=== PATIENT | male | born 1965 | race African-American/Black ===

== ENCOUNTER 2016-08-30 02:44 | Inpatient (IN) | payer MEDICAID ==
[~2016-08-30] VITALS: Ht 188 cm; Wt 104.1 kg
[~2016-08-30 02:44] MED LIST: ASPI81CH43 PO; ENA2.5T PO; FUR40T PO; FURO40TA PO; METO25TA3 PO; POTA8TAB2 PO
[2016-08-30 04:11] LABS: Basophils # (auto) 0 uL; Basophils % (auto) 0.6 % (0.0-2.0); DEFINITIVE VIEW TRANSMISSION; Eosinophils # (auto) 0.1 uL; Eosinophils % (auto) 2.1 % (0.0-7.0); Hematocrit 43.3 % (41.0-53.0); Hemoglobin 13.6 g/dL (13.5-17.5); Lymphocytes # (auto) 1.7 uL; Lymphocytes % (auto) 25.5 % (10.0-50.0); Mean Corpuscular Hemoglobin 26.6 pg (28.0-32.0); Mean Corpuscular Hgb Conc. 31.5 g/dL (32.0-36.0); Mean Corpuscular Volume 84.6 fL (80.0-100.0); Mean Platelet Volume 9.2 fL (7.4-10.4); Monocytes # (auto) 0.6 uL; Monocytes % (auto) 8.9 % (0.0-12.0); Neutrophils # (auto) 4.1 uL; Neutrophils % (auto) 62.9 % (37.0-80.0); Platelet Count (auto) 295 10^3/uL (140-450); Red Cell Distribution Width 18.6 % (11.6-16.0); White Blood Cell 6.6 10^3/uL (4.4-10.8)
[2016-08-30 04:24] LABS: Albumin 2.9 g/dL (3.4-5.0); BUN/Creatinine Ratio 8.7; Calcium 8.2 mg/dL (8.5-10.1); Potassium 3.6 mmol/L (3.5-5.1)
[2016-08-30 04:29] LABS: Bilirubin, Total 0.5 mg/dL (0.2-1.0); Total Protein 7.3 g/dL (6.4-8.2)
[2016-08-30 05:08] LABS: B-Type Natriuretic Peptide 724.99 pg/mL (0-100)
[2016-08-30] MEDS ORDERED: SODIUM CHLORIDE 0.9% 1,000 ML IV ONE (08:39)
[2016-08-30] MEDS ORDERED: FUROSEMIDE 40 MG/4 ML VIAL IV ONE (08:45)
[2016-08-30] MEDS ORDERED: METOCLOPRAMIDE HCL 5MG/ml INJ 2ml VIAL IV ONE (08:45)
[2016-08-30] MEDS ORDERED: KETOROLAC TROMETH 30 MG/ML 1ML VIAL IV ONE (08:45)
[2016-08-30] MEDS ORDERED: cefTRIAXone 1GM/50ML D5W 50 ML IV ONE (08:45)
[2016-08-30] MEDS ORDERED: LACTULOSE 20Gm/30ML SOLN PO PRN (10:30)
[2016-08-30] MEDS ORDERED: LORazepam 0.5 MG TAB PO PRN (10:30)
[2016-08-30] MEDS ORDERED: ALBUTEROL SULF 2.5 MG/0.5ML(0.5%) NEB SOLN NEB PRN (10:30)
[2016-08-30] MEDS ORDERED: ACETAMINOPHEN 500 MG TAB PO PRN (10:30)
[2016-08-30] MEDS ORDERED: MORPHINE SULF INJ 2 MG/ML SYRINGE 1ML IV PRN ×2 (10:30)
[2016-08-30] MEDS ORDERED: TEMAZEPAM 15 MG CAP PO PRN (10:30)
[2016-08-30] MEDS ORDERED: NITROGLYCERIN 0.4 MG SL TAB SL PRN (10:30)
[2016-08-30] MEDS: ENOXAPARIN SOD 40 MG/0.4 ML SYRINGE SC SCH (10:45)
[2016-08-30 10:59] VITALS: BP 169/119
[2016-08-30] MEDS: ASPirin 81 mg TAB PO SCH (11:25)
[2016-08-30] MEDS: POTASSIUM CHL 20 Meq TABLET PO SCH (11:25)
[2016-08-30] MEDS: NITROGLYCERIN 0.2MG/HR TOPICAL PATCH TD SCH (11:25)
[2016-08-30] MEDS: PANTOPRAZOLE 40 MG TAB PO SCH (11:25)
[2016-08-30] MEDS: METOPROLOL SUCCINATE XL 50 MG TAB PO SCH (11:26)
[2016-08-30] MEDS: ENALAPRIL MALEATE 2.5 MG TAB PO SCH (11:26)
[2016-08-30] MEDS: LEVOFLOXACIN 500MG 100 ML IV SCH (11:27)
[2016-08-30] MEDS: ALBUTEROL SULF 2.5 MG/0.5ML(0.5%) NEB SOLN NEB SCH ×2 (12:00→18:14)
[2016-08-30 12:49] VITALS: BP 131/101
[2016-08-30 15:06] VITALS: BP 131/101
[2016-08-30 15:50] VITALS: BP 121/88
[2016-08-30] MEDS: HYDROcodone-ACET 5/325MG TAB PO PRN ×2 (16:49→22:23)
[2016-08-30] MEDS: FUROSEMIDE 40 MG/4 ML VIAL IV SCH (17:45)
[2016-08-30 21:48] VITALS: BP 139/92
[2016-08-31] MEDS: ALBUTEROL SULF 2.5 MG/0.5ML(0.5%) NEB SOLN NEB SCH ×3 (00:19→19:20)
[2016-08-31] MEDS: PROMETHAZINE HCL 25 MG/ML 1ML IV PRN (00:24)
[2016-08-31 04:30] VITALS: BP 121/91
[2016-08-31] MEDS: FUROSEMIDE 40 MG/4 ML VIAL IV SCH (05:49)
[2016-08-31] MEDS: HYDROcodone-ACET 5/325MG TAB PO PRN ×3 (05:55→21:53)
[2016-08-31 06:42] LABS: Albumin 2.9 g/dL (3.4-5.0); BUN/Creatinine Ratio 14.7; Bilirubin, Total 0.7 mg/dL (0.2-1.0); Calcium 8.4 mg/dL (8.5-10.1); Potassium 3.9 mmol/L (3.5-5.1); Total Protein 6.7 g/dL (6.4-8.2)
[2016-08-31 07:01] LABS: B-Type Natriuretic Peptide 1313.94 pg/mL (0-100); Temperature: 21.6 C (20.0-25.0)
[2016-08-31 08:00] VITALS: BP 124/91
[2016-08-31 08:32] VITALS: BP 124/91
[2016-08-31] MEDS: LEVOFLOXACIN 500MG 100 ML IV SCH (09:54)
[2016-08-31] MEDS: POTASSIUM CHL 20 Meq TABLET PO SCH (09:55)
[2016-08-31] MEDS: ASPirin 81 mg TAB PO SCH (09:55)
[2016-08-31] MEDS: ENALAPRIL MALEATE 2.5 MG TAB PO SCH (09:55)
[2016-08-31] MEDS: PANTOPRAZOLE 40 MG TAB PO SCH (09:55)
[2016-08-31] MEDS: ENOXAPARIN SOD 40 MG/0.4 ML SYRINGE SC SCH (09:55)
[2016-08-31] MEDS: NITROGLYCERIN 0.2MG/HR TOPICAL PATCH TD SCH (09:56)
[2016-08-31] MEDS: METOPROLOL SUCCINATE XL 50 MG TAB PO SCH (09:57)
[2016-08-31] MEDS ORDERED: ENOXAPARIN SOD 40 MG/0.4 ML SYRINGE SC SCH (10:00)
[2016-08-31 12:21] VITALS: BP 129/105
[2016-08-31] MEDS: HEPARIN SODIUM (PORCINE) 5000 UNITS/ML 1ML VIAL SC SCH ×2 (13:36→22:00)
[2016-08-31 16:29] VITALS: BP 131/99
[2016-08-31 22:00] VITALS: BP 134/102
[2016-09-01] MEDS: ALBUTEROL SULF 2.5 MG/0.5ML(0.5%) NEB SOLN NEB SCH ×4 (00:45→11:48)
[2016-09-01] MEDS: HEPARIN SODIUM (PORCINE) 5000 UNITS/ML 1ML VIAL SC SCH ×3 (06:00→22:29)
[2016-09-01 06:30] LABS: INR 1.43 (0.9-1.15); Prothrombin Time 14.7 sec (9.37-12.3)
[2016-09-01 06:41] LABS: BUN/Creatinine Ratio 17.6; Calcium 8.4 mg/dL (8.5-10.1)
[2016-09-01] MEDS ORDERED: LIDOCAINE 2%HCL (LOCAL ANESTH.) INJ 20ML MDV ONE (07:27)
[2016-09-01] MEDS ORDERED: IOHEXOL 350 MG/ML 100ML IJ ONE (07:27)
[2016-09-01] MEDS ORDERED: MIDAZOLAM HCL 1MG/1ML-2 ML VIAL ONE (08:01)
[2016-09-01] MEDS ORDERED: fentaNYL CITRATE 100 MCG/2 ML VL ONE (08:01)
[2016-09-01] MEDS ORDERED: EPTIFIBATIDE INJ (2MG/ML) 10ML VIAL IV ONE (08:02)
[2016-09-01] MEDS ORDERED: SODIUM CHL 0.9% 0 ML ONE (08:02)
[2016-09-01] MEDS ORDERED: ANGIOMAX 250 MG VIAL IV ONE (08:02)
[2016-09-01] MEDS: ASPirin 81 mg TAB PO SCH (09:46)
[2016-09-01] MEDS: FUROSEMIDE 20 MG TAB PO SCH (09:47)
[2016-09-01] MEDS: METOPROLOL SUCCINATE XL 50 MG TAB PO SCH ×2 (09:48→22:27)
[2016-09-01] MEDS: ENALAPRIL MALEATE 2.5 MG TAB PO SCH ×2 (09:48→22:26)
[2016-09-01] MEDS ORDERED: SODIUM CHLORIDE 0.9% 1,000 ML IV SCH (09:51)
[2016-09-01] MEDS ORDERED: ACETAMINOPHEN 500 MG TAB PO PRN (10:00)
[2016-09-01] MEDS ORDERED: ONDANSETRON HCL 4 MG/2 ML VIAL IV PRN (10:00)
[2016-09-01] MEDS: SPIRONOLACTONE 25 MG TAB PO SCH (10:00)
[2016-09-01] MEDS: LEVOFLOXACIN 500MG 100 ML IV SCH (12:44)
[2016-09-01] MEDS: PANTOPRAZOLE 40 MG TAB PO SCH (12:44)
[2016-09-01] MEDS: POTASSIUM CHL 20 Meq TABLET PO SCH (12:44)
[2016-09-01 13:01] VITALS: BP 150/109
[2016-09-01 17:00] VITALS: BP 139/106
[2016-09-01 20:00] VITALS: BP 117/87
[2016-09-01 22:15] VITALS: BP 117/87
[2016-09-01] MEDS: HYDROcodone-ACET 5/325MG TAB PO PRN (23:09)
[2016-09-01] MEDS: ZOLPIDEM TARTRATE 5 MG TAB PO PRN (23:10)
[2016-09-02 05:07] VITALS: BP 123/86
[2016-09-02] MEDS: ALBUTEROL SULF 2.5 MG/0.5ML(0.5%) NEB SOLN NEB SCH ×4 (06:00→19:03)
[2016-09-02 06:19] LABS: Basophils # (auto) 0 uL; Basophils % (auto) 0.4 % (0.0-2.0); DEFINITIVE VIEW TRANSMISSION; Eosinophils # (auto) 0.1 uL; Eosinophils % (auto) 0.7 % (0.0-7.0); Hematocrit 43.6 % (41.0-53.0); Lymphocytes # (auto) 2.1 uL; Lymphocytes % (auto) 30.8 % (10.0-50.0); Mean Corpuscular Hemoglobin 26.7 pg (28.0-32.0); Mean Corpuscular Hgb Conc. 32.2 g/dL (32.0-36.0); Mean Platelet Volume 9.2 fL (7.4-10.4); Monocytes # (auto) 0.9 uL; Monocytes % (auto) 13.6 % (0.0-12.0); Neutrophils # (auto) 3.7 uL; Neutrophils % (auto) 54.5 % (37.0-80.0); Platelet Count (auto) 324 10^3/uL (140-450); Red Cell Distribution Width 18.2 % (11.6-16.0); White Blood Cell 6.7 10^3/uL (4.4-10.8)
[2016-09-02 07:07] LABS: BUN/Creatinine Ratio 16.9; Calcium 8.4 mg/dL (8.5-10.1); Magnesium 2.2 mg/dL (1.6-2.6); Phosphorus 2.7 mg/dL (2.5-4.90); Potassium 4.2 mmol/L (3.5-5.1)
[2016-09-02] MEDS: HEPARIN SODIUM (PORCINE) 5000 UNITS/ML 1ML VIAL SC SCH ×3 (07:28→21:55)
[2016-09-02 09:00] VITALS: BP 132/96
[2016-09-02] MEDS: METOPROLOL SUCCINATE XL 50 MG TAB PO SCH ×2 (10:04→22:02)
[2016-09-02] MEDS: ENALAPRIL MALEATE 2.5 MG TAB PO SCH ×2 (10:05→22:03)
[2016-09-02] MEDS: FUROSEMIDE 20 MG TAB PO SCH (10:05)
[2016-09-02] MEDS: LEVOFLOXACIN 500MG 100 ML IV SCH (10:08)
[2016-09-02] MEDS: SPIRONOLACTONE 25 MG TAB PO SCH (11:07)
[2016-09-02] MEDS: ASPirin 81 mg TAB PO SCH (11:07)
[2016-09-02] MEDS: POTASSIUM CHL 20 Meq TABLET PO SCH (11:07)
[2016-09-02] MEDS: PANTOPRAZOLE 40 MG TAB PO SCH (11:08)
[2016-09-02] MEDS: HYDROcodone-ACET 5/325MG TAB PO PRN (11:08)
[2016-09-02 13:00] VITALS: BP 131/97
[2016-09-02 14:13] VITALS: BP 132/96
[2016-09-02 16:32] VITALS: BP 125/96
[2016-09-02 21:50] VITALS: BP 136/99
[2016-09-02] MEDS: ZOLPIDEM TARTRATE 5 MG TAB PO PRN (22:07)
[2016-09-03] MEDS: ALBUTEROL SULF 2.5 MG/0.5ML(0.5%) NEB SOLN NEB SCH ×4 (00:58→18:00)
[2016-09-03 04:35] VITALS: BP 142/100
[2016-09-03] MEDS: HEPARIN SODIUM (PORCINE) 5000 UNITS/ML 1ML VIAL SC SCH ×3 (05:27→21:07)
[2016-09-03 08:09] VITALS: BP_SYST 142; BP_SYST 146; BP_DIAS 112; BP_DIAS 115
[2016-09-03] MEDS: LEVOFLOXACIN 500MG 100 ML IV SCH (08:45)
[2016-09-03] MEDS: POTASSIUM CHL 20 Meq TABLET PO SCH (08:46)
[2016-09-03] MEDS: ENALAPRIL MALEATE 2.5 MG TAB PO SCH ×2 (08:46→21:04)
[2016-09-03] MEDS: FUROSEMIDE 20 MG TAB PO SCH (08:47)
[2016-09-03] MEDS: SPIRONOLACTONE 25 MG TAB PO SCH (08:47)
[2016-09-03] MEDS: METOPROLOL SUCCINATE XL 50 MG TAB PO SCH ×2 (08:47→21:03)
[2016-09-03] MEDS: ASPirin 81 mg TAB PO SCH (08:48)
[2016-09-03] MEDS: PANTOPRAZOLE 40 MG TAB PO SCH (08:48)
[2016-09-03 11:06] VITALS: BP 124/95
[2016-09-03] MEDS ORDERED: IOHEXOL 350 MG/ML 100ML IJ ONE (12:14)
[2016-09-03] MEDS ORDERED: LIDOCAINE 2%HCL (LOCAL ANESTH.) INJ 20ML MDV ONE ×2 (12:14→13:53)
[2016-09-03] MEDS ORDERED: VANCOMYCIN HCL 1000 MG VL ONE (12:51)
[2016-09-03] MEDS ORDERED: VANCOMYCIN 1GM/250ML D5W 250 ML IV ONE (12:52)
[2016-09-03] MEDS ORDERED: ceFAZolin 1GM/50ML D5W 50 ML IV ONE ×2 (12:52→13:00)
[2016-09-03] MEDS ORDERED: fentaNYL CITRATE 100 MCG/2 ML VL ONE (13:10)
[2016-09-03] MEDS ORDERED: MIDAZOLAM HCL 1MG/1ML-2 ML VIAL ONE (13:10)
[2016-09-03] MEDS ORDERED: HYDROmorphone HCL 2 MG/ML VL ONE (13:53)
[2016-09-03] MEDS ORDERED: FUROSEMIDE 20 MG/2 ML VIAL ONE ×2 (14:03→14:59)
[2016-09-03] MEDS ORDERED: ENALAPRIL MALEATE 2.5 MG TAB PO ONE (14:15)
[2016-09-03] MEDS ORDERED: amLODIPine BESYLATE 5 MG TAB PO ONE (14:15)
[2016-09-03] MEDS ORDERED: ONDANSETRON HCL 4 MG/2 ML VIAL ONE (15:11)
[2016-09-03] MEDS ORDERED: SODIUM CHLORIDE 0.9% 1,000 ML IV SCH (15:32)
[2016-09-03 18:03] VITALS: BP 123/86
[2016-09-03] MEDS: PROMETHAZINE HCL 25 MG/ML 1ML IV PRN (19:03)
[2016-09-03] MEDS: HYDROcodone-ACET 5/325MG TAB PO PRN (19:04)
[2016-09-03] MEDS ORDERED: HEPARIN SODIUM (PORCINE) 5000 UNITS/ML 1ML VIAL ONE (20:22)
[2016-09-03] MEDS: VANCOMYCIN 1GM/250ML D5W 250 ML IV SCH (21:03)
[2016-09-03 22:00] VITALS: BP 149/114
[2016-09-03 22:30] VITALS: BP 121/83
[2016-09-04] MEDS: MORPHINE SULF INJ 2 MG/ML SYRINGE 1ML IV PRN ×2 (04:59→12:47)
[2016-09-04 05:00] VITALS: BP 114/53
[2016-09-04] MEDS: HEPARIN SODIUM (PORCINE) 5000 UNITS/ML 1ML VIAL SC SCH ×2 (05:10→15:35)
[2016-09-04] MEDS: ALBUTEROL SULF 2.5 MG/0.5ML(0.5%) NEB SOLN NEB SCH ×3 (06:00→12:00)
[2016-09-04 09:00] VITALS: BP 121/85
[2016-09-04] MEDS: VANCOMYCIN 1GM/250ML D5W 250 ML IV SCH (09:44)
[2016-09-04] MEDS: ASPirin 81 mg TAB PO SCH (09:44)
[2016-09-04] MEDS: SPIRONOLACTONE 25 MG TAB PO SCH (09:45)
[2016-09-04] MEDS: FUROSEMIDE 20 MG TAB PO SCH (09:45)
[2016-09-04] MEDS: POTASSIUM CHL 20 Meq TABLET PO SCH (09:45)
[2016-09-04] MEDS: METOPROLOL SUCCINATE XL 50 MG TAB PO SCH (09:46)
[2016-09-04] MEDS: PANTOPRAZOLE 40 MG TAB PO SCH (09:46)
[2016-09-04] MEDS: ENALAPRIL MALEATE 2.5 MG TAB PO SCH (09:46)
[2016-09-04] MEDS ORDERED: amLODIPine BESYLATE 5 MG TAB PO SCH (10:00)
[2016-09-04 11:32] VITALS: BP 145/112
[2016-09-04] MEDS: LEVOFLOXACIN 500MG 100 ML IV SCH (12:47)
[2016-09-04 16:35] VITALS: BP 124/83
== END 2016-09-04 19:08 | disposition home or self-care (01) | DRG 161 ==
LOC: EDBD 02:44 → ER 02:44 → TELE-WESTW 02:45
PROVIDERS: ADMIT Internal Medicine; ATTEND Internal Medicine
PROC: B2111ZZ Fluoroscopy of Multiple Coronary Arteries using Low Osmolar Contrast (ICD-10-PCS; 2016-09-01)
PROC: B2151ZZ Fluoroscopy of Left Heart using Low Osmolar Contrast (ICD-10-PCS; 2016-09-01)
PROC: 4A023N7 Measurement of Cardiac Sampling and Pressure, Left Heart, Percutaneous Approach (ICD-10-PCS; 2016-09-01)
PROC: B41F1ZZ Fluoroscopy of Right Lower Extremity Arteries using Low Osmolar Contrast (ICD-10-PCS; 2016-09-01)
PROC: 02HK3KZ Insertion of Defibrillator Lead into Right Ventricle, Percutaneous Approach (ICD-10-PCS; principal; 2016-09-04)
PROC: 0JH609Z Insertion of Cardiac Resynchronization Defibrillator Pulse Generator into Chest Subcutaneous Tissue and Fascia, Open Approach (ICD-10-PCS; 2016-09-04)
PROC: 02H63KZ Insertion of Defibrillator Lead into Right Atrium, Percutaneous Approach (ICD-10-PCS; 2016-09-04)
PROC: 02HL3KZ Insertion of Defibrillator Lead into Left Ventricle, Percutaneous Approach (ICD-10-PCS; 2016-09-04)
DX: I13.0 Hypertensive heart and chronic kidney disease with heart failure and stage 1 through stage 4 chronic kidney disease, or unspecified chronic kidney disease (principal); J15.6 Pneumonia due to other Gram-negative bacteria; N17.9 Acute kidney failure, unspecified; E44.0 Moderate protein-calorie malnutrition; I42.0 Dilated cardiomyopathy; N18.3 Chronic kidney disease, stage 3 (moderate); J15.9 Unspecified bacterial pneumonia; I50.23 Acute on chronic systolic (congestive) heart failure; K42.9 Umbilical hernia without obstruction or gangrene; E78.5 Hyperlipidemia, unspecified; F12.90 Cannabis use, unspecified, uncomplicated; I25.10 Atherosclerotic heart disease of native coronary artery without angina pectoris; Z81.8 Family history of other mental and behavioral disorders; Z82.49 Family history of ischemic heart disease and other diseases of the circulatory system; Z83.3 Family history of diabetes mellitus; Z87.891 Personal history of nicotine dependence; Z95.810 Presence of automatic (implantable) cardiac defibrillator; Z82.61 Family history of arthritis; Z81.1 Family history of alcohol abuse and dependence
CPT/HCPCS: 33249; 93458; 96365; 96366; 96375; 99285; G0278; 33225; 36415; 71010; 71020; 80048; 80053; 80061; 82550; 83735; 83880; 84100; 84443; 84484; 85025; 85610; 85652; 86141; 87040; 87070; 87205; 87400; 93005; 94640; 94761; 99152; C1769; G0434; J0690; J0696; J1885; J1956; J2250; J2405

== ENCOUNTER 2017-01-07 10:13 | Emergency (ER) | payer MEDICAID ==
[~2017-01-07] VITALS: Ht 185.4 cm; Wt 117.9 kg
[~2017-01-07 10:13] MED LIST changes: -FUR40T PO
[2017-01-07 10:25] VITALS: BP 154/109
== END 2017-01-07 10:36 | disposition left against medical advice (07) ==
LOC: ER 10:13 → EDBD 10:13 → EDUNIT# 10:13 → ER 10:36
DX: R06.02 Shortness of breath (principal); Z53.21 Procedure and treatment not carried out due to patient leaving prior to being seen by health care provider

== ENCOUNTER 2017-03-08 01:05 | Inpatient (IN) | payer MEDICAID ==
[~2017-03-08] VITALS: Ht 185.4 cm; Wt 110.1 kg
[2017-03-08 01:46] LABS: Basophils # (auto) 0 uL; Basophils % (auto) 0.4 % (0.0-2.0); CONDITION Y; Eosinophils # (auto) 0.2 uL; Eosinophils % (auto) 2.5 % (0.0-7.0); Hematocrit 40.6 % (41.0-53.0); Hemoglobin 12.9 g/dL (13.5-17.5); Lymphocytes # (auto) 1.4 uL; Lymphocytes % (auto) 20.5 % (10.0-50.0); Mean Corpuscular Hgb Conc. 31.9 g/dL (32.0-36.0); Mean Corpuscular Volume 84.7 fL (80.0-100.0); Mean Platelet Volume 8.9 fL (7.4-10.4); Monocytes # (auto) 0.8 uL; Monocytes % (auto) 11.8 % (0.0-12.0); Neutrophils # (auto) 4.3 uL; Neutrophils % (auto) 64.8 % (37.0-80.0); Platelet Count (auto) 258 10^3/uL (140-450); Red Cell Distribution Width 17.7 % (11.6-16.0); White Blood Cell 6.6 10^3/uL (4.4-10.8)
[2017-03-08 02:03] LABS: INR 1.11 (0.9-1.15); Partial Thromboplastin Time 26.8 sec (22.64-33.71); Prothrombin Time 12.1 sec (9.37-12.3)
[2017-03-08 02:58] LABS: Albumin 2.9 g/dL (3.4-5.0); BUN/Creatinine Ratio 9.8; Bilirubin, Total 0.8 mg/dL (0.2-1.0); Calcium 8.2 mg/dL (8.5-10.1); Magnesium 2.3 mg/dL (1.6-2.6); Potassium 3.6 mmol/L (3.5-5.1); Total Protein 7.2 g/dL (6.4-8.2)
[2017-03-08 03:14] LABS: Temperature: 22.3 C (20.0-25.0)
[2017-03-08] MEDS ORDERED: IPRATROPIUM BROM 0.5 MG/2.5ML INH SOL NEB ONE (03:30)
[2017-03-08] MEDS ORDERED: ALBUTEROL SULF 2.5 MG/0.5ML(0.5%) NEB SOLN NEB ONE (03:30)
[2017-03-08] MEDS ORDERED: methylPREDNISolone SOD SUCC 125 MG/2 ML VL IV ONE (04:00)
[2017-03-08] MEDS ORDERED: cloNIDine HCL 0.1 MG TAB PO ONE (04:00)
[2017-03-08] MEDS ORDERED: ONDANSETRON HCL 4 MG/2 ML VIAL IV ONE (04:15)
[2017-03-08] MEDS ORDERED: SODIUM CHLORIDE 0.9% 1,000 ML IV ONE (05:15)
[2017-03-08] MEDS ORDERED: FUROSEMIDE 20 MG/2 ML VIAL IV ONE ×2 (05:15→23:45)
[2017-03-08] MEDS ORDERED: FAMOTIDINE (10MG/ML) 2ML VL IV ONE (05:15)
[2017-03-08] MEDS ORDERED: IOHEXOL 350 MG/ML 100ML IJ ONE (06:35)
[2017-03-08 06:38] LABS: Urine Bilirubin Negative (Negative); Urine Blood TRACE /uL (Negative); Urine Color Yellow (Yellow); Urine Glucose Normal (Normal); Urine Hyaline Cast FEW /lpf (0 - 2); Urine Ketone Negative (Negative); Urine Mucus FEW (None Seen); Urine Nitrite Negative (Negative); Urine RBC 2 /hpf (0 - 3); Urine Squamous Epithelial Cell FEW /hpf (<5)
[2017-03-08] MEDS ORDERED: NITROGLYCERIN 0.4 MG SL TAB SL PRN (07:00)
[2017-03-08] MEDS ORDERED: ENOXAPARIN SOD 100 MG/1 ML SYRINGE SC ONE (07:00)
[2017-03-08] MEDS ORDERED: ALBUTEROL SULF 2.5 MG/0.5ML(0.5%) NEB SOLN NEB PRN (07:00)
[2017-03-08] MEDS ORDERED: HYDROcodone-ACET 5/325MG TAB PO PRN (07:00)
[2017-03-08] MEDS ORDERED: TEMAZEPAM 15 MG CAP PO PRN (07:00)
[2017-03-08] MEDS ORDERED: MORPHINE SULF INJ 2 MG/ML SYRINGE 1ML IV PRN ×2 (07:00)
[2017-03-08] MEDS ORDERED: ENOXAPARIN SOD 120 MG/0.8 ML SYRINGE SC ONE (07:15)
[2017-03-08 10:32] VITALS: BP 153/118
[2017-03-08] MEDS: ENOXAPARIN SOD 40 MG/0.4 ML SYRINGE SC SCH (10:52)
[2017-03-08] MEDS: METOPROLOL TARTRATE 25 MG TAB PO SCH ×2 (10:53→21:43)
[2017-03-08] MEDS: FAMOTIDINE 20 MG TAB PO SCH ×2 (10:53→21:43)
[2017-03-08] MEDS: ENALAPRIL MALEATE 2.5 MG TAB PO SCH (10:54)
[2017-03-08] MEDS: ASPirin 81 mg TAB PO SCH (10:54)
[2017-03-08 11:02] VITALS: BP 153/18
[2017-03-08] MEDS: ONDANSETRON HCL 4 MG/2 ML VIAL IV PRN (13:13)
[2017-03-08 16:05] VITALS: BP 149/109
[2017-03-08] MEDS: FUROSEMIDE 40 MG TAB PO SCH (17:33)
[2017-03-08 18:17] VITALS: BP 136/105
[2017-03-08 22:00] VITALS: BP 138/93
[2017-03-09 05:00] VITALS: BP 144/101
[2017-03-09] MEDS: FUROSEMIDE 40 MG TAB PO SCH ×2 (05:51→10:19)
[2017-03-09 06:26] LABS: Basophils # (auto) 0 uL; Basophils % (auto) 0.3 % (0.0-2.0); Eosinophils # (auto) 0 uL; Hematocrit 47.6 % (41.0-53.0); Hemoglobin 14.8 g/dL (13.5-17.5); Lymphocytes # (auto) 1.2 uL; Lymphocytes % (auto) 11.7 % (10.0-50.0); Mean Corpuscular Hemoglobin 26.9 pg (28.0-32.0); Mean Corpuscular Volume 86.8 fL (80.0-100.0); Mean Platelet Volume 9.1 fL (7.4-10.4); Monocytes # (auto) 1.1 uL; Monocytes % (auto) 11.2 % (0.0-12.0); Neutrophils # (auto) 7.6 uL; Neutrophils % (auto) 76.8 % (37.0-80.0); Nucleated Red Blood Cells % 0.1 %; Platelet Count (auto) 257 10^3/uL (140-450); Red Cell Distribution Width 17.5 % (11.6-16.0); White Blood Cell 9.9 10^3/uL (4.4-10.8)
[2017-03-09 06:39] LABS: Albumin 3.3 g/dL (3.4-5.0); BUN/Creatinine Ratio 14.5; Bilirubin, Total 3.2 mg/dL (0.2-1.0); Calcium 9.7 mg/dL (8.5-10.1); Magnesium 2.6 mg/dL (1.6-2.6)
[2017-03-09 08:40] VITALS: BP 146/100
[2017-03-09] MEDS: ASPirin 81 mg TAB PO SCH (10:16)
[2017-03-09] MEDS: METOPROLOL TARTRATE 25 MG TAB PO SCH ×2 (10:17→21:28)
[2017-03-09] MEDS: ENALAPRIL MALEATE 2.5 MG TAB PO SCH (10:18)
[2017-03-09] MEDS: FAMOTIDINE 20 MG TAB PO SCH ×2 (10:18→21:28)
[2017-03-09] MEDS: ENOXAPARIN SOD 40 MG/0.4 ML SYRINGE SC SCH (10:18)
[2017-03-09] MEDS: ACETAMINOPHEN 325 MG TAB PO PRN ×2 (12:35→21:37)
[2017-03-09] MEDS: ONDANSETRON HCL 4 MG/2 ML VIAL IV PRN (12:35)
[2017-03-09 12:41] VITALS: BP 136/107
[2017-03-09 16:43] VITALS: BP 129/101
[2017-03-09 21:30] VITALS: BP 136/99
[2017-03-10 05:00] VITALS: BP 121/80
[2017-03-10 07:02] LABS: Basophils # (auto) 0 uL; Basophils % (auto) 0.6 % (0.0-2.0); Eosinophils # (auto) 0 uL; Eosinophils % (auto) 0.3 % (0.0-7.0); Hematocrit 41.8 % (41.0-53.0); Hemoglobin 13.2 g/dL (13.5-17.5); Lymphocytes # (auto) 1.1 uL; Lymphocytes % (auto) 16.3 % (10.0-50.0); Mean Corpuscular Hemoglobin 26.9 pg (28.0-32.0); Mean Corpuscular Hgb Conc. 31.6 g/dL (32.0-36.0); Mean Corpuscular Volume 85.2 fL (80.0-100.0); Monocytes # (auto) 0.9 uL; Monocytes % (auto) 13.2 % (0.0-12.0); Neutrophils # (auto) 4.7 uL; Neutrophils % (auto) 69.6 % (37.0-80.0); Nucleated Red Blood Cells % 0.6 %; Platelet Count (auto) 236 10^3/uL (140-450); Red Cell Distribution Width 17.4 % (11.6-16.0); White Blood Cell 6.7 10^3/uL (4.4-10.8)
[2017-03-10 07:06] LABS: Potassium 4.5 mmol/L (3.5-5.1)
[2017-03-10 07:11] LABS: Calcium 9.1 mg/dL (8.5-10.1); Magnesium 2.6 mg/dL (1.6-2.6)
[2017-03-10 10:28] VITALS: BP 109/75
[2017-03-10] MEDS: ASPirin 81 mg TAB PO SCH (10:53)
[2017-03-10] MEDS: FAMOTIDINE 20 MG TAB PO SCH ×2 (10:54→21:40)
[2017-03-10] MEDS: FUROSEMIDE 40 MG TAB PO SCH (10:54)
[2017-03-10] MEDS: METOPROLOL TARTRATE 25 MG TAB PO SCH ×2 (10:54→21:40)
[2017-03-10] MEDS: ENOXAPARIN SOD 40 MG/0.4 ML SYRINGE SC SCH (10:54)
[2017-03-10 13:31] VITALS: BP 120/85
[2017-03-10] MEDS: ALPRAZolam 0.5 MG TAB PO PRN (16:00)
[2017-03-10 17:05] VITALS: BP 130/97
[2017-03-10 22:00] VITALS: BP 125/94
[2017-03-11] VITALS (7 sets, daily range): BP systolic 114–132; BP diastolic 89–99
[2017-03-11 06:20] LABS: Basophils # (auto) 0 uL; Basophils % (auto) 0.6 % (0.0-2.0); CONDITION Y; Eosinophils # (auto) 0 uL; Eosinophils % (auto) 0.5 % (0.0-7.0); Hematocrit 43.8 % (41.0-53.0); Hemoglobin 14.4 g/dL (13.5-17.5); Lymphocytes # (auto) 1.7 uL; Lymphocytes % (auto) 20.8 % (10.0-50.0); Mean Corpuscular Hemoglobin 27.4 pg (28.0-32.0); Mean Corpuscular Hgb Conc. 32.9 g/dL (32.0-36.0); Mean Corpuscular Volume 83.4 fL (80.0-100.0); Monocytes # (auto) 1.3 uL; Monocytes % (auto) 15.7 % (0.0-12.0); Neutrophils # (auto) 5.1 uL; Neutrophils % (auto) 62.4 % (37.0-80.0); Platelet Count (auto) 250 10^3/uL (140-450); Red Cell Distribution Width 16.8 % (11.6-16.0); SUSPECT SEE PRINTOUT; White Blood Cell 8.2 10^3/uL (4.4-10.8)
[2017-03-11 06:40] LABS: BUN/Creatinine Ratio 19.2; Calcium 8.7 mg/dL (8.5-10.1); Magnesium 2.5 mg/dL (1.6-2.6); Phosphorus 2.8 mg/dL (2.5-4.90); Potassium 4.3 mmol/L (3.5-5.1)
[2017-03-11] MEDS: ONDANSETRON HCL 4 MG/2 ML VIAL IV PRN (08:40)
[2017-03-11] MEDS: ASPirin 81 mg TAB PO SCH (09:46)
[2017-03-11] MEDS: ENOXAPARIN SOD 40 MG/0.4 ML SYRINGE SC SCH (09:46)
[2017-03-11] MEDS: FAMOTIDINE 20 MG TAB PO SCH ×2 (09:46→22:01)
[2017-03-11] MEDS: FUROSEMIDE 40 MG TAB PO SCH (09:47)
[2017-03-11] MEDS: METOPROLOL TARTRATE 25 MG TAB PO SCH ×2 (09:47→22:01)
[2017-03-11] MEDS: ACETAMINOPHEN 325 MG TAB PO PRN (22:04)
[2017-03-12 05:25] VITALS: BP 134/108
[2017-03-12 06:37] LABS: BUN/Creatinine Ratio 19.5; Calcium 8.7 mg/dL (8.5-10.1); Magnesium 2.7 mg/dL (1.6-2.6); Phosphorus 3.1 mg/dL (2.5-4.90)
[2017-03-12] MEDS: ALPRAZolam 0.5 MG TAB PO PRN (06:58)
[2017-03-12 09:28] VITALS: BP 148/116
[2017-03-12] MEDS: ASPirin 81 mg TAB PO SCH (10:55)
[2017-03-12] MEDS: FUROSEMIDE 40 MG TAB PO SCH (10:56)
[2017-03-12] MEDS: ENOXAPARIN SOD 40 MG/0.4 ML SYRINGE SC SCH (10:57)
[2017-03-12] MEDS: FAMOTIDINE 20 MG TAB PO SCH (10:57)
[2017-03-12] MEDS: METOPROLOL TARTRATE 25 MG TAB PO SCH (10:58)
[2017-03-12 11:58] VITALS: BP 148/116
[2017-03-12 13:00] VITALS: BP 129/69
[2017-03-12] MEDS ORDERED: MAGNESIUM SULFATE 1GM/100ML 100 ML IV ONE (15:16)
== END 2017-03-12 16:30 | disposition home health service (06) | DRG 194 ==
LOC: EDBD 01:05 → EDUNIT# 01:05 → ER 01:08 → TELE 01:09 → TELE-CENTR 13:20
PROVIDERS: ADMIT Nurse Practitioner; ATTEND Internal Medicine
DX: I13.0 Hypertensive heart and chronic kidney disease with heart failure and stage 1 through stage 4 chronic kidney disease, or unspecified chronic kidney disease (principal); N17.0 Acute kidney failure with tubular necrosis; I42.0 Dilated cardiomyopathy; N18.3 Chronic kidney disease, stage 3 (moderate); I08.3 Combined rheumatic disorders of mitral, aortic and tricuspid valves; I50.23 Acute on chronic systolic (congestive) heart failure; E66.9 Obesity, unspecified; F12.90 Cannabis use, unspecified, uncomplicated; F15.90 Other stimulant use, unspecified, uncomplicated; F41.9 Anxiety disorder, unspecified; I25.10 Atherosclerotic heart disease of native coronary artery without angina pectoris; I87.2 Venous insufficiency (chronic) (peripheral); J44.9 Chronic obstructive pulmonary disease, unspecified; N14.1 Nephropathy induced by other drugs, medicaments and biological substances; T50.8X5A Adverse effect of diagnostic agents, initial encounter; Y92.89 Other specified places as the place of occurrence of the external cause; Z81.8 Family history of other mental and behavioral disorders; Z82.49 Family history of ischemic heart disease and other diseases of the circulatory system; Z95.810 Presence of automatic (implantable) cardiac defibrillator; Z83.3 Family history of diabetes mellitus; Z71.51 Drug abuse counseling and surveillance of drug abuser; I25.2 Old myocardial infarction; Z82.61 Family history of arthritis; Z79.82 Long term (current) use of aspirin; Z87.891 Personal history of nicotine dependence
CPT/HCPCS: 36415; 71010; 71020; 71275; 80048; 80053; 80307; 81001; 83735; 83880; 84100; 84484; 85025; 85379; 85610; 85730; 93005; 94640; 96374; 96375; J2405; J3490

== ENCOUNTER 2017-07-20 15:31 | Inpatient (IN) | payer MEDICAID ==
[~2017-07-20] VITALS: Ht 188 cm; Wt 100.2 kg
[~2017-07-20 15:31] MED LIST changes: +AMOX600S PO; +FAM20T PO; -FURO40TA PO; +FURO40TA4 PO; +POTA10TA51 PO; -POTA8TAB2 PO; +SPIR25TA89 PO
[2017-07-20] MEDS ORDERED: methylPREDNISolone SOD SUCC 125 MG/2 ML VL IV ONE (16:00)
[2017-07-20] MEDS ORDERED: IPRATROPIUM BROM 0.5 MG/2.5ML INH SOL NEB ONE (16:00)
[2017-07-20] MEDS ORDERED: ALBUTEROL SULF 2.5 MG/0.5ML(0.5%) NEB SOLN NEB ONE (16:00)
[2017-07-20] MEDS ORDERED: PROMETHAZINE W/CODEINE 5 ML ORAL SYRUP PO ONE (16:00)
[2017-07-20 17:13] LABS: Basophils # (auto) 0 uL; Basophils % (auto) 0.8 % (0.0-2.0); Eosinophils # (auto) 0.1 uL; Eosinophils % (auto) 2.8 % (0.0-7.0); INR 1.16 (0.9-1.15); Lymphocytes # (auto) 1.1 uL; Monocytes # (auto) 0.7 uL; Monocytes % (auto) 15.9 % (0.0-12.0); Partial Thromboplastin Time 27.1 sec (22.64-33.71); Prothrombin Time 12.7 sec (9.37-12.3)
[2017-07-20 17:15] LABS: Hematocrit 40.8 % (41.0-53.0); Hemoglobin 13.4 g/dL (13.5-17.5); Lymphocytes % (auto) 25.1 % (10.0-50.0); Mean Corpuscular Hemoglobin 27.5 pg (28.0-32.0); Mean Corpuscular Hgb Conc. 32.7 g/dL (32.0-36.0); Neutrophils # (auto) 2.4 uL; Neutrophils % (auto) 55.4 % (37.0-80.0); Nucleated Red Blood Cells % 0.1 %; Platelet Count (auto) 228 10^3/uL (140-450); Red Blood Cells 4.86 10^6/uL (4.5-5.90); White Blood Cell 4.4 10^3/uL (4.4-10.8)
[2017-07-20] MEDS ORDERED: TEMAZEPAM 15 MG CAP PO PRN (17:15)
[2017-07-20] MEDS ORDERED: HYDROcodone-ACET 5/325MG TAB PO PRN (17:15)
[2017-07-20] MEDS ORDERED: cefTRIAXone 1GM/10ml IVPUSH 10 ML IV ONE (17:15)
[2017-07-20] MEDS ORDERED: MORPHINE SULFATE 10 MG/ML INJ 1ML SDV IV PRN ×2 (17:15)
[2017-07-20] MEDS ORDERED: ONDANSETRON HCL 4 MG/2 ML VIAL IV PRN (17:15)
[2017-07-20] MEDS ORDERED: ACETAMINOPHEN 325 MG TAB PO PRN (17:15)
[2017-07-20] MEDS ORDERED: NITROGLYCERIN 0.4 MG SL TAB SL PRN (17:15)
[2017-07-20 17:20] LABS: Alanine Aminotransferase 41 U/L (16-61); Albumin 3.3 g/dL (3.4-5.0); Alkaline Phosphatase 275 U/L (45-117); Anion Gap 7 (5-15); Aspartate Aminotransferase 56 U/L (15-37); BUN/Creatinine Ratio 11.1; Blood Urea Nitrogen 14 mg/dL (7-18); Calcium 8.4 mg/dL (8.5-10.1); Carbon Dioxide 26 mmol/L (21-32); Chloride 106 mmol/L (98-107); GFR African American 77 mL/min; GFR Non-African American 64 mL/min; Potassium 3.7 mmol/L (3.5-5.1); Sodium 139 mmol/L (136-145); Total Protein 8.7 g/dL (6.4-8.2)
[2017-07-20] MEDS ORDERED: cloNIDine HCL 0.1 MG TAB PO PRN (17:30)
[2017-07-20] MEDS ORDERED: FUROSEMIDE 40 MG/4 ML VIAL IV ONE (17:30)
[2017-07-20 17:33] LABS: Glucose 45 mg/dL (74-106)
[2017-07-20 17:39] LABS: Red Cell Distribution Width 21.7 % (11.8-14.3)
[2017-07-20 17:39] LABS: Urine Bacteria NONE SEEN /hpf (None Seen); Urine Blood TRACE /uL (Negative); Urine Specific Gravity 1.009 (1.001-1.035); Urine WBC <1 /hpf (0 - 3)
[2017-07-20] MEDS ORDERED: DEXTROSE (50%) 50ML SYRG IV PRN (17:45)
[2017-07-20] MEDS: ALBUTEROL SULF 2.5 MG/0.5ML(0.5%) NEB SOLN NEB SCH (18:00)
[2017-07-20] MEDS ORDERED: METOPROLOL SUCCINATE XL 50 MG TAB PO ONE (18:00)
[2017-07-20] MEDS ORDERED: AZITHROMYCIN 500MG/ 250ML 250 ML IV ONE (18:00)
[2017-07-20] MEDS ORDERED: ENALAPRIL MALEATE 2.5 MG TAB PO ONE (18:00)
[2017-07-20] MEDS ORDERED: ASPirin-EC 81 mg tab PO ONE (18:00)
[2017-07-20] MEDS: IPRATROPIUM BROM 0.5 MG/2.5ML INH SOL NEB SCH (18:00)
[2017-07-20] MEDS ORDERED: POTASSIUM CHL 10 Meq TABLET PO ONE (18:00)
[2017-07-20] MEDS: ACCU-CHEK COMFORT CURVE STRIP VI SCH ×8 (18:45→23:45)
[2017-07-20] MEDS: SODIUM CHLORIDE 0.9% 1,000 ML IV SCH (19:20)
[2017-07-20] MEDS: SPIRONOLACTONE 25 MG TAB PO SCH (19:56)
[2017-07-20] MEDS: BOOST PLUS 8 ounce PO SCH (19:57)
[2017-07-20 20:37] VITALS: BP 135/76
[2017-07-20 21:33] VITALS: BP 160/115
[2017-07-20] MEDS: FAMOTIDINE 20 MG TAB PO SCH (22:01)
[2017-07-20] MEDS: ATORVASTATIN 20 MG TAB PO SCH (22:01)
[2017-07-21] MEDS: SODIUM CHLORIDE 0.9% 1,000 ML IV SCH (01:16)
[2017-07-21 04:35] VITALS: BP 135/87
[2017-07-21] MEDS: SPIRONOLACTONE 25 MG TAB PO SCH ×2 (05:56→17:23)
[2017-07-21] MEDS ORDERED: ACCU-CHEK COMFORT CURVE STRIP VI SCH (06:00)
[2017-07-21] MEDS: ALBUTEROL SULF 2.5 MG/0.5ML(0.5%) NEB SOLN NEB SCH ×4 (06:00→18:42)
[2017-07-21] MEDS: IPRATROPIUM BROM 0.5 MG/2.5ML INH SOL NEB SCH ×4 (06:00→18:42)
[2017-07-21 06:27] LABS: Basophils # (auto) 0 uL; Basophils % (auto) 0.1 % (0.0-2.0); Eosinophils # (auto) 0 uL; Hematocrit 40.9 % (41.0-53.0); Hemoglobin 13.2 g/dL (13.5-17.5); Lymphocytes # (auto) 0.3 uL; Lymphocytes % (auto) 12.9 % (10.0-50.0); Mean Corpuscular Hemoglobin 27.1 pg (28.0-32.0); Mean Corpuscular Hgb Conc. 32.3 g/dL (32.0-36.0); Mean Corpuscular Volume 83.9 fL (80.0-100.0); Monocytes # (auto) 0.1 uL; Neutrophils # (auto) 2.3 uL; Nucleated Red Blood Cells % 0.2 %; Platelet Count (auto) 225 10^3/uL (140-450); Red Blood Cells 4.87 10^6/uL (4.5-5.90); White Blood Cell 2.7 10^3/uL (4.4-10.8)
[2017-07-21 06:30] LABS: Red Cell Distribution Width 21.8 % (11.8-14.3)
[2017-07-21 06:50] LABS: Alanine Aminotransferase 43 U/L (16-61); Anion Gap 11 (5-15); Aspartate Aminotransferase 48 U/L (15-37); BUN/Creatinine Ratio 12.2; Blood Urea Nitrogen 14 mg/dL (7-18); Calcium 8.9 mg/dL (8.5-10.1); Carbon Dioxide 23 mmol/L (21-32); Chloride 103 mmol/L (98-107); GFR African American 86 mL/min; GFR Non-African American 71 mL/min; Glucose 164 mg/dL (74-106); Potassium 4.2 mmol/L (3.5-5.1); Sodium 137 mmol/L (136-145)
[2017-07-21 06:57] LABS: Alkaline Phosphatase 252 U/L (45-117); Bilirubin, Total 2.3 mg/dL (0.2-1.0); Total Protein 8.1 g/dL (6.4-8.2)
[2017-07-21] MEDS: BOOST PLUS 8 ounce PO SCH ×3 (08:00→18:03)
[2017-07-21 08:30] VITALS: BP 145/99
[2017-07-21 09:00] VITALS: BP 145/99
[2017-07-21] MEDS ORDERED: cefTRIAXone 1GM/10ml IVPUSH 10 ML IV SCH (09:00)
[2017-07-21] MEDS: MULTIPLE VITAMIN TAB PO SCH (09:46)
[2017-07-21] MEDS: METOPROLOL SUCCINATE XL 50 MG TAB PO SCH (09:46)
[2017-07-21] MEDS: ASPirin-EC 81 mg tab PO SCH (09:46)
[2017-07-21] MEDS: FAMOTIDINE 20 MG TAB PO SCH ×2 (09:47→22:00)
[2017-07-21] MEDS ORDERED: AZITHROMYCIN 500MG/ 250ML 250 ML IV SCH (10:00)
[2017-07-21] MEDS ORDERED: POTASSIUM CHL 10 Meq TABLET PO SCH (10:00)
[2017-07-21] MEDS ORDERED: ENALAPRIL MALEATE 2.5 MG TAB PO SCH (10:00)
[2017-07-21] MEDS ORDERED: FUROSEMIDE 40 MG TAB PO SCH (10:00)
[2017-07-21] MEDS ORDERED: FUROSEMIDE 40 MG/4 ML VIAL IV ONE (11:00)
[2017-07-21] MEDS: ENOXAPARIN SOD 40 MG/0.4 ML SYRINGE SC SCH (11:14)
[2017-07-21 13:00] VITALS: BP 146/101
[2017-07-21 17:00] VITALS: BP 137/94
[2017-07-21] MEDS: FUROSEMIDE 20 MG/2 ML VIAL IV SCH (17:22)
[2017-07-21 22:00] VITALS: BP 132/89
[2017-07-21] MEDS: ENALAPRIL MALEATE 2.5 MG TAB PO SCH (22:00)
[2017-07-21] MEDS: ATORVASTATIN 20 MG TAB PO SCH (22:00)
[2017-07-21] MEDS: POTASSIUM CHL 10 Meq TABLET PO SCH (22:00)
[2017-07-22 05:52] VITALS: BP 130/96
[2017-07-22] MEDS: FUROSEMIDE 20 MG/2 ML VIAL IV SCH ×2 (06:14→17:42)
[2017-07-22] MEDS: SPIRONOLACTONE 25 MG TAB PO SCH ×2 (06:14→17:42)
[2017-07-22] MEDS: IPRATROPIUM BROM 0.5 MG/2.5ML INH SOL NEB SCH ×4 (07:10→18:00)
[2017-07-22] MEDS: ALBUTEROL SULF 2.5 MG/0.5ML(0.5%) NEB SOLN NEB SCH ×4 (07:10→18:00)
[2017-07-22 08:00] VITALS: BP_SYST 142
[2017-07-22 08:37] VITALS: BP 142/103
[2017-07-22 08:44] LABS: BUN/Creatinine Ratio 17.3; Calcium 8.8 mg/dL (8.5-10.1); Potassium 3.5 mmol/L (3.5-5.1)
[2017-07-22] MEDS: POTASSIUM CHL 10 Meq TABLET PO SCH ×2 (09:32→22:01)
[2017-07-22] MEDS: ASPirin-EC 81 mg tab PO SCH (09:33)
[2017-07-22] MEDS: MULTIPLE VITAMIN TAB PO SCH (09:34)
[2017-07-22] MEDS: FAMOTIDINE 20 MG TAB PO SCH ×2 (09:34→22:02)
[2017-07-22] MEDS: ENOXAPARIN SOD 40 MG/0.4 ML SYRINGE SC SCH (09:35)
[2017-07-22] MEDS: ENALAPRIL MALEATE 2.5 MG TAB PO SCH ×2 (09:35→22:00)
[2017-07-22] MEDS: BOOST PLUS 8 ounce PO SCH ×3 (09:36→17:43)
[2017-07-22] MEDS: METOPROLOL SUCCINATE XL 50 MG TAB PO SCH (09:36)
[2017-07-22] MEDS ORDERED: FUROSEMIDE 20 MG/2 ML VIAL IV ONE (10:30)
[2017-07-22] MEDS ORDERED: ENALAPRIL MALEATE 2.5 MG TAB PO ONE (10:30)
[2017-07-22 12:58] VITALS: BP 131/87
[2017-07-22 17:23] VITALS: BP 135/100
[2017-07-22 22:00] VITALS: BP 96/78
[2017-07-22] MEDS: ATORVASTATIN 20 MG TAB PO SCH (22:02)
[2017-07-23] MEDS: IPRATROPIUM BROM 0.5 MG/2.5ML INH SOL NEB SCH
[2017-07-23] MEDS: ALBUTEROL SULF 2.5 MG/0.5ML(0.5%) NEB SOLN NEB SCH
[2017-07-23 05:28] VITALS: BP 131/92
[2017-07-23] MEDS: SPIRONOLACTONE 25 MG TAB PO SCH (06:25)
[2017-07-23] MEDS: FUROSEMIDE 20 MG/2 ML VIAL IV SCH (06:25)
[2017-07-23 07:00] LABS: Hematocrit 43.3 % (41.0-53.0); Hemoglobin 14.2 g/dL (13.5-17.5); Mean Corpuscular Hemoglobin 27.2 pg (28.0-32.0); Mean Corpuscular Hgb Conc. 32.8 g/dL (32.0-36.0); Mean Corpuscular Volume 82.8 fL (80.0-100.0); Platelet Count (auto) 228 10^3/uL (140-450); Red Blood Cells 5.23 10^6/uL (4.5-5.90); White Blood Cell 5.1 10^3/uL (4.4-10.8)
[2017-07-23 07:04] LABS: Red Cell Distribution Width 21.7 % (11.8-14.3)
[2017-07-23 07:05] LABS: Band Neutrophils % (manual) 0; Basophils % (manual) 0 (0.0-2.0)
[2017-07-23 07:06] LABS: Blast Cells 0; Metamyelocytes % 0; Myelocytes % 0; Promyelocytes % 0; Reactive Lymphocytes 0
[2017-07-23 07:22] LABS: BUN/Creatinine Ratio 24.2; Calcium 8.4 mg/dL (8.5-10.1); Potassium 3.5 mmol/L (3.5-5.1)
[2017-07-23 07:54] LABS: Eosinophils % (manual) 2 (0-7); Lymphocytes % (manual) 23 (10.0-50.0); Monocytes % (manual) 7 (0-12)
[2017-07-23] MEDS: BOOST PLUS 8 ounce PO SCH ×2 (08:00→12:00)
[2017-07-23 09:00] VITALS: BP 135/90
[2017-07-23] MEDS ORDERED: METOPROLOL SUCCINATE XL 50 MG TAB PO SCH (10:00)
[2017-07-23] MEDS ORDERED: FUROSEMIDE 20 MG/2 ML VIAL IV SCH (10:00)
[2017-07-23] MEDS ORDERED: POTASSIUM CHL 10 Meq TABLET PO SCH (10:00)
[2017-07-23] MEDS ORDERED: ENA2.5T PO (10:22)
[2017-07-23] MEDS ORDERED: METO50TA7 PO (10:22)
[2017-07-23] MEDS ORDERED: ATOR20TA50 PO (10:23)
[2017-07-23] MEDS: ENALAPRIL MALEATE 2.5 MG TAB PO SCH (10:59)
[2017-07-23] MEDS: MULTIPLE VITAMIN TAB PO SCH (11:04)
[2017-07-23] MEDS: ASPirin-EC 81 mg tab PO SCH (11:05)
[2017-07-23] MEDS: FAMOTIDINE 20 MG TAB PO SCH (11:06)
[2017-07-23] MEDS: ENOXAPARIN SOD 40 MG/0.4 ML SYRINGE SC SCH (11:07)
[2017-07-23 13:00] VITALS: BP 119/77
[2017-07-23 13:45] VITALS: BP 135/90
== END 2017-07-23 16:26 | disposition left against medical advice (07) | DRG 194 ==
LOC: ER 15:31 → EDBD 15:31 → TELE 15:32 → TELE-EAST 21:30
PROVIDERS: ADMIT Internal Medicine; ATTEND Internal Medicine
DX: I11.0 Hypertensive heart disease with heart failure (principal); J44.0 Chronic obstructive pulmonary disease with (acute) lower respiratory infection; E86.0 Dehydration; J45.901 Unspecified asthma with (acute) exacerbation; J44.1 Chronic obstructive pulmonary disease with (acute) exacerbation; E44.1 Mild protein-calorie malnutrition; J20.9 Acute bronchitis, unspecified; I50.43 Acute on chronic combined systolic (congestive) and diastolic (congestive) heart failure; E11.9 Type 2 diabetes mellitus without complications; I25.10 Atherosclerotic heart disease of native coronary artery without angina pectoris; I25.5 Ischemic cardiomyopathy; Z82.49 Family history of ischemic heart disease and other diseases of the circulatory system; Z83.3 Family history of diabetes mellitus; Z95.810 Presence of automatic (implantable) cardiac defibrillator; Z79.82 Long term (current) use of aspirin; Z79.899 Other long term (current) drug therapy; Z68.28 Body mass index [BMI] 28.0-28.9, adult
CPT/HCPCS: 36415; 71045; 80048; 80053; 81001; 82962; 83735; 83880; 84484; 85007; 85025; 85027; 85610; 85730; 87040; 87045; 87070; 87081; 87205; 87400; 87493; 87899; 94640; 96365; 96375; J2405

== ENCOUNTER 2020-01-05 10:06 | Inpatient (IN) | payer MEDICAID ==
[~2020-01-05] VITALS: Ht 185.4 cm; Wt 104.3 kg
[~2020-01-05 10:06] MED LIST changes: -AMOX600S PO; +APIX5TAB PO; +ATOR20TA50 PO; +CAR125T PO; +DIGO0.1238 PO; -ENA2.5T PO; -FAM20T PO; +FAMO20TA10 PO; -METO25TA3 PO; +SACU1TAB PO; +SPIR25TA88 PO; -SPIR25TA89 PO
[2020-01-05] MEDS ORDERED: cloNIDine HCL 0.1 MG TAB ONE (10:18)
[2020-01-05] MEDS ORDERED: FUROSEMIDE 40 MG/4 ML VIAL IV ONE (10:30)
[2020-01-05] MEDS ORDERED: cloNIDine HCL 0.1 MG TAB PO ONE (10:30)
[2020-01-05 10:49] LABS: Basophils # (auto) 0.1 10 ^3/uL (0-0.2); Basophils % (auto) 1.1 % (0.0-2.0); Eosinophils # (auto) 0.1 10 ^3/uL (0-0.8); Eosinophils % (auto) 1.8 % (0.0-7.0); Hematocrit 46.2 % (41.0-53.0); Hemoglobin 14.8 g/dL (13.5-17.5); Lymphocytes # (auto) 1.2 10 ^3/uL (0.4-5.4); Lymphocytes % (auto) 23.9 % (10.0-50.0); Mean Corpuscular Hemoglobin 29.1 pg (28.0-32.0); Mean Corpuscular Volume 90.9 fL (80.0-100.0); Monocytes # (auto) 0.6 10 ^3/uL (0-1.3); Monocytes % (auto) 11.9 % (0.0-12.0); Neutrophils % (auto) 61.3 % (37.0-80.0); Nucleated Red Blood Cells % 0.1 %; Platelet Count (auto) 224 10^3/uL (140-450); Red Blood Cells 5.08 10^6/uL (4.5-5.90); Red Cell Distribution Width 14.7 % (11.8-14.3); White Blood Cell 4.8 10^3/uL (4.4-10.8)
[2020-01-05 11:14] LABS: Albumin 3.4 g/dL (3.4-5.0); Calcium 9.8 mg/dL (8.5-10.1); Magnesium 2.3 mg/dL (1.6-2.6); Potassium 3.6 mmol/L (3.5-5.1)
[2020-01-05 11:21] LABS: BUN/Creatinine Ratio 13.2; Bilirubin, Total 0.7 mg/dL (0.2-1.0); Total Protein 7.3 g/dL (6.4-8.2)
[2020-01-05] MEDS ORDERED: LACTULOSE 20Gm/30ML SOLN PO PRN (12:15)
[2020-01-05] MEDS ORDERED: ALBUTEROL SULF 2.5 MG/0.5ML(0.5%) NEB SOLN NEB PRN (12:15)
[2020-01-05] MEDS: DOXYCYCLINE 100MG/250ML 250 ML IV SCH (12:15)
[2020-01-05] MEDS ORDERED: ACETAMINOPHEN 500 MG TAB PO PRN (12:15)
[2020-01-05] MEDS ORDERED: NITROGLYCERIN 0.4MG/HR TOPICAL PATCH TD ONE (12:15)
[2020-01-05] MEDS ORDERED: PROMETHAZINE HCL 25 MG/ML 1ML IV PRN (12:15)
[2020-01-05] MEDS ORDERED: MORPHINE SULF INJ 2 MG/ML SYRINGE 1ML IV PRN (12:15)
[2020-01-05] MEDS ORDERED: TEMAZEPAM 15 MG CAP PO PRN (12:15)
[2020-01-05] MEDS ORDERED: NITROGLYCERIN 0.4 MG SL TAB SL PRN (12:15)
[2020-01-05] MEDS ORDERED: ALBUTEROL SULF HFA 90MCG INH 200DOSE IN SCH (14:00)
[2020-01-05] MEDS ORDERED: DIGOXIN 0.125 MG TAB PO ONE (14:15)
[2020-01-05] MEDS ORDERED: SACUBITRIL-VALSARTAN 24mg/26mg TAB PO ONE (14:15)
[2020-01-05] MEDS ORDERED: SPIRONOLACTONE 25 MG TAB PO ONE (14:15)
[2020-01-05] MEDS ORDERED: CARVEDILOL 12.5 MG TAB PO ONE (14:15)
[2020-01-05] MEDS ORDERED: CARVEDILOL 3.125 MG TAB ONE (14:16)
[2020-01-05] MEDS: traMADol HCL 50 MG TAB PO PRN ×2 (14:33→22:46)
[2020-01-05 14:45] VITALS: BP 171/121
[2020-01-05 16:03] LABS: Urine Bacteria NONE SEEN /hpf (None Seen); Urine Blood Negative /uL (Negative); Urine Specific Gravity 1.004 (1.001-1.035); Urine WBC <1 /hpf (0 - 3)
[2020-01-05 16:16] LABS: Alcohol, Urine < 3.0 mg/dL (0-10); Amphetamine Screen, Urine NEGATIVE (NEGATIVE); Barbiturate Scree,Urine NEGATIVE (NEGATIVE); Benzodiazephine Screen, Urine NEGATIVE (NEGATIVE); Cannabinoid Screen, Urine POSITIVE (NEGATIVE); Cocaine Screen, Urine NEGATIVE (NEGATIVE); Opiate Scree,Urine NEGATIVE (NEGATIVE); Phencyclidine Screen, Urine NEGATIVE (NEGATIVE)
[2020-01-05] MEDS ORDERED: LABETALOL HCL 5 MG/ML 4ML SYRINGE IV ONE (16:30)
[2020-01-05] MEDS ORDERED: LABETALOL HCL 5 MG/ML ML 20ML VIAL IV ONE (16:31)
[2020-01-05 17:42] VITALS: BP 135/107
[2020-01-05 18:00] VITALS: BP 162/112
[2020-01-05] MEDS: FUROSEMIDE 40 MG/4 ML VIAL IV SCH (18:33)
[2020-01-05 22:00] VITALS: BP 120/67
[2020-01-05] MEDS ORDERED: DOXYCYCLINE 100 MG TAB/CAP PO SCH (22:00)
[2020-01-05] MEDS ORDERED: ATORVASTATIN 20 MG TAB PO SCH (22:00)
[2020-01-05] MEDS: APIXABAN 5 MG TAB PO SCH (22:41)
[2020-01-05] MEDS: SACUBITRIL-VALSARTAN 24mg/26mg TAB PO SCH (22:42)
[2020-01-05] MEDS: CARVEDILOL 12.5 MG TAB PO SCH (22:43)
[2020-01-06] MEDS: DOXYCYCLINE 100MG/250ML 250 ML IV SCH ×2 (00:33→12:06)
[2020-01-06 05:00] VITALS: BP 119/73
[2020-01-06] MEDS: FUROSEMIDE 40 MG/4 ML VIAL IV SCH ×2 (05:35→18:00)
[2020-01-06 05:48] LABS: Potassium 3.1 mmol/L (3.5-5.1)
[2020-01-06 06:02] LABS: BUN/Creatinine Ratio 13.4; Bilirubin, Total 1.4 mg/dL (0.2-1.0); Calcium 8.6 mg/dL (8.5-10.1); Total Protein 6.5 g/dL (6.4-8.2)
[2020-01-06] MEDS: CARVEDILOL 12.5 MG TAB PO SCH ×2 (08:21→18:00)
[2020-01-06] MEDS: traMADol HCL 50 MG TAB PO PRN (08:33)
[2020-01-06 09:00] VITALS: BP 132/98
[2020-01-06] MEDS ORDERED: NITROGLYCERIN 0.4MG/HR TOPICAL PATCH TD SCH (10:00)
[2020-01-06] MEDS ORDERED: POTASSIUM CHL 20 Meq TABLET PO SCH ×2 (10:00→22:00)
[2020-01-06] MEDS ORDERED: CHOLECALCIFEROL (VITD3) 1,000IU=25mCg TAB PO SCH (10:00)
[2020-01-06] MEDS ORDERED: ZINC SULFATE 220mg CAP or TAB PO SCH (10:00)
[2020-01-06] MEDS ORDERED: ASPirin 81 mg TAB PO SCH ×2 (10:00)
[2020-01-06] MEDS ORDERED: SPIRONOLACTONE 25 MG TAB PO SCH (10:00)
[2020-01-06] MEDS ORDERED: FAMOTIDINE 20 MG TAB PO SCH (10:00)
[2020-01-06] MEDS ORDERED: ASCORBIC ACID 1,000 MG TAB PO SCH (10:00)
[2020-01-06] MEDS ORDERED: DIGOXIN 0.125 MG TAB PO SCH (10:00)
[2020-01-06] MEDS: SACUBITRIL-VALSARTAN 24mg/26mg TAB PO SCH (10:06)
[2020-01-06] MEDS: APIXABAN 5 MG TAB PO SCH (10:07)
[2020-01-06 13:00] VITALS: BP 121/82
[2020-01-06] MEDS ORDERED: POTASSIUM CHL 20 Meq TABLET PO ONE (13:45)
[2020-01-06] MEDS ORDERED: FURO40TA4 PO (13:51)
[2020-01-06] MEDS ORDERED: ASPI81CH43 PO (13:51)
[2020-01-06] MEDS ORDERED: SACU1TAB PO (13:51)
[2020-01-06] MEDS ORDERED: POTA10TA51 PO (13:51)
[2020-01-06] MEDS ORDERED: APIX5TAB PO (13:51)
[2020-01-06] MEDS ORDERED: ATOR20TA50 PO (13:51)
[2020-01-06] MEDS ORDERED: FAMO20TA10 PO (13:51)
[2020-01-06] MEDS ORDERED: DIGO0.1238 PO (13:51)
[2020-01-06] MEDS ORDERED: SPIR25TA88 PO (13:51)
[2020-01-06] MEDS ORDERED: DOX100T PO (13:51)
[2020-01-06] MEDS ORDERED: CAR125T PO (13:51)
[2020-01-06] MEDS ORDERED: IOHEXOL 350 MG/ML 100ML IJ ONE (15:34)
[2020-01-06 17:00] VITALS: BP 126/98
== END 2020-01-06 18:39 | disposition home or self-care (01) | DRG 194 ==
LOC: ER 10:06 → TELE 10:07 → TELE-CENTR 17:56
PROVIDERS: ADMIT Internal Medicine; ATTEND Internal Medicine
DX: I11.0 Hypertensive heart disease with heart failure (principal); J44.9 Chronic obstructive pulmonary disease, unspecified; E66.9 Obesity, unspecified; I25.10 Atherosclerotic heart disease of native coronary artery without angina pectoris; Z95.0 Presence of cardiac pacemaker; F17.210 Nicotine dependence, cigarettes, uncomplicated; Z83.3 Family history of diabetes mellitus; Z82.61 Family history of arthritis; Z82.49 Family history of ischemic heart disease and other diseases of the circulatory system; Z79.82 Long term (current) use of aspirin; Z91.19 Patient's noncompliance with other medical treatment and regimen; Z20.828 Contact with and (suspected) exposure to other viral communicable diseases; J96.01 Acute respiratory failure with hypoxia; Z68.30 Body mass index [BMI] 30.0-30.9, adult; E87.6 Hypokalemia; I42.9 Cardiomyopathy, unspecified; I50.23 Acute on chronic systolic (congestive) heart failure; J81.1 Chronic pulmonary edema
CPT/HCPCS: 36415; 71046; 71275; 80053; 80061; 80307; 81001; 82550; 83735; 83880; 84484; 85025; 85379; 85652; 86141; 87040; 87070; 87804; 87880; 93005; 93970; G0378; J3490

== ENCOUNTER 2021-07-04 18:34 | Inpatient (IN) | payer MEDICAID ==
[~2021-07-04] VITALS: Ht 185.4 cm; Wt 99.7 kg
[~2021-07-04 18:34] MED LIST changes: -DIGO0.1238 PO; +DIGO1TAB48 PO; +SPIR25TA PO; -SPIR25TA88 PO
[2021-07-04] MEDS ORDERED: FUROSEMIDE 100 MG/10ML VIAL IV ONE (18:45)
[2021-07-04] MEDS ORDERED: methylPREDNISolone SOD SUCC 125 MG/2 ML VL IV ONE (18:45)
[2021-07-04 20:38] LABS: Basophils # (auto) 0 10 ^3/uL (0-0.2); Basophils % (auto) 0.6 % (0.0-2.0); Eosinophils # (auto) 0 10 ^3/uL (0-0.8); Eosinophils % (auto) 0.1 % (0.0-7.0); Hematocrit 47.4 % (41.0-53.0); Hemoglobin 15.7 g/dL (13.5-17.5); Lymphocytes # (auto) 0.3 10 ^3/uL (0.4-5.4); Lymphocytes % (auto) 5.1 % (10.0-50.0); Mean Corpuscular Hemoglobin 29.7 pg (28.0-32.0); Mean Corpuscular Hgb Conc. 33.2 g/dL (32.0-36.0); Mean Corpuscular Volume 89.4 fL (80.0-100.0); Monocytes # (auto) 0.3 10 ^3/uL (0-1.3); Neutrophils # (auto) 4.6 10 ^3/uL (1.6-8.6); Neutrophils % (auto) 88.2 % (37.0-80.0); Nucleated Red Blood Cells % 0.3 %; Red Cell Distribution Width 15.5 % (11.8-14.3); White Blood Cell 5.2 10^3/uL (4.4-10.8)
[2021-07-04 20:40] LABS: Urine Bacteria NONE SEEN /hpf (None Seen); Urine Blood TRACE /uL (Negative); Urine Specific Gravity 1.006 (1.001-1.035); Urine WBC <1 /hpf (0 - 3)
[2021-07-04 20:53] LABS: Albumin 3.6 g/dL (3.4-5.0); Calcium 8.7 mg/dL (8.5-10.1)
[2021-07-04 20:58] LABS: BUN/Creatinine Ratio 11.8; Total Protein 8.7 g/dL (6.4-8.2)
[2021-07-04 21:14] LABS: Potassium 5.7 mmol/L (3.5-5.1)
[2021-07-04 21:47] VITALS: BP 172/113
[2021-07-05 01:52] LABS: Albumin 3.6 g/dL (3.4-5.0); BUN/Creatinine Ratio 9.9; Potassium 3.9 mmol/L (3.5-5.1)
[2021-07-05 01:55] LABS: Bilirubin, Total 0.9 mg/dL (0.2-1.0); Total Protein 7.9 g/dL (6.4-8.2)
[2021-07-05] MEDS ORDERED: NITROGLYCERIN 0.4 MG SL TAB SL PRN (04:30)
[2021-07-05] MEDS ORDERED: ONDANSETRON HCL 4 MG/2 ML VIAL IV PRN (04:30)
[2021-07-05] MEDS: FUROSEMIDE 40 MG/4 ML VIAL IV SCH (06:20)
[2021-07-05] MEDS: ASPirin-EC 81 mg tab PO SCH (09:39)
[2021-07-05] MEDS: CARVEDILOL 12.5 MG TAB PO SCH ×2 (09:39→21:30)
[2021-07-05] MEDS: FAMOTIDINE 20 MG TAB PO SCH (09:40)
[2021-07-05] MEDS: DIGOXIN 0.125 MG TAB PO SCH (09:40)
[2021-07-05] MEDS: APIXABAN 5 MG TAB PO SCH ×2 (09:40→21:23)
[2021-07-05] MEDS ORDERED: guaiFENesin-DM 100/10mg/5ml SYR PO PRN (16:45)
[2021-07-05] MEDS: ALBUTEROL SULF 2.5 MG/0.5ML(0.5%) NEB SOLN NEB SCH ×2 (16:45→18:00)
[2021-07-05 17:30] VITALS: BP 142/69
[2021-07-05] MEDS: ATORVASTATIN 20 MG TAB PO SCH (21:21)
[2021-07-05 22:00] VITALS: BP 143/112
[2021-07-06] VITALS (8 sets, daily range): BP systolic 122–151; BP diastolic 75–91
[2021-07-06 05:33] LABS: Basophils # (auto) 0 10 ^3/uL (0-0.2); Basophils % (auto) 0.9 % (0.0-2.0); Eosinophils # (auto) 0.1 10 ^3/uL (0-0.8); Eosinophils % (auto) 1.3 % (0.0-7.0); Hematocrit 46.4 % (41.0-53.0); Hemoglobin 15.3 g/dL (13.5-17.5); Lymphocytes % (auto) 20.4 % (10.0-50.0); Mean Corpuscular Hemoglobin 29.5 pg (28.0-32.0); Mean Corpuscular Hgb Conc. 32.9 g/dL (32.0-36.0); Mean Corpuscular Volume 89.5 fL (80.0-100.0); Monocytes # (auto) 0.8 10 ^3/uL (0-1.3); Monocytes % (auto) 17.4 % (0.0-12.0); Neutrophils # (auto) 2.9 10 ^3/uL (1.6-8.6); Nucleated Red Blood Cells % 0.2 %; Red Blood Cells 5.18 10^6/uL (4.5-5.90); Red Cell Distribution Width 14.9 % (11.8-14.3); White Blood Cell 4.8 10^3/uL (4.4-10.8)
[2021-07-06 05:38] LABS: BUN/Creatinine Ratio 23.8; Potassium 4.3 mmol/L (3.5-5.1)
[2021-07-06] MEDS: FUROSEMIDE 40 MG/4 ML VIAL IV SCH ×2 (06:00→06:57)
[2021-07-06] MEDS: ALBUTEROL SULF 2.5 MG/0.5ML(0.5%) NEB SOLN NEB SCH ×3 (06:27→19:31)
[2021-07-06] MEDS: APIXABAN 5 MG TAB PO SCH ×2 (09:38→22:47)
[2021-07-06] MEDS: CARVEDILOL 12.5 MG TAB PO SCH ×2 (09:38→22:46)
[2021-07-06] MEDS: ASPirin-EC 81 mg tab PO SCH (09:38)
[2021-07-06] MEDS: DIGOXIN 0.125 MG TAB PO SCH (09:38)
[2021-07-06] MEDS: FAMOTIDINE 20 MG TAB PO SCH (09:39)
[2021-07-06] MEDS: LISINOPRIL 5 MG TAB PO SCH (09:39)
[2021-07-06] MEDS ORDERED: FURO40TA4 PO ×2 (12:33→18:09)
[2021-07-06] MEDS ORDERED: DEXT1SYP9 PO (12:33)
[2021-07-06] MEDS ORDERED: ALBUAER3 IN (12:33)
[2021-07-06] MEDS: ATORVASTATIN 20 MG TAB PO SCH (22:47)
[2021-07-07] VITALS (7 sets, daily range): BP systolic 111–149; BP diastolic 68–97
[2021-07-07] MEDS: ALBUTEROL SULF 2.5 MG/0.5ML(0.5%) NEB SOLN NEB SCH ×2 (06:13→12:57)
[2021-07-07] MEDS: CARVEDILOL 12.5 MG TAB PO SCH (09:34)
[2021-07-07] MEDS: FAMOTIDINE 20 MG TAB PO SCH (09:34)
[2021-07-07] MEDS: APIXABAN 5 MG TAB PO SCH (09:34)
[2021-07-07] MEDS: ASPirin-EC 81 mg tab PO SCH (09:34)
[2021-07-07] MEDS: DIGOXIN 0.125 MG TAB PO SCH (09:34)
[2021-07-07] MEDS: LISINOPRIL 5 MG TAB PO SCH (09:35)
[2021-07-07] MEDS ORDERED: FUROSEMIDE 40 MG/4 ML VIAL IV SCH (10:00)
[2021-07-07] MEDS ORDERED: ACETAMINOPHEN 325 MG TAB PO PRN (10:45)
[2021-07-07] MEDS ORDERED: ATOR20TA50 PO (16:03)
[2021-07-07] MEDS ORDERED: DIGO1TAB48 PO (16:03)
[2021-07-07] MEDS ORDERED: SPIR25TA PO (16:03)
[2021-07-07] MEDS ORDERED: APIX5TAB PO (16:03)
[2021-07-07] MEDS ORDERED: CAR125T PO (16:03)
[2021-07-07] MEDS ORDERED: SACU1TAB PO (16:03)
== END 2021-07-07 17:15 | disposition home health service (06) | DRG 194 ==
LOC: ER 18:34 → EDBD 18:34 → TELE 07-05 04:21 → TELE-CENTR 07-05 17:40
PROVIDERS: ADMIT Hospitalist; ATTEND Hospitalist
PROC: 5A09357 Assistance with Respiratory Ventilation, Less than 24 Consecutive Hours, Continuous Positive Airway Pressure (ICD-10-PCS; 2021-07-04)
PROC: 4B02XTZ Measurement of Cardiac Defibrillator, External Approach (ICD-10-PCS; principal; 2021-07-07)
DX: I13.0 Hypertensive heart and chronic kidney disease with heart failure and stage 1 through stage 4 chronic kidney disease, or unspecified chronic kidney disease (principal); J96.01 Acute respiratory failure with hypoxia; I42.9 Cardiomyopathy, unspecified; I50.23 Acute on chronic systolic (congestive) heart failure; E78.5 Hyperlipidemia, unspecified; F17.210 Nicotine dependence, cigarettes, uncomplicated; I25.10 Atherosclerotic heart disease of native coronary artery without angina pectoris; I48.0 Paroxysmal atrial fibrillation; R09.02 Hypoxemia; J44.9 Chronic obstructive pulmonary disease, unspecified; Z20.822 Contact with and (suspected) exposure to COVID-19; K21.9 Gastro-esophageal reflux disease without esophagitis; R00.1 Bradycardia, unspecified; N18.9 Chronic kidney disease, unspecified; Z81.8 Family history of other mental and behavioral disorders; Z82.49 Family history of ischemic heart disease and other diseases of the circulatory system; Z83.3 Family history of diabetes mellitus; Z91.14 Patient's other noncompliance with medication regimen; Z95.810 Presence of automatic (implantable) cardiac defibrillator; Z88.5 Allergy status to narcotic agent
CPT/HCPCS: 36415; 36600; 71045; 80048; 80053; 81001; 82805; 83880; 84484; 85025; 87426; 93005; 94640; 96374; 96375; G0378

== ENCOUNTER 2022-04-16 17:58 | Inpatient (IN) | payer MEDICAID ==
[~2022-04-16] VITALS: Ht 185.4 cm; Wt 102.0 kg
[~2022-04-16 17:58] MED LIST changes: +ALBU108A5 INH; +ALBUAER3 IN; +CARV12.544 PO; +DEXT1SYP9 PO; +DOX100T PO; +HYDR-4902 PO; -POTA10TA51 PO; +SPIR25TA8 PO
[2022-04-16 19:03] LABS: Basophils # (auto) 0 10 ^3/uL (0-0.2); Basophils % (auto) 0.5 % (0.0-2.0); Eosinophils # (auto) 0.1 10 ^3/uL (0-0.8); Eosinophils % (auto) 0.9 % (0.0-7.0); Hematocrit 48.8 % (41.0-53.0); Hemoglobin 15.8 g/dL (13.5-17.5); Lymphocytes % (auto) 18.4 % (10.0-50.0); Mean Corpuscular Hemoglobin 29.3 pg (28.0-32.0); Mean Corpuscular Hgb Conc. 32.4 g/dL (32.0-36.0); Mean Corpuscular Volume 90.3 fL (80.0-100.0); Monocytes # (auto) 0.6 10 ^3/uL (0-1.3); Monocytes % (auto) 10.8 % (0.0-12.0); Neutrophils # (auto) 3.8 10 ^3/uL (1.6-8.6); Neutrophils % (auto) 69.4 % (37.0-80.0); Red Blood Cells 5.41 10^6/uL (4.5-5.90); Red Cell Distribution Width 14.2 % (11.8-14.3); White Blood Cell 5.4 10^3/uL (4.4-10.8)
[2022-04-16 19:23] LABS: Albumin 3.6 g/dL (3.4-5.0); BUN/Creatinine Ratio 12.2; Calcium 8.4 mg/dL (8.5-10.1); Magnesium 1.9 mg/dL (1.6-2.6); Potassium 3.5 mmol/L (3.5-5.1)
[2022-04-16 19:26] LABS: Bilirubin, Total 0.8 mg/dL (0.2-1.0); Total Protein 7.1 g/dL (6.4-8.2)
[2022-04-16 20:00] VITALS: BP 157/120
[2022-04-16] MEDS ORDERED: dilTIAZem 25 MG/5 ML VIAL IV ONE (20:00)
[2022-04-16] MEDS ORDERED: ASPirin 325 MG TAB PO ONE (20:15)
[2022-04-16] MEDS ORDERED: dilTIAZem HCL 60 MG TAB GT ONE (20:30)
[2022-04-16] MEDS ORDERED: ONDANSETRON HCL 4 MG/2 ML VIAL IV PRN (21:15)
[2022-04-16] MEDS ORDERED: ALBUTEROL SULF 2.5 MG/0.5ML(0.5%) NEB SOLN NEB PRN (21:15)
[2022-04-16] MEDS ORDERED: NITROGLYCERIN 0.4 MG SL TAB SL PRN (21:15)
[2022-04-16] MEDS ORDERED: MORPHINE SULFATE INJ 2 MG/ml SYRG IV PRN (21:15)
[2022-04-16] MEDS ORDERED: ACETAMINOPHEN 325 MG TAB PO PRN (21:15)
[2022-04-16 21:41] LABS: Urine Bacteria NONE SEEN /hpf (None Seen); Urine Blood Negative /uL (Negative); Urine Hyaline Cast FEW /lpf (0 - 2); Urine Specific Gravity 1.021 (1.001-1.035); Urine WBC 1 /hpf (0 - 3)
[2022-04-16 21:52] LABS: Alcohol, Urine < 3.0 mg/dL (0-10); Amphetamine Screen, Urine POSITIVE (NEGATIVE); Barbiturate Scree,Urine NEGATIVE (NEGATIVE); Benzodiazephine Screen, Urine NEGATIVE (NEGATIVE); Cannabinoid Screen, Urine POSITIVE (NEGATIVE); Cocaine Screen, Urine NEGATIVE (NEGATIVE); Opiate Scree,Urine NEGATIVE (NEGATIVE)
[2022-04-16 21:59] LABS: Phencyclidine Screen, Urine NEGATIVE (NEGATIVE)
[2022-04-16] MEDS: APIXABAN 5 MG TAB PO SCH (22:00)
[2022-04-16] MEDS: SACUBITRIL-VALSARTAN 24mg/26mg TAB PO SCH (22:51)
[2022-04-16] MEDS: ATORVASTATIN 20 MG TAB PO SCH (22:51)
[2022-04-16] MEDS: CARVEDILOL 12.5 MG TAB PO SCH (22:52)
[2022-04-17 05:56] LABS: Albumin 3.1 g/dL (3.4-5.0); Calcium 8.5 mg/dL (8.5-10.1)
[2022-04-17 06:00] LABS: Basophils # (auto) 0 10 ^3/uL (0-0.2); Basophils % (auto) 0.7 % (0.0-2.0); Eosinophils # (auto) 0.1 10 ^3/uL (0-0.8); Eosinophils % (auto) 1.7 % (0.0-7.0); Hematocrit 46.1 % (41.0-53.0); Hemoglobin 15.1 g/dL (13.5-17.5); Lymphocytes # (auto) 1.6 10 ^3/uL (0.4-5.4); Mean Corpuscular Hemoglobin 29.7 pg (28.0-32.0); Mean Corpuscular Hgb Conc. 32.7 g/dL (32.0-36.0); Mean Corpuscular Volume 91.1 fL (80.0-100.0); Monocytes # (auto) 0.7 10 ^3/uL (0-1.3); Monocytes % (auto) 14.2 % (0.0-12.0); Neutrophils # (auto) 2.4 10 ^3/uL (1.6-8.6); Neutrophils % (auto) 49.4 % (37.0-80.0); Nucleated Red Blood Cells % 0.2 %; Red Blood Cells 5.06 10^6/uL (4.5-5.90); White Blood Cell 4.8 10^3/uL (4.4-10.8)
[2022-04-17 06:12] LABS: BUN/Creatinine Ratio 14.4; Bilirubin, Total 1.1 mg/dL (0.2-1.0); Total Protein 6.2 g/dL (6.4-8.2)
[2022-04-17] MEDS ORDERED: DIGOXIN 0.125 MG TAB PO SCH (10:00)
[2022-04-17] MEDS ORDERED: ASPirin 81 mg TAB PO SCH (10:00)
[2022-04-17] MEDS ORDERED: FUROSEMIDE 40 MG TAB PO SCH (10:00)
[2022-04-17] MEDS: SPIRONOLACTONE 25 MG TAB PO SCH (11:23)
[2022-04-17] MEDS: PANTOPRAZOLE 40 MG TAB PO SCH (11:24)
[2022-04-17] MEDS: APIXABAN 5 MG TAB PO SCH ×2 (11:24→22:09)
[2022-04-17] MEDS: SACUBITRIL-VALSARTAN 24mg/26mg TAB PO SCH ×2 (11:24→22:09)
[2022-04-17] MEDS: CARVEDILOL 12.5 MG TAB PO SCH ×2 (11:24→22:09)
[2022-04-17] MEDS: FUROSEMIDE 20 MG/2 ML VIAL IV SCH (18:28)
[2022-04-17 22:00] VITALS: BP 132/97
[2022-04-17] MEDS: ATORVASTATIN 20 MG TAB PO SCH (22:09)
[2022-04-18 05:00] VITALS: BP 133/81
[2022-04-18] MEDS: FUROSEMIDE 20 MG/2 ML VIAL IV SCH ×2 (05:57→18:00)
[2022-04-18 06:17] LABS: BUN/Creatinine Ratio 21.9; Calcium 8.6 mg/dL (8.5-10.1)
[2022-04-18 08:00] VITALS: BP 142/91
[2022-04-18 08:47] VITALS: BP 122/91
[2022-04-18] MEDS ORDERED: CARVEDILOL 12.5 MG TAB PO SCH (10:00)
[2022-04-18] MEDS ORDERED: SACUBITRIL-VALSARTAN 24mg/26mg TAB PO SCH (10:00)
[2022-04-18] MEDS ORDERED: APIXABAN 5 MG TAB PO SCH ×2 (10:00)
[2022-04-18] MEDS: SPIRONOLACTONE 25 MG TAB PO SCH (10:12)
[2022-04-18] MEDS: PANTOPRAZOLE 40 MG TAB PO SCH (10:12)
[2022-04-18 13:00] VITALS: BP 142/98
[2022-04-18] MEDS ORDERED: FURO40TA4 PO (15:42)
[2022-04-18] MEDS ORDERED: CAR125T PO (15:42)
[2022-04-18] MEDS ORDERED: SPIR25TA8 PO (15:42)
[2022-04-18] MEDS ORDERED: SACU1TAB PO (15:42)
[2022-04-18] MEDS ORDERED: APIX5TAB PO (15:42)
[2022-04-18 16:24] VITALS: BP 122/91
[2022-04-18 16:46] VITALS: BP 121/67
== END 2022-04-18 19:30 | disposition home or self-care (01) | DRG 201 ==
LOC: ER 17:58 → EDBD 17:58 → TELE 21:19 → TELE-WESTW 04-17 21:23
PROVIDERS: ADMIT Nurse Practitioner; ATTEND Hospitalist
PROC: 4B02XTZ Measurement of Cardiac Defibrillator, External Approach (ICD-10-PCS; principal; 2022-04-18)
DX: I48.91 Unspecified atrial fibrillation (principal); I49.01 Ventricular fibrillation; I42.9 Cardiomyopathy, unspecified; I50.22 Chronic systolic (congestive) heart failure; I11.0 Hypertensive heart disease with heart failure; Z95.810 Presence of automatic (implantable) cardiac defibrillator; I25.10 Atherosclerotic heart disease of native coronary artery without angina pectoris; F15.90 Other stimulant use, unspecified, uncomplicated; F12.90 Cannabis use, unspecified, uncomplicated; E78.5 Hyperlipidemia, unspecified; F17.210 Nicotine dependence, cigarettes, uncomplicated; J44.9 Chronic obstructive pulmonary disease, unspecified; Y83.8 Other surgical procedures as the cause of abnormal reaction of the patient, or of later complication, without mention of misadventure at the time of the procedure; I48.92 Unspecified atrial flutter; F19.10 Other psychoactive substance abuse, uncomplicated; Z20.822 Contact with and (suspected) exposure to COVID-19; Z79.01 Long term (current) use of anticoagulants; Z88.5 Allergy status to narcotic agent; Z83.3 Family history of diabetes mellitus; Z79.82 Long term (current) use of aspirin; Z79.899 Other long term (current) drug therapy; Z81.8 Family history of other mental and behavioral disorders; Z82.49 Family history of ischemic heart disease and other diseases of the circulatory system; Z91.199 Patient's noncompliance with other medical treatment and regimen due to unspecified reason; Z91.14 Patient's other noncompliance with medication regimen; Y92.89 Other specified places as the place of occurrence of the external cause
CPT/HCPCS: 36415; 71045; 80048; 80053; 80162; 80307; 81001; 83735; 83880; 84484; 85025; 87426; 93005; 96374; 99291; G0378

== ENCOUNTER 2022-08-22 20:28 | Inpatient (IN) | payer MEDICAID ==
[~2022-08-22] VITALS: Ht 172.7 cm; Wt 119.8 kg
[~2022-08-22 20:28] MED LIST changes: -ALBUAER3 IN; -DOX100T PO; -SPIR25TA PO
[2022-08-22] MEDS ORDERED: LORazepam 2MG/ML-1ML VIAL ONE (20:32)
[2022-08-22] MEDS ORDERED: HYDROmorphone HCL 2 MG/ML VL/or syr ONE (20:35)
[2022-08-22] MEDS ORDERED: ADENOSINE 6 MG/2 ML INJ IV ONE ×3 (20:38→23:15)
[2022-08-22] MEDS ORDERED: LORazepam 2MG/ML-1ML VIAL IM ONE (20:45)
[2022-08-22] MEDS ORDERED: HYDROmorphone HCL 2 MG/ML VL/or syr IV ONE ×2 (20:45)
[2022-08-22] MEDS ORDERED: AMIODARONE HCL (50 MG/ ML) 3 ML VIAL IV ONE ×2 (20:48→21:10)
[2022-08-22] MEDS ORDERED: AMIODARONE 450mg/250ml AE 250 ML IV SCH (21:00)
[2022-08-22 21:20] LABS: Basophils # (auto) 0 10 ^3/uL (0-0.2); Basophils % (auto) 0.4 % (0.0-2.0); Eosinophils # (auto) 0.1 10 ^3/uL (0-0.8); Eosinophils % (auto) 1.3 % (0.0-7.0); Hematocrit 52.4 % (41.0-53.0); Hemoglobin 16.8 g/dL (13.5-17.5); Lymphocytes # (auto) 2.3 10 ^3/uL (0.4-5.4); Lymphocytes % (auto) 38.8 % (10.0-50.0); Mean Corpuscular Hemoglobin 30.3 pg (28.0-32.0); Mean Corpuscular Hgb Conc. 32.1 g/dL (32.0-36.0); Mean Corpuscular Volume 94.3 fL (80.0-100.0); Monocytes # (auto) 0.7 10 ^3/uL (0-1.3); Monocytes % (auto) 12.4 % (0.0-12.0); Neutrophils # (auto) 2.8 10 ^3/uL (1.6-8.6); Neutrophils % (auto) 47.1 % (37.0-80.0); Nucleated Red Blood Cells % 0.1 %; Red Blood Cells 5.55 10^6/uL (4.5-5.90); Red Cell Distribution Width 15.5 % (11.8-14.3)
[2022-08-22 21:34] LABS: Albumin 3.6 g/dL (3.4-5.0); Calcium 8.5 mg/dL (8.5-10.1); Magnesium 2.2 mg/dL (1.6-2.6); Potassium 3.3 mmol/L (3.5-5.1)
[2022-08-22 21:38] LABS: BUN/Creatinine Ratio 10.6; Bilirubin, Total 0.3 mg/dL (0.2-1.0); Total Protein 7.3 g/dL (6.4-8.2)
[2022-08-22] MEDS ORDERED: DOCUSATE SOD 100 MG CAP PO PRN (23:00)
[2022-08-22] MEDS ORDERED: ACETAMINOPHEN 325 MG TAB PO PRN (23:00)
[2022-08-22] MEDS ORDERED: ONDANSETRON HCL 4 MG/2 ML VIAL IV PRN (23:00)
[2022-08-22] MEDS ORDERED: LORazepam 2MG/ML-1ML VIAL IV PRN (23:00)
[2022-08-22] MEDS ORDERED: AMIODARONE HCL IV ONE (23:30)
[2022-08-22] MEDS ORDERED: D5W 5% IV ONE (23:30)
[2022-08-23 00:13] LABS: Urine Bacteria NONE SEEN /hpf (None Seen); Urine Blood 1+ /uL (Negative); Urine Hyaline Cast FEW /lpf (0 - 2); Urine Mucus FEW (None Seen); Urine Sperm PRESENT /hpf (None Seen); Urine WBC 3 /hpf (0 - 3)
[2022-08-23] MEDS ORDERED: NITROGLYCERIN 0.4 MG SL TAB SL PRN (01:00)
[2022-08-23] MEDS ORDERED: MORPHINE SULFATE INJ 2 MG/ml SYRG IV PRN (01:00)
[2022-08-23 06:12] LABS: Basophils # (auto) 0 10 ^3/uL (0-0.2); Basophils % (auto) 0.5 % (0.0-2.0); Eosinophils # (auto) 0 10 ^3/uL (0-0.8); Eosinophils % (auto) 0.7 % (0.0-7.0); Hematocrit 49.2 % (41.0-53.0); Hemoglobin 16.4 g/dL (13.5-17.5); Lymphocytes # (auto) 1.2 10 ^3/uL (0.4-5.4); Lymphocytes % (auto) 21.8 % (10.0-50.0); Mean Corpuscular Hemoglobin 30.7 pg (28.0-32.0); Mean Corpuscular Hgb Conc. 33.4 g/dL (32.0-36.0); Mean Corpuscular Volume 91.8 fL (80.0-100.0); Monocytes # (auto) 0.8 10 ^3/uL (0-1.3); Monocytes % (auto) 13.9 % (0.0-12.0); Neutrophils # (auto) 3.5 10 ^3/uL (1.6-8.6); Neutrophils % (auto) 63.1 % (37.0-80.0); Nucleated Red Blood Cells % 0.2 %; Red Blood Cells 5.35 10^6/uL (4.5-5.90); Red Cell Distribution Width 14.9 % (11.8-14.3); White Blood Cell 5.6 10^3/uL (4.4-10.8)
[2022-08-23] MEDS: SODIUM CHLOR 0.9% PF (SALINE LOCK) 10ML VIAL/SYR IV SCH ×3 (06:16→22:13)
[2022-08-23 06:41] LABS: Albumin 3.5 g/dL (3.4-5.0); Calcium 8.4 mg/dL (8.5-10.1)
[2022-08-23 06:45] LABS: BUN/Creatinine Ratio 14.2; Bilirubin, Total 0.4 mg/dL (0.2-1.0); Total Protein 7.2 g/dL (6.4-8.2)
[2022-08-23] MEDS: IPRATROPIUM BROM 0.5 MG/2.5ML INH SOL NEB SCH ×4 (06:58→18:21)
[2022-08-23] MEDS: LEVALBUTEROL HCL 1.25 MG/3 ML NEB NEB SCH ×4 (06:59→18:21)
[2022-08-23] MEDS: ASPirin 81 mg TAB PO SCH (11:30)
[2022-08-23] MEDS: AMIODARONE HCL 200 MG TAB PO SCH ×2 (11:30→22:22)
[2022-08-23] MEDS: FUROSEMIDE 40 MG/4 ML VIAL IV SCH (11:30)
[2022-08-23] MEDS: APIXABAN 5 MG TAB PO SCH ×2 (11:31→22:22)
[2022-08-23] MEDS: CARVEDILOL 12.5 MG TAB PO SCH ×2 (11:31→22:33)
[2022-08-23] MEDS: HYDROcodone-ACET 5/325MG TAB PO PRN ×2 (11:32→20:37)
[2022-08-23 20:08] LABS: Amphetamine Screen, Urine POSITIVE (NEGATIVE); Barbiturate Scree,Urine NEGATIVE (NEGATIVE); Benzodiazephine Screen, Urine NEGATIVE (NEGATIVE); Cannabinoid Screen, Urine POSITIVE (NEGATIVE); Cocaine Screen, Urine NEGATIVE (NEGATIVE); Opiate Scree,Urine NEGATIVE (NEGATIVE); Phencyclidine Screen, Urine NEGATIVE (NEGATIVE)
[2022-08-23] MEDS: ATORVASTATIN 20 MG TAB PO SCH (22:22)
[2022-08-24] MEDS: HYDROcodone-ACET 5/325MG TAB PO PRN ×2 (05:00→19:08)
[2022-08-24] MEDS: SODIUM CHLOR 0.9% PF (SALINE LOCK) 10ML VIAL/SYR IV SCH ×2 (05:20→14:46)
[2022-08-24] MEDS: IPRATROPIUM BROM 0.5 MG/2.5ML INH SOL NEB SCH ×5 (05:40→18:10)
[2022-08-24] MEDS: LEVALBUTEROL HCL 1.25 MG/3 ML NEB NEB SCH ×5 (05:40→18:10)
[2022-08-24 08:54] LABS: Albumin 3.3 g/dL (3.4-5.0); BUN/Creatinine Ratio 19.6; Calcium 8.6 mg/dL (8.5-10.1); Magnesium 2.2 mg/dL (1.6-2.6); Potassium 3.9 mmol/L (3.5-5.1)
[2022-08-24 08:57] LABS: Bilirubin, Total 0.6 mg/dL (0.2-1.0); Total Protein 6.6 g/dL (6.4-8.2)
[2022-08-24 09:26] LABS: Basophils # (auto) 0 10 ^3/uL (0-0.2); Basophils % (auto) 0.8 % (0.0-2.0); Eosinophils # (auto) 0.1 10 ^3/uL (0-0.8); Eosinophils % (auto) 2.4 % (0.0-7.0); Hemoglobin 16.1 g/dL (13.5-17.5); Lymphocytes # (auto) 1.3 10 ^3/uL (0.4-5.4); Lymphocytes % (auto) 24.9 % (10.0-50.0); Mean Corpuscular Hemoglobin 30.9 pg (28.0-32.0); Mean Corpuscular Hgb Conc. 33.6 g/dL (32.0-36.0); Mean Corpuscular Volume 92.1 fL (80.0-100.0); Monocytes # (auto) 0.6 10 ^3/uL (0-1.3); Monocytes % (auto) 12.2 % (0.0-12.0); Neutrophils # (auto) 3.1 10 ^3/uL (1.6-8.6); Neutrophils % (auto) 59.7 % (37.0-80.0); Nucleated Red Blood Cells % 0.1 %; Red Blood Cells 5.21 10^6/uL (4.5-5.90); Red Cell Distribution Width 14.7 % (11.8-14.3); White Blood Cell 5.2 10^3/uL (4.4-10.8)
[2022-08-24] MEDS: FUROSEMIDE 40 MG/4 ML VIAL IV SCH ×2 (10:00→11:34)
[2022-08-24] MEDS: CARVEDILOL 12.5 MG TAB PO SCH ×2 (11:34→21:22)
[2022-08-24] MEDS: ASPirin 81 mg TAB PO SCH (11:34)
[2022-08-24] MEDS: APIXABAN 5 MG TAB PO SCH ×2 (11:35→21:23)
[2022-08-24] MEDS: AMIODARONE HCL 200 MG TAB PO SCH ×2 (11:35→21:22)
[2022-08-24 12:30] VITALS: BP 139/95
[2022-08-24] MEDS ORDERED: ATOR20TA50 PO (13:49)
[2022-08-24 16:00] VITALS: BP 137/90
[2022-08-24 20:00] VITALS: BP 133/91
[2022-08-24] MEDS: ATORVASTATIN 20 MG TAB PO SCH (21:22)
[2022-08-24 22:00] VITALS: BP 133/91
[2022-08-25] MEDS: LEVALBUTEROL HCL 1.25 MG/3 ML NEB NEB SCH
[2022-08-25] MEDS: IPRATROPIUM BROM 0.5 MG/2.5ML INH SOL NEB SCH
[2022-08-25] MEDS: SODIUM CHLOR 0.9% PF (SALINE LOCK) 10ML VIAL/SYR IV SCH ×3 (01:59→14:00)
[2022-08-25 05:00] VITALS: BP 131/95
[2022-08-25 06:22] LABS: Basophils # (auto) 0 10 ^3/uL (0-0.2); Basophils % (auto) 0.6 % (0.0-2.0); Eosinophils # (auto) 0.1 10 ^3/uL (0-0.8); Eosinophils % (auto) 2.2 % (0.0-7.0); Hematocrit 46.5 % (41.0-53.0); Hemoglobin 15.4 g/dL (13.5-17.5); Lymphocytes # (auto) 1.6 10 ^3/uL (0.4-5.4); Lymphocytes % (auto) 28.6 % (10.0-50.0); Mean Corpuscular Hgb Conc. 33.2 g/dL (32.0-36.0); Mean Corpuscular Volume 93.2 fL (80.0-100.0); Monocytes # (auto) 0.8 10 ^3/uL (0-1.3); Monocytes % (auto) 14.2 % (0.0-12.0); Neutrophils # (auto) 3.1 10 ^3/uL (1.6-8.6); Neutrophils % (auto) 54.4 % (37.0-80.0); Nucleated Red Blood Cells % 0.1 %; Red Blood Cells 4.98 10^6/uL (4.5-5.90); Red Cell Distribution Width 14.6 % (11.8-14.3); White Blood Cell 5.6 10^3/uL (4.4-10.8)
[2022-08-25 06:41] LABS: Potassium 4.4 mmol/L (3.5-5.1)
[2022-08-25 06:57] LABS: Albumin 3.1 g/dL (3.4-5.0); BUN/Creatinine Ratio 18.3; Bilirubin, Total 0.4 mg/dL (0.2-1.0); Calcium 8.3 mg/dL (8.5-10.1)
[2022-08-25] MEDS: AMIODARONE HCL 200 MG TAB PO SCH (08:10)
[2022-08-25] MEDS: APIXABAN 5 MG TAB PO SCH (08:11)
[2022-08-25] MEDS: CARVEDILOL 12.5 MG TAB PO SCH (08:11)
[2022-08-25] MEDS: ASPirin 81 mg TAB PO SCH (08:11)
[2022-08-25] MEDS: FUROSEMIDE 40 MG/4 ML VIAL IV SCH (08:12)
[2022-08-25 09:06] VITALS: BP 116/56
[2022-08-25] MEDS ORDERED: AMIO200T33 PO (11:01)
[2022-08-25] MEDS ORDERED: CAR125T PO (11:01)
[2022-08-25 11:50] VITALS: BP 116/56
[2022-08-25 13:00] VITALS: BP 132/90
== END 2022-08-25 16:16 | disposition home or self-care (01) | DRG 201 ==
LOC: ER 20:28 → TELE 08-23 01:02 → TELE-CENTR 08-24 13:04
PROVIDERS: ADMIT Nurse Practitioner Family; ATTEND Internal Medicine
PROC: 4B02XTZ Measurement of Cardiac Defibrillator, External Approach (ICD-10-PCS; principal; 2022-08-25)
DX: I47.1 Supraventricular tachycardia (principal); J96.01 Acute respiratory failure with hypoxia; I21.A1 Myocardial infarction type 2; I50.23 Acute on chronic systolic (congestive) heart failure; N17.9 Acute kidney failure, unspecified; I42.0 Dilated cardiomyopathy; D68.69 Other thrombophilia; I11.0 Hypertensive heart disease with heart failure; I48.0 Paroxysmal atrial fibrillation; R73.09 Other abnormal glucose; E87.6 Hypokalemia; Z20.822 Contact with and (suspected) exposure to COVID-19; I25.10 Atherosclerotic heart disease of native coronary artery without angina pectoris; J44.9 Chronic obstructive pulmonary disease, unspecified; E78.5 Hyperlipidemia, unspecified; K42.9 Umbilical hernia without obstruction or gangrene; F15.10 Other stimulant abuse, uncomplicated; E66.01 Morbid (severe) obesity due to excess calories; Z95.810 Presence of automatic (implantable) cardiac defibrillator; Z91.199 Patient's noncompliance with other medical treatment and regimen due to unspecified reason
CPT/HCPCS: 36415; 71045; 80053; 80307; 81001; 83036; 83735; 83880; 84484; 85025; 87426; 93005; 93306; 94640; 96365; 96366; 96372; 96375; G0378; J0153; J7060

== ENCOUNTER 2023-02-20 23:11 | Inpatient (IN) | payer MEDICAID ==
[~2023-02-20] VITALS: Ht 185.4 cm; Wt 110.3 kg
[~2023-02-20 23:11] MED LIST changes: +AMIO200T33 PO; -DEXT1SYP9 PO; -DIGO1TAB48 PO; -FAMO20TA10 PO
[2023-02-21] VITALS (7 sets, daily range): BP systolic 145; BP diastolic 88; PULSE 74–90; RESP 13–22; TEMP 98; O2SAT 93–96
[2023-02-21 00:15] LABS: Basophils # (auto) 0 10 ^3/uL (0-0.2); Basophils % (auto) 0.6 % (0.0-2.0); Eosinophils # (auto) 0.1 10 ^3/uL (0-0.8); Eosinophils % (auto) 2.6 % (0.0-7.0); Hematocrit 51.2 % (41.0-53.0); Hemoglobin 16.8 g/dL (13.5-17.5); Lymphocytes # (auto) 0.7 10 ^3/uL (0.4-5.4); Lymphocytes % (auto) 14.9 % (10.0-50.0); Mean Corpuscular Hemoglobin 29.7 pg (28.0-32.0); Mean Corpuscular Hgb Conc. 32.8 g/dL (32.0-36.0); Mean Corpuscular Volume 90.6 fL (80.0-100.0); Monocytes # (auto) 0.8 10 ^3/uL (0-1.3); Monocytes % (auto) 16.6 % (0.0-12.0); Neutrophils # (auto) 3.2 10 ^3/uL (1.6-8.6); Neutrophils % (auto) 65.3 % (37.0-80.0); Nucleated Red Blood Cells % 0.2 %; Red Blood Cells 5.65 10^6/uL (4.5-5.90); Red Cell Distribution Width 13.9 % (11.8-14.3); White Blood Cell 4.9 10^3/uL (4.4-10.8)
[2023-02-21] MEDS ORDERED: NITROGLYCERIN 0.4 MG SL TAB SL ONE (00:15)
[2023-02-21] MEDS ORDERED: FUROSEMIDE 20 MG/2 ML VIAL IV ONE (00:15)
[2023-02-21 00:27] LABS: Alkaline Phosphatase 76 U/L (46-116); Anion Gap 9.4 (5-15); BUN/Creatinine Ratio 6.8 (10.0-20.0); Blood Urea Nitrogen 8 mg/dL (9-23); Calcium 9.3 mg/dL (8.5-10.1); Carbon Dioxide 24.6 mmol/L (20-30); Chloride 102 mmol/L (98-107); Glucose 87 mg/dL (74-106); Magnesium 1.9 mg/dL (1.6-2.6); Potassium 3.4 mmol/L (3.5-5.1); Sodium 136 mmol/L (136-145)
[2023-02-21 00:28] LABS: Albumin 4.9 g/dL (3.2-4.8); Aspartate Aminotransferase 12 U/L (13-40); Bilirubin, Total 0.4 mg/dL (0.2-1.0); Total Protein 8.4 g/dL (5.7-8.2)
[2023-02-21 00:30] LABS: INR 1.07 (0.9-1.15); Partial Thromboplastin Time 33.4 SEC (24.5-34.5); Prothrombin Time 11.2 sec (9.3-11.8)
[2023-02-21 00:33] LABS: Alanine Aminotransferase < 9 U/L (7-40)
[2023-02-21 01:03] LABS: COVID19 ANTIGEN SOFIA FIA NEGATIVE (NEGATIVE)
[2023-02-21 01:05] LABS: Rapid Influenza A Negative (Negative); Rapid Influenza B Negative (Negative)
[2023-02-21 01:20] LABS: Urine Bacteria NONE SEEN /hpf (None Seen); Urine Blood Negative /uL (Negative); Urine Clarity Clear (Clear); Urine Protein, UAD Negative (Negative); Urine Specific Gravity 1.002 (1.001-1.035); Urine Sperm PRESENT /hpf (None Seen); Urine Urobilinogen Normal (Negative); Urine WBC <1 /hpf (0 - 3); Urine pH 5.5 (5.0-8.0)
[2023-02-21 01:21] LABS: Urine Color Straw (Yellow)
[2023-02-21] MEDS ORDERED: ACETAMINOPHEN 325 MG TAB PO ONE (02:30)
[2023-02-21] MEDS ORDERED: NITROGLYCERIN 0.4 MG SL TAB SL PRN (08:45)
[2023-02-21] MEDS ORDERED: MORPHINE SULFATE INJ 2 MG/ml SYRG IV PRN (08:45)
[2023-02-21] MEDS ORDERED: HYDROcodone-ACET 5/325MG TAB PO PRN (08:45)
[2023-02-21] MEDS ORDERED: IPRATROPIUM BROM 0.5 MG/2.5ML INH SOL NEB PRN (08:45)
[2023-02-21] MEDS ORDERED: ALBUTEROL SULF 2.5 MG/0.5ML(0.5%) NEB SOLN NEB PRN (08:45)
[2023-02-21] MEDS ORDERED: ONDANSETRON HCL 4 MG/2 ML VIAL IV PRN (08:45)
[2023-02-21] MEDS ORDERED: DOCUSATE SOD 100 MG CAP PO PRN (08:45)
[2023-02-21 09:44] LABS: Hematocrit 47.6 % (41.0-53.0); Hemoglobin 15.8 g/dL (13.5-17.5); Mean Corpuscular Hemoglobin 29.6 pg (28.0-32.0); Mean Corpuscular Hgb Conc. 33.3 g/dL (32.0-36.0); Mean Corpuscular Volume 89.1 fL (80.0-100.0); Red Blood Cells 5.34 10^6/uL (4.5-5.90); Red Cell Distribution Width 13.4 % (11.8-14.3); White Blood Cell 3.6 10^3/uL (4.4-10.8)
[2023-02-21 10:09] LABS: Basophils % (manual) 0 (0.0-2.0); Blast Cells 0; Metamyelocytes % 0; Myelocytes % 0; Promyelocytes % 0; Reactive Lymphocytes 0
[2023-02-21 10:28] LABS: Albumin 4.4 g/dL (3.2-4.8); Alkaline Phosphatase 64 U/L (46-116); Anion Gap 7.4 (5-15); Aspartate Aminotransferase 10 U/L (13-40); BUN/Creatinine Ratio 9.2 (10.0-20.0); Bilirubin, Total 0.6 mg/dL (0.2-1.0); Blood Urea Nitrogen 9 mg/dL (9-23); Calcium 8.9 mg/dL (8.5-10.1); Carbon Dioxide 27.6 mmol/L (20-30); Chloride 103 mmol/L (98-107); Glucose 96 mg/dL (74-106); Potassium 3.6 mmol/L (3.5-5.1); Sodium 138 mmol/L (136-145); Total Protein 7.4 g/dL (5.7-8.2)
[2023-02-21] MEDS: ASPirin 81 mg TAB PO SCH (10:32)
[2023-02-21] MEDS: DexAMETHasone SOD PHOS 10MG/1ML VIAL INJ IV SCH (10:32)
[2023-02-21] MEDS: FAMOTIDINE (10MG/ML) 2ML VL IV SCH ×2 (10:32→21:58)
[2023-02-21] MEDS: CARVEDILOL 12.5 MG TAB PO SCH ×2 (10:33→22:03)
[2023-02-21] MEDS: FUROSEMIDE 20 MG/2 ML VIAL IV SCH (10:33)
[2023-02-21 10:59] LABS: Alanine Aminotransferase < 9 U/L (7-40)
[2023-02-21 11:51] LABS: Band Neutrophils % (manual) 4; Eosinophils % (manual) 1 (0-7); Lymphocytes % (manual) 29 (10.0-50.0); Monocytes % (manual) 18 (0-12)
[2023-02-21 11:52] LABS: Platelet Estimate Adequate
[2023-02-21] MEDS: SODIUM CHLOR 0.9% PF (SALINE LOCK) 10ML VIAL/SYR IV SCH ×2 (14:24→21:58)
[2023-02-21] MEDS: ATORVASTATIN 20 MG TAB PO SCH (21:58)
[2023-02-21] MEDS ORDERED: AMIO200T33 PO (22:13)
[2023-02-22] VITALS (11 sets, daily range): BP systolic 122–158; BP diastolic 87–101; PULSE 64–90; RESP 15–22; TEMP 36.4; O2SAT 95–100
[2023-02-22] MEDS: ACETAMINOPHEN 325 MG TAB PO PRN ×3 (00:14→21:54)
[2023-02-22] MEDS: SODIUM CHLOR 0.9% PF (SALINE LOCK) 10ML VIAL/SYR IV SCH ×3 (06:18→21:45)
[2023-02-22 06:45] LABS: Hematocrit 47.4 % (41.0-53.0); Hemoglobin 15.7 g/dL (13.5-17.5); Mean Corpuscular Hemoglobin 29.6 pg (28.0-32.0); Mean Corpuscular Hgb Conc. 33.1 g/dL (32.0-36.0); Mean Corpuscular Volume 89.5 fL (80.0-100.0); Red Cell Distribution Width 13.3 % (11.8-14.3); White Blood Cell 4.6 10^3/uL (4.4-10.8)
[2023-02-22 06:55] LABS: Basophils % (manual) 0 (0.0-2.0); Blast Cells 0; Eosinophils % (manual) 0 (0-7); Metamyelocytes % 0; Myelocytes % 0; Promyelocytes % 0; Reactive Lymphocytes 0
[2023-02-22 07:02] LABS: Alanine Aminotransferase < 9 U/L (7-40); Albumin 4.4 g/dL (3.2-4.8); Alkaline Phosphatase 62 U/L (46-116); Anion Gap 5.6 (5-15); Aspartate Aminotransferase < 8 U/L (13-40); BUN/Creatinine Ratio 15.6 (10.0-20.0); Bilirubin, Total 0.3 mg/dL (0.2-1.0); Blood Urea Nitrogen 15 mg/dL (9-23); Calcium 9.3 mg/dL (8.7-10.4); Carbon Dioxide 28.4 mmol/L (20-30); Chloride 102 mmol/L (98-107); Glucose 114 mg/dL (74-106); Potassium 3.9 mmol/L (3.5-5.1); Sodium 136 mmol/L (136-145); Total Protein 7.3 g/dL (5.7-8.2)
[2023-02-22] MEDS: CARVEDILOL 12.5 MG TAB PO SCH ×2 (09:06→21:45)
[2023-02-22] MEDS: FUROSEMIDE 20 MG/2 ML VIAL IV SCH (09:06)
[2023-02-22] MEDS: ASPirin 81 mg TAB PO SCH (09:06)
[2023-02-22] MEDS: DexAMETHasone SOD PHOS 10MG/1ML VIAL INJ IV SCH (09:07)
[2023-02-22] MEDS: FAMOTIDINE (10MG/ML) 2ML VL IV SCH ×2 (09:07→21:44)
[2023-02-22 09:11] LABS: Band Neutrophils % (manual) 4; Lymphocytes % (manual) 20 (10.0-50.0); Monocytes % (manual) 10 (0-12)
[2023-02-22 09:12] LABS: Platelet Estimate Adequate
[2023-02-22] MEDS ORDERED: metOLazone 5 MG TAB PO ONE (13:45)
[2023-02-22] MEDS ORDERED: FUROSEMIDE 20 MG/2 ML VIAL IV SCH (13:45)
[2023-02-22] MEDS: ATORVASTATIN 20 MG TAB PO SCH (21:44)
[2023-02-22] MEDS: guaiFENesin-DM 100/10mg/5ml SYR PO PRN (23:20)
[2023-02-23] VITALS (10 sets, daily range): BP systolic 132–179; BP diastolic 71–97; PULSE 52–87; RESP 16–20; TEMP 97.8–98.3; O2SAT 93–97
[2023-02-23] MEDS: SODIUM CHLOR 0.9% PF (SALINE LOCK) 10ML VIAL/SYR IV SCH ×3 (06:56→22:22)
[2023-02-23] MEDS: cefTRIAXone 1GM/50ML D5W 50 ML IV SCH (09:12)
[2023-02-23] MEDS: FAMOTIDINE (10MG/ML) 2ML VL IV SCH (09:13)
[2023-02-23] MEDS: DexAMETHasone SOD PHOS 10MG/1ML VIAL INJ IV SCH (09:14)
[2023-02-23] MEDS: ASPirin 81 mg TAB PO SCH (09:14)
[2023-02-23] MEDS: CARVEDILOL 12.5 MG TAB PO SCH ×2 (09:14→22:21)
[2023-02-23] MEDS ORDERED: AZITHROMYCIN 500MG/ 250ML 250 ML IV SCH ×2 (10:00)
[2023-02-23 11:05] LABS: Hepatitis B Surface Antigen Negative (Negative)
[2023-02-23 11:26] LABS: Hepatitis C Antibody Negative (Negative)
[2023-02-23] MEDS ORDERED: AMIODARONE HCL 200 MG TAB PO ONE (17:00)
[2023-02-23] MEDS ORDERED: ASPirin 81 mg TAB PO ONE (17:00)
[2023-02-23] MEDS ORDERED: SPIRONOLACTONE 25 MG TAB PO ONE (17:00)
[2023-02-23 19:11] LABS: Basophils # (auto) 0 10 ^3/uL (0-0.2); Basophils % (auto) 0.1 % (0.0-2.0); Eosinophils # (auto) 0 10 ^3/uL (0-0.8); Hematocrit 48.5 % (41.0-53.0); Lymphocytes # (auto) 1.1 10 ^3/uL (0.4-5.4); Lymphocytes % (auto) 16.4 % (10.0-50.0); Mean Corpuscular Hemoglobin 29.7 pg (28.0-32.0); Mean Corpuscular Hgb Conc. 33.1 g/dL (32.0-36.0); Monocytes # (auto) 0.3 10 ^3/uL (0-1.3); Monocytes % (auto) 3.8 % (0.0-12.0); Neutrophils # (auto) 5.4 10 ^3/uL (1.6-8.6); Neutrophils % (auto) 79.7 % (37.0-80.0); Red Cell Distribution Width 13.6 % (11.8-14.3); White Blood Cell 6.8 10^3/uL (4.4-10.8)
[2023-02-23] MEDS ORDERED: ATORVASTATIN 20 MG TAB PO SCH (22:00)
[2023-02-23] MEDS: methylPREDNISolone SOD SUCC 40 MG/ML VL IV SCH (22:20)
[2023-02-23] MEDS: SACUBITRIL-VALSARTAN 24mg/26mg TAB PO SCH (22:20)
[2023-02-23] MEDS: guaiFENesin-DM 100/10mg/5ml SYR PO PRN (22:21)
[2023-02-23] MEDS: APIXABAN 5 MG TAB PO SCH (22:21)
[2023-02-23 23:27] LABS: Free T3 2.75 pg/mL (2.3-4.2); Free T4 (Free Thyroxine) 1.5 ng/dL (0.89-1.76)
[2023-02-24] VITALS (9 sets, daily range): BP systolic 116–156; BP diastolic 77–103; PULSE 65–79; RESP 19–20; TEMP 97.5–98.2; O2SAT 93–97
[2023-02-24] MEDS: SODIUM CHLOR 0.9% PF (SALINE LOCK) 10ML VIAL/SYR IV SCH ×2 (05:34→14:10)
[2023-02-24 06:03] LABS: Basophils # (auto) 0 10 ^3/uL (0-0.2); Basophils % (auto) 0.3 % (0.0-2.0); Eosinophils # (auto) 0 10 ^3/uL (0-0.8); Hematocrit 48.5 % (41.0-53.0); Hemoglobin 15.7 g/dL (13.5-17.5); Lymphocytes # (auto) 1.2 10 ^3/uL (0.4-5.4); Lymphocytes % (auto) 14.2 % (10.0-50.0); Mean Corpuscular Hgb Conc. 32.4 g/dL (32.0-36.0); Mean Corpuscular Volume 89.6 fL (80.0-100.0); Monocytes # (auto) 0.6 10 ^3/uL (0-1.3); Monocytes % (auto) 7.3 % (0.0-12.0); Neutrophils # (auto) 6.6 10 ^3/uL (1.6-8.6); Neutrophils % (auto) 78.2 % (37.0-80.0); Red Blood Cells 5.41 10^6/uL (4.5-5.90); Red Cell Distribution Width 13.1 % (11.8-14.3); White Blood Cell 8.5 10^3/uL (4.4-10.8)
[2023-02-24 06:13] LABS: Chloride 102 mmol/L (98-107); Potassium 4.2 mmol/L (3.5-5.1); Sodium 138 mmol/L (136-145)
[2023-02-24 06:15] LABS: Calcium 9.4 mg/dL (8.5-10.1)
[2023-02-24 06:19] LABS: Glucose 121 mg/dL (74-106)
[2023-02-24 06:20] LABS: BUN/Creatinine Ratio 24.2 (10.0-20.0); Blood Urea Nitrogen 23 mg/dL (9-23); LDL Cholesterol 72 mg/dL (< 100); Triglycerides 54 mg/dL (< 150)
[2023-02-24 06:22] LABS: Cholesterol 140 mg/dL (< 200); HDL Cholesterol 50 mg/dL (40-59)
[2023-02-24] MEDS: cefTRIAXone 1GM/50ML D5W 50 ML IV SCH (08:18)
[2023-02-24] MEDS ORDERED: AMIODARONE HCL 200 MG TAB PO SCH (10:00)
[2023-02-24] MEDS ORDERED: azaTHIOprine 50 MG TAB PO SCH (10:00)
[2023-02-24] MEDS ORDERED: FUROSEMIDE 40 MG TAB PO SCH (10:00)
[2023-02-24] MEDS ORDERED: ASPirin 81 mg TAB PO SCH (10:00)
[2023-02-24] MEDS ORDERED: SPIRONOLACTONE 25 MG TAB PO SCH (10:00)
[2023-02-24] MEDS ORDERED: PANTOPRAZOLE 40 MG TAB PO SCH (10:00)
[2023-02-24] MEDS: SACUBITRIL-VALSARTAN 24mg/26mg TAB PO SCH (10:24)
[2023-02-24] MEDS: APIXABAN 5 MG TAB PO SCH (10:25)
[2023-02-24] MEDS: methylPREDNISolone SOD SUCC 40 MG/ML VL IV SCH (10:26)
[2023-02-24] MEDS: CARVEDILOL 12.5 MG TAB PO SCH (10:26)
[2023-02-24] MEDS ORDERED: AMIO200T33 PO (12:15)
[2023-02-24] MEDS ORDERED: DOXY1CAP57 PO (12:15)
[2023-02-24] MEDS ORDERED: FURO1TAB31 PO (12:15)
[2023-02-24] MEDS ORDERED: CAR125T OR (12:15)
[2023-02-24] MEDS ORDERED: APIX5TAB PO (12:15)
[2023-02-24] MEDS ORDERED: SACU1TAB PO (12:15)
[2023-02-24] MEDS ORDERED: ATO40T PO (12:15)
== END 2023-02-24 15:30 | disposition home or self-care (01) | DRG 198 ==
LOC: ER 23:11 → TELE 02-21 08:45 → TELE-WESTW 02-21 21:29
PROVIDERS: ADMIT Internal Medicine Geriatric Medicine; ATTEND Student in an Organized Health Care Education/Training Program
DX: I25.10 Atherosclerotic heart disease of native coronary artery without angina pectoris (principal); J18.9 Pneumonia, unspecified organism; I11.0 Hypertensive heart disease with heart failure; I50.22 Chronic systolic (congestive) heart failure; I48.91 Unspecified atrial fibrillation; J44.1 Chronic obstructive pulmonary disease with (acute) exacerbation; J44.0 Chronic obstructive pulmonary disease with (acute) lower respiratory infection; F12.90 Cannabis use, unspecified, uncomplicated; R09.89 Other specified symptoms and signs involving the circulatory and respiratory systems; J98.11 Atelectasis; F17.210 Nicotine dependence, cigarettes, uncomplicated; Z20.822 Contact with and (suspected) exposure to COVID-19; E05.90 Thyrotoxicosis, unspecified without thyrotoxic crisis or storm; E66.9 Obesity, unspecified; Z79.82 Long term (current) use of aspirin; Z79.899 Other long term (current) drug therapy; Z80.1 Family history of malignant neoplasm of trachea, bronchus and lung; Z82.49 Family history of ischemic heart disease and other diseases of the circulatory system; Z83.3 Family history of diabetes mellitus; Z68.32 Body mass index [BMI] 32.0-32.9, adult; Z95.0 Presence of cardiac pacemaker
CPT/HCPCS: 36415; 71045; 80048; 80053; 80061; 81001; 83036; 83735; 83880; 84439; 84443; 84481; 84484; 85007; 85025; 85027; 85610; 85730; 86803; 87070; 87205; 87340; 87426; 87804; 93005; 93306; 94640; 96372; G0378; J0696; J1100; J3490

== ENCOUNTER 2024-04-28 08:17 | Inpatient (IN) | payer MEDICAID ==
[~2024-04-28] VITALS: Ht 185.4 cm; Wt 106.1 kg
[~2024-04-28 08:17] MED LIST changes: +ATOR-507 PO; -CAR125T PO; +CARV-216 OR; +CARV-216 PO; +DOXY1CAP57 PO; +FURO1TAB31 PO
[2024-04-28 08:35] VITALS: PULSE 94; RESP 20; O2SAT 95
[2024-04-28 08:51] LABS: Basophils # (auto) 0 10 ^3/uL (0-0.2); Basophils % (auto) 0.5 % (0.0-2.0); Eosinophils # (auto) 0.1 10 ^3/uL (0-0.8); Eosinophils % (auto) 1.5 % (0.0-7.0); Hematocrit 52.6 % (41.0-53.0); Lymphocytes # (auto) 1.8 10 ^3/uL (0.4-5.4); Lymphocytes % (auto) 33.1 % (10.0-50.0); Mean Corpuscular Hemoglobin 30.2 pg (28.0-32.0); Mean Corpuscular Hgb Conc. 32.4 g/dL (32.0-36.0); Mean Corpuscular Volume 93.3 fL (80.0-100.0); Monocytes # (auto) 0.6 10 ^3/uL (0-1.3); Monocytes % (auto) 11.4 % (0.0-12.0); Neutrophils # (auto) 2.8 10 ^3/uL (1.6-8.6); Neutrophils % (auto) 53.5 % (37.0-80.0); Nucleated Red Blood Cells % 0.1 %; Platelet Count (auto) 240 10^3/uL (140-450); Red Blood Cells 5.64 10^6/uL (4.5-5.90); Red Cell Distribution Width 13.9 % (11.8-14.3); White Blood Cell 5.3 10^3/uL (4.4-10.8)
[2024-04-28 08:56] LABS: Chloride 103 mmol/L (98-107); Potassium 3.4 mmol/L (3.5-5.1); Sodium 141 mmol/L (136-145)
[2024-04-28 08:57] LABS: Anion Gap 9 (5-15); Calcium 9.3 mg/dL (8.7-10.4); Carbon Dioxide 29 mmol/L (20-31)
[2024-04-28 09:02] LABS: BUN/Creatinine Ratio 8.7 (10.0-20.0); Blood Urea Nitrogen 9 mg/dL (9-23); Glucose 111 mg/dL (74-106)
--- NOTE | 2024-04-28 09:20 | ED.PDOC ---
SOB-HPI HPI Comments 59y M who presents to the ED via EMS for chief complaint of shortness of breath. Pt states he has was at home and states his defibrillator shocked him 2x and states afterwards, he started to feel short of breath and called EMS to the scene. Pt states now in the ED, he is having associated intermittent chest pain with associated bilateral leg swelling for the past 1 week. Pt states he has history of HTN and CHF and states he is complaint with his medications. Pt in the ED, otherwise diaphoresis, palpitation, fever, cough, chills, dysuria, hematuria or hematemesis. Pt has 02 sat of 95% on room air and is not in any noted respiratory distress in the ED. Pt otherwise denies any other symptoms at this time. Chief Complaint: Shortness of Breath Time Seen by MD: 09:18 Primary Care Provider: UNKNOWN Reviewed notes: Medications, Allergies Information Source: Patient Mode of Arrival: Ambulatory Brought in by: self Past Medical History PAST MEDICAL HISTORY: CAD, CHF, COPD, HTN Surgical History: Pacemaker Family History Family History: Reviewed,noncontributory to illness, Family hx of DM, Family hx of HTN Social History Smoker: Cigarettes, Greater Than 1 Pack/Day Alcohol: Occasionally Drugs: Marijuana, Methamphetamine Lives In: Home Constitutional: denies: chills, diaphoresis, fatigue, fever, malaise, sweats, weakness, others EENTM: denies: blurred vision, double vision, ear bleeding, ear discharge, ear drainage, ear pain, ear ringing, eye pain, eye redness, hearing loss, mouth pain, mouth swelling, nasal discharge, nose bleeding, nose congestion, nose pain, photophobia, tearing, throat pain, throat swelling, voice changes, others Respiratory: reports: shortness of breath; denies: cough, hemoptysis, orthopnea, SOB at rest, SOB with excertion, stridor, wheezing, others Cardiovascular: reports: chest pain; denies: dizzy spells, diaphoresis, Dyspnea on exertion, edema, irregular heart beat, left arm pain, lightheadedness, palpitations, PND, syncope, others Gastrointestinal: denies: abdomen distended, abdominal pain, blood streaked bowels, constipated, diarrhea, dysphagia, difficulty swallowing, hematemesis, melena, nausea, poor appetite, poor fluid intake, rectal bleeding, rectal pain, vomiting, others Genitourinary: denies: burning, dysuria, flank pain, frequency, hematuria, incontinence, penile discharge, penile sore, pain, testicle pain, testicle swelling, urgency, others Neurological: denies: dizziness, fainting, headache, left sided numbness, left sided weakness, numbness, paresthesia, pre-existing deficit, right sided numbness, right sided weakness, seizure, speech problems, tingling, tremors, weakness, others Musculoskeletal: denies: back pain, gout, joint pain, joint swelling, muscle pain, muscle stiffness, neck pain, others Integumetry: denies: bruises, change in color, change in hair/nails, dryness, laceration, lesions, lumps, rash, wounds, others Allergic/Immunocompromised: denies: Difficulty Healing, Frequent Infections, Hives, Itching, others Hematologic/Lymphatic: denies: anemia, blood clots, easy bleeding, easy bruising, swollen glands, others Endocrine: denies: excessive hunger, excessive sweating, excessive thirst, excessive urination, flushing, intolerance to cold, intolerance to heat, unexplained weight gain, unexplained weight loss, others Psychiatric: denies: anxiety, bipolar disorder, depression, hopeless, panic disorder, schizophrenia, sleepless, suicidal, others All Other Systems: Reviewed and Negative Physical Exam General Appearance: Moderate Distress HEENT: Normal ENT Inspection, Pharynx Normal, TMs Normal Neck: Full Range of Motion, Non-Tender, Normal, Normal Inspection Respiratory: Chest Non-Tender, Lungs Clear, No Accessory Muscle Use, No Respiratory Distress, Normal Breath Sounds Cardiovascular: No Edema, No JVD, No Murmur, No Gallop, Normal Peripheral Pulses, Regular Rate/Rhythm Breast Exam: Deferred Gastrointestinal: No Organomegaly, Non Tender, No Pulsatile Mass, Normal Bowel Sounds, Soft Genitalia: Deferred Pelvic: Deferred Rectal: Deferred Extremities: No calf tenderness, Normal capillary refill, Normal inspection, No rmal range of motion, Non-tender, Pedal edema Musculoskeletal : Apperance: Normal Neurologic: Alert, news camera operator II-XII nml as Tested, No Motor Deficits, Normal Affect, Normal Mood, No Sensory Deficits Cerebellar Function: NOT DONE Reflexes: NOT DONE Skin: Dry, Normal Color, Warm Peripheral Pulses: 3+ Radial (R), 3+ Radial (L) Lymphatic: No Adenopathy Was a procedure done? Was a procedure done?: No Differential Dx Differential Diagnosis: Anxiety, Asthma, Bronchitis, CHF, COPD, Hypertension, Pneumonia, Pulmonary Embolism, Respiratory Distress, URI Comments acute coronary syndrome, angina X-Ray, Labs, Meds, VS Vital Signs Date Time Temp Pulse Resp B/P (MAP) Pulse Ox O2 Delivery O2 Flow Rate FiO2 04/28/24 11:17 148/114 04/28/24 10:42 95 20 130/103 (112) 95 04/28/24 08:35 94 20 95 Nasal Cannula* 2 28 04/28/24 08:32 98.1 101 20 152/110 (124) 94 98.1 04/28/24 08:20 103 04/28/24 08:20 98.4 60 18 180/116 (137) 95 Lab Test 04/28/24 08:30 04/28/24 08:26 Range/Units Urine Color Light-yellow Yellow Urine Clarity Clear Clear Urine pH 6.0 5.0-9.0 Urine Specific [place] 1.007 1.001-1.035 Urine Protein 1+ H Negative Urine Ketones Negative Negative Urine Blood Negative Negative /uL Urine Nitrite Negative Negative Urine Bilirubin Negative Negative Urine Urobilinogen Normal Negative mg/dL Urine Leukocyte Esterase Negative Negative /uL Urine RBC <1 0 - 3 /hpf Urine WBC <1 0 - 3 /hpf Urine Squamous Epithelial Cells None seen <5 /hpf Urine Bacteria None seen None Seen /hpf Urine Glucose Normal Normal mg/dL White Blood Count 5.3 4.4-10.8 10^3/uL Red Blood Count 5.64 4.5-5.90 10^6/uL Hemoglobin 17.0 13.5-17.5 g/dL Hematocrit 52.6 41.0-53.0 % Mean Corpuscular Volume 93.3 80.0-100.0 fL Mean Corpuscular Hemoglobin 30.2 28.0-32.0 pg Mean Corpuscular Hemoglobin Concent 32.4 32.0-36.0 g/dL Red Cell Distribution Width 13.9 11.8-14.3 % Platelet Count 240 140-450 10^3/uL Mean Platelet Volume 8.4 6.9-10.8 fL Neutrophils (%) (Auto) 53.5 37.0-80.0 % Lymphocytes (%) (Auto) 33.1 10.0-50.0 % Monocytes (%) (Auto) 11.4 0.0-12.0 % Eosinophils (%) (Auto) 1.5 0.0-7.0 % Basophils (%) (Auto) 0.5 0.0-2.0 % Neutrophils # (Auto) 2.8 1.6-8.6 10 ^3/uL Lymphocytes # (Auto) 1.8 0.4-5.4 10 ^3/uL Monocytes # (Auto) 0.6 0-1.3 10 ^3/uL Eosinophils # (Auto) 0.1 0-0.8 10 ^3/uL Basophils # (Auto) 0 0-0.2 10 ^3/uL Nucleated Red Blood Cells 0.1 % Sodium Level 141 136-145 mmol/L Potassium Level 3.4 L 3.5-5.1 mmol/L Chloride Level 103 98-107 mmol/L Carbon Dioxide Level 29 20-31 mmol/L Anion Gap 9 5-15 Blood Urea Nitrogen 9 9-23 mg/dL Creatinine 1.04 0.700-1.30 mg/dL Glomerular Filtration Rate Calc 83 >90 mL/min BUN/Creatinine Ratio 8.7 L 10.0-20.0 Serum Glucose 111 H 74-106 mg/dL Calcium Level 9.3 8.7-10.4 mg/dL Troponin I High Sensitivity 32 </=54 ng/L B-Type Natriuretic Peptide 485.65 0-100 pg/mL Current Medications Medications (Trade) Dose Ordered Sig/Jorge Route Start Time Stop Time Status Last Admin Furosemide (Lasix Injection) 40 mg BID IV 04/28/24 11:00 04/28/24 11:17 CHEST RADIOGRAPH IMPRESSION: Patchy bilateral airspace disease may represent pulmonary vascular congestion or multifocal infection. Clinical correlation advised. Patient alert. Defibrillator. Vitals stable. Answering all questions. Bilateral lower extremity swelling. History of CHF. BNP elevated. Was given Lasix pain Chest x-ray reviewed does show congestion. Possible pneumonia. Establish intravenous access. Was given Rocephin. Was given azithromycin. Reviewed his history. Explained to the patient. Time of 1ST Reevaluation: 09:50 Reevaluation 1ST: Unchanged Patient Education/Counseling: Diagnosis, Treatment Family Education/Counseling: No Family Present Departure 1 Departure Time of Disposition: 11:26 Impression: Primary Impression: Systolic and diastolic CHF, acute on chronic Additional Impressions: Bilateral pneumonia Qualified Codes: J18.9 - Pneumonia, unspecified organism Hypertension Qualified Codes: I10 - Essential (primary) hypertension Disposition: ADMITTED INPATIENT Admit to: Med Surg Condition: Guarded Critical Care Note Critical Care Time?: Yes (45 min-critical care time only) Stability Stability form required: No Heart Score Heart Score: Heart Score Response (Comments) Value History Moderate Suspicious 1 EKG Normal 0 Age 45-64 1 Risk Factors >3 or Hx ASHD 2 Troponin Normal limit 0 Total 4 I personally scribed for NELDA JOLLEY MD ([email or web address]) on 04/28/24 at 09:20. Electronically submitted by Nati Rojas ([employer]). I personally scribed for NELDA JOLLEY MD ([email or web address]) on 04/28/24 at 10:50. Electronically submitted by Nati Rojas ([employer]). NELDA JOLLEY MD Apr 28, 2024 09:20
[2024-04-28 10:16] LABS: Urine Bacteria None Seen /hpf (None Seen)
--- NOTE | 2024-04-28 10:42 | DVH ---
CHEST RADIOGRAPH Indication:sob Technique: Single frontal view of the chest was obtained COMPARISON: XY CHEST PORTABLE on DOS: 02/23/23, XY CHEST PORTABLE on DOS: 02/21/23, XY CHEST PORTABLE o n DOS: 08/22/22 FINDINGS: Lines and Tubes: Left chest wall AICD. Lungs: Patchy bilateral airspace disease. Pleura: No effusion. No pneumothorax. Cardiomediastinal contours: Cardiomegaly. Bones: Unremarkable IMPRESSION: Patchy bilateral airspace disease may represent pulmonary vascular congestion or multifocal infection . Clinical correlation advised.
[2024-04-28 10:51] LABS: Urine Blood Negative /uL (Negative); Urine Clarity Clear (Clear); Urine Color Light-Yellow (Yellow); Urine Protein, UAD 1+ (Negative); Urine Specific Gravity 1.007 (1.001-1.035); Urine Urobilinogen Normal (Negative); Urine WBC <1 /hpf (0 - 3)
--- NOTE | 2024-04-28 10:57 | DVHHP2 ---
Admitting Diagnosis: Shortness of breaths History of Present Illness 59y M who presents to the ED via EMS for chief complaint of shortness of breath. Pt states he has was at home and states his defibrillator shocked him 2x and states afterwards, he started to feel short of breath and called EMS to the scene. Pt states now in the ED, he is having associated intermittent chest pain with associated bilateral leg swelling for the past 1 week. Pt states he has history of HTN and CHF and states he is complaint with his medications. Pt in the ED, otherwise diaphoresis, palpitation, fever, cough, chills, dysuria, hematuria or hematemesis. Pt has 02 sat of 95% on room air and is not in any noted respiratory distress in the ED. Pt otherwise denies any other symptoms at this time. PAST MEDICAL HISTORY: CAD, CHF, COPD, HTN, AFib, AICD Surgical History: Pacemaker Family History Family History: Reviewed,noncontributory to illness, Family hx of DM, Family hx of HTN Social History Smoker: Cigarettes, Greater Than 1 Pack/Day Alcohol: Occasionally Drugs: Marijuana, Methamphetamine Lives In: Home Patient Family History: FH: lung cancer UNCLE Family history: Diabetes mellitus G8 FATHER Family history: Hypertension G8 MOTHER G8 FATHER, Onset:60 years & older Allergies: Coded Allergies: NO KNOWN ALLERGIES (Unverified , 04/18/22) Home Meds Active Scripts Atorvastatin Calcium (Lipitor) 40 Mg Tab, 1 TAB PO DAILY, #30 TAB 5 Refills Prov:SUSHMA LEWIS MD 02/24/23 Amiodarone Hcl (Amiodarone Hcl) 200 Mg Tab, 200 MG PO DAILY for 30 Days, #30 TAB Prov:SUSHMA LEWIS MD 02/24/23 Carvedilol (COREG) 12.5 Mg Tab, 12.5 MG OR BID for 30 Days, #60 TAB Prov:SUSHMA LEWIS MD 02/24/23 Furosemide (Lasix) 40 Mg Tab, 40 MG PO DAILY for 30 Days, #30 TAB Prov:SUSHMA LEWIS MD 02/24/23 Sacubitril-Valsartan (Entresto 24-26 mg) 1 Tab Tab, 1 TAB PO BID for 30 Days, #60 TAB Prov:SUSHMA LEWIS MD 02/24/23 Apixaban Base (ELIQUIS) 5 Mg Tab, 5 MG PO BID for 30 Days, #60 TAB Prov:SUSHMA LEWIS MD 02/24/23 Doxycycline Monohydrate (Doxycycline Monohydrate) 100 Mg Cap, 1 CAP PO BID, #20 CAP Prov:SUSHMA LEWIS MD 02/24/23 Carvedilol (COREG) 12.5 Mg Tab, 25 MG PO BID for 30 Days, #120 TAB 2 Refills Prov:FRANK SCHOFIELD MD 08/25/22 Sacubitril-Valsartan (Entresto 24-26 mg) 1 Tab Tab, 1 TAB PO BID, #60 TAB PT MUST BRING MED PER PHARMACY Prov:SILVERIO SOTO MD 04/18/22 Spironolactone (Spironolactone) 25 Mg Tab, 1 TAB PO DAILY, #60 TAB Prov:SILVERIO SOTO MD 04/18/22 Furosemide (Furosemide) 40 Mg Tab, 40 MG PO DAILY, #30 TAB Prov:SILVEROI SOTO MD 04/18/22 Hydrocodone-Acetaminophen (Hydrocodone Bitartrate/AC 5-325 mg) 1 Tab Tab, 1 TAB PO Q8HPRN PRN, #14 TAB Prov:FREDO FRIAS MD 09/25/21 Albuterol Sulfate (Albuterol Sulfate Hfa) 108 Mcg/Act Aer, 2 PUFF INH Q6HPRN, #1 AER 1 Refill Prov:FREDO FRIAS MD 09/24/21 Apixaban Base (ELIQUIS) 5 Mg Tab, 1 TAB PO BID, #60 TAB Prov:FREDO FRIAS MD 09/24/21 Carvedilol (Carvedilol) 12.5 Mg Tab, 1 TAB PO BID, #60 TAB Prov:FREDO FRIAS MD 09/24/21 Aspirin (Asa) 81 Mg Ch, 81 MG PO DAILY, #30 TAB.CHEW Prov:SILVERIO SOTO MD 04/16/20 Reported Medications Amiodarone Hcl (Amiodarone Hcl) 200 Mg Tab, 200 MG PO DAILY for 30 Days 02/21/23 Atorvastatin Calcium (ATORVASTATIN CALCIUM) 20 Mg Tab, 1 TAB PO DAILY, #30 TAB 5 Refills 2/26/23 Current Medications Current Medications Medications (Trade) Dose Ordered Sig/Jorge Route PRN Reason Start Time Stop Time Status Last Admin Furosemide (Lasix Injection) 40 mg BID IV 04/28/24 11:00 UNV Sodium Chloride (Saline Lock Ns) 10 ml Q8HR IV 04/28/24 14:00 UNV Docusate Sodium (Colace Capsule) 100 mg BIDPRN PRN PO FOR CONSTIPATION 04/28/24 11:00 UNV Acetaminophen (Tylenol Tablet) 650 mg Q6HP PRN PO PAIN SCALE 1-3 OR TEMP>100.4 04/28/24 11:00 UNV Acetaminophen/ Hydrocodone Bitart (Kendrick 5/325MG Tab) 1 tab Q4HP PRN PO MODERATE PAIN (4-6 PAIN SCALE) 04/28/24 11:00 UNV Hydromorphone HCl (Dilaudid Injection) 0.5 mg Q4HP PRN IV SEVERE PAIN (7-10 PAIN SCALE) 04/28/24 11:00 UNV Ondansetron HCl (Zofran) 4 mg Q4HP PRN IV NAUSEA / VOMITING 04/28/24 11:00 UNV Enoxaparin Sodium (Lovenox) 40 mg DAILY SC 04/29/24 10:00 UNV Amiodarone HCl (Cordarone Tablet) 200 mg DAILY PO 04/29/24 10:00 UNV Apixaban (Eliquis) 5 mg BID PO 04/28/24 22:00 UNV Aspirin 81 mg DAILY PO 04/29/24 10:00 UNV Atorvastatin Calcium (Lipitor) 20 mg DAILY PO 04/29/24 10:00 UNV Carvedilol (Coreg Tablet) 12.5 mg BID PO 04/28/24 22:00 UNV Sacubitril/ Valsartan (Entresto 24-26 Mg tab) 1 tab BID PO 04/28/24 22:00 UNV Spironolactone (Aldactone) 25 mg DAILY PO 04/29/24 10:00 UNV Vital Signs Vital Signs Date Time Temp Pulse Resp B/P (MAP) Pulse Ox O2 Delivery O2 Flow Rate FiO2 04/28/24 10:42 95 20 130/103 (112) 95 04/28/24 08:35 Nasal Cannula* 2 28 04/28/24 08:32 98.1 98.1 Physical Exam 69 years old male, overweight, lying in bed. No apparent distress HEENT-atraumatic normocephalic Heart-sinus rhythm Lungs-decreased breath sounds in lower lung Abdomen soft nontender nondistended Musculoskeletal-positive edema, no cyanosis, chronic venous stasis Neuro-AO x3, no focal deficit Results Labs Test 04/28/24 08:30 04/28/24 08:26 Range/Units Urine Color Light-yellow Yellow Urine Clarity Clear Clear Urine pH 6.0 5.0-9.0 Urine Specific [place] 1.007 1.001-1.035 Urine Protein 1+ H Negative Urine Ketones Negative Negative Urine Blood Negative Negative /uL Urine Nitrite Negative Negative Urine Bilirubin Negative Negative Urine Urobilinogen Normal Negative mg/dL Urine Leukocyte Esterase Negative Negative /uL Urine RBC <1 0 - 3 /hpf Urine WBC <1 0 - 3 /hpf Urine Squamous Epithelial Cells None seen <5 /hpf Urine Bacteria None seen None Seen /hpf Urine Glucose Normal Normal mg/dL White Blood Count 5.3 4.4-10.8 10^3/uL Red Blood Count 5.64 4.5-5.90 10^6/uL Hemoglobin 17.0 13.5-17.5 g/dL Hematocrit 52.6 41.0-53.0 % Mean Corpuscular Volume 93.3 80.0-100.0 fL Mean Corpuscular Hemoglobin 30.2 28.0-32.0 pg Mean Corpuscular Hemoglobin Concent 32.4 32.0-36.0 g/dL Red Cell Distribution Width 13.9 11.8-14.3 % Platelet Count 240 140-450 10^3/uL Mean Platelet Volume 8.4 6.9-10.8 fL Neutrophils (%) (Auto) 53.5 37.0-80.0 % Lymphocytes (%) (Auto) 33.1 10.0-50.0 % Monocytes (%) (Auto) 11.4 0.0-12.0 % Eosinophils (%) (Auto) 1.5 0.0-7.0 % Basophils (%) (Auto) 0.5 0.0-2.0 % Neutrophils # (Auto) 2.8 1.6-8.6 10 ^3/uL Lymphocytes # (Auto) 1.8 0.4-5.4 10 ^3/uL Monocytes # (Auto) 0.6 0-1.3 10 ^3/uL Eosinophils # (Auto) 0.1 0-0.8 10 ^3/uL Basophils # (Auto) 0 0-0.2 10 ^3/uL Nucleated Red Blood Cells 0.1 % Sodium Level 141 136-145 mmol/L Potassium Level 3.4 L 3.5-5.1 mmol/L Chloride Level 103 98-107 mmol/L Carbon Dioxide Level 29 20-31 mmol/L Anion Gap 9 5-15 Blood Urea Nitrogen 9 9-23 mg/dL Creatinine 1.04 0.700-1.30 mg/dL Glomerular Filtration Rate Calc 83 >90 mL/min BUN/Creatinine Ratio 8.7 L 10.0-20.0 Serum Glucose 111 H 74-106 mg/dL Calcium Level 9.3 8.7-10.4 mg/dL Troponin I High Sensitivity 32 </=54 ng/L B-Type Natriuretic Peptide 485.65 0-100 pg/mL Primary Diagnosis Acute on chronic systolic heart failure AICD AFib Plan Chest x-ray shows bilateral pulmonary vascular congestion Elevated BNP Start IV Lasix 40 mg b.i.d. Daily weights Fluid restriction Strict in and out Optimize potassium greater than four, magnesium greater than two Check echo of the heart Cardiology consult resume home meds Cardiac diet Full code Lovenox for DVT prophylaxis PPI for GI prophylaxis Plan discussed with: Patient Date of Service: Apr 28, 2024 Billing Provider: LYNN PRICE MD Common Visit Codes: 65599-[id number] INP/OBS CARE (HIGH) LYNN PRICE MD Apr 28, 2024 10:57
[2024-04-28] MEDS ORDERED: ACETAMINOPHEN 325 MG TAB PO PRN (11:00)
[2024-04-28] MEDS ORDERED: DOCUSATE SOD 100 MG CAP PO PRN (11:00)
[2024-04-28] MEDS ORDERED: ONDANSETRON HCL 4 MG/2 ML VIAL IV PRN (11:00)
[2024-04-28] MEDS: FUROSEMIDE 40 MG/4 ML VIAL IV SCH (11:17)
[2024-04-28] MEDS: SODIUM CHLOR 0.9% PF (SALINE LOCK) 10ML VIAL/SYR IV SCH (14:03)
--- NOTE | 2024-04-28 17:43 | DVHINCON2 ---
Date of service: Apr 28, 2024 History of Present Illness HPI Patient is a 59-year-old gentleman who presented to the hospital after he felt that the ICD has fired twice in the a.m.. Cardiology is involved for cardiac aspects of care. He is known to our practice from outside and before. Last visit to the office was more than 1 year ago. He mentions that he had moved to [place] and did not follow with any pharmacy general manager. He has ran out of his medications months ago. He has been complaining of worsening shortness of breath and leg edema. Denies chest discomfort prior to the ICD firing. He does use meth and marijuana. He smokes cigarettes. He does drink alcohol. He looks unkempt. Home Meds Active Scripts Atorvastatin Calcium (Lipitor) 40 Mg Tab, 1 TAB PO DAILY, #30 TAB 5 Refills Prov:SUSHMA LEWIS MD 02/24/23 Amiodarone Hcl (Amiodarone Hcl) 200 Mg Tab, 200 MG PO DAILY for 30 Days, #30 TAB Prov:SUSHMA LEWIS MD 02/24/23 Carvedilol (COREG) 12.5 Mg Tab, 12.5 MG OR BID for 30 Days, #60 TAB Prov:SUSHMA LEWIS MD 02/24/23 Furosemide (Lasix) 40 Mg Tab, 40 MG PO DAILY for 30 Days, #30 TAB Prov:SUSHMA LEWIS MD 02/24/23 Sacubitril-Valsartan (Entresto 24-26 mg) 1 Tab Tab, 1 TAB PO BID for 30 Days, #60 TAB Prov:SUSHMA LEWIS MD 02/24/23 Apixaban Base (ELIQUIS) 5 Mg Tab, 5 MG PO BID for 30 Days, #60 TAB Prov:SUSHMA LEWIS MD 02/24/23 Doxycycline Monohydrate (Doxycycline Monohydrate) 100 Mg Cap, 1 CAP PO BID, #20 CAP Prov:SSUHMA LEWIS MD 02/24/23 Carvedilol (COREG) 12.5 Mg Tab, 25 MG PO BID for 30 Days, #120 TAB 2 Refills Prov:FRANK SCHOFIELD MD 08/25/22 Sacubitril-Valsartan (Entresto 24-26 mg) 1 Tab Tab, 1 TAB PO BID, #60 TAB PT MUST BRING MED PER PHARMACY Prov:SILVERIO SOTO MD 04/18/22 Spironolactone (Spironolactone) 25 Mg Tab, 1 TAB PO DAILY, #60 TAB Prov:SILVERIO SOTO MD 04/18/22 Furosemide (Furosemide) 40 Mg Tab, 40 MG PO DAILY, #30 TAB Prov:SILVERIO SOTO MD 04/18/22 Hydrocodone-Acetaminophen (Hydrocodone Bitartrate/AC 5-325 mg) 1 Tab Tab, 1 TAB PO Q8HPRN PRN, #14 TAB Prov:FREDO FRIAS MD 09/25/21 Albuterol Sulfate (Albuterol Sulfate Hfa) 108 Mcg/Act Aer, 2 PUFF INH Q6HPRN, #1 AER 1 Refill Prov:FREDO FRIAS MD 09/24/21 Apixaban Base (ELIQUIS) 5 Mg Tab, 1 TAB PO BID, #60 TAB Prov:FREDO FRIAS MD 09/24/21 Carvedilol (Carvedilol) 12.5 Mg Tab, 1 TAB PO BID, #60 TAB Prov:FREDO FRIAS MD 09/24/21 Aspirin (Asa) 81 Mg Ch, 81 MG PO DAILY, #30 TAB.CHEW Prov:SILVERIO SOTO MD 04/16/20 Reported Medications Amiodarone Hcl (Amiodarone Hcl) 200 Mg Tab, 200 MG PO DAILY for 30 Days 02/21/23 Atorvastatin Calcium (ATORVASTATIN CALCIUM) 20 Mg Tab, 1 TAB PO DAILY, #30 TAB 5 Refills 08/24/22 Past Medical History Others Past medical history includes hypertension, hyperlipidemia, systolic heart failure, dilated cardiomyopathy, COPD, paroxysmal AFib, type 2 pulmonary hypertension, umbilical hernia history of NSVT and status post BiV-ICD (Biotronik) implantation. Has history of noncompliance to medication and followups. He smokes cigarettes. He uses marijuana. Mentioned that he stopped methamphetamine few months ago. Patient Family History: FH: lung cancer UNCLE Family history: Diabetes mellitus G8 FATHER Family history: Hypertension G8 MOTHER G8 FATHER, Onset:60 years & older Smoker: Positive Alocohol: Occassional Drugs: Marijuana, Amphetimines Review of Systems Constitutional: Weakness Ears, Nose, & Throat: No symptom reported Eyes: No symptom reported Pulmonary/Respiratory: Dyspnea Cardiovascular: Orthopnea, Edema All Other Systems 14 point review of system was performed. Relevant findings as per above and as per HPI. Otherwise negative. H&P Exam Vital Signs Vital Signs Date Time Temp Pulse Resp B/P (MAP) Pulse Ox O2 Delivery O2 Flow Rate FiO2 04/28/24 14:56 90 18 118/88 (98) 97 04/28/24 08:35 Nasal Cannula* 2 28 04/28/24 08:32 98.1 98.1 General Appeara: Well developed, Obese Eye Exam: bilateral eye PERRL Pulmonary/Respiratory: Rales, Rhonci Cardiovascular/Chest: Edema, Regular rate, Systolic murmur Peripheral Pulses: 2+ carotid (R), 2+ carotid (L), 2+ femoral (R), 2+ femoral (L), 2+ dorsalis pedis (R), 2+ dorsalis pedis (L), 2+ Radial (R), 2+ Radial (L) Abdominal Exam: Normal bowel sounds, Soft, Other (Distended) Neuro/Mental St: Alert, Oriented Appearance: Appropriate appearance Eye contact/ Speech: Cooperative Labs/Xrays Labs Test 04/28/24 08:30 04/28/24 08:26 Range/Units Urine Color Light-yellow Yellow Urine Clarity Clear Clear Urine pH 6.0 5.0-9.0 Urine Specific [place] 1.007 1.001-1.035 Urine Protein 1+ H Negative Urine Ketones Negative Negative Urine Blood Negative Negative /uL Urine Nitrite Negative Negative Urine Bilirubin Negative Negative Urine Urobilinogen Normal Negative mg/dL Urine Leukocyte Esterase Negative Negative /uL Urine RBC <1 0 - 3 /hpf Urine WBC <1 0 - 3 /hpf Urine Squamous Epithelial Cells None seen <5 /hpf Urine Bacteria None seen None Seen /hpf Urine Glucose Normal Normal mg/dL White Blood Count 5.3 4.4-10.8 10^3/uL Red Blood Count 5.64 4.5-5.90 10^6/uL Hemoglobin 17.0 13.5-17.5 g/dL Hematocrit 52.6 41.0-53.0 % Mean Corpuscular Volume 93.3 80.0-100.0 fL Mean Corpuscular Hemoglobin 30.2 28.0-32.0 pg Mean Corpuscular Hemoglobin Concent 32.4 32.0-36.0 g/dL Red Cell Distribution Width 13.9 11.8-14.3 % Platelet Count 240 140-450 10^3/uL Mean Platelet Volume 8.4 6.9-10.8 fL Neutrophils (%) (Auto) 53.5 37.0-80.0 % Lymphocytes (%) (Auto) 33.1 10.0-50.0 % Monocytes (%) (Auto) 11.4 0.0-12.0 % Eosinophils (%) (Auto) 1.5 0.0-7.0 % Basophils (%) (Auto) 0.5 0.0-2.0 % Neutrophils # (Auto) 2.8 1.6-8.6 10 ^3/uL Lymphocytes # (Auto) 1.8 0.4-5.4 10 ^3/uL Monocytes # (Auto) 0.6 0-1.3 10 ^3/uL Eosinophils # (Auto) 0.1 0-0.8 10 ^3/uL Basophils # (Auto) 0 0-0.2 10 ^3/uL Nucleated Red Blood Cells 0.1 % Sodium Level 141 136-145 mmol/L Potassium Level 3.4 L 3.5-5.1 mmol/L Chloride Level 103 98-107 mmol/L Carbon Dioxide Level 29 20-31 mmol/L Anion Gap 9 5-15 Blood Urea Nitrogen 9 9-23 mg/dL Creatinine 1.04 0.700-1.30 mg/dL Glomerular Filtration Rate Calc 83 >90 mL/min BUN/Creatinine Ratio 8.7 L 10.0-20.0 Serum Glucose 111 H 74-106 mg/dL Calcium Level 9.3 8.7-10.4 mg/dL Troponin I High Sensitivity 32 </=54 ng/L B-Type Natriuretic Peptide 485.65 0-100 pg/mL Assessment/Plan Plan Patient is a 59-year-old gentleman who presented to the hospital after he felt that the ICD has fired twice in the a.m.. Cardiology is involved for cardiac aspects of care. He is known to our practice from outside and before. Last visit to the office was more than 1 year ago. He mentions that he had moved to [place] and did not follow with any pharmacy general manager. He has ran out of his medications months ago. He has been complaining of worsening shortness of breath and leg edema. Denies chest discomfort prior to the ICD firing. He does use meth and marijuana. He smokes cigarettes. He does drink alcohol. He looks unkempt. gentleman. Not in acute distress. Sitting in bed. No JVD. Mucosa is pink and wet. No goiter. Lungs: Crackles in the lower lungs is heard. Cardiac: Regular, no thrill. Systolic murmur 3/6 in the apex is heard. Abdomen is distended. Bowel sound is positive. Questionable hepatomegaly. Extremities reveal 2+ edema bilaterally Past medical history includes hypertension, hyperlipidemia, systolic heart failure, dilated cardiomyopathy, COPD, paroxysmal AFib, type 2 pulmonary hypertension, umbilical hernia history of NSVT and status post BiV-ICD (Biotronik) implantation. Has history of noncompliance to medication and followups. He smokes cigarettes. He uses marijuana. Mentioned that he stopped methamphetamine few months ago. Echocardiogram of January 2023 revealed ejection fraction of 25-30%, mild concentric left ventricular hypertrophy, mild biatrial enlargement, pacing wire in the right-sided chambers, mild MR, [id number] TR and right ventricular systolic pressure of 52 mm Hg Cardiac catheterization of March 2020 had revealed mild coronary artery disease, nonischemic cardiomyopathy and dilated vessels WBC: 5.3 Hemoglobin: 17.0 Creatinine: 1.04 Troponin (high sensitive): 32 BNP: 485.65 Chest x-ray revealed: IMPRESSION: Patchy bilateral airspace disease may represent pulmonary vascular congestion or multifocal infection. Clinical correlation advised. EKG revealed a sense, V paced rhythm Tele reveals a sensed V paced rhythm Patient is a 59-year-old gentleman who presented after feeling that the ICD has shocked him. Does have history of systolic heart failure and ICD implantation (Biotronik) has not been compliant with medication and followups. Has ran out of medications months ago. Had been short of breath with leg swellings in favor of acute on chronic systolic heart failure. Troponin has been negative. Acute coronary syndrome is not considered at this point. ICD shock/firing, possible Acute on chronic systolic heart failure Dilated cardiomyopathy , history of Noncompliance with medication and followups Paroxysmal AFib History of non sustained V-tach Status post BiV-ICD implantation (Biotronik) Polysubstance abuse Alcohol abuse Cardiac suggestion for management: Manage on telemetry IV diuresis Follow-up electrolytes and kidney function tests and correct abnormalities. Keep potassium above 4 and magnesium above 2 Request for D-dimer Continue anticoagulation (Eliquis) Continue guideline directed medical therapy (Entresto/carvedilol/... ) Request for echocardiogram Request for ICD interrogation ([employer]) Request for urine toxicology Lifestyle and risk factor modifications. Patient was counseled to avoid alcohol/meth/marijuana Patient was counseled to be compliant with medication and followups Further evaluation and management depends on the above and clinical course Thank you for consultation Plan discussed with: Patient, Other (nurse) JUNIOR MCMAHAN MD Apr 28, 2024 17:43
[2024-04-28 19:29] VITALS: PULSE 93; RESP 20; O2SAT 94
[2024-04-28] MEDS: CARVEDILOL 12.5 MG TAB PO SCH (21:36)
[2024-04-28] MEDS: SACUBITRIL-VALSARTAN 24mg/26mg TAB PO SCH (21:36)
[2024-04-28 23:16] LABS: Amphetamine Screen, Urine Neg (NEGATIVE); Barbiturate Scree,Urine Neg (NEGATIVE); Benzodiazephine Screen, Urine Neg (NEGATIVE); Cocaine Screen, Urine Neg (NEGATIVE); Opiate Scree,Urine Neg (NEGATIVE); Phencyclidine Screen, Urine Neg (NEGATIVE)
[2024-04-28 23:17] LABS: Cannabinoid Screen, Urine Pos (NEGATIVE)
[2024-04-29] VITALS (10 sets, daily range): BP systolic 101–128; BP diastolic 67–94; PULSE 72–82; RESP 16–20; TEMP 97.6–98.8; O2SAT 94–100
--- NOTE | 2024-04-29 06:36 | DVHPN2 ---
Progress Note - Dictate Date Seen: Apr 29, 2024 Medical Necessity Reason Pt with a Central, PICC or Fol: No vital signs Vital Sign Date Time Temp Pulse Resp B/P (MAP) Pulse Ox O2 Delivery O2 Flow Rate FiO2 04/29/24 05:00 98.8 72 16 101/67 (78) 96 98.8 04/29/24 02:10 Nasal Cannula* 2 28 Total Intake and Output 04/28/24 04/28/24 04/29/24 15:00 23:00 07:00 Intake Total 240 ml Output Total 0 ml Balance 240 ml medications Current Medications Medications Dose Ordered Sig/Jorge Route Start Time Stop Time Status Last Admin Dose Admin Furosemide 40 mg BID IV 04/28/24 11:00 04/28/24 21:35 40 MG Sodium Chloride 10 ml Q8HR IV 04/28/24 14:00 04/28/24 21:36 10 ML Docusate Sodium 100 mg BIDPRN PRN PO 04/28/24 11:00 Acetaminophen 650 mg Q6HP PRN PO 04/28/24 11:00 Acetaminophen/ Hydrocodone Bitart 1 tab Q4HP PRN PO 04/28/24 11:00 Hydromorphone HCl 0.5 mg Q4HP PRN IV 04/28/24 11:00 Ondansetron HCl 4 mg Q4HP PRN IV 04/28/24 11:00 Enoxaparin Sodium 40 mg DAILY SC 04/29/24 10:00 Future Hold Amiodarone HCl 200 mg DAILY PO 04/29/24 10:00 Apixaban 5 mg BID PO 04/28/24 22:00 Hold Aspirin 81 mg DAILY PO 04/29/24 10:00 Atorvastatin Calcium 20 mg DAILY PO 04/29/24 10:00 Carvedilol 12.5 mg BID PO 04/28/24 22:00 04/28/24 21:36 12.5 MG Sacubitril/ Valsartan 1 tab BID PO 04/28/24 22:00 04/28/24 21:36 1 TAB Spironolactone 25 mg DAILY PO 04/29/24 10:00 laboratory and microbiology Laboratory Tests 04/28/24 08:26 Test 04/28/24 08:26 Range/Units Serum Glucose 111 H 74-106 mg/dL Assessment/Plan Patient is a 59-year-old gentleman who presented to the hospital after he felt that the ICD has fired twice in the a.m.. Cardiology is involved for cardiac aspects of care. He is known to our practice from outside and before. Last visit to the office was more than 1 year ago. He mentions that he had moved to [place] and did not follow with any metal sander and finisher. He has ran out of his medications months ago. He has been complaining of worsening shortness of breath and leg edema. Denies chest discomfort prior to the ICD firing. He does use meth and marijuana. He smokes cigarettes. He does drink alcohol. He looks unkempt. gentleman. Not in acute distress. Sitting in bed. No JVD. Mucosa is pink and wet. No goiter. Lungs: Crackles in the lower lungs is heard. Cardiac: Regular, no thrill. Systolic murmur 3/6 in the apex is heard. Abdomen is distended. Bowel sound is positive. Questionable hepatomegaly. Extremities reveal 2+ edema bilaterally Past medical history includes hypertension, hyperlipidemia, systolic heart failure, dilated cardiomyopathy, COPD, paroxysmal AFib, type 2 pulmonary hypertension, umbilical hernia history of NSVT and status post BiV-ICD (Biotronik) implantation. Has history of noncompliance to medication and followups. He smokes cigarettes. He uses marijuana. Mentioned that he stopped methamphetamine few months ago. Echocardiogram of January 2023 revealed ejection fraction of 25-30%, mild concentric left ventricular hypertrophy, mild biatrial enlargement, pacing wire in the right-sided chambers, mild MR, [id number] TR and right ventricular systolic pressure of 52 mm Hg Cardiac catheterization of March 2020 had revealed mild coronary artery disease, nonischemic cardiomyopathy and dilated vessels WBC: 5.3 Hemoglobin: 17.0 Creatinine: 1.04 Potassium: 3.4 Troponin (high sensitive): 32 BNP: 485.65 D-Dimer: 0.58 Chest x-ray revealed: IMPRESSION: Patchy bilateral airspace disease may represent pulmonary vascular congestion or multifocal infection. Clinical correlation advised. EKG revealed a sense, V paced rhythm Tele reveals a sensed V paced rhythm Patient is a 59-year-old gentleman who presented after feeling that the ICD has shocked him. Does have history of systolic heart failure and ICD implantation (Biotronik) has not been compliant with medication and followups. Has ran out of medications months ago. Had been short of breath with leg swellings in favor of acute on chronic systolic heart failure. Troponin has been negative. Acute coronary syndrome is not considered at this point. ICD shock/firing, possible Acute on chronic systolic heart failure Dilated cardiomyopathy , history of Noncompliance with medication and followups Paroxysmal AFib History of non sustained V-tach Status post BiV-ICD implantation (Biotronik) Polysubstance abuse Alcohol abuse Cardiac suggestion for management: Manage on telemetry IV diuresis Follow-up electrolytes and kidney function tests and correct abnormalities. Keep potassium above 4 and magnesium above 2 Full anticoagulation is advised (history of PAF) Continue guideline directed medical therapy (Entresto/carvedilol/... ) Request for Echocardiogram Request for ICD interrogation ([employer]) Request for urine toxicology Lifestyle and risk factor modifications. Patient was counseled to avoid alcohol/meth/marijuana Patient was counseled to be compliant with medication and followups Further evaluation and management depends on the above and clinical course A total of 55 minutes was spent reviewing the patient record, examining the patient, making a diagnostic and therapeutic plan, discussing this plan with medical personnel, following up on diagnostic studies and following the patient for clinical stability excluding any and all procedures. At least 50% of this time was spent in direct, [id number] contact. Thank you for allowing me to participate in this patient's care. Further recommendations will depend on patient's clinical course. Please do not hesitate to contact me if you have any questions or concerns. This medical document was created using electronic medical record system with [employer] computerized dictation system. Although this document has been carefully reviewed, there may still be some phonetic and typographical errors. These areas are purely typographical due to the imperfection of the software programs, and do not reflect any compromise in the patient's medical care. Plan discussed with: Patient, Other (nurse) JUNIOR MCMAHAN MD Apr 29, 2024 06:36
[2024-04-29] MEDS: ASPirin 81 mg TAB PO SCH (09:18)
[2024-04-29] MEDS: AMIODARONE HCL 200 MG TAB PO SCH (09:19)
[2024-04-29] MEDS: SPIRONOLACTONE 25 MG TAB PO SCH (09:20)
[2024-04-29] MEDS: ATORVASTATIN 20 MG TAB PO SCH (09:20)
[2024-04-29] MEDS ORDERED: ENOXAPARIN SOD 40 MG/0.4 ML SYRINGE SC SCH (10:00)
[2024-04-29] MEDS: POTASSIUM EFFERVESENT TAB 25 MEQ PO ONE ×2 (10:00→14:15)
[2024-04-29 11:10] LABS: Basophils # (auto) 0 10 ^3/uL (0-0.2); Basophils % (auto) 0.8 % (0.0-2.0); Eosinophils # (auto) 0.1 10 ^3/uL (0-0.8); Eosinophils % (auto) 1.3 % (0.0-7.0); Hematocrit 48.8 % (41.0-53.0); Hemoglobin 16.1 g/dL (13.5-17.5); Lymphocytes # (auto) 1.7 10 ^3/uL (0.4-5.4); Lymphocytes % (auto) 29.8 % (10.0-50.0); Mean Corpuscular Hemoglobin 30.7 pg (28.0-32.0); Mean Corpuscular Volume 93.2 fL (80.0-100.0); Monocytes # (auto) 0.9 10 ^3/uL (0-1.3); Monocytes % (auto) 16.2 % (0.0-12.0); Neutrophils % (auto) 51.9 % (37.0-80.0); Nucleated Red Blood Cells % 0.2 %; Platelet Count (auto) 230 10^3/uL (140-450); Red Blood Cells 5.24 10^6/uL (4.5-5.90); Red Cell Distribution Width 13.8 % (11.8-14.3); White Blood Cell 5.8 10^3/uL (4.4-10.8)
--- NOTE | 2024-04-29 11:19 | DVHPNRES ---
Progress Note Date Seen: Apr 29, 2024 Resident Creating Document: NAJUM ACOSTA RESIDENT Medical Necessity Reason Pt with a Central, PICC or Fol: No Subjective Review of Systems Patient is a 59-year-old male with past medical history of heart failure with reduced ejection fraction, paroxysmal atrial fibrillation,? COPD, dyslipidemia, hypertension who came in after his ICD went off. According to the patient, on 04/28/[address]24 [address] when he felt that his ICD went off, he pulled over and sat there for a while when he noticed his ICD fired once again for the 2nd time. Shortly after, patient called the ambulance and came to the hospital. He also notes shortness of breaths that has been ongoing for the last couple of weeks and bloating. Troponin was 32, BNP 485.65, chest x-ray showed patchy bilateral airspace disease, may represent pulmonary vascular congestion or multifocal infection. Past surgical history: Left wrist surgery, left hip reconstruction Home medications: Albuterol, amiodarone, apixaban, aspirin, statin, carvedilol, doxycycline, furosemide, Entresto, spironolactone Past Hospitalization:In January 2023 for COPD exacerbation? Social & Personal history: Patient lives in a [facility] with other tenants. Smokes 3 cigarettes per day for the past 40 years. Drinks alcohol daily, 1-2 drinks per day Allergies: Denies Patient seen and examined at bedside. Patient is alert and oriented to time, place person and responding to all questions. General: Reports fatigue Eyes: No Pain, No Vision change, No Conjunctivae inflammation, No Eyelid inflammation, No Other, No Redness ENT: No Ear pain, No Ear discharge, No Nose pain, No Nose discharge, No Nose congestion, No Mouth pain, No Mouth swelling, No Throat pain, No Throat swellin g, No Other Cardiovascular: No Chest Pain, Palpitations, No Orthopnea, Dyspnea, No Edema, No Lt Headedness, No Other Respiratory: No Cough, No Dry, Shortness of breath, SOB with exertion, Wheezing , No Hemoptysis, No Pleuritic Pain, No Sputum, No Other Gastrointestinal: No Nausea, No Vomiting, No Abdominal Pain, No Diarrhea, No Constipation, No Melena, No Hematochezia, No Other Genitourinary: No Dysuria, No Frequency, No Incontinence, No Hematuria, No Retention, No Other Musculoskeletal: No other, No neck pain, No shoulder pain, No arm pain, No back pain, No hand pain, No leg pain, No foot pain Skin: No Rash, No Lesions, No Jaundice, No Bruising, No Other Objective vital signs Vital Sign Date Time Temp Pulse Resp B/P (MAP) Pulse Ox O2 Delivery O2 Flow Rate FiO2 04/29/24 09:20 128/95 04/29/24 09:19 82 04/29/24 08:25 97.7 18 95 97.7 04/29/24 02:10 Nasal Cannula* 2 28 Total Intake and Output 04/28/24 04/28/24 04/29/24 15:00 23:00 07:00 Intake Total 240 ml Output Total 0 ml Balance 240 ml medications Current Medications Medications Dose Ordered Sig/Jorge Route Start Time Stop Time Status Last Admin Dose Admin Furosemide 40 mg BID IV 04/28/24 11:00 04/29/24 09:20 40 MG Sodium Chloride 10 ml Q8HR IV 04/28/24 14:00 04/29/24 06:34 10 ML Docusate Sodium 100 mg BIDPRN PRN PO 04/28/24 11:00 Acetaminophen 650 mg Q6HP PRN PO 04/28/24 11:00 Acetaminophen/ Hydrocodone Bitart 1 tab Q4HP PRN PO 04/28/24 11:00 Hydromorphone HCl 0.5 mg Q4HP PRN IV 04/28/24 11:00 Ondansetron HCl 4 mg Q4HP PRN IV 04/28/24 11:00 Amiodarone HCl 200 mg DAILY PO 04/29/24 10:00 04/29/24 09:19 200 MG Apixaban 5 mg BID PO 04/28/24 22:00 Hold Aspirin 81 mg DAILY PO 04/29/24 10:00 04/29/24 09:18 81 MG Atorvastatin Calcium 20 mg DAILY PO 04/29/24 10:00 04/29/24 09:20 20 MG Carvedilol 12.5 mg BID PO 04/28/24 22:00 04/29/24 09:19 12.5 MG Sacubitril/ Valsartan 1 tab BID PO 04/28/24 22:00 04/29/24 09:19 1 TAB Spironolactone 25 mg DAILY PO 04/29/24 10:00 04/29/24 09:20 25 MG Examination General Appearance: Cooperative. Well developed. Well nourished. NAD Head Exam: Normal inspection Neck Exam: Normal inspection. Non-tender. Normal alignment Pulmonary/Respiratory: Chest non-tender. Decreased bilateral breath sounds, crackles, wheezing. Cardiovascular/Chest: Regular rate and rhythm. No murmurs. No JVD. Peripheral Pulses: 2+ Radial (R). 2+ Radial (L). 2+ Pedal (R). 2+ Pedal (L) Abdominal Exam: Normal bowel sounds. Soft. normal abdomen, no visible veins, Nontender. No hepatospenomegaly. No masses Ankle Exam: Negative ankle edema Lower extremities: Negative lower extremity edema Neuro/Mental Status: A&O x4. Coherent. Thoughts/Psych: Normal thought pattern. Appropriate mood and affect. Good judgement and insight Skin Exam: Normal inspection. Normal color. Warm. Dry laboratory and microbiology Test 04/29/24 10:35 Range/Units Serum Glucose Pending Problem List/Assessment/Plan Problem List/Assessment/Plan Acute on chronic systolic heart failure with reduced ejection fraction Dilated cardiomyopathy Paroxysmal atrial fibrillation S/p ICD placement (Biotronik) - CXR: Patchy bilateral airspace disease may represent pulmonary vascular congestion or multifocal infection. - ECHO: Dilated 4 chambers observed. Mild concentric left ventricular hypertrophy, left ventricular dilated. Ejection fraction 20%. Diffuse hypokinesis of left ventricle go. Right ventricle was dilated with reduced systolic function. Both atria were moderately dilated. Pacing wire was seen in the right-sided chambers. RVSP 55 mmHg. - amiodarone 200 mg p.o. daily, apixaban 5 mg p.o. b.i.d. - aspirin 81 mg, atorvastatin 20 mg - carvedilol 12.5 mg, IV furosemide 40 mg b.i.d., Entresto b.i.d., spironolactone 25 mg daily - awaiting ICD interrogation ?COPD exacerbation - levalbuterol and ipratropium med [facility] Medical noncompliance - counseled patient extensively about the importance of adhering to GDMT to prevent further worsening of his heart failure History of hyperthyroidism - serum TSH 0.29 - ordered free T4, free T3 next - we will continue to monitor Hypokalemia - replaced with p.o. potassium DVT prophylaxis: Already on Eliquis 5 mg b.i.d. Goals of care: Full code, discussed for >16 minutes on 04/29/24 Plan discussed with patient Plan discussed with Dr. Antonio Plan discussed with: Patient, Other (RN) Date of Service: Apr 29, 2024 Billing Provider: RAZIA ANTONIO MD Common Visit Codes: [id number] INP/OBS CARE(HIGH) ANJUM ACOSTA RESIDENT Apr 29, 2024 11:19 RAZIA ANTONIO MD Apr 30, 2024 12:39
[2024-04-29 11:25] LABS: Alanine Aminotransferase 16 U/L (7-40); Albumin 3.6 g/dL (3.2-4.8); Alkaline Phosphatase 67 U/L (46-116); Anion Gap 6 (5-15); Aspartate Aminotransferase 15 U/L (13-40); BUN/Creatinine Ratio 10.2 (10.0-20.0); Bilirubin, Total 0.9 mg/dL (0.2-1.0); Blood Urea Nitrogen 11 mg/dL (9-23); Calcium 9.3 mg/dL (8.7-10.4); Carbon Dioxide 31 mmol/L (20-31); Chloride 105 mmol/L (98-107); Glucose 77 mg/dL (74-106); Magnesium 1.9 mg/dL (1.6-2.6); Potassium 3.2 mmol/L (3.5-5.1); Sodium 142 mmol/L (136-145); Total Protein 6.4 g/dL (5.7-8.2)
--- NOTE | 2024-04-29 14:42 | DVHSR ---
APPROVED REPORT EXAM: Two-dimensional and M-mode echocardiogram with Doppler and color Doppler. Blood Pressure: 101/67 mmHg INDICATION Acute on chronic systolic heart failure Surgery/Intervention Pacemaker: RISK [employer]ORS Height: 6' 1", Weight: 250 DIMENSIONS LVDd6.1 (3.8-5.7cm)LA (2D)5.0 (1.9-4.0cm)Aortic Root3.8 (2.0-3.7cm) LVDs5.7 (2.5-4.0cm)LA (MM) (1.9-4.0cm)Aortic Cusp Exc2.1 (1.5-2.0cm) EF (%) 15.0 (55-70%)Rt. Atrium4.7 (1.9-4.0cm)Asc. Aorta cm IVSd1.3 (0.7-1.1cm)RV (D) (1.8-2.4cm) PWd1.5 (0.7-1.1cm) Mitral Valve MitralMitral Stenosis E wave1.00m/sMV Mean GR.mmHg A wave1.10m/sMV Peak GR.mmHg E/A ratio0.92D MVAcm2 Aortic Valve Aortic ValveAortic Stenosis V10.80m/Kelvin Mean GR.5mmHg V21.50m/Kelvin Peak GR.9mmHg LVOT Diameter2.6 (1.8-2.4cm)Doppler AVA2.83cm2 Pulmonic Valve V20.50m/s Tricuspid Valve TR Velocity3.30m/s [id number] Conclusion Dilated 4 chambers was observed. Left ventricle: Mild concentric left ventricular hypertrophy was seen. Left ventricle was dilated. LVEF was around 20%. Diffuse hypokinesis of left ventricle was seen. Right ventricle: Right ventricle was dilated with reduced systolic function. Both atria were modera tely dilated. Pacing wire was seen in right-sided chambers. Aortic valve was not well visualized. There was no aortic stenosis. There was trivial aortic valve insufficiency. There was mild mitral regurgitation. There was moderate tricuspid regurgitation. Pu lmonary valve was not well visualized. Right ventricular systolic pressure was assessed around 55 mm Hg. There was no pericardial effusion. Aortic root was 3.8 cm.
--- NOTE | 2024-04-29 15:13 | ECG ---
[facility] Test Date: 2024-04-28 Test Time: 08:18:39 Pat Name: LEX VU Department: ED Room: [address] [place] [address] 3 Gender: M Hospital Personnel Director: PATRICIA : 1965 Requested By: NELDA JOLLEY Order Number: [id number] Reading MD: Aba Aguayo Measurements Intervals [place] Rate: 103 P: 102 OR: 197 QRS: -43 QRSD: 118 T: 127 QT: 380 QTc: 498 Interpretive Statements Atrial-sensed ventricular-paced complexes No further analysis attempted due to paced rhythm Electronically Signed On 05-05-2024 10:03:45 PST by Aba Aguayo Please click the below link to view image of tracing.
[2024-04-29 19:12] LABS: Chloride 103 mmol/L (98-107); Potassium 3.6 mmol/L (3.5-5.1); Sodium 139 mmol/L (136-145)
[2024-04-29 19:13] LABS: Anion Gap 3 (5-15); Calcium 9.3 mg/dL (8.7-10.4); Carbon Dioxide 33 mmol/L (20-31)
[2024-04-29 19:18] LABS: BUN/Creatinine Ratio 8.4 (10.0-20.0); Blood Urea Nitrogen 10 mg/dL (9-23); Glucose 140 mg/dL (74-106)
[2024-04-29 19:24] LABS: Free T3 2.98 pg/mL (2.3-4.2); Free T4 (Free Thyroxine) 1.27 ng/dL (0.89-1.76)
[2024-04-29] MEDS: LEVALBUTEROL HCL 1.25 MG/3 ML NEB NEB SCH (19:31)
[2024-04-29] MEDS: IPRATROPIUM BROM 0.5 MG/2.5ML INH SOL NEB PRN (19:32)
[2024-04-29] MEDS: APIXABAN 5 MG TAB PO SCH (20:26)
[2024-04-30] VITALS (12 sets, daily range): BP systolic 104–130; BP diastolic 72–85; PULSE 66–79; RESP 17–20; TEMP 97.7–98.4; O2SAT 93–98
--- NOTE | 2024-04-30 06:05 | DVHPN2 ---
Progress Note - Dictate Date Seen: Apr 30, 2024 Medical Necessity Reason Pt with a Central, PICC or Fol: No Subjective Patient seen and examined at the bedside within telemetry. Chart reviewed. vital signs Vital Sign Date Time Temp Pulse Resp B/P (MAP) Pulse Ox O2 Delivery O2 Flow Rate FiO2 04/30/24 05:00 97.7 79 19 111/76 (88) 93 97.7 04/30/24 00:26 Nasal Cannula 1.0 04/30/24 00:26 24 Total Intake and Output 04/29/24 04/29/24 04/30/24 15:00 23:00 07:00 Intake Total 1330 ml 1036 ml Output Total 2100 ml 1900 ml Balance -770 ml -864 ml medications Current Medications Medications Dose Ordered Sig/Jorge Route Start Time Stop Time Status Last Admin Dose Admin Furosemide 40 mg BID IV 04/28/24 11:00 04/30/24 00:14 40 MG Sodium Chloride 10 ml Q8HR IV 04/28/24 14:00 04/29/24 22:55 10 ML Docusate Sodium 100 mg BIDPRN PRN PO 04/28/24 11:00 Acetaminophen 650 mg Q6HP PRN PO 04/28/24 11:00 Acetaminophen/ Hydrocodone Bitart 1 tab Q4HP PRN PO 04/28/24 11:00 Hydromorphone HCl 0.5 mg Q4HP PRN IV 04/28/24 11:00 Ondansetron HCl 4 mg Q4HP PRN IV 04/28/24 11:00 Amiodarone HCl 200 mg DAILY PO 04/29/24 10:00 04/29/24 09:19 200 MG Apixaban 5 mg BID PO 04/28/24 22:00 04/29/24 20:26 5 MG Aspirin 81 mg DAILY PO 04/29/24 10:00 04/29/24 09:18 81 MG Atorvastatin Calcium 20 mg DAILY PO 04/29/24 10:00 04/29/24 09:20 20 MG Carvedilol 12.5 mg BID PO 04/28/24 22:00 04/29/24 20:26 12.5 MG Sacubitril/ Valsartan 1 tab BID PO 04/28/24 22:00 04/29/24 22:54 1 TAB Spironolactone 25 mg DAILY PO 04/29/24 10:00 04/29/24 09:20 25 MG Ipratropium [place] 0.5 mg Q4HPRN PRN NEB 04/29/24 18:45 04/29/24 19:32 0.5 MG Levalbuterol HCl 0.625 mg Q6HR NEB 04/29/24 18:45 04/29/24 19:31 0.625 MG laboratory and microbiology Laboratory Tests 04/29/24 13:50 04/29/24 10:35 Test 04/29/24 13:50 Range/Units Serum Glucose 140 H 74-106 mg/dL Assessment/Plan Assessment/Plan Patient is a 59-year-old gentleman who presented to the hospital after he felt that the ICD has fired twice in the a.m.. Cardiology is involved for cardiac aspects of care. He is known to our practice from outside and before. Last visit to the office was more than 1 year ago. 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 He has ran out of his medications months ago. He has been complaining of worsening shortness of breath and leg edema. Denies chest discomfort prior to the ICD firing. He does use meth and marijuana. He smokes cigarettes. He does drink alcohol. He looks unkempt. gentleman. Not in acute distress. Sitting in bed. No JVD. Mucosa is pink and wet. No goiter. Lungs: Crackles in the lower lungs is heard. Cardiac: Regular, no thrill. Systolic murmur 3/6 in the apex is heard. Abdomen is distended. Bowel sound is positive. Questionable hepatomegaly. Extremities reveal 2+ edema bilaterally Past medical history includes hypertension, hyperlipidemia, systolic heart failure, dilated cardiomyopathy, COPD, paroxysmal AFib, type 2 pulmonary hypertension, umbilical hernia history of NSVT and status post BiV-ICD (Biotronik) implantation. Has history of noncompliance to medication and followups. He smokes cigarettes. He uses marijuana. Mentioned that he stopped methamphetamine few months ago. Echocardiogram of January 2023 revealed ejection fraction of 25-30%, mild concentric left ventricular hypertrophy, mild biatrial enlargement, pacing wire in the right-sided chambers, mild MR, [id number] TR and right ventricular systolic pressure of 52 mm Hg Cardiac catheterization of March 2020 had revealed mild coronary artery disease, nonischemic cardiomyopathy and dilated vessels WBC: 5.3 Hemoglobin: 17.0 Creatinine: 1.04 Potassium: 3.4 Troponin (high sensitive): 32 BNP: 485.65 D-Dimer: 0.58 Urine toxicology: positive for cannabinoids Chest x-ray revealed: IMPRESSION: Patchy bilateral airspace disease may represent pulmonary vascular congestion or multifocal infection. Clinical correlation advised. Device Interrogation revealed: VDDR 50/130, 8.1% atrial burden, underlying sinus rhythm, 88% BIV pacing, Atrial sensin.6 mV, Atrial threshold: no capture at max output, Atrial impedance: 560, RV sensin.2 mV, RV threshold: 1.2v at 0.40, RV impedance: 579, LV sensin.7mV, LV threshold: 3.8v @ 1.25, LV impedance: 890, Battery voltage: 2:57V, Battery remaining <5 ESTEFANY, Shocks delivered in recent weeks due to SVT rhythm but therapy delivered due to malfunctioning right atrial lead (undersensing atrial fibrillation) EKG revealed a sense, V paced rhythm Tele reveals a sensed V paced rhythm Echocardiogram revealed: (04/29/2024) Dilated 4 chambers was observed. Left ventricle: Mild concentric left ventricular hypertrophy was seen. Left ventricle was dilated. LVEF was around 20%. Diffuse hypokinesis of left ventricle was seen. Right ventricle: Right ventricle was dilated with reduced systolic function. Both atria were moderately dilated. Pacing wire was seen in right-sided chambers. Aortic valve was not well visualized. There was no aortic stenosis. There was trivial aortic valve insufficiency. There was mild mitral regurgitation. There was moderate tricuspid regurgitation. Pulmonary valve was not well visualized. Right ventricular systolic pressure was assessed around 55 mm Hg. There was no pericardial effusion. Aortic root was 3.8 cm. Patient is a 59-year-old gentleman who presented after feeling that the ICD has shocked him. Does have history of systolic heart failure and ICD implantation (Biotronik) has not been compliant with medication and followups. Has ran out of medications months ago. Had been short of breath with leg swellings in favor of acute on chronic systolic heart failure. Troponin has been negative. Acute coronary syndrome is not considered at this point. ICD shock/firing, secondary to malfunctioning RA lead (undersensing atrial fibrillation) Acute on chronic systolic heart failure Dilated cardiomyopathy , history of Noncompliance with medication and followups Paroxysmal AFib History of non sustained V-tach Status post BiV-ICD implantation (Biotronik), now ESTEFANY Polysubstance abuse Alcohol abuse Pulmonary hypertension Cardiac suggestion for management: Manage on telemetry IV diuresis Follow-up electrolytes and kidney function tests and correct abnormalities. Keep potassium above 4 and magnesium above 2 Full anticoagulation is advised (history of PAF) Continue guideline directed medical therapy (Entresto/carvedilol/... ) Plan for BIV AICD generator change with revision of RA lead tentatively this upcoming Thursday (05/04/2024) with Dr. Urena Benefits, risks, and alternatives were discussed at length with the patient which he remains agreeable to the plan of care Patient to be consented and NPO status at midnight (05/04/2024) Hold current Asprin 81mg daily (last dose 04/29/2024) Hold current Eliquis 5mg bid (last dose 04/29/2024) Lifestyle and risk factor modifications. Patient was counseled to avoid alcohol/meth/marijuana Patient was counseled to be compliant with medication and followups Further evaluation and management depends on the above and clinical course A total of 55 minutes was spent reviewing the patient record, examining the patient, making a diagnostic and therapeutic plan, discussing this plan with medical personnel, following up on diagnostic studies and following the patient for clinical stability excluding any and all procedures. At least 50% of this time was spent in direct, [id number] contact. Thank you for allowing me to participate in this patient's care. Further recommendations will depend on patient's clinical course. Please do not hesitate to contact me if you have any questions or concerns. This medical document was created using electronic medical record system with [employer] computerized dictation system. Although this document has been carefully reviewed, there may still be some phonetic and typographical errors. These areas are purely typographical due to the imperfection of the software programs, and do not reflect any compromise in the patient's medical care. Plan discussed with: Patient, Other (nurse) Plan discussed with: Patient (Patient and Primary RN ) PHILIPPE SILVERIO Apr 30, 2024 06:05
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
[2024-05-01] VITALS (12 sets, daily range): BP systolic 100–116; BP diastolic 65–87; PULSE 66–87; RESP 16–22; TEMP 97.7–98.2; O2SAT 92–100
--- NOTE | 2024-05-01 05:09 | DVHPN2 ---
Progress Note - Dictate Date Seen: May 01, 2024 Medical Necessity Reason Pt with a Central, PICC or Fol: No Subjective Patient seen and examined at the bedside within telemetry. Chart reviewed. vital signs Vital Sign Date Time Temp Pulse Resp B/P (MAP) Pulse Ox O2 Delivery O2 Flow Rate FiO2 05/01/24 01:00 97.9 87 20 116/87 (97) 96 97.9 04/30/24 20:00 Room Air* 0 21 Total Intake and Output 04/30/24 04/30/24 05/01/24 15:00 23:00 07:00 Intake Total 980 ml Output Total 1600 ml Balance -620 ml medications Current Medications Medications Dose Ordered Sig/Jorge Route Start Time Stop Time Status Last Admin Dose Admin Furosemide 40 mg BID IV 04/28/24 11:00 04/30/24 22:00 40 MG Sodium Chloride 10 ml Q8HR IV 04/28/24 14:00 04/30/24 22:00 10 ML Docusate Sodium 100 mg BIDPRN PRN PO 04/28/24 11:00 Acetaminophen 650 mg Q6HP PRN PO 04/28/24 11:00 Acetaminophen/ Hydrocodone Bitart 1 tab Q4HP PRN PO 04/28/24 11:00 Hydromorphone HCl 0.5 mg Q4HP PRN IV 04/28/24 11:00 Ondansetron HCl 4 mg Q4HP PRN IV 04/28/24 11:00 Amiodarone HCl 200 mg DAILY PO 04/29/24 10:00 04/30/24 10:16 200 MG Atorvastatin Calcium 20 mg DAILY PO 04/29/24 10:00 04/30/24 10:16 20 MG Carvedilol 12.5 mg BID PO 04/28/24 22:00 04/30/24 10:15 12.5 MG Sacubitril/ Valsartan 1 tab BID PO 04/28/24 22:00 04/30/24 21:59 1 TAB Spironolactone 25 mg DAILY PO 04/29/24 10:00 04/30/24 10:16 25 MG Ipratropium [place] 0.5 mg Q4HPRN PRN NEB 04/29/24 18:45 04/29/24 19:32 0.5 MG Levalbuterol HCl 0.625 mg Q6HR NEB 04/29/24 18:45 04/29/24 19:31 0.625 MG laboratory and microbiology Laboratory Tests 04/29/24 13:50 04/29/24 10:35 Test 04/29/24 13:50 Range/Units Serum Glucose 140 H 74-106 mg/dL Assessment/Plan Assessment/Plan Patient is a 59-year-old gentleman who presented to the hospital after he felt that the ICD has fired twice in the a.m.. Cardiology is involved for cardiac aspects of care. He is known to our practice from outside and before. Last visit to the office was more than 1 year ago. He mentions that he had moved to [place] and did not follow with any damage cutter. He has ran out of his medications months ago. He has been complaining of worsening shortness of breath and leg edema. Denies chest discomfort prior to the ICD firing. He does use meth and marijuana. He smokes cigarettes. He does drink alcohol. He looks unkempt. gentleman. Not in acute distress. Sitting in bed. No JVD. Mucosa is pink and wet. No goiter. Lungs: Crackles in the lower lungs is heard. Cardiac: Regular, no thrill. Systolic murmur 3/6 in the apex is heard. Abdomen is distended. Bowel sound is positive. Questionable hepatomegaly. Extremities reveal 2+ edema bilaterally Past medical history includes hypertension, hyperlipidemia, systolic heart failure, dilated cardiomyopathy, COPD, paroxysmal AFib, type 2 pulmonary hypertension, umbilical hernia history of NSVT and status post BiV-ICD (Biotronik) implantation. Has history of noncompliance to medication and followups. He smokes cigarettes. He uses marijuana. Mentioned that he stopped methamphetamine few months ago. Echocardiogram of January 2023 revealed ejection fraction of 25-30%, mild concentric left ventricular hypertrophy, mild biatrial enlargement, pacing wire in the right-sided chambers, mild MR, [id number] TR and right ventricular systolic pressure of 52 mm Hg Cardiac catheterization of March 2020 had revealed mild coronary artery disease, nonischemic cardiomyopathy and dilated vessels WBC: 5.3 Hemoglobin: 17.0 Creatinine: 1.04 Potassium: 3.4 Troponin (high sensitive): 32 BNP: 485.65 D-Dimer: 0.58 Urine toxicology: positive for cannabinoids Chest x-ray revealed: IMPRESSION: Patchy bilateral airspace disease may represent pulmonary vascular congestion or multifocal infection. Clinical correlation advised. Device Interrogation revealed: VDDR 50/130, 8.1% atrial burden, underlying sinus rhythm, 88% BIV pacing, Atrial sensin.6 mV, Atrial threshold: no capture at max output, Atrial impedance: 560, RV sensin.2 mV, RV threshold: 1.2v at 0.40, RV impedance: 579, LV sensin.7mV, LV threshold: 3.8v @ 1.25, LV impedance: 890, Battery voltage: 2:57V, Battery remaining <5 ESTEFANY, Shocks delivered in recent weeks due to SVT rhythm but therapy delivered due to malfunctioning right atrial lead (undersensing atrial fibrillation) EKG revealed a sense, V paced rhythm Tele reveals a sensed V paced rhythm Echocardiogram revealed: (04/29/2024) Dilated 4 chambers was observed. Left ventricle: Mild concentric left ventricular hypertrophy was seen. Left ventricle was dilated. LVEF was around 20%. Diffuse hypokinesis of left ventricle was seen. Right ventricle: Right ventricle was dilated with reduced systolic function. Both atria were moderately dilated. Pacing wire was seen in right-sided chambers. Aortic valve was not well visualized. There was no aortic stenosis. There was trivial aortic valve insufficiency. There was mild mitral regurgitation. There was moderate tricuspid regurgitation. Pulmonary valve was not well visualized. Right ventricular systolic pressure was assessed around 55 mm Hg. There was no pericardial effusion. Aortic root was 3.8 cm. Patient is a 59-year-old gentleman who presented after feeling that the ICD has shocked him. Does have history of systolic heart failure and ICD implantation (Biotronik) has not been compliant with medication and followups. Has ran out of medications months ago. Had been short of breath with leg swellings in favor of acute on chronic systolic heart failure. Troponin has been negative. Acute coronary syndrome is not considered at this point. ICD shock/firing, secondary to malfunctioning RA lead (undersensing atrial fibrillation) Acute on chronic systolic heart failure Dilated cardiomyopathy , history of Noncompliance with medication and followups Paroxysmal AFib History of non sustained V-tach Status post BiV-ICD implantation (Biotronik), now ESTEFANY Polysubstance abuse Alcohol abuse Pulmonary hypertension Cardiac suggestion for management: Manage on telemetry IV diuresis Follow-up electrolytes and kidney function tests and correct abnormalities. Keep potassium above 4 and magnesium above 2 Full anticoagulation is advised (history of PAF) Continue guideline directed medical therapy (Entresto/carvedilol/... ) Plan for BIV AICD generator change with revision of RA lead tentatively this upcoming Thursday (05/04/2024) with Dr. Urena Benefits, risks, and alternatives were discussed at length with the patient which he remains agreeable to the plan of care Patient to be consented and NPO status at midnight (05/04/2024) Hold current Asprin 81mg daily (last dose 04/29/2024) Hold current Eliquis 5mg bid (last dose 04/29/2024) Lifestyle and risk factor modifications. Patient was counseled to avoid alcohol/meth/marijuana Patient was counseled to be compliant with medication and followups Further evaluation and management depends on the above and clinical course A total of 55 minutes was spent reviewing the patient record, examining the patient, making a diagnostic and therapeutic plan, discussing this plan with medical personnel, following up on diagnostic studies and following the patient for clinical stability excluding any and all procedures. At least 50% of this time was spent in direct, [id number] contact. Thank you for allowing me to participate in this patient's care. Further recommendations will depend on patient's clinical course. Please do not hesitate to contact me if you have any questions or concerns. This medical document was created using electronic medical record system with ethology computerized dictation system. Although this document has been carefully reviewed, there may still be some phonetic and typographical errors. These areas are purely typographical due to the imperfection of the software programs, and do not reflect any compromise in the patient's medical care. Plan discussed with: Patient, Other (nurse) Plan discussed with: Patient (Patient and Primary RN), Other (Patient and Primary RN) PHILIPPE SILVERIO May 01, 2024 05:09
--- NOTE | 2024-05-01 14:50 | DVHPNRES ---
Progress Note Date Seen: May 01, 2024 Resident Creating Document: ANJUM ACOSTA RESIDENT Medical Necessity Reason Pt with a Central, PICC or Fol: No Subjective Review of Systems Patient is a 59-year-old male with past medical history of heart failure with reduced ejection fraction, paroxysmal atrial fibrillation,? COPD, dyslipidemia, hypertension who came in after his ICD went off. According to the patient, on 04/28/[address]24 [address] was [address] when he felt that his ICD went off, he pulled over and sat there for a while when he noticed his ICD fired once again for the 2nd time. Shortly after, patient called the ambulance and came to the hospital. He also notes shortness of breaths that has been ongoing for the last couple of weeks and bloating. Troponin was 32, BNP 485.65, chest x-ray showed patchy bilateral airspace disease, may represent pulmonary vascular congestion or multifocal infection. Past surgical history: Left wrist surgery, left hip reconstruction Home medications: Albuterol, amiodarone, apixaban, aspirin, statin, carvedilol, doxycycline, furosemide, Entresto, spironolactone Past Hospitalization:In January 2023 for COPD exacerbation? Social & Personal history: Patient lives in a [facility] with other tenants. Smokes 3 cigarettes per day for the past 40 years. Drinks alcohol daily, 1-2 drinks per day Allergies: Denies Patient seen and examined at bedside. Patient is alert and oriented to time, place person and responding to all questions. Reports improved breathing, denies any active ongoing pain or discomfort. Objective vital signs Vital Sign Date Time Temp Pulse Resp B/P (MAP) Pulse Ox O2 Delivery O2 Flow Rate FiO2 05/01/24 13:52 96 Room Air 0.0 05/01/24 13:52 21 05/01/24 10:23 78 103/81 05/01/24 09:11 98.0 16 98.0 Total Intake and Output 04/30/24 04/30/24 05/01/24 15:00 23:00 07:00 Intake Total 980 ml 240 ml Output Total 1600 ml 500 ml Balance -620 ml -260 ml medications Current Medications Medications Dose Ordered Sig/Jorge Route Start Time Stop Time Status Last Admin Dose Admin Furosemide 40 mg BID IV 04/28/24 11:00 05/01/24 09:24 40 MG Sodium Chloride 10 ml Q8HR IV 04/28/24 14:00 05/01/24 14:17 10 ML Docusate Sodium 100 mg BIDPRN PRN PO 04/28/24 11:00 Acetaminophen 650 mg Q6HP PRN PO 04/28/24 11:00 Acetaminophen/ Hydrocodone Bitart 1 tab Q4HP PRN PO 04/28/24 11:00 Hydromorphone HCl 0.5 mg Q4HP PRN IV 04/28/24 11:00 Ondansetron HCl 4 mg Q4HP PRN IV 04/28/24 11:00 Amiodarone HCl 200 mg DAILY PO 04/29/24 10:00 05/01/24 09:23 200 MG Atorvastatin Calcium 20 mg DAILY PO 04/29/24 10:00 05/01/24 09:22 20 MG Carvedilol 12.5 mg BID PO 04/28/24 22:00 05/01/24 09:23 12.5 MG Sacubitril/ Valsartan 1 tab BID PO 04/28/24 22:00 05/01/24 09:22 1 TAB Spironolactone 25 mg DAILY PO 04/29/24 10:00 05/01/24 09:22 25 MG Ipratropium [place] 0.5 mg Q4HPRN PRN NEB 04/29/24 18:45 04/29/24 19:32 0.5 MG Levalbuterol HCl 0.625 mg Q6HR NEB 04/29/24 18:45 04/29/24 19:31 0.625 MG Examination General Appearance: Cooperative. Well developed. Well nourished. NAD Head Exam: Normal inspection Neck Exam: Normal inspection. Non-tender. Normal alignment Pulmonary/Respiratory: Chest non-tender. Decreased bilateral breath sounds, crackles, wheezing, improving Cardiovascular/Chest: Regular rate and rhythm. No murmurs. No JVD. Peripheral Pulses: 2+ Radial (R). 2+ Radial (L). 2+ Pedal (R). 2+ Pedal (L) Abdominal Exam: Normal bowel sounds. Soft. normal abdomen, no visible veins, Nontender. No hepatospenomegaly. No masses Ankle Exam: Negative ankle edema Lower extremities: Negative lower extremity edema Neuro/Mental Status: A&O x4. Coherent. Thoughts/Psych: Normal thought pattern. Appropriate mood and affect. Good judgement and insight Skin Exam: Normal inspection. Normal color. Warm. Dry laboratory and microbiology Laboratory Tests 04/29/24 13:50 04/29/24 10:35 Test 04/29/24 13:50 Range/Units Serum Glucose 140 H 74-106 mg/dL Problem List/Assessment/Plan Problem List/Assessment/Plan Acute on chronic systolic heart failure with reduced ejection fraction Dilated cardiomyopathy Paroxysmal atrial fibrillation S/p ICD placement (Biotronik) - CXR: Patchy bilateral airspace disease may represent pulmonary vascular congestion or multifocal infection. - ECHO: Dilated 4 chambers observed. Mild concentric left ventricular hypertrophy, left ventricular dilated. Ejection fraction 20%. Diffuse hypokinesis of left ventricle go. Right ventricle was dilated with reduced systolic function. Both atria were moderately dilated. Pacing wire was seen in the right-sided chambers. RVSP 55 mmHg. - amiodarone 200 mg p.o. daily, apixaban 5 mg p.o. b.i.d. - aspirin 81 mg, atorvastatin 20 mg - carvedilol 12.5 mg, IV furosemide 40 mg b.i.d., Entresto b.i.d., spironolactone 25 mg daily - awaiting ICD interrogation; plan for BIV AICD generator change with revision of RA lead tentatively this upcoming Thursday05/04/[address] Urena ?COPD exacerbation - levalbuterol and ipratropium med nebs - refusing scheduled breathing treatments Medical noncompliance - counseled patient extensively about the importance of adhering to GDMT to prevent further worsening of his heart failure History of hyperthyroidism - serum TSH 0.29 - ordered free T4, free T3 next - we will continue to monitor Hypokalemia - replaced with p.o. potassium Umbilical hernia - Non consulted uncomplicated needs outpatient follow up with surgery DVT prophylaxis: Already on Eliquis 5 mg b.i.d. Goals of care: Full code, discussed for >16 minutes on 04/29/24 Plan discussed with patient Plan discussed with Dr. eH Plan discussed with: Patient, Other (RN) My Orders My Orders Orders - ANJUM ACOSTA Procedure Category Date Status Time Pt Request For Service PT 05/01/24 Logged 14:05 Date of Service: May 01, 2024 Billing Provider: LAYLA HE MD Common Visit Codes: [id number] INP/OBS CARE(HIGH) ANJUM ACOSTA RESIDENT May 01, 2024 14:50 LAYLA HE MD May 02, 2024 21:37
[2024-05-02] VITALS (9 sets, daily range): BP systolic 105–122; BP diastolic 72–91; PULSE 68–82; RESP 16–19; TEMP 97.5–98.7; O2SAT 95–98
[2024-05-02] MEDS ORDERED: IPRATROPIUM BROM 0.5 MG/2.5ML INH SOL NEB PRN (06:00)
[2024-05-02 06:48] LABS: Basophils # (auto) 0 10 ^3/uL (0-0.2); Basophils % (auto) 0.6 % (0.0-2.0); Eosinophils # (auto) 0.1 10 ^3/uL (0-0.8); Eosinophils % (auto) 1.6 % (0.0-7.0); Hematocrit 50.3 % (41.0-53.0); Hemoglobin 16.7 g/dL (13.5-17.5); Lymphocytes # (auto) 1.6 10 ^3/uL (0.4-5.4); Lymphocytes % (auto) 29.9 % (10.0-50.0); Mean Corpuscular Hemoglobin 30.8 pg (28.0-32.0); Mean Corpuscular Hgb Conc. 33.1 g/dL (32.0-36.0); Mean Corpuscular Volume 93.1 fL (80.0-100.0); Monocytes # (auto) 0.9 10 ^3/uL (0-1.3); Monocytes % (auto) 15.9 % (0.0-12.0); Neutrophils # (auto) 2.8 10 ^3/uL (1.6-8.6); Nucleated Red Blood Cells % 0.2 %; Platelet Count (auto) 213 10^3/uL (140-450); Red Cell Distribution Width 13.6 % (11.8-14.3); White Blood Cell 5.4 10^3/uL (4.4-10.8)
[2024-05-02 06:49] LABS: Anion Gap 5 (5-15); Carbon Dioxide 29 mmol/L (20-31); Chloride 105 mmol/L (98-107); Potassium 3.6 mmol/L (3.5-5.1); Sodium 139 mmol/L (136-145)
[2024-05-02 06:50] LABS: Calcium 9.2 mg/dL (8.7-10.4)
[2024-05-02 06:54] LABS: Glucose 89 mg/dL (74-106)
[2024-05-02 06:55] LABS: BUN/Creatinine Ratio 14.5 (10.0-20.0); Blood Urea Nitrogen 18 mg/dL (9-23)
--- NOTE | 2024-05-02 07:47 | DVHPN2 ---
Progress Note - Dictate Date Seen: May 02, 2024 Medical Necessity Reason Pt with a Central, PICC or Fol: No vital signs Vital Sign Date Time Temp Pulse Resp B/P (MAP) Pulse Ox O2 Delivery O2 Flow Rate FiO2 05/02/24 05:00 98.0 68 18 113/91 (98) 97 98.0 05/01/24 20:00 Room Air* 0 21 Total Intake and Output 05/01/24 05/01/24 05/02/24 15:00 23:00 07:00 Intake Total 550 ml 350 ml Output Total 1500 ml 800 ml Balance -950 ml -450 ml medications Current Medications Medications Dose Ordered Sig/Jorge Route Start Time Stop Time Status Last Admin Dose Admin Furosemide 40 mg BID IV 04/28/24 11:00 05/01/24 09:24 40 MG Sodium Chloride 10 ml Q8HR IV 04/28/24 14:00 05/02/24 05:04 10 ML Docusate Sodium 100 mg BIDPRN PRN PO 04/28/24 11:00 Acetaminophen 650 mg Q6HP PRN PO 04/28/24 11:00 Acetaminophen/ Hydrocodone Bitart 1 tab Q4HP PRN PO 04/28/24 11:00 Hydromorphone HCl 0.5 mg Q4HP PRN IV 04/28/24 11:00 Ondansetron HCl 4 mg Q4HP PRN IV 04/28/24 11:00 Amiodarone HCl 200 mg DAILY PO 04/29/24 10:00 05/01/24 09:23 200 MG Atorvastatin Calcium 20 mg DAILY PO 04/29/24 10:00 05/01/24 09:22 20 MG Carvedilol 12.5 mg BID PO 04/28/24 22:00 05/01/24 09:23 12.5 MG Sacubitril/ Valsartan 1 tab BID PO 04/28/24 22:00 05/01/24 21:44 1 TAB Spironolactone 25 mg DAILY PO 04/29/24 10:00 05/01/24 09:22 25 MG Ipratropium [place] 0.5 mg Q6HPRN PRN NEB 05/02/24 06:00 Cancel laboratory and microbiology Laboratory Tests 05/02/24 06:10 Test 05/02/24 06:10 Range/Units Serum Glucose 89 74-106 mg/dL Assessment/Plan Patient is a 59-year-old gentleman who presented to the hospital after he felt that the ICD has fired twice in the a.m. Cardiology is involved for cardiac aspects of care. He is known to our practice from outside and before. Last visit to the office was more than 1 year ago. 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 He has ran out of his medications months ago. He has been complaining of worsening shortness of breath and leg edema. Denies chest discomfort prior to the ICD firing. He does use meth and marijuana. He smokes cigarettes. He does drink alcohol. He looks unkempt. gentleman. Not in acute distress. Sitting in bed. No JVD. Mucosa is pink and wet. No goiter. Lungs: Crackles in the lower lungs is heard. Cardiac: Regular, no thrill. Systolic murmur 3/6 in the apex is heard. Abdomen is distended. Bowel sound is positive. Questionable hepatomegaly. Extremities reveal 2+ edema bilaterally Past medical history includes hypertension, hyperlipidemia, systolic heart failure, dilated cardiomyopathy, COPD, paroxysmal AFib, type 2 pulmonary hypertension, umbilical hernia history of NSVT and status post BiV-ICD (Biotronik) implantation. Has history of noncompliance to medication and followups. He smokes cigarettes. He uses marijuana. Mentioned that he stopped methamphetamine few months ago. Echocardiogram of January 2023 revealed ejection fraction of 25-30%, mild concentric left ventricular hypertrophy, mild biatrial enlargement, pacing wire in the right-sided chambers, mild MR, [id number] TR and right ventricular systolic pressure of 52 mm Hg Cardiac catheterization of March 2020 had revealed mild coronary artery disease, nonischemic cardiomyopathy and dilated vessels WBC: 5.3 - 5.8 - 5.4 Hemoglobin: 17.0 - 16.1 - 16.7 Creatinine: 1.04 - 1.08 - 1.19 - 1.24 Potassium: 3.4 - 3.2 - 3.6 - 3.6 Troponin (high sensitive): 32 BNP: 485.65 D-Dimer: 0.58 TSH: 0.29 Free T4: 1.27 (wnl) Free T3: 2.98 (wnl) Urine toxicology: positive for cannabinoids Chest x-ray revealed: IMPRESSION: Patchy bilateral airspace disease may represent pulmonary vascular congestion or multifocal infection. Clinical correlation advised. Device Interrogation revealed: VDDR 50/130, 8.1% atrial burden, underlying sinus rhythm, 88% BIV pacing, Atrial sensin.6 mV, Atrial threshold: no capture at max output, Atrial impedance: 560, RV sensin.2 mV, RV threshold: 1.2v at 0.40, RV impedance: 579, LV sensin.7mV, LV threshold: 3.8v @ 1.25, LV impedance: 890, Battery voltage: 2:57V, Battery remaining <5 ESTEFANY, Shocks delivered in recent weeks due to SVT rhythm but therapy delivered due to malfunctioning right atrial lead (undersensing atrial fibrillation) EKG revealed a sense, V paced rhythm Tele reveals a sensed V paced rhythm Echocardiogram revealed: (04/29/2024) Dilated 4 chambers was observed. Left ventricle: Mild concentric left ventricular hypertrophy was seen. Left ventricle was dilated. LVEF was around 20%. Diffuse hypokinesis of left ventricle was seen. Right ventricle: Right ventricle was dilated with reduced systolic function. Both atria were moderately dilated. Pacing wire was seen in right-sided chambers. Aortic valve was not well visualized. There was no aortic stenosis. There was trivial aortic valve insufficiency. There was mild mitral regurgitation. There was moderate tricuspid regurgitation. Pulmonary valve was not well visualized. Right ventricular systolic pressure was assessed around 55 mm Hg. There was no pericardial effusion. Aortic root was 3.8 cm. Patient is a 59-year-old gentleman who presented after feeling that the ICD has shocked him. Does have history of systolic heart failure and ICD implantation (Biotronik) has not been compliant with medication and followups. Has ran out of medications months ago. Had been short of breath with leg swellings in favor of acute on chronic systolic heart failure. Troponin has been negative. Acute coronary syndrome is not considered at this point. ICD shock/firing, secondary to malfunctioning RA lead (undersensing atrial fibrillation) Acute on chronic systolic heart failure Dilated cardiomyopathy , history of Noncompliance with medication and followups Paroxysmal AFib History of non sustained V-tach Status post BiV-ICD implantation (Biotronik), now ESTEFANY Polysubstance abuse Alcohol abuse Pulmonary hypertension Cardiac suggestion for management: Manage on telemetry IV diuresis Follow-up electrolytes and kidney function tests and correct abnormalities. Keep potassium above 4 and magnesium above 2 Full anticoagulation is advised (history of PAF) Continue guideline directed medical therapy (Entresto/carvedilol/... ) Plan for BIV AICD generator change with revision of RA lead tentatively this upcoming Thursday (05/04/2024) with Dr. Urena Benefits, risks, and alternatives were discussed at length with the patient which he remains agreeable to the plan of care Patient to be consented and NPO status at midnight (05/04/2024) Hold current Asprin 81mg daily (last dose 04/29/2024) Hold current Eliquis 5mg bid (last dose 04/29/2024) Lifestyle and risk factor modifications. Patient was counseled to avoid alcohol/meth/marijuana Patient was counseled to be compliant with medication and followups Further evaluation and management depends on the above and clinical course A total of 55 minutes was spent reviewing the patient record, examining the patient, making a diagnostic and therapeutic plan, discussing this plan with medical personnel, following up on diagnostic studies and following the patient for clinical stability excluding any and all procedures. At least 50% of this time was spent in direct, [id number] contact. Thank you for allowing me to participate in this patient's care. Further recommendations will depend on patient's clinical course. Please do not hesitate to contact me if you have any questions or concerns. This medical document was created using electronic medical record system with [employer] computerized dictation system. Although this document has been carefully reviewed, there may still be some phonetic and typographical errors. These areas are purely typographical due to the imperfection of the software programs, and do not reflect any compromise in the patient's medical care. Plan discussed with: Patient, Other (nurse) JUNIOR MCMAHAN MD May 02, 2024 07:47
--- NOTE | 2024-05-02 13:31 | DVHPNRES ---
Progress Note Date Seen: May 02, 2024 Resident Creating Document: ANJUM ACOSTA RESIDENT Medical Necessity Reason Pt with a Central, PICC or Fol: No Subjective Review of Systems Patient is a 59-year-old male with past medical history of heart failure with reduced ejection fraction, paroxysmal atrial fibrillation,? COPD, dyslipidemia, hypertension who came in after his ICD went off. According to the patient, on 04/28/2024 [address] was [address] when he felt that his ICD went off, he pulled over and sat there for a while when he noticed his ICD fired once again for the 2nd time. Shortly after, patient called the ambulance and came to the hospital. He also notes shortness of breaths that has been ongoing for the last couple of weeks and bloating. Troponin was 32, BNP 485.65, chest x-ray showed patchy bilateral airspace disease, may represent pulmonary vascular congestion or multifocal infection. Past surgical history: Left wrist surgery, left hip reconstruction Home medications: Albuterol, amiodarone, apixaban, aspirin, statin, carvedilol, doxycycline, furosemide, Entresto, spironolactone Past Hospitalization:In January 2023 for COPD exacerbation? Social & Personal history: Patient lives in a [facility] with other tenants. Smokes 3 cigarettes per day for the past 40 years. Drinks alcohol daily, 1-2 drinks per day Allergies: Denies Patient seen and examined at bedside. Patient is alert and oriented to time, place person and responding to all questions. Reports improved breathing, denies any active ongoing pain or discomfort. Objective vital signs Vital Sign Date Time Temp Pulse Resp B/P (MAP) Pulse Ox O2 Delivery O2 Flow Rate FiO2 05/02/24 10:00 97 Room Air 0.0 05/02/24 10:00 21 05/02/24 09:57 97.9 79 16 114/90 (98) 97.9 Total Intake and Output 05/01/24 05/01/24 05/02/24 15:00 23:00 07:00 Intake Total 550 ml 350 ml Output Total 1500 ml 800 ml Balance -950 ml -450 ml medications Current Medications Medications Dose Ordered Sig/Jorge Route Start Time Stop Time Status Last Admin Dose Admin Furosemide 40 mg BID IV 04/28/24 11:00 05/02/24 09:41 40 MG Sodium Chloride 10 ml Q8HR IV 04/28/24 14:00 05/02/24 05:04 10 ML Docusate Sodium 100 mg BIDPRN PRN PO 04/28/24 11:00 Acetaminophen 650 mg Q6HP PRN PO 04/28/24 11:00 Acetaminophen/ Hydrocodone Bitart 1 tab Q4HP PRN PO 04/28/24 11:00 Hydromorphone HCl 0.5 mg Q4HP PRN IV 04/28/24 11:00 Ondansetron HCl 4 mg Q4HP PRN IV 04/28/24 11:00 Amiodarone HCl 200 mg DAILY PO 04/29/24 10:00 05/02/24 09:43 200 MG Atorvastatin Calcium 20 mg DAILY PO 04/29/24 10:00 05/02/24 09:42 20 MG Carvedilol 12.5 mg BID PO 04/28/24 22:00 05/02/24 09:42 12.5 MG Sacubitril/ Valsartan 1 tab BID PO 04/28/24 22:00 05/01/24 21:44 1 TAB Spironolactone 25 mg DAILY PO 04/29/24 10:00 05/02/24 09:42 25 MG Ipratropium Lyn[place] 0.5 mg Q6HPRN PRN NEB 05/02/24 06:00 Cancel Examination General Appearance: Cooperative. Well developed. Well nourished. NAD Head Exam: Normal inspection Neck Exam: Normal inspection. Non-tender. Normal alignment Pulmonary/Respiratory: Chest non-tender. Decreased bilateral breath sounds, crackles, wheezing, improving Cardiovascular/Chest: Regular rate and rhythm. No murmurs. No JVD. Peripheral Pulses: 2+ Radial (R). 2+ Radial (L). 2+ Pedal (R). 2+ Pedal (L) Abdominal Exam: Normal bowel sounds. Soft. normal abdomen, no visible veins, Nontender. No hepatospenomegaly. No masses Ankle Exam: Negative ankle edema Lower extremities: Negative lower extremity edema Neuro/Mental Status: A&O x4. Coherent. Thoughts/Psych: Normal thought pattern. Appropriate mood and affect. Good judgement and insight Skin Exam: Normal inspection. Normal color. Warm. Dry laboratory and microbiology Laboratory Tests 05/02/24 06:10 Test 05/02/24 06:10 Range/Units Serum Glucose 89 74-106 mg/dL Problem List/Assessment/Plan Problem List/Assessment/Plan Acute on chronic systolic heart failure with reduced ejection fraction Dilated cardiomyopathy Paroxysmal atrial fibrillation S/p ICD placement (Biotronik) - CXR: Patchy bilateral airspace disease may represent pulmonary vascular congestion or multifocal infection. - ECHO: Dilated 4 chambers observed. Mild concentric left ventricular hypertrophy, left ventricular dilated. Ejection fraction 20%. Diffuse hypokinesis of left ventricle go. Right ventricle was dilated with reduced systolic function. Both atria were moderately dilated. Pacing wire was seen in the right-sided chambers. RVSP 55 mmHg. - amiodarone 200 mg p.o. daily, apixaban 5 mg p.o. b.i.d. - aspirin 81 mg, atorvastatin 20 mg - carvedilol 12.5 mg, IV furosemide 40 mg b.i.d., Entresto b.i.d., spironolactone 25 mg daily - awaiting ICD interrogation; plan for BIV AICD generator change with revision of RA lead tentatively this upcoming Thursday05/04/[address] Urena ?COPD exacerbation - levalbuterol and ipratropium med nebs - refusing scheduled breathing treatments Medical noncompliance - counseled patient extensively about the importance of adhering to GDMT to prevent further worsening of his heart failure History of hyperthyroidism - serum TSH 0.29 - ordered free T4, free T3 next - we will continue to monitor Hypokalemia - replaced with p.o. potassium Umbilical hernia - Non consulted uncomplicated needs outpatient follow up with surgery DVT prophylaxis: Already on Eliquis 5 mg b.i.d. Goals of care: Full code, discussed for >16 minutes on 04/29/24 Plan discussed with patient Plan discussed with Dr. Alvarez Plan discussed with: Patient, Other (RN) My Orders My Orders Orders - ANJUM ACOSTA Procedure Category Date Status Time Pt Request For Service PT 05/01/24 Logged 14:05 ANJUM ACOSTA RESIDENT May 02, 2024 13:31
[2024-05-03] VITALS (9 sets, daily range): BP systolic 98–146; BP diastolic 70–90; PULSE 59–96; RESP 18–19; TEMP 97.6–98.3; O2SAT 94–100
--- NOTE | 2024-05-03 06:14 | DVHPN2 ---
Progress Note - Dictate Date Seen: May 03, 2024 Medical Necessity Reason Pt with a Central, PICC or Fol: No vital signs Vital Sign Date Time Temp Pulse Resp B/P (MAP) Pulse Ox O2 Delivery O2 Flow Rate FiO2 05/03/24 05:00 97.7 83 18 140/70 (93) 97 97.7 05/02/24 20:00 Room Air* 0 21 Total Intake and Output 05/02/24 05/02/24 05/03/24 15:00 23:00 07:00 Intake Total 500 ml 250 ml Output Total 900 ml 850 ml Balance -400 ml -600 ml medications Current Medications Medications Dose Ordered Sig/Jorge Route Start Time Stop Time Status Last Admin Dose Admin Furosemide 40 mg BID IV 04/28/24 11:00 05/02/24 21:24 40 MG Sodium Chloride 10 ml Q8HR IV 04/28/24 14:00 05/02/24 21:24 10 ML Docusate Sodium 100 mg BIDPRN PRN PO 04/28/24 11:00 Acetaminophen 650 mg Q6HP PRN PO 04/28/24 11:00 Acetaminophen/ Hydrocodone Bitart 1 tab Q4HP PRN PO 04/28/24 11:00 Hydromorphone HCl 0.5 mg Q4HP PRN IV 04/28/24 11:00 Ondansetron HCl 4 mg Q4HP PRN IV 04/28/24 11:00 Amiodarone HCl 200 mg DAILY PO 04/29/24 10:00 05/02/24 09:43 200 MG Atorvastatin Calcium 20 mg DAILY PO 04/29/24 10:00 05/02/24 09:42 20 MG Carvedilol 12.5 mg BID PO 04/28/24 22:00 05/02/24 21:24 12.5 MG Sacubitril/ Valsartan 1 tab BID PO 04/28/24 22:00 05/01/24 21:44 1 TAB Spironolactone 25 mg DAILY PO 04/29/24 10:00 05/02/24 09:42 25 MG Ipratropium [place] 0.5 mg Q6HPRN PRN NEB 05/02/24 06:00 Cancel laboratory and microbiology Laboratory Tests 05/02/24 06:10 Test 05/02/24 06:10 Range/Units Serum Glucose 89 74-106 mg/dL Assessment/Plan Patient is a 59-year-old gentleman who presented to the hospital after he felt that the ICD has fired twice in the a.m. Cardiology is involved for cardiac aspects of care. He is known to our practice from outside and before. Last visit to the office was more than 1 year ago. 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 He has ran out of his medications months ago. He has been complaining of worsening shortness of breath and leg edema. Denies chest discomfort prior to the ICD firing. He does use meth and marijuana. He smokes cigarettes. He does drink alcohol. He looks unkempt. gentleman. Not in acute distress. Sitting in bed. No JVD. Mucosa is pink and wet. No goiter. Lungs: Crackles in the lower lungs is heard. Cardiac: Regular, no thrill. Systolic murmur 3/6 in the apex is heard. Abdomen is distended. Bowel sound is positive. Questionable hepatomegaly. Extremities reveal 2+ edema bilaterally Past medical history includes hypertension, hyperlipidemia, systolic heart failure, dilated cardiomyopathy, COPD, paroxysmal AFib, type 2 pulmonary hypertension, umbilical hernia history of NSVT and status post BiV-ICD (Biotronik) implantation. Has history of noncompliance to medication and followups. He smokes cigarettes. He uses marijuana. Mentioned that he stopped methamphetamine few months ago. Echocardiogram of January 2023 revealed ejection fraction of 25-30%, mild concentric left ventricular hypertrophy, mild biatrial enlargement, pacing wire in the right-sided chambers, mild MR, [id number] TR and right ventricular systolic pressure of 52 mm Hg Cardiac catheterization of March 2020 had revealed mild coronary artery disease, nonischemic cardiomyopathy and dilated vessels WBC: 5.3 - 5.8 - 5.4 Hemoglobin: 17.0 - 16.1 - 16.7 Creatinine: 1.04 - 1.08 - 1.19 - 1.24 Potassium: 3.4 - 3.2 - 3.6 - 3.6 Troponin (high sensitive): 32 BNP: 485.65 D-Dimer: 0.58 TSH: 0.29 Free T4: 1.27 (wnl) Free T3: 2.98 (wnl) Urine toxicology: positive for cannabinoids Chest x-ray revealed: IMPRESSION: Patchy bilateral airspace disease may represent pulmonary vascular congestion or multifocal infection. Clinical correlation advised. Device Interrogation revealed: VDDR 50/130, 8.1% atrial burden, underlying sinus rhythm, 88% BIV pacing, Atrial sensin.6 mV, Atrial threshold: no capture at max output, Atrial impedance: 560, RV sensin.2 mV, RV threshold: 1.2v at 0.40, RV impedance: 579, LV sensin.7mV, LV threshold: 3.8v @ 1.25, LV impedance: 890, Battery voltage: 2:57V, Battery remaining <5 ESTEFANY, Shocks delivered in recent weeks due to SVT rhythm but therapy delivered due to malfunctioning right atrial lead (undersensing atrial fibrillation) EKG revealed a sense, V paced rhythm Tele reveals a sensed V paced rhythm Echocardiogram revealed: (04/29/2024) Dilated 4 chambers was observed. Left ventricle: Mild concentric left ventricular hypertrophy was seen. Left ventricle was dilated. LVEF was around 20%. Diffuse hypokinesis of left ventricle was seen. Right ventricle: Right ventricle was dilated with reduced systolic function. Both atria were moderately dilated. Pacing wire was seen in right-sided chambers. Aortic valve was not well visualized. There was no aortic stenosis. There was trivial aortic valve insufficiency. There was mild mitral regurgitation. There was moderate tricuspid regurgitation. Pulmonary valve was not well visualized. Right ventricular systolic pressure was assessed around 55 mm Hg. There was no pericardial effusion. Aortic root was 3.8 cm. Patient is a 59-year-old gentleman who presented after feeling that the ICD has shocked him. Does have history of systolic heart failure and ICD implantation (Biotronik) has not been compliant with medication and followups. Has ran out of medications months ago. Had been short of breath with leg swellings in favor of acute on chronic systolic heart failure. Troponin has been negative. Acute coronary syndrome is not considered at this point. ICD shock/firing, secondary to malfunctioning RA lead (undersensing atrial fibrillation) Acute on chronic systolic heart failure Dilated cardiomyopathy , history of Noncompliance with medication and followups Paroxysmal AFib History of non sustained V-tach Status post BiV-ICD implantation (Biotronik), now ESTEFANY Polysubstance abuse Alcohol abuse Pulmonary hypertension Cardiac suggestion for management: Manage on telemetry IV diuresis Follow-up electrolytes and kidney function tests and correct abnormalities. Keep potassium above 4 and magnesium above 2 Full anticoagulation is advised (history of PAF) Continue guideline directed medical therapy (Entresto/carvedilol/... ) Plan for BIV AICD generator change with revision of RA lead tentatively tomorrow (05/04/2024) with Dr. Urena Benefits, risks, and alternatives were discussed at length with the patient which he remains agreeable to the plan of care Patient to be consented and NPO status at midnight (05/04/2024) Hold current Asprin 81mg daily (last dose 04/29/2024) Hold current Eliquis 5mg bid (last dose 04/29/2024) Lifestyle and risk factor modifications. Patient was counseled to avoid alcohol/meth/marijuana Patient was counseled to be compliant with medication and followups Further evaluation and management depends on the above and clinical course A total of 55 minutes was spent reviewing the patient record, examining the patient, making a diagnostic and therapeutic plan, discussing this plan with medical personnel, following up on diagnostic studies and following the patient for clinical stability excluding any and all procedures. At least 50% of this time was spent in direct, [id number] contact. Thank you for allowing me to participate in this patient's care. Further recommendations will depend on patient's clinical course. Please do not hesitate to contact me if you have any questions or concerns. This medical document was created using electronic medical record system with 2threads computerized dictation system. Although this document has been carefully reviewed, there may still be some phonetic and typographical errors. These areas are purely typographical due to the imperfection of the software programs, and do not reflect any compromise in the patient's medical care. Dietary Evaluation Review Comments: follow his current diet regimen, monitor PO intake to meet 75% of his needs Expected Outcomes/Goals: slowly weight loss. Plan discussed with: Patient, Other (nurse) JUNIOR MCMAHAN MD May 03, 2024 06:14
--- NOTE | 2024-05-03 15:37 | DVHPNRES ---
Progress Note Date Seen: May 03, 2024 Resident Creating Document: ANJUM ACOSTA RESIDENT Medical Necessity Reason Pt with a Central, PICC or Fol: No Subjective Review of Systems Patient is a 59-year-old male with past medical history of heart failure with reduced ejection fraction, paroxysmal atrial fibrillation,? COPD, dyslipidemia, hypertension who came in after his ICD went off. According to the patient, on 04/28/[address]24 [address] was [address] when he felt that his ICD went off, he pulled over and sat there for a while when he noticed his ICD fired once again for the 2nd time. Shortly after, patient called the ambulance and came to the hospital. He also notes shortness of breaths that has been ongoing for the last couple of weeks and bloating. Troponin was 32, BNP 485.65, chest x-ray showed patchy bilateral airspace disease, may represent pulmonary vascular congestion or multifocal infection. Past surgical history: Left wrist surgery, left hip reconstruction Home medications: Albuterol, amiodarone, apixaban, aspirin, statin, carvedilol, doxycycline, furosemide, Entresto, spironolactone Past Hospitalization:In January 2023 for COPD exacerbation? Social & Personal history: Patient lives in a [facility] with other tenants. Smokes 3 cigarettes per day for the past 40 years. Drinks alcohol daily, 1-2 drinks per day Allergies: Denies Patient seen and examined at bedside. Patient is alert and oriented to time, place person and responding to all questions. Reports improved breathing, denies any active ongoing pain or discomfort. Patient will remain NPO starting midnight. Objective vital signs Vital Sign Date Time Temp Pulse Resp B/P (MAP) Pulse Ox O2 Delivery O2 Flow Rate FiO2 05/03/24 13:00 97.9 87 19 146/83 (104) 98 97.9 05/03/24 10:00 Room Air 0.0 05/03/24 10:00 21 Total Intake and Output 05/02/24 05/02/24 05/03/24 15:00 23:00 07:00 Intake Total 500 ml 250 ml Output Total 900 ml 850 ml Balance -400 ml -600 ml medications Current Medications Medications Dose Ordered Sig/Jorge Route Start Time Stop Time Status Last Admin Dose Admin Furosemide 40 mg BID IV 04/28/24 11:00 05/03/24 09:39 40 MG Sodium Chloride 10 ml Q8HR IV 04/28/24 14:00 05/03/24 11:59 10 ML Docusate Sodium 100 mg BIDPRN PRN PO 04/28/24 11:00 Acetaminophen 650 mg Q6HP PRN PO 04/28/24 11:00 Acetaminophen/ Hydrocodone Bitart 1 tab Q4HP PRN PO 04/28/24 11:00 Hydromorphone HCl 0.5 mg Q4HP PRN IV 04/28/24 11:00 Ondansetron HCl 4 mg Q4HP PRN IV 04/28/24 11:00 Amiodarone HCl 200 mg DAILY PO 04/29/24 10:00 05/03/24 09:38 200 MG Atorvastatin Calcium 20 mg DAILY PO 04/29/24 10:00 05/03/24 09:38 20 MG Carvedilol 12.5 mg BID PO 04/28/24 22:00 05/03/24 09:39 12.5 MG Sacubitril/ Valsartan 1 tab BID PO 04/28/24 22:00 05/01/24 21:44 1 TAB Spironolactone 25 mg DAILY PO 04/29/24 10:00 05/03/24 09:38 25 MG Ipratropium Palmer 0.5 mg Q6HPRN PRN NEB 05/02/24 06:00 Cancel Examination General Appearance: Cooperative. Well developed. Well nourished. NAD Head Exam: Normal inspection Neck Exam: Normal inspection. Non-tender. Normal alignment Pulmonary/Respiratory: Chest non-tender. Decreased bilateral breath sounds, crackles, wheezing, improving Cardiovascular/Chest: Regular rate and rhythm. No murmurs. No JVD. Peripheral Pulses: 2+ Radial (R). 2+ Radial (L). 2+ Pedal (R). 2+ Pedal (L) Abdominal Exam: Normal bowel sounds. Soft. normal abdomen, no visible veins, Nontender. No hepatospenomegaly. No masses Ankle Exam: Negative ankle edema Lower extremities: Negative lower extremity edema Neuro/Mental Status: A&O x4. Coherent. Thoughts/Psych: Normal thought pattern. Appropriate mood and affect. Good judgement and insight Skin Exam: Normal inspection. Normal color. Warm. Dry laboratory and microbiology Laboratory Tests 05/02/24 06:10 Test 05/02/24 06:10 Range/Units Serum Glucose 89 74-106 mg/dL Problem List/Assessment/Plan Problem List/Assessment/Plan Acute on chronic systolic heart failure with reduced ejection fraction Dilated cardiomyopathy Paroxysmal atrial fibrillation S/p ICD placement (Biotronik) - CXR: Patchy bilateral airspace disease may represent pulmonary vascular congestion or multifocal infection. - ECHO: Dilated 4 chambers observed. Mild concentric left ventricular hypertrophy, left ventricular dilated. Ejection fraction 20%. Diffuse hypokinesis of left ventricle go. Right ventricle was dilated with reduced systolic function. Both atria were moderately dilated. Pacing wire was seen in the right-sided chambers. RVSP 55 mmHg. - amiodarone 200 mg p.o. daily, apixaban 5 mg p.o. b.i.d. - aspirin 81 mg, atorvastatin 20 mg - carvedilol 12.5 mg, IV furosemide 40 mg b.i.d., Entresto b.i.d., spironolactone 25 mg daily - awaiting ICD interrogation; plan for BIV AICD generator change with revision of RA lead tentatively this upcoming Thursday05/04/[address] Urena ?COPD exacerbation - levalbuterol and ipratropium med nebs - refusing scheduled breathing treatments Medical noncompliance - counseled patient extensively about the importance of adhering to GDMT to prevent further worsening of his heart failure History of hyperthyroidism - serum TSH 0.29 - ordered free T4, free T3 next - we will continue to monitor Hypokalemia - replaced with p.o. potassium Umbilical hernia - Non consulted uncomplicated needs outpatient follow up with surgery DVT prophylaxis: Already on Eliquis 5 mg b.i.d. Goals of care: Full code, discussed for >16 minutes on 04/29/24 Plan discussed with patient Plan discussed with Dr. Ruvalcaba Plan discussed with: Patient, Other Dietary Evaluation Review Comments: follow his current diet regimen, monitor PO intake to meet 75% of his needs Expected Outcomes/Goals: slowly weight loss. Date of Service: May 03, 2024 Billing Provider: BETH RUVALCABA MD Common Visit Codes: [id number] INP/OBS CARE(HIGH) Coding Comment Comment I saw and evaluated the patient. I reviewed the residents note and agree with findings and plan as documented in the residents note. Patient pending ICD repair ANJUM ACOSTA RESIDENT May 03, 2024 15:37 BETH RUVALCABA MD May 03, 2024 20:36
[2024-05-04] VITALS (9 sets, daily range): BP systolic 109–134; BP diastolic 79–95; PULSE 64–83; RESP 18–20; TEMP 97.6–98.3; O2SAT 91–97
[2024-05-04 06:16] LABS: Basophils # (auto) 0 10 ^3/uL (0-0.2); Basophils % (auto) 0.6 % (0.0-2.0); Eosinophils # (auto) 0.1 10 ^3/uL (0-0.8); Eosinophils % (auto) 1.9 % (0.0-7.0); Hematocrit 51.2 % (41.0-53.0); Lymphocytes # (auto) 1.8 10 ^3/uL (0.4-5.4); Lymphocytes % (auto) 33.7 % (10.0-50.0); Mean Corpuscular Hemoglobin 30.8 pg (28.0-32.0); Mean Corpuscular Hgb Conc. 33.1 g/dL (32.0-36.0); Monocytes # (auto) 0.9 10 ^3/uL (0-1.3); Monocytes % (auto) 17.2 % (0.0-12.0); Neutrophils # (auto) 2.5 10 ^3/uL (1.6-8.6); Neutrophils % (auto) 46.6 % (37.0-80.0); Nucleated Red Blood Cells % 0.2 %; Platelet Count (auto) 210 10^3/uL (140-450); Red Blood Cells 5.51 10^6/uL (4.5-5.90); Red Cell Distribution Width 13.7 % (11.8-14.3); White Blood Cell 5.4 10^3/uL (4.4-10.8)
--- NOTE | 2024-05-04 06:20 | DVHPN2 ---
Progress Note - Dictate Date Seen: May 04, 2024 Medical Necessity Reason Pt with a Central, PICC or Fol: No vital signs Vital Sign Date Time Temp Pulse Resp B/P (MAP) Pulse Ox O2 Delivery O2 Flow Rate FiO2 05/04/24 01:00 98.0 75 20 134/92 (106) 96 98.0 05/03/24 20:00 Room Air* 0 21 Total Intake and Output 05/03/24 05/03/24 05/04/24 15:00 23:00 07:00 Intake Total 860 ml Output Total 960 ml Balance -100 ml medications Current Medications Medications Dose Ordered Sig/Jorge Route Start Time Stop Time Status Last Admin Dose Admin Furosemide 40 mg BID IV 04/28/24 11:00 05/03/24 21:23 40 MG Sodium Chloride 10 ml Q8HR IV 04/28/24 14:00 05/04/24 05:42 10 ML Docusate Sodium 100 mg BIDPRN PRN PO 04/28/24 11:00 Acetaminophen 650 mg Q6HP PRN PO 04/28/24 11:00 Acetaminophen/ Hydrocodone Bitart 1 tab Q4HP PRN PO 04/28/24 11:00 Hydromorphone HCl 0.5 mg Q4HP PRN IV 04/28/24 11:00 Ondansetron HCl 4 mg Q4HP PRN IV 04/28/24 11:00 Amiodarone HCl 200 mg DAILY PO 04/29/24 10:00 05/03/24 09:38 200 MG Atorvastatin Calcium 20 mg DAILY PO 04/29/24 10:00 05/03/24 09:38 20 MG Carvedilol 12.5 mg BID PO 04/28/24 22:00 05/03/24 09:39 12.5 MG Sacubitril/ Valsartan 1 tab BID PO 04/28/24 22:00 05/01/24 21:44 1 TAB Spironolactone 25 mg DAILY PO 04/29/24 10:00 05/03/24 09:38 25 MG Ipratropium [place] 0.5 mg Q6HPRN PRN NEB 05/02/24 06:00 Cancel laboratory and microbiology Laboratory Tests 05/04/24 05:44 05/02/24 06:10 Test 05/02/24 06:10 Range/Units Serum Glucose 89 74-106 mg/dL Assessment/Plan Patient is a 59-year-old gentleman who presented to the hospital after he felt that the ICD has fired twice in the a.m. Cardiology is involved for cardiac aspects of care. He is known to our practice from outside and before. Last visit to the office was more than 1 year ago. He mentions that he had moved to [place] and did not follow with any start up specialist. He has ran out of his medications months ago. He has been complaining of worsening shortness of breath and leg edema. Denies chest discomfort prior to the ICD firing. He does use meth and marijuana. He smokes cigarettes. He does drink alcohol. He looks unkempt. gentleman. Not in acute distress. Sitting in bed. No JVD. Mucosa is pink and wet. No goiter. Lungs: Crackles in the lower lungs is heard. Cardiac: Regular, no thrill. Systolic murmur 3/6 in the apex is heard. Abdomen is distended. Bowel sound is positive. Questionable hepatomegaly. Extremities reveal 2+ edema bilaterally Past medical history includes hypertension, hyperlipidemia, systolic heart failure, dilated cardiomyopathy, COPD, paroxysmal AFib, type 2 pulmonary hypertension, umbilical hernia history of NSVT and status post BiV-ICD (Biotronik) implantation. Has history of noncompliance to medication and followups. He smokes cigarettes. He uses marijuana. Mentioned that he stopped methamphetamine few months ago. Echocardiogram of January 2023 revealed ejection fraction of 25-30%, mild concentric left ventricular hypertrophy, mild biatrial enlargement, pacing wire in the right-sided chambers, mild MR, [id number] TR and right ventricular systolic pressure of 52 mm Hg Cardiac catheterization of March 2020 had revealed mild coronary artery disease, nonischemic cardiomyopathy and dilated vessels Troponin (high sensitive): 32 BNP: 485.65 D-Dimer: 0.58 TSH: 0.29 Free T4: 1.27 (wnl) Free T3: 2.98 (wnl) Urine toxicology: positive for cannabinoids Chest x-ray revealed: IMPRESSION: Patchy bilateral airspace disease may represent pulmonary vascular congestion or multifocal infection. Clinical correlation advised. Device Interrogation revealed: VDDR 50/130, 8.1% atrial burden, underlying sinus rhythm, 88% BIV pacing, Atrial sensin.6 mV, Atrial threshold: no capture at max output, Atrial impedance: 560, RV sensin.2 mV, RV threshold: 1.2v at 0.40, RV impedance: 579, LV sensin.7mV, LV threshold: 3.8v @ 1.25, LV impedance: 890, Battery voltage: 2:57V, Battery remaining <5 ESTEFANY, Shocks delivered in recent weeks due to SVT rhythm but therapy delivered due to malfunctioning right atrial lead (undersensing atrial fibrillation) EKG revealed a sense, V paced rhythm Tele reveals a sensed V paced rhythm Echocardiogram revealed: (04/29/2024) Dilated 4 chambers was observed. Left ventricle: Mild concentric left ventricular hypertrophy was seen. Left ventricle was dilated. LVEF was around 20%. Diffuse hypokinesis of left ventricle was seen. Right ventricle: Right ventricle was dilated with reduced systolic function. Both atria were moderately dilated. Pacing wire was seen in right-sided chambers. Aortic valve was not well visualized. There was no aortic stenosis. There was trivial aortic valve insufficiency. There was mild mitral regurgitation. There was moderate tricuspid regurgitation. Pulmonary valve was not well visualized. Right ventricular systolic pressure was assessed around 55 mm Hg. There was no pericardial effusion. Aortic root was 3.8 cm. Patient is a 59-year-old gentleman who presented after feeling that the ICD has shocked him. Does have history of systolic heart failure and ICD implantation (Biotronik) has not been compliant with medication and followups. Has ran out of medications months ago. Had been short of breath with leg swellings in favor of acute on chronic systolic heart failure. Troponin has been negative. Acute coronary syndrome is not considered at this point. ICD shock/firing, secondary to malfunctioning RA lead (undersensing atrial fibrillation) Acute on chronic systolic heart failure Dilated cardiomyopathy , history of Noncompliance with medication and followups Paroxysmal AFib History of non sustained V-tach Status post BiV-ICD implantation (Biotronik), now ESTEFANY Polysubstance abuse Alcohol abuse Pulmonary hypertension Cardiac suggestion for management: Manage on telemetry IV diuresis Follow-up electrolytes and kidney function tests and correct abnormalities. Keep potassium above 4 and magnesium above 2 Full anticoagulation is advised (history of PAF) Continue guideline directed medical therapy (Entresto/carvedilol/... ) Plan for BIV AICD generator change with revision of RA lead tentatively today (05/04/2024) with Dr. Ashtiani Benefits, risks, and alternatives were discussed at length with the patient which he remains agreeable to the plan of care Patient to be consented and NPO status at midnight (05/04/2024) Hold current Asprin 81mg daily (last dose 04/29/2024) Hold current Eliquis 5mg bid (last dose 04/29/2024) Lifestyle and risk factor modifications. Patient was counseled to avoid alcohol/meth/marijuana Patient was counseled to be compliant with medication and followups Further evaluation and management depends on the above and clinical course A total of 55 minutes was spent reviewing the patient record, examining the patient, making a diagnostic and therapeutic plan, discussing this plan with medical personnel, following up on diagnostic studies and following the patient for clinical stability excluding any and all procedures. At least 50% of this time was spent in direct, [id number] contact. Thank you for allowing me to participate in this patient's care. Further recommendations will depend on patient's clinical course. Please do not hesitate to contact me if you have any questions or concerns. This medical document was created using electronic medical record system with [employer] computerized dictation system. Although this document has been carefully reviewed, there may still be some phonetic and typographical errors. These areas are purely typographical due to the imperfection of the software programs, and do not reflect any compromise in the patient's medical care. Dietary Evaluation Review Comments: follow his current diet regimen, monitor PO intake to meet 75% of his needs Expected Outcomes/Goals: slowly weight loss. Plan discussed with: Patient, Other (nurse) JUNIOR MCMAHAN MD May 04, 2024 06:20
[2024-05-04 06:47] LABS: INR 1.12 (0.9-1.15); Partial Thromboplastin Time 27.9 SEC (24.5-34.5); Prothrombin Time 11.8 sec (9.3-11.8)
--- NOTE | 2024-05-04 16:44 | DVHPNRES ---
Progress Note Date Seen: May 04, 2024 Resident Creating Document: ANJUM ACOSTA RESIDENT Medical Necessity Reason Pt with a Central, PICC or Fol: No Subjective Review of Systems Patient is a 59-year-old male with past medical history of heart failure with reduced ejection fraction, paroxysmal atrial fibrillation,? COPD, dyslipidemia, hypertension who came in after his ICD went off. According to the patient, on 04/28/[address]24 [address] was [address] when he felt that his ICD went off, he pulled over and sat there for a while when he noticed his ICD fired once again for the 2nd time. Shortly after, patient called the ambulance and came to the hospital. He also notes shortness of breaths that has been ongoing for the last couple of weeks and bloating. Troponin was 32, BNP 485.65, chest x-ray showed patchy bilateral airspace disease, may represent pulmonary vascular congestion or multifocal infection. Past surgical history: Left wrist surgery, left hip reconstruction Home medications: Albuterol, amiodarone, apixaban, aspirin, statin, carvedilol, doxycycline, furosemide, Entresto, spironolactone Past Hospitalization:In January 2023 for COPD exacerbation? Social & Personal history: Patient lives in a [facility] with other tenants. Smokes 3 cigarettes per day for the past 40 years. Drinks alcohol daily, 1-2 drinks per day Allergies: Denies Patient seen and examined at bedside. Patient is alert and oriented to time, place person and responding to all questions. Reports improved breathing, denies any active ongoing pain or discomfort. Patient will remain NPO starting midnight. Objective vital signs Vital Sign Date Time Temp Pulse Resp B/P (MAP) Pulse Ox O2 Delivery O2 Flow Rate FiO2 05/04/24 12:18 98.3 69 18 109/79 (89) 96 98.3 05/04/24 10:00 Room Air* 0 21 Total Intake and Output 05/03/24 05/03/24 05/04/24 15:00 23:00 07:00 Intake Total 860 ml 895 ml Output Total 960 ml 1100 ml Balance -100 ml -205 ml medications Current Medications Medications Dose Ordered Sig/Jorge Route Start Time Stop Time Status Last Admin Dose Admin Furosemide 40 mg BID IV 04/28/24 11:00 05/04/24 09:43 40 MG Sodium Chloride 10 ml Q8HR IV 04/28/24 14:00 05/04/24 09:46 10 ML Docusate Sodium 100 mg BIDPRN PRN PO 04/28/24 11:00 Acetaminophen 650 mg Q6HP PRN PO 04/28/24 11:00 Acetaminophen/ Hydrocodone Bitart 1 tab Q4HP PRN PO 04/28/24 11:00 Hydromorphone HCl 0.5 mg Q4HP PRN IV 04/28/24 11:00 Ondansetron HCl 4 mg Q4HP PRN IV 04/28/24 11:00 Amiodarone HCl 200 mg DAILY PO 04/29/24 10:00 05/04/24 09:46 200 MG Atorvastatin Calcium 20 mg DAILY PO 04/29/24 10:00 05/04/24 09:45 20 MG Carvedilol 12.5 mg BID PO 04/28/24 22:00 05/04/24 09:44 12.5 MG Sacubitril/ Valsartan 1 tab BID PO 04/28/24 22:00 05/01/24 21:44 1 TAB Spironolactone 25 mg DAILY PO 04/29/24 10:00 05/04/24 09:46 25 MG Ipratropium [place] 0.5 mg Q6HPRN PRN NEB 05/02/24 06:00 Cancel Examination General Appearance: Cooperative. Well developed. Well nourished. NAD Head Exam: Normal inspection Neck Exam: Normal inspection. Non-tender. Normal alignment Pulmonary/Respiratory: Chest non-tender. Improved bilateral breath sounds, no crackles no wheezing. Cardiovascular/Chest: Regular rate and rhythm. No murmurs. No JVD. Peripheral Pulses: 2+ Radial (R). 2+ Radial (L). 2+ Pedal (R). 2+ Pedal (L) Abdominal Exam: Normal bowel sounds. Soft. normal abdomen, no visible veins, Nontender. No hepatospenomegaly. No masses Ankle Exam: Negative ankle edema Lower extremities: Negative lower extremity edema Neuro/Mental Status: A&O x4. Coherent. Thoughts/Psych: Normal thought pattern. Appropriate mood and affect. Good judgement and insight Skin Exam: Normal inspection. Normal color. Warm. Dry laboratory and microbiology Laboratory Tests 05/04/24 05:44 05/02/24 06:10 Test 05/02/24 06:10 Range/Units Serum Glucose 89 74-106 mg/dL Labs and/or images reviewed: Labs reviewed by me, Image(s) reviewed by me Problem List/Assessment/Plan Problem List/Assessment/Plan Acute on chronic systolic heart failure with reduced ejection fraction Dilated cardiomyopathy Paroxysmal atrial fibrillation S/p ICD placement (Biotronik) - CXR: Patchy bilateral airspace disease may represent pulmonary vascular congestion or multifocal infection. - ECHO: Dilated 4 chambers observed. Mild concentric left ventricular hypertrophy, left ventricular dilated. Ejection fraction 20%. Diffuse hypokinesis of left ventricle go. Right ventricle was dilated with reduced systolic function. Both atria were moderately dilated. Pacing wire was seen in the right-sided chambers. RVSP 55 mmHg. - amiodarone 200 mg p.o. daily, apixaban 5 mg p.o. b.i.d. - aspirin 81 mg, atorvastatin 20 mg - carvedilol 12.5 mg, IV furosemide 40 mg b.i.d., Entresto b.i.d., spironolactone 25 mg daily - awaiting ICD interrogation; plan for BIV AICD generator change with revision of RA lead tentatively this upcoming Thursday05/04/[address] Urena, however now rescheduled for 05/05/2024. ?COPD exacerbation - levalbuterol and ipratropium med nebs - refusing scheduled breathing treatments Medical noncompliance - counseled patient extensively about the importance of adhering to GDMT to prevent further worsening of his heart failure History of hyperthyroidism - serum TSH 0.29 - ordered free T4, free T3 next - we will continue to monitor Hypokalemia - replaced with p.o. potassium Umbilical hernia - Non consulted uncomplicated needs outpatient follow up with surgery DVT prophylaxis: Already on Eliquis 5 mg b.i.d. Goals of care: Full code, discussed for >16 minutes on 04/29/24 Plan discussed with patient Plan discussed with Dr. Ruvalcaba Plan discussed with: Patient, Other (RN) Dietary Evaluation Review Comments: follow his current diet regimen, monitor PO intake to meet 75% of his needs Expected Outcomes/Goals: slowly weight loss. Date of Service: May 04, 2024 Billing Provider: BETH RUVALCABA MD Common Visit Codes: [id number] INP/OBS CARE(HIGH) Coding Comment Comment I saw and evaluated the patient. I reviewed the residents note and agree with findings and plan as documented in the residents note. Telemetry reviewed, patient is status quo, pending ICD repair ANJUM ACOSTA May 04, 2024 16:44 BETH RUVALCABA MD May 04, 2024 21:17
--- NOTE | 2024-05-04 20:55 | DVHOP2 ---
Operative Report t 05/04/24 Dictated By: Andrea Urena MD INDICATIONS: 1. Sustained Ventricular tachycardia, frequent syncope and pre Syncope due to VT 2. Non-Ischemic cardiomyopathy with an ejection fraction of 55%. 3. CHF I, Prior PVC/VT ablation in the past, sinus bradycardia PLAN: Proceed with implantation of dual AICD for secondary prevention of sudden cardiac PROCEDURES: 1. Right ventricular AICD lead placement MDT MRI conditional, active fixation, 2. Implantation of right atrial lead, active fixation 3. Implantation of the dual AICD generator from MDT, MRI. 4. Fluoroscopy images and interpretation. 5. Interrogation and programming of the device. 6. Conscious sedation with fentanyl and Versed for one hour 7. Left subclavian venogram, two axillary accesses obtained PROCEDURE IN DETAILS: 1. After obtaining informed consent with explanation of risks, benefits and alternatives, the patient agreed upon the planned procedure, implantation of dual AICD for secondary prevention of SCD due to non-ischemic cardiomyopathy and symptomatic VT. Patient understood and agreed to have MDT device. Under a standard fashion, local and systemic anesthetic, conscious sedation with fentanyl and Versed, supervised by myself, Lt deltopectoral area was prepped and draped. Lt deltopectoral pocket was made, two axillary accesses were obtained 2 Through the first access, RV AICD lead was advanced into the right interventricular septum. Sensing was 5 mv with pacing threshold 0.5 v at 0.5 ms. Impedance of 599 ohms. 3. Through the 2nd access the atrial lead was advanced into right atrium and attached in the RA actively, sensing A is 1.8 mv, pacing threshold 0.9 v at 0.4 ms, impedance 526 ohms. 4. New dual AICD lead from Biotronik was connected to the leads. . The pocket was irrigated with antibiotic solution. Antibiotic powder was poured into the pocket. The skin was closed in 2 layers and at the end was stapled. CONCLUSION: 1. Status post successful implantation of dual AICD, Device was programmed into DDDR lower rate of 60 bpm 2. There was no immediate complication. ANDREA URENA RAMIN B MD May 04, 2024 20:55
[2024-05-05] VITALS (13 sets, daily range): BP systolic 112–168; BP diastolic 78–115; PULSE 49–98; RESP 15–20; TEMP 97.9–98.2; O2SAT 91–96
[2024-05-05] MEDS ORDERED: VANCOMYCIN 1GM/200ML PREMIX 200 ML IV ONE (05:00)
--- NOTE | 2024-05-05 08:03 | DVHPN2 ---
Progress Note - Dictate Date Seen: May 05, 2024 Medical Necessity Reason Pt with a Central, PICC or Fol: No vital signs Vital Sign Date Time Temp Pulse Resp B/P (MAP) Pulse Ox O2 Delivery O2 Flow Rate FiO2 05/05/24 05:00 98.0 65 18 125/89 (101) 92 98.0 05/04/24 20:00 Room Air* 0 21 Total Intake and Output 05/04/24 05/04/24 05/05/24 15:00 23:00 07:00 Intake Total 240 ml 720 ml 500 ml Output Total 1500 ml 1250 ml Balance 240 ml -780 ml -750 ml medications Current Medications Medications Dose Ordered Sig/Jorge Route Start Time Stop Time Status Last Admin Dose Admin Furosemide 40 mg BID IV 04/28/24 11:00 05/04/24 21:32 40 MG Sodium Chloride 10 ml Q8HR IV 04/28/24 14:00 05/05/24 06:06 10 ML Docusate Sodium 100 mg BIDPRN PRN PO 04/28/24 11:00 Acetaminophen 650 mg Q6HP PRN PO 04/28/24 11:00 Acetaminophen/ Hydrocodone Bitart 1 tab Q4HP PRN PO 04/28/24 11:00 Hydromorphone HCl 0.5 mg Q4HP PRN IV 04/28/24 11:00 Ondansetron HCl 4 mg Q4HP PRN IV 04/28/24 11:00 Amiodarone HCl 200 mg DAILY PO 04/29/24 10:00 05/04/24 09:46 200 MG Atorvastatin Calcium 20 mg DAILY PO 04/29/24 10:00 05/04/24 09:45 20 MG Carvedilol 12.5 mg BID PO 04/28/24 22:00 05/04/24 21:32 12.5 MG Sacubitril/ Valsartan 1 tab BID PO 04/28/24 22:00 05/01/24 21:44 1 TAB Spironolactone 25 mg DAILY PO 04/29/24 10:00 05/04/24 09:46 25 MG Ipratropium [place] 0.5 mg Q6HPRN PRN NEB 05/02/24 06:00 Cancel laboratory and microbiology Laboratory Tests 05/04/24 05:44 05/02/24 06:10 Test 05/02/24 06:10 Range/Units Serum Glucose 89 74-106 mg/dL Assessment/Plan Patient is a 59-year-old gentleman who presented to the hospital after he felt that the ICD has fired twice in the a.m. Cardiology is involved for cardiac aspects of care. He is known to our practice from outside and before. Last visit to the office was more than 1 year ago. He mentions that he had moved to [place] and did not follow with any actuarial technician. He has ran out of his medications months ago. He has been complaining of worsening shortness of breath and leg edema. Denies chest discomfort prior to the ICD firing. He does use meth and marijuana. He smokes cigarettes. He does drink alcohol. He looks unkempt. gentleman. Not in acute distress. Sitting in bed. No JVD. Mucosa is pink and wet. No goiter. Lungs: Crackles in the lower lungs is heard. Cardiac: Regular, no thrill. Systolic murmur 3/6 in the apex is heard. Abdomen is distended. Bowel sound is positive. Questionable hepatomegaly. Extremities reveal 2+ edema bilaterally Past medical history includes hypertension, hyperlipidemia, systolic heart failure, dilated cardiomyopathy, COPD, paroxysmal AFib, type 2 pulmonary hypertension, umbilical hernia history of NSVT and status post BiV-ICD (Biotronik) implantation. Has history of noncompliance to medication and followups. He smokes cigarettes. He uses marijuana. Mentioned that he stopped methamphetamine few months ago. Echocardiogram of January 2023 revealed ejection fraction of 25-30%, mild concentric left ventricular hypertrophy, mild biatrial enlargement, pacing wire in the right-sided chambers, mild MR, [id number] TR and right ventricular systolic pressure of 52 mm Hg Cardiac catheterization of March 2020 had revealed mild coronary artery disease, nonischemic cardiomyopathy and dilated vessels Troponin (high sensitive): 32 BNP: 485.65 D-Dimer: 0.58 TSH: 0.29 Free T4: 1.27 (wnl) Free T3: 2.98 (wnl) Urine toxicology: positive for cannabinoids Chest x-ray revealed: IMPRESSION: Patchy bilateral airspace disease may represent pulmonary vascular congestion or multifocal infection. Clinical correlation advised. Device Interrogation revealed: VDDR 50/130, 8.1% atrial burden, underlying sinus rhythm, 88% BIV pacing, Atrial sensin.6 mV, Atrial threshold: no capture at max output, Atrial impedance: 560, RV sensin.2 mV, RV threshold: 1.2v at 0.40, RV impedance: 579, LV sensin.7mV, LV threshold: 3.8v @ 1.25, LV impedance: 890, Battery voltage: 2:57V, Battery remaining <5 ESTEFANY, Shocks delivered in recent weeks due to SVT rhythm but therapy delivered due to malfunctioning right atrial lead (undersensing atrial fibrillation) EKG revealed a sense, V paced rhythm Tele reveals a sensed V paced rhythm Echocardiogram revealed: (04/29/2024) Dilated 4 chambers was observed. Left ventricle: Mild concentric left ventricular hypertrophy was seen. Left ventricle was dilated. LVEF was around 20%. Diffuse hypokinesis of left ventricle was seen. Right ventricle: Right ventricle was dilated with reduced systolic function. Both atria were moderately dilated. Pacing wire was seen in right-sided chambers. Aortic valve was not well visualized. There was no aortic stenosis. There was trivial aortic valve insufficiency. There was mild mitral regurgitation. There was moderate tricuspid regurgitation. Pulmonary valve was not well visualized. Right ventricular systolic pressure was assessed around 55 mm Hg. There was no pericardial effusion. Aortic root was 3.8 cm. Patient is a 59-year-old gentleman who presented after feeling that the ICD has shocked him. Does have history of systolic heart failure and ICD implantation (Biotronik) has not been compliant with medication and followups. Has ran out of medications months ago. Had been short of breath with leg swellings in favor of acute on chronic systolic heart failure. Troponin has been negative. Acute coronary syndrome is not considered at this point. ICD shock/firing, secondary to malfunctioning RA lead (undersensing atrial fibrillation) Acute on chronic systolic heart failure Dilated cardiomyopathy , history of Noncompliance with medication and followups Paroxysmal AFib History of non sustained V-tach Status post BiV-ICD implantation (Biotronik), now ESTEFANY Polysubstance abuse Alcohol abuse Pulmonary hypertension Cardiac suggestion for management: Manage on telemetry IV diuresis Follow-up electrolytes and kidney function tests and correct abnormalities. Keep potassium above 4 and magnesium above 2 Full anticoagulation is advised (history of PAF) (for now on hold on preparation for EP procedure: BiV-ICD generator exchange) Continue guideline directed medical therapy (Entresto/carvedilol/... ) Plan for BIV AICD generator change with revision of RA lead tentatively today (05/05/2024) with Dr. Urena Benefits, risks, and alternatives were discussed at length with the patient which he remains agreeable to the plan of care Hold current Asprin 81mg daily (last dose 04/29/2024) Hold current Eliquis 5mg bid (last dose 04/29/2024) Lifestyle and risk factor modifications. Patient was counseled to avoid alcohol/meth/marijuana Patient was counseled to be compliant with medication and followups Further evaluation and management depends on the above and clinical course A total of 55 minutes was spent reviewing the patient record, examining the patient, making a diagnostic and therapeutic plan, discussing this plan with medical personnel, following up on diagnostic studies and following the patient for clinical stability excluding any and all procedures. At least 50% of this time was spent in direct, [id number] contact. Thank you for allowing me to participate in this patient's care. Further recommendations will depend on patient's clinical course. Please do not hesitate to contact me if you have any questions or concerns. This medical document was created using electronic medical record system with [employer] computerized dictation system. Although this document has been carefully reviewed, there may still be some phonetic and typographical errors. These areas are purely typographical due to the imperfection of the software programs, and do not reflect any compromise in the patient's medical care. Dietary Evaluation Review Comments: follow his current diet regimen, monitor PO intake to meet 75% of his needs Expected Outcomes/Goals: slowly weight loss. Plan discussed with: Patient, Other (nurse) JUNIOR MCMAHAN MD May 05, 2024 08:03
--- NOTE | 2024-05-05 08:52 | DVHPNRES ---
Progress Note Date Seen: May 05, 2024 Resident Creating Document: ANJUM ACOSTA RESIDENT Medical Necessity Reason Pt with a Central, PICC or Fol: No Subjective Review of Systems Patient is a 59-year-old male with past medical history of heart failure with reduced ejection fraction, paroxysmal atrial fibrillation,? COPD, dyslipidemia, hypertension who came in after his ICD went off. According to the patient, on 04/28/[address]24 [address] when he felt that his ICD went off, he pulled over and sat there for a while when he noticed his ICD fired once again for the 2nd time. Shortly after, patient called the ambulance and came to the hospital. He also notes shortness of breaths that has been ongoing for the last couple of weeks and bloating. Troponin was 32, BNP 485.65, chest x-ray showed patchy bilateral airspace disease, may represent pulmonary vascular congestion or multifocal infection. Past surgical history: Left wrist surgery, left hip reconstruction Home medications: Albuterol, amiodarone, apixaban, aspirin, statin, carvedilol, doxycycline, furosemide, Entresto, spironolactone Past Hospitalization:In January 2023 for COPD exacerbation? Social & Personal history: Patient lives in a [facility] with other tenants. Smokes 3 cigarettes per day for the past 40 years. Drinks alcohol daily, 1-2 drinks per day Allergies: Denies Patient seen and examined at bedside. Patient is alert and oriented to time, place person and responding to all questions. Reports improved breathing, denies any active ongoing pain or discomfort. ICD battery change and RA lead revision could not be completed yesterday, patient is scheduled to undergo the procedure today on 05/05/[address] Urena Objective vital signs Vital Sign Date Time Temp Pulse Resp B/P (MAP) Pulse Ox O2 Delivery O2 Flow Rate FiO2 05/05/24 05:00 98.0 65 18 125/89 (101) 92 98.0 05/04/24 20:00 Room Air* 0 21 Total Intake and Output 05/04/24 05/04/24 05/05/24 15:00 23:00 07:00 Intake Total 240 ml 720 ml 500 ml Output Total 1500 ml 1250 ml Balance 240 ml -780 ml -750 ml medications Current Medications Medications Dose Ordered Sig/Jorge Route Start Time Stop Time Status Last Admin Dose Admin Furosemide 40 mg BID IV 04/28/24 11:00 05/04/24 21:32 40 MG Sodium Chloride 10 ml Q8HR IV 04/28/24 14:00 05/05/24 06:06 10 ML Docusate Sodium 100 mg BIDPRN PRN PO 04/28/24 11:00 Acetaminophen 650 mg Q6HP PRN PO 04/28/24 11:00 Acetaminophen/ Hydrocodone Bitart 1 tab Q4HP PRN PO 04/28/24 11:00 Hydromorphone HCl 0.5 mg Q4HP PRN IV 04/28/24 11:00 Ondansetron HCl 4 mg Q4HP PRN IV 04/28/24 11:00 Amiodarone HCl 200 mg DAILY PO 04/29/24 10:00 05/04/24 09:46 200 MG Atorvastatin Calcium 20 mg DAILY PO 04/29/24 10:00 05/04/24 09:45 20 MG Carvedilol 12.5 mg BID PO 04/28/24 22:00 05/04/24 21:32 12.5 MG Sacubitril/ Valsartan 1 tab BID PO 04/28/24 22:00 05/01/24 21:44 1 TAB Spironolactone 25 mg DAILY PO 04/29/24 10:00 05/04/24 09:46 25 MG Ipratropium [place] 0.5 mg Q6HPRN PRN NEB 05/02/24 06:00 Cancel Examination General Appearance: Cooperative. Well developed. Well nourished. NAD Head Exam: Normal inspection Neck Exam: Normal inspection. Non-tender. Normal alignment Pulmonary/Respiratory: Chest non-tender. Improved bilateral breath sounds, no crackles no wheezing. Cardiovascular/Chest: Regular rate and rhythm. No murmurs. No JVD. Peripheral Pulses: 2+ Radial (R). 2+ Radial (L). 2+ Pedal (R). 2+ Pedal (L) Abdominal Exam: Normal bowel sounds. Soft. normal abdomen, no visible veins, Nontender. No hepatospenomegaly. No masses Ankle Exam: Negative ankle edema Lower extremities: Negative lower extremity edema Neuro/Mental Status: A&O x4. Coherent. Thoughts/Psych: Normal thought pattern. Appropriate mood and affect. Good judgement and insight Skin Exam: Normal inspection. Normal color. Warm. Dry laboratory and microbiology Laboratory Tests 05/04/24 05:44 05/02/24 06:10 Test 05/02/24 06:10 Range/Units Serum Glucose 89 74-106 mg/dL Labs and/or images reviewed: Labs reviewed by me, Image(s) reviewed by me Problem List/Assessment/Plan Problem List/Assessment/Plan Acute on chronic systolic heart failure with reduced ejection fraction Dilated cardiomyopathy Paroxysmal atrial fibrillation S/p ICD placement (Biotronik) - CXR: Patchy bilateral airspace disease may represent pulmonary vascular congestion or multifocal infection. - ECHO: Dilated 4 chambers observed. Mild concentric left ventricular hypertrophy, left ventricular dilated. Ejection fraction 20%. Diffuse hypokinesis of left ventricle go. Right ventricle was dilated with reduced systolic function. Both atria were moderately dilated. Pacing wire was seen in the right-sided chambers. RVSP 55 mmHg. - amiodarone 200 mg p.o. daily, apixaban 5 mg p.o. b.i.d. - aspirin 81 mg, atorvastatin 20 mg - carvedilol 12.5 mg, IV furosemide 40 mg b.i.d., Entresto b.i.d., spironolactone 25 mg daily - awaiting ICD interrogation; plan for BIV AICD generator change with revision of RA lead tentatively this upcoming Thursday05/04/[address] Urena, however now rescheduled for today, 05/05/2024. ?COPD exacerbation - levalbuterol and ipratropium med nebs - refusing scheduled breathing treatments Medical noncompliance - counseled patient extensively about the importance of adhering to GDMT to prevent further worsening of his heart failure History of hyperthyroidism - serum TSH 0.29 - ordered free T4, free T3 next - we will continue to monitor Hypokalemia - replaced with p.o. potassium Umbilical hernia - Non consulted uncomplicated needs outpatient follow up with surgery DVT prophylaxis: Already on Eliquis 5 mg b.i.d. Goals of care: Full code, discussed for >16 minutes on 04/29/24 Plan discussed with patient Plan discussed with Dr. Ruvalcaba Plan discussed with: Patient, Other (RN) Dietary Evaluation Review Comments: follow his current diet regimen, monitor PO intake to meet 75% of his needs Expected Outcomes/Goals: slowly weight loss. Date of Service: May 05, 2024 Billing Provider: BETH RUVALCABA MD Common Visit Codes: [id number] INP/OBS CARE(HIGH) Coding Comment Comment I saw and evaluated the patient. I reviewed the residents note and agree with findings and plan as documented in the residents note. ANJUM ACOSTA RESIDENT May 05, 2024 08:52 BETH RUVALCABA MD May 05, 2024 20:44
[2024-05-05] MEDS: MIDAZOLAM HCL 2MG/2ML 2ml VIAL (1mg/ml) ONE (16:07)
[2024-05-05] MEDS: fentaNYL CITRATE 100 MCG/2 ML VL ONE (16:07)
[2024-05-05] MEDS: VANCOMYCIN HCL 1000 MG VL ONE (16:07)
[2024-05-05] MEDS: VANCOMYCIN 1GM/200ML PREMIX 200 ML IV ONE (16:08)
[2024-05-05] MEDS: LIDOCAINE 2%HCL (LOCAL ANESTH.) INJ 20ML MDV ONE (16:08)
--- NOTE | 2024-05-05 16:27 | DVHOP2 ---
Operative Report 05/05/2024 Procedure Note Replacement of BIVAICD generator and RA lead revision INDICATIONS: 1. ESTEFANY of the Biventricular ICD generator. 2. Non Ischemic cardiomyopathy with prior history of BIVAICD, malfunction of RA lead with dislodgment of A lead and non capture at maximum output 3. CHF II with EF 30% 4. Conscious sedation with Fentanyl and versed for one hour PROCEDURES: 1. Explantation of the old Biventricular implantable defibrillator generator Biotronik. 2. Implantation of the new Biventricular implantable generator MDT. 3. Fluoroscopy images and interpretation. 4. Interrogation and programming of the device. 5. Conscious sedation with fentanyl and versed for one hour 6. Electrophysiology study and defibrillator threshold testing 7. Attempt to add new atrial lead, which was aborted PROCEDURE IN DETAILS: After obtaining informed consent with explanation of risks, benefits, and alternatives, the patient agreed upon the planned procedure, replacement of the biventricular implantable defibrillator generator. As well as adding new atrial lead. Patient understood and agreed the new company is MDT. Under standard fashion, local and systemic anesthetic, left deltopectoral area was prepped and draped. Left deltopectoral pocket was opened and old biventricular implantable defibrillator from Biotronik was removed from the pocket. Single axillary access was obtained, due to difficulty to advance the lead, a long 7th slovak sheet was used, the new right atrial lead was advanced into right atrium. While trying to place the new lead in to right atrium, patient became very agitated, we had to put him down physically in order to be able to The continue with the procedure. Although this was not feasible to finish the RA lead placement due to his movement, I had to abort it and finalize the of new BIVAICD generator. He probably had adverse reaction to either fentanyl or versed. New biventricular implantable defibrillator from MDT was connected to the leads. The pocket was irrigated with antibiotic solution. Antibiotic powder was poured into the pocket. The skin was closed in 2 layers and at the end was stapled. Atrial lead, LV lead and RV lead connected to new BIVAICD generator. CONCLUSION: Status post successful replacement of the biventricular implantable defibrillator secondary to end of life of the biventricular implantable defibrillator. Attempt to place a new right atrial lead. RECOMMENDATIONS: Continue with antibiotic therapy, doxycycline 100 mg twice a day. CLIVE SANTOS MD May 05, 2024 16:27
[2024-05-05] MEDS: HYDROmorphone HCL 2 MG/ML VL/or syr IV PRN (18:38)
[2024-05-05] MEDS: DOXYCYCLINE 100 MG TAB/CAP PO SCH (20:46)
[2024-05-06 01:00] VITALS: BP 110/81; PULSE 53; RESP 16; TEMP 97.9; O2SAT 95
[2024-05-06 05:00] VITALS: BP 104/75; PULSE 70; RESP 17; TEMP 98.1; O2SAT 95
[2024-05-06] MEDS: VANCOMYCIN 1GM/200ML PREMIX 200 ML IV ONE (05:37)
[2024-05-06 05:44] LABS: Hematocrit 52.6 % (41.0-53.0); Hemoglobin 17.3 g/dL (13.5-17.5); Mean Corpuscular Hemoglobin 30.6 pg (28.0-32.0); Mean Corpuscular Volume 92.7 fL (80.0-100.0); Platelet Count (auto) 224 10^3/uL (140-450); Red Blood Cells 5.67 10^6/uL (4.5-5.90); Red Cell Distribution Width 13.6 % (11.8-14.3); White Blood Cell 5.1 10^3/uL (4.4-10.8)
[2024-05-06 05:58] LABS: Band Neutrophils % (manual) 0; Basophils % (manual) 0 (0.0-2.0); Blast Cells 0; Metamyelocytes % 0; Myelocytes % 0; Promyelocytes % 0; Reactive Lymphocytes 0
[2024-05-06 06:15] LABS: Anion Gap 8 (5-15); Carbon Dioxide 25 mmol/L (20-31); Chloride 104 mmol/L (98-107); Potassium 3.9 mmol/L (3.5-5.1); Sodium 137 mmol/L (136-145)
[2024-05-06 06:16] LABS: Calcium 9.2 mg/dL (8.7-10.4)
[2024-05-06 06:21] LABS: BUN/Creatinine Ratio 14.7 (10.0-20.0); Blood Urea Nitrogen 16 mg/dL (9-23); Glucose 98 mg/dL (74-106)
--- NOTE | 2024-05-06 06:31 | DVHPN2 ---
Progress Note - Dictate Date Seen: May 06, 2024 Medical Necessity Reason Pt with a Central, PICC or Fol: No vital signs Vital Sign Date Time Temp Pulse Resp B/P (MAP) Pulse Ox O2 Delivery O2 Flow Rate FiO2 05/06/24 06:02 68 20 121/89 05/06/24 05:00 98.1 95 98.1 05/05/24 20:00 Room Air* 0 21 Total Intake and Output 05/05/24 05/05/24 05/06/24 15:00 23:00 07:00 Intake Total 920 ml Output Total 1100 ml 1215 ml Balance -1100 ml -295 ml medications Current Medications Medications Dose Ordered Sig/Jorge Route Start Time Stop Time Status Last Admin Dose Admin Furosemide 40 mg BID IV 04/28/24 11:00 05/05/24 20:48 40 MG Sodium Chloride 10 ml Q8HR IV 04/28/24 14:00 05/06/24 05:38 10 ML Docusate Sodium 100 mg BIDPRN PRN PO 04/28/24 11:00 Acetaminophen 650 mg Q6HP PRN PO 04/28/24 11:00 Acetaminophen/ Hydrocodone Bitart 1 tab Q4HP PRN PO 04/28/24 11:00 Hydromorphone HCl 0.5 mg Q4HP PRN IV 04/28/24 11:00 05/06/24 06:02 0.5 MG Ondansetron HCl 4 mg Q4HP PRN IV 04/28/24 11:00 Amiodarone HCl 200 mg DAILY PO 04/29/24 10:00 05/04/24 09:46 200 MG Atorvastatin Calcium 20 mg DAILY PO 04/29/24 10:00 05/04/24 09:45 20 MG Carvedilol 12.5 mg BID PO 04/28/24 22:00 05/05/24 20:47 12.5 MG Sacubitril/ Valsartan 1 tab BID PO 04/28/24 22:00 05/05/24 20:46 1 TAB Spironolactone 25 mg DAILY PO 04/29/24 10:00 05/04/24 09:46 25 MG Ipratropium R[place] 0.5 mg Q6HPRN PRN NEB 05/02/24 06:00 Cancel Doxycycline Monohydrate 100 mg Q12HR PO 05/05/24 19:00 05/05/24 23:38 100 MG laboratory and microbiology Laboratory Tests 05/06/24 05:14 Test 05/06/24 05:14 Range/Units Serum Glucose Pending Assessment/Plan Patient is a 59-year-old gentleman who presented to the hospital after he felt that the ICD has fired twice in the a.m. Cardiology is involved for cardiac aspects of care. He is known to our practice from outside and before. Last visit to the office was more than 1 year ago. 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 He has ran out of his medications months ago. He has been complaining of worsening shortness of breath and leg edema. Denies chest discomfort prior to the ICD firing. He does use meth and marijuana. He smokes cigarettes. He does drink alcohol. He looks unkempt. gentleman. Not in acute distress. Sitting in bed. No JVD. Mucosa is pink and wet. No goiter. Lungs: Crackles in the lower lungs is heard. Cardiac: Regular, no thrill. Systolic murmur 3/6 in the apex is heard. Abdomen is distended. Bowel sound is positive. Questionable hepatomegaly. Extremities reveal 2+ edema bilaterally Past medical history includes hypertension, hyperlipidemia, systolic heart failure, dilated cardiomyopathy, COPD, paroxysmal AFib, type 2 pulmonary hypertension, umbilical hernia history of NSVT and status post BiV-ICD (Biotronik) implantation. Has history of noncompliance to medication and followups. He smokes cigarettes. He uses marijuana. Mentioned that he stopped methamphetamine few months ago. Echocardiogram of January 2023 revealed ejection fraction of 25-30%, mild concentric left ventricular hypertrophy, mild biatrial enlargement, pacing wire in the right-sided chambers, mild MR, [id number] TR and right ventricular systolic pressure of 52 mm Hg Cardiac catheterization of March 2020 had revealed mild coronary artery disease, nonischemic cardiomyopathy and dilated vessels Troponin (high sensitive): 32 BNP: 485.65 D-Dimer: 0.58 TSH: 0.29 Free T4: 1.27 (wnl) Free T3: 2.98 (wnl) Urine toxicology: positive for cannabinoids Chest x-ray revealed: IMPRESSION: Patchy bilateral airspace disease may represent pulmonary vascular congestion or multifocal infection. Clinical correlation advised. Device Interrogation revealed: VDDR 50/130, 8.1% atrial burden, underlying sinus rhythm, 88% BIV pacing, Atrial sensin.6 mV, Atrial threshold: no capture at max output, Atrial impedance: 560, RV sensin.2 mV, RV threshold: 1.2v at 0.40, RV impedance: 579, LV sensin.7mV, LV threshold: 3.8v @ 1.25, LV impedance: 890, Battery voltage: 2:57V, Battery remaining <5 ESTEFANY, Shocks delivered in recent weeks due to SVT rhythm but therapy delivered due to malfunctioning right atrial lead (undersensing atrial fibrillation) EKG revealed a sense, V paced rhythm Tele reveals a sensed V paced rhythm Echocardiogram revealed: (04/29/2024) Dilated 4 chambers was observed. Left ventricle: Mild concentric left ventricular hypertrophy was seen. Left ventricle was dilated. LVEF was around 20%. Diffuse hypokinesis of left ventricle was seen. Right ventricle: Right ventricle was dilated with reduced systolic function. Both atria were moderately dilated. Pacing wire was seen in right-sided chambers. Aortic valve was not well visualized. There was no aortic stenosis. There was trivial aortic valve insufficiency. There was mild mitral regurgitation. There was moderate tricuspid regurgitation. Pulmonary valve was not well visualized. Right ventricular systolic pressure was assessed around 55 mm Hg. There was no pericardial effusion. Aortic root was 3.8 cm. Patient is a 59-year-old gentleman who presented after feeling that the ICD has shocked him. Does have history of systolic heart failure and ICD implantation ([employer]) has not been compliant with medication and followups. Has ran out of medications months ago. Had been short of breath with leg swellings in favor of acute on chronic systolic heart failure. Troponin has been negative. Acute coronary syndrome is not considered at this point. ICD shock/firing, secondary to malfunctioning RA lead (undersensing atrial fibrillation) Acute on chronic systolic heart failure Dilated cardiomyopathy , history of Noncompliance with medication and followups Paroxysmal AFib History of non sustained V-tach Status post BiV-ICD implantation (Biotronik), now ESTEFANY Polysubstance abuse Alcohol abuse Pulmonary hypertension s/p generator exchange of BiV-ICD (Dr Urena) ([employer]) Cardiac suggestion for management: Manage on telemetry IV diuresis Follow-up electrolytes and kidney function tests and correct abnormalities. Keep potassium above 4 and magnesium above 2 Full anticoagulation is advised (history of PAF) (for now on hold on preparation for EP procedure: BiV-ICD generator exchange) Continue guideline directed medical therapy (Entresto/carvedilol/... ) s/p generator exchange of BiV-ICD (Dr Urena) Hold current Eliquis 5mg bid, to be restarted in one week Request for interrogation of BiV-ICD Lifestyle and risk factor modifications. Patient was counseled to avoid alcohol/meth/marijuana Patient was counseled to be compliant with medication and followups Further evaluation and management depends on the above and clinical course A total of 55 minutes was spent reviewing the patient record, examining the patient, making a diagnostic and therapeutic plan, discussing this plan with medical personnel, following up on diagnostic studies and following the patient for clinical stability excluding any and all procedures. At least 50% of this time was spent in direct, [id number] contact. Thank you for allowing me to participate in this patient's care. Further recommendations will depend on patient's clinical course. Please do not hesitate to contact me if you have any questions or concerns. This medical document was created using electronic medical record system with [employer] computerized dictation system. Although this document has been carefully reviewed, there may still be some phonetic and typographical errors. These areas are purely typographical due to the imperfection of the software programs, and do not reflect any compromise in the patient's medical care. Dietary Evaluation Review Comments: follow his current diet regimen, monitor PO intake to meet 75% of his needs Expected Outcomes/Goals: slowly weight loss. Plan discussed with: Patient, Other (nurse) JUNIOR MCMAHAN MD May 06, 2024 06:31
--- NOTE | 2024-05-06 06:42 | DVH ---
CHEST RADIOGRAPH Indication:rule out penumothorax or any signs of complication. Technique: Single frontal view of the chest was obtained Comparison: XY CHEST PORTABLE on DOS: 04/28/24, XY CHEST PORTABLE on DOS: 02/23/23, XY CHEST PORTABLE on DOS: 02/21/23, XY CHEST PORTABLE on DOS: 08/22/22, CHEST PORTABLE on DOS: 04/16/22, XY CHEST PORTABL E on DOS: 04/28/24 FINDINGS: Lines and Tubes: Left chest wall AICD. Lungs: Patchy bilateral airspace disease. Pleura: No effusion. No pneumothorax. Cardiomediastinal contours: Cardiomegaly. Bones: Unremarkable IMPRESSION: Patchy bilateral airspace disease may represent pulmonary vascular congestion or multifocal infection . Clinical correlation advised.
[2024-05-06] MEDS ORDERED: VANCOMYCIN 1GM/200ML PREMIX 200 ML IV ONE (07:00)
[2024-05-06 08:00] LABS: Eosinophils % (manual) 1 (0-7); Lymphocytes % (manual) 23 (10.0-50.0); Monocytes % (manual) 17 (0-12)
[2024-05-06 08:01] LABS: Platelet Estimate Adequate
[2024-05-06 09:00] VITALS: BP 108/79; PULSE 60; RESP 20; TEMP 98.1; O2SAT 98
[2024-05-06] MEDS: HYDROcodone-ACET 5/325MG TAB PO PRN (10:21)
[2024-05-06 13:00] VITALS: BP 108/66; PULSE 66; RESP 17; TEMP 98.1; O2SAT 97
[2024-05-06] MEDS ORDERED: DOXY-346 PO (14:37)
[2024-05-06 17:06] VITALS: BP_SYST 115; BP_SYST 91; BP_SYST 97; BP_DIAS 56; BP_DIAS 68; BP_DIAS 78; PULSE 66; PULSE 72; PULSE 73
--- NOTE | 2024-05-06 17:37 | DVHDSRES ---
Discharge Summary Date of Admission Resident Creating Document: ANJUM ACOSTA RESIDENT Apr 28, 2024 at 10:50 Date of Discharge: May 06, 2024 Labs/Diagnostic Data: Laboratory Results Test 05/06/24 05:14 05/04/24 05:44 05/03/24 05:39 04/29/24 13:20 White Blood Count 5.1 10^3/uL (4.4-10.8) Red Blood Count 5.67 10^6/uL (4.5-5.90) Hemoglobin 17.3 g/dL (13.5-17.5) Hematocrit 52.6 % (41.0-53.0) Mean Corpuscular Volume 92.7 fL (80.0-100.0) Mean Corpuscular Hemoglobin 30.6 pg (28.0-32.0) Mean Corpuscular Hemoglobin Concent 33.0 g/dL (32.0-36.0) Red Cell Distribution Width 13.6 % (11.8-14.3) Platelet Count 224 10^3/uL (140-450) Mean Platelet Volume 8.9 fL (6.9-10.8) Neutrophils (%) (Auto) % (37.0-80.0) Lymphocytes (%) (Auto) % (10.0-50.0) Monocytes (%) (Auto) % (0.0-12.0) Basophils (%) (Auto) % (0.0-2.0) Neutrophils # (Auto) 10 ^3/uL (1.6-8.6) Lymphocytes # (Auto) 10 ^3/uL (0.4-5.4) Monocytes # (Auto) 10 ^3/uL (0-1.3) Differential Total Cells Counted 100.0 (100) Neutrophils % (Manual) 59 (37.0-80.0) Band Neutrophils % (Manual) 0 Lymphocytes % (Manual) 23 (10.0-50.0) Monocytes % (Manual) 17 (0-12) Eosinophils % (Manual) 1 (0-7) Basophils % (Manual) 0 (0.0-2.0) Metamyelocytes % (manual) 0 Myelocytes % (Manual) 0 Promyelocytes % (Manual) 0 Blast Cells % (Manual) 0 Reactive Lymphocytes 0 Platelet Estimate Adequate Sodium Level 137 mmol/L (136-145) Potassium Level 3.9 mmol/L (3.5-5.1) Chloride Level 104 mmol/L (98-107) Carbon Dioxide Level 25 mmol/L (20-31) Anion Gap 8 (5-15) Blood Urea Nitrogen 16 mg/dL (9-23) Creatinine 1.09 mg/dL (0.700-1.30) Glomerular Filtration Rate Calc 78 mL/min (>90) BUN/Creatinine Ratio 14.7 (10.0-20.0) Serum Glucose 98 mg/dL (74-106) Calcium Level 9.2 mg/dL (8.7-10.4) Eosinophils (%) (Auto) 1.9 % (0.0-7.0) Eosinophils # (Auto) 0.1 10 ^3/uL (0-0.8) Basophils # (Auto) 0 10 ^3/uL (0-0.2) Nucleated Red Blood Cells 0.2 % Prothrombin Time 11.8 sec (9.3-11.8) Prothrombin Time INR 1.12 (0.9-1.15) Activated Partial Thromboplast Time 27.9 SEC (24.5-34.5) Magnesium Level 2.1 mg/dL (1.6-2.6) Lactic Acid Level 1.7 mmol/L (0.4-2.0) Free Thyroxine (T4) Calculated 1.27 ng/dL (0.89-1.76) Free Triiodothyronine (T3) pg/mL 2.98 pg/mL (2.3-4.2) Test 04/29/24 10:35 04/28/24 22:07 04/28/24 18:05 04/28/24 08:30 Total Bilirubin 0.9 mg/dL (0.2-1.0) Aspartate Amino Transferase (AST) 15 U/L (13-40) Alanine Aminotransferase (ALT) 16 U/L (7-40) Alkaline Phosphatase 67 U/L (46-116) Total Protein 6.4 g/dL (5.7-8.2) Albumin 3.6 g/dL (3.2-4.8) Thyroid Stimulating Hormone (TSH) 0.29 uIU/mL (0.55-4.78) Urine Opiates Screen Neg (NEGATIVE) Urine Fentanyl Screen Neg (NEGATIVE) Urine Barbiturates Screen Neg (NEGATIVE) Urine Phencyclidine Screen Neg (NEGATIVE) Urine Amphetamines Screen Neg (NEGATIVE) Urine Benzodiazepines Screen Neg (NEGATIVE) Urine Cocaine Screen Neg (NEGATIVE) Urine Cannabinoids Screen Pos (NEGATIVE) D-Dimer, Quantitative 0.58 mg/L FEU (0.0-0.49) Urine Color Light-yellow (Yellow) Urine Clarity Clear (Clear) Urine pH 6.0 (5.0-9.0) Urine Specific [place] 1.007 (1.001-1.035) Urine Protein 1+ (Negative) Urine Ketones Negative (Negative) Urine Blood Negative /uL (Negative) Urine Nitrite Negative (Negative) Urine Bilirubin Negative (Negative) Urine Urobilinogen Normal mg/dL (Negative) Urine Leukocyte Esterase Negative /uL (Negative) Urine RBC <1 /hpf (0 - 3) Urine WBC <1 /hpf (0 - 3) Urine Squamous Epithelial Cells None seen /hpf (<5) Urine Bacteria None seen /hpf (None Seen) Urine Glucose Normal mg/dL (Normal) Test 04/28/24 08:26 Troponin I High Sensitivity 32 ng/L (</=54) B-Type Natriuretic Peptide 485.65 pg/mL (0-100) Other Laboratory Tests 05/06/24 05:14 Brief Hx & Hospital Course: Patient is a 59-year-old male with past medical history of heart failure with reduced ejection fraction, paroxysmal atrial fibrillation,? COPD, dyslipidemia, hypertension who came in after his ICD went off. According to the patient, on 04/28/[address] when he felt that his ICD went off, he pulled over and sat there for a while when he noticed his ICD fired once again for the 2nd time. Shortly after, patient called the ambulance and came to the hospital. He also notes shortness of breaths that has been ongoing for the last couple of weeks and bloating. Troponin was 32, BNP 485.65, chest x-ray showed patchy bilateral airspace disease, may represent pulmonary vascular congestion or multifocal infection. Hospital course: Echo showed dilated 4 chambers, mild concentric left ventricular hypertrophy, left ventricular dilated. Ejection fraction 20%. Diffuse hypokinesis of the left ventricle. Right ventricle was dilated with reduced systolic function. Both atrium moderately dilated. Patient was continued on amiodarone, apixaban, aspirin, statin. On 05/05/2024 patient underwent right atrial lead revision for his AICD along with battery replacement. Patient has AICD leads are [employer] as previous generator was [employer], however, new generator is by [employer] while the leads remain [employer]ronik. On the day of discharge, patient appeared well and had stable vital signs. Orthostatic vital signs were also checked which were stable. Patient was scheduled for an appointment to see the investigator operator on 05/12/2024, the clinic noted that they will give the patient a call on 05/09/2024. Patient was instructed to not take Eliquis until 05/13/2024. His hospital course was uncomplicated. General Appearance: Cooperative. Well developed. Well nourished. NAD Head Exam: Normal inspection Neck Exam: Normal inspection. Non-tender. Normal alignment Pulmonary/Respiratory: Chest non-tender. Improved bilateral breath sounds, no crackles no wheezing. Cardiovascular/Chest: Regular rate and rhythm. No murmurs. No JVD. Peripheral Pulses: 2+ Radial (R). 2+ Radial (L). 2+ Pedal (R). 2+ Pedal (L) Abdominal Exam: Normal bowel sounds. Soft. normal abdomen, no visible veins, Nontender. No hepatospenomegaly. No masses Ankle Exam: Negative ankle edema Lower extremities: Negative lower extremity edema Neuro/Mental Status: A&O x4. Coherent. Thoughts/Psych: Normal thought pattern. Appropriate mood and affect. Good judgement and insight Skin Exam: Normal inspection. Normal color. Warm. Dry Condition at Discharge: Good Final Diagnosis/Problems List Acute on chronic systolic heart failure with reduced ejection fraction Dilated cardiomyopathy Paroxysmal atrial fibrillation S/p ICD placement (B[employer]ronik) ?COPD exacerbation Medical noncompliance History of hyperthyroidism Hypokalemia Umbilical hernia Discharge Disposition: Home Discharge Instruct/Medications Diet: Cardiac 2g Na,low cholest Activity: No Restrictions, As Tolerated Follow Up/Referral: Please follow up with Dr. Urena in his clinic on 05/12/2024, clinic will call you on Thursday05/09/24 Medications: Please do not take Eliquis until you see the investigator operator in his clinic or until after 05/13/2024 Continue other home medications Doxycycline 100 mg twice a day for 6 days Discharge Statement: "Patient was advised to return to the ER or call 911 if any headaches, dizziness, shortness of breath, chest pain, abdominal pain, bleeding, fevers, or worsening of medical condition. Patient was counseled about treatment plan, medications, possible side effects, patientverbalized understanding. All questions were answered to the best of my ability. This discharge took greater then 30 minutes in planning, reviewing documentation, counseling the patient, and discussing with other team members." ASSESSMENT ASSESSMENT Assessment Acute on chronic systolic heart failure with reduced ejection fraction Dilated cardiomyopathy Paroxysmal atrial fibrillation S/p ICD placement (B[employer]ronik) ?COPD exacerbation Medical noncompliance History of hyperthyroidism Hypokalemia Umbilical hernia Date of Service: May 06, 2024 Billing Provider: BETH RUVALCABA MD Common Visit Codes: [id number] DISCH DAY >30min Coding Comment Comment I saw and evaluated the patient. I reviewed the residents note and agree with findings and plan as documented in the residents note. Hold Eliquis for 1 week ANJUM ACOSTA RESIDENT May 06, 2024 17:37 BETH RUVALCABA MD May 06, 2024 20:54
--- NOTE | 2024-05-09 16:40 | CODING ---
Date of Service: May 02, 2024 Billing Provider: BETH RUVALCABA MD Common Visit Codes: [id number] INP/OBS CARE(HIGH) Coding Comment Comment I saw and evaluated the patient. I reviewed the residents note and agree with findings and plan as documented in the residents note. BETH RUVALCABA MD May 09, 2024 16:40
== END 2024-05-06 20:24 | disposition home or self-care (01) | DRG 179 ==
LOC: EDBD 08:17 → ER 08:17 → TELE 10:50 → TELE-E-ADS 04-29 02:17
PROVIDERS: ADMIT Student in an Organized Health Care Education/Training Program; ATTEND Student in an Organized Health Care Education/Training Program
PROC: 02HK3KZ Insertion of Defibrillator Lead into Right Ventricle, Percutaneous Approach (ICD-10-PCS; principal; 2024-05-05)
PROC: 0JH608Z Insertion of Defibrillator Generator into Chest Subcutaneous Tissue and Fascia, Open Approach (ICD-10-PCS; 2024-05-05)
PROC: 0JPT0PZ Removal of Cardiac Rhythm Related Device from Trunk Subcutaneous Tissue and Fascia, Open Approach (ICD-10-PCS; 2024-05-05)
PROC: 02PA3MZ Removal of Cardiac Lead from Heart, Percutaneous Approach (ICD-10-PCS; 2024-05-05)
PROC: 02HL3KZ Insertion of Defibrillator Lead into Left Ventricle, Percutaneous Approach (ICD-10-PCS; 2024-05-05)
PROC: 02H63KZ Insertion of Defibrillator Lead into Right Atrium, Percutaneous Approach (ICD-10-PCS; 2024-05-05)
DX: I48.0 Paroxysmal atrial fibrillation (principal); I50.23 Acute on chronic systolic (congestive) heart failure; I42.0 Dilated cardiomyopathy; J18.9 Pneumonia, unspecified organism; I11.0 Hypertensive heart disease with heart failure; J44.0 Chronic obstructive pulmonary disease with (acute) lower respiratory infection; I50.43 Acute on chronic combined systolic (congestive) and diastolic (congestive) heart failure; J44.1 Chronic obstructive pulmonary disease with (acute) exacerbation; E87.6 Hypokalemia; E78.5 Hyperlipidemia, unspecified; I25.10 Atherosclerotic heart disease of native coronary artery without angina pectoris; I07.1 Rheumatic tricuspid insufficiency; I25.5 Ischemic cardiomyopathy; F17.210 Nicotine dependence, cigarettes, uncomplicated; F10.10 Alcohol abuse, uncomplicated; K42.9 Umbilical hernia without obstruction or gangrene; Z79.899 Other long term (current) drug therapy; Z79.82 Long term (current) use of aspirin; Z79.01 Long term (current) use of anticoagulants; Z83.3 Family history of diabetes mellitus; Z82.49 Family history of ischemic heart disease and other diseases of the circulatory system; Z80.1 Family history of malignant neoplasm of trachea, bronchus and lung; Y90.9 Presence of alcohol in blood, level not specified
CPT/HCPCS: 33225; 33264; 36415; 71045; 80048; 80053; 80307; 81001; 83605; 83735; 83880; 84439; 84443; 84481; 84484; 85007; 85025; 85027; 85379; 85610; 85730; 86850; 86900; 86901; 93005; 93306; 94640; 96361; 96374; 97110; 97116; 97163; 97530; 99152; 99291; G0378; J2250

== ENCOUNTER 2025-03-01 19:39 | Inpatient (IN) | payer MEDICAID ==
[~2025-03-01] VITALS: Ht 182.9 cm; Wt 109.8 kg
[~2025-03-01 19:39] MED LIST changes: -ATOR-507 PO; -CARV-216 OR; -CARV-216 PO; +DOXY-346 PO; -DOXY1CAP57 PO; -FURO1TAB31 PO; -HYDR-4902 PO
--- NOTE | 2025-03-01 19:59 | ED.PDOC ---
SOB-HPI HPI Comments 59 year old male presents to the ED via EMS with a chief complaint of shortness of breath onset 2 days. Patient states he has been experiencing shortness of breath the past 2 days. He has an umbilical hernia that has grown for the past few years, believes it causes shortness of breath. PMHx CAD, CHF, COPD, HTN, is not complaint with medication. Denies dizziness, chest pain, fever, chills ,cough, cold, congestion, headache, nausea, vomiting, diarrhea. No other symptoms or modifying factors present at this time. Time Seen by MD: 19:50 Primary Care Provider: UNKNOWN Reviewed notes: Medications, Allergies Information Source: Patient, Emergency Med Personnel Severity: Moderate Timing: Days Duration: Since onset Context: At Rest PE Risk Factors: None History of: COPD, CHF Prehospital treatment: None Modifying Factors: Nothing Past Medical History PAST MEDICAL HISTORY: CAD, CHF, COPD, HTN Surgical History: Pacemaker Family History Family History: Reviewed,noncontributory to illness, Family hx of DM, Family hx of HTN Social History Smoker: Cigarettes, Greater Than 1 Pack/Day Alcohol: Occasionally Drugs: Marijuana, Methamphetamine Lives In: Home Constitutional: denies: chills, diaphoresis, fatigue, fever, malaise, sweats, weakness, others EENTM: denies: blurred vision, double vision, ear bleeding, ear discharge, ear drainage, ear pain, ear ringing, eye pain, eye redness, hearing loss, mouth pain, mouth swelling, nasal discharge, nose bleeding, nose congestion, nose pain, photophobia, tearing, throat pain, throat swelling, voice changes, others Respiratory: reports: shortness of breath; denies: cough, hemoptysis, orthopnea, SOB at rest, SOB with excertion, stridor, wheezing, others Cardiovascular: denies: chest pain, dizzy spells, diaphoresis, Dyspnea on exertion, edema, irregular heart beat, left arm pain, lightheadedness, palpitations, PND, syncope, others Gastrointestinal: denies: abdomen distended, abdominal pain, blood streaked bowels, constipated, diarrhea, dysphagia, difficulty swallowing, hematemesis, melena, nausea, poor appetite, poor fluid intake, rectal bleeding, rectal pain, vomiting, others Genitourinary: denies: burning, dysuria, flank pain, frequency, hematuria, incontinence, penile discharge, penile sore, pain, testicle pain, testicle swelling, urgency, others Neurological: denies: dizziness, fainting, headache, left sided numbness, left sided weakness, numbness, paresthesia, pre-existing deficit, right sided numbness, right sided weakness, seizure, speech problems, tingling, tremors, weakness, others Musculoskeletal: denies: back pain, gout, joint pain, joint swelling, muscle pain, muscle stiffness, neck pain, others Integumetry: denies: bruises, change in color, change in hair/nails, dryness, laceration, lesions, lumps, rash, wounds, others Allergic/Immunocompromised: denies: Difficulty Healing, Frequent Infections, Hives, Itching, others Hematologic/Lymphatic: denies: anemia, blood clots, easy bleeding, easy bruising, swollen glands, others Endocrine: denies: excessive hunger, excessive sweating, excessive thirst, excessive urination, flushing, intolerance to cold, intolerance to heat, unexplained weight gain, unexplained weight loss, others Psychiatric: denies: anxiety, bipolar disorder, depression, hopeless, panic disorder, schizophrenia, sleepless, suicidal, others All Other Systems: Reviewed and Negative Physical Exam General Appearance: Normal HEENT: Normal ENT Inspection, Pharynx Normal, TMs Normal Neck: Full Range of Motion, Non-Tender, Normal, Normal Inspection Respiratory: Chest Non-Tender, Lungs Clear, No Accessory Muscle Use, No Respiratory Distress, Normal Breath Sounds Cardiovascular: No Edema, No JVD, No Murmur, No Gallop, Normal Peripheral Pulses, Regular Rate/Rhythm Breast Exam: Deferred Gastrointestinal: No Organomegaly, Non Tender, No Pulsatile Mass, Normal Bowel Sounds, Soft Genitalia: Deferred Pelvic: Deferred Rectal: Deferred Extremities: No calf tenderness, Normal capillary refill, Normal inspection, Normal range of motion, Non-tender, No pedal edema Musculoskeletal : Apperance: Normal Neurologic: Alert, equine dentist II-XII nml as Tested, No Motor Deficits, Normal Affect, Normal Mood, No Sensory Deficits Cerebellar Function: Normal Reflexes: Normal Skin: Dry, Normal Color, Warm Lymphatic: No Adenopathy Was a procedure done? Was a procedure done?: No Differential Dx Differential Diagnosis: Bronchitis, CHF, COPD, Dysrhythmia, Pneumonia, URI, Other X-Ray, Labs, Meds, VS Vital Signs Date Time Temp Pulse Resp B/P (MAP) Pulse Ox O2 Delivery O2 Flow Rate FiO2 03/01/25 19:45 96.9 78 17 187/112 96 96.9 03/01/25 19:45 96 Room Air* 0 21 03/01/25 19:42 90 Lab Test 03/01/25 22:22 03/01/25 21:45 03/01/25 21:12 03/01/25 20:25 Range/Units Lactic Acid Level Pending White Blood Count 4.9 4.4-10.8 10^3/uL Red Blood Count 5.21 4.5-5.90 10^6/uL Hemoglobin 15.9 13.5-17.5 g/dL Hematocrit 47.9 41.0-53.0 % Mean Corpuscular Volume 92.0 80.0-100.0 fL Mean Corpuscular Hemoglobin 30.6 28.0-32.0 pg Mean Corpuscular Hemoglobin Concent 33.2 32.0-36.0 g/dL Red Cell Distribution Width 14.4 H 11.8-14.3 % Platelet Count 228 140-450 10^3/uL Mean Platelet Volume 8.5 6.9-10.8 fL Neutrophils (%) (Auto) 73.4 37.0-80.0 % Lymphocytes (%) (Auto) 12.2 10.0-50.0 % Monocytes (%) (Auto) 13.7 H 0.0-12.0 % Eosinophils (%) (Auto) 0.1 0.0-7.0 % Basophils (%) (Auto) 0.6 0.0-2.0 % Neutrophils # (Auto) 3.6 1.6-8.6 10 ^3/uL Lymphocytes # (Auto) 0.6 0.4-5.4 10 ^3/uL Monocytes # (Auto) 0.7 0-1.3 10 ^3/uL Eosinophils # (Auto) 0 0-0.8 10 ^3/uL Basophils # (Auto) 0 0-0.2 10 ^3/uL Nucleated Red Blood Cells 0.1 % Troponin I High Sensitivity 47 </=54 ng/L Blood Gas Specimen Type Venous Blood Gas Sample Site Vbg - n/a Blood Gas Patient Temperature 37.0 Arterial Blood Date Drawn [id number] Darren Test N/a Venous Blood pH 7.415 7.320-7.430 Venous Blood pCO2 at Patient Temp 44.6 38.0-54.0 mmHg Venous Blood pO2 at Patient Temp < 36.5 23.0-48.0 mmHg Venous Blood HCO3 28.0 22.0-29.0 mmol/L Venous Blood Base Excess 2.8 -2.0-3.0 mmol/L Blood Gas Modality Room air FiO2 % 21.0 Test 03/01/25 20:23 Range/Units Sodium Level 142 136-145 mmol/L Potassium Level 4.4 3.5-5.1 mmol/L Chloride Level 107 98-107 mmol/L Carbon Dioxide Level 23 20-31 mmol/L Anion Gap 12 5-15 Blood Urea Nitrogen 8 L 9-23 mg/dL Creatinine 1.09 0.700-1.30 mg/dL Glomerular Filtration Rate Calc 78 >90 mL/min BUN/Creatinine Ratio 7.3 L 10.0-20.0 Serum Glucose 125 H 74-106 mg/dL Lactic Acid Level 4.4 *H 0.4-2.0 mmol/L Calcium Level 8.9 8.7-10.4 mg/dL Magnesium Level 1.9 1.6-2.6 mg/dL Total Bilirubin 1.8 H 0.2-1.0 mg/dL Aspartate Amino Transferase (AST) 39 13-40 U/L Alanine Aminotransferase (ALT) 20 7-40 U/L Alkaline Phosphatase 79 46-116 U/L Troponin I High Sensitivity 49 </=54 ng/L B-Type Natriuretic Peptide 974.56 0-100 pg/mL Total Protein 7.3 5.7-8.2 g/dL Albumin 4.3 3.2-4.8 g/dL Lipase 26 12-53 U/L Time of 1ST Reevaluation: 20:20 Reevaluation 1ST: Unchanged Patient Education/Counseling: Diagnosis, Treatment, Prognosis Family Education/Counseling: No Family Present SEPSIS Sepsis Screen Physician Orders Electrocardigram (03/01/25 19:46) Troponin-I Hs (03/02/25 00:00) Troponin-I Hs (03/02/25 03:00) Troponin-I Hs (03/02/25 06:00) Ct Ab Pel Wo Con-No Oral Or Iv (03/01/25 19:55) Blood Culture (03/01/25 19:55) Chest Portable (03/01/25 19:55) Oxygen (03/01/25 19:55) Eddy Current Inspector (03/01/25 19:55) Pulse Oximetry (03/01/25 19:55) Venous Blood Gas (03/01/25 19:55) Zosyn Extended Infusion (03/01/25 23:00) Azithromycin 500mg/ 250ml (Zithromax 50 (03/01/25 23:00) Vital Signs Date Time Temp Pulse Resp B/P (MAP) Pulse Ox O2 Delivery O2 Flow Rate FiO2 03/01/25 19:45 96.9 78 17 187/112 96 96.9 03/01/25 19:45 96 Room Air* 0 21 03/01/25 19:42 90 Laboratory Tests Test 03/01/25 20:23 03/01/25 21:45 03/01/25 22:22 Lactic Acid Level 4.4 mmol/L (0.4-2.0) *H Pending White Blood Count 4.9 10^3/uL (4.4-10.8) Departure 1 Departure Time of Disposition: 22:59 Impression: Primary Impression: Acute exacerbation of congestive heart failure Additional Impressions: Diastolic congestive heart failure Pneumonitis Disposition: ADMITTED INPATIENT Admit to: Tele Condition: Guarded Comments 59-year-old male with a history of congestive heart failure now with some shortness of breath and tightness in his chest. Patient is a bit tachypneic. Lactic acid is elevated 4.4. Is small pleural effusion noted. I suspect diastolic congestive heart failure. I suspect pneumonitis. Patient will need to be admitted for supportive care and further workup. Patient was given Lasix and Zosyn and azithromycin. Critical Care Note Critical Care Time?: Yes (35 min-critical care time only) Critical care comment: Total critical care time: Approximately 36 minutes Due to a high probability of clinically significant, life threatening deterioration, the patient required my highest level of preparedness to intervene emergently and I personally spent this critical care time directly and personally managing the patient. This critical care time included obtaining a history; examining the patient; pulse oximetry; ordering and review of studies; arranging urgent treatment with development of a management plan; evaluation of patient's response to treatment; frequent reassessment; and, discussions with other providers. This critical care time was performed to assess and manage the high probability of imminent, life-threatening deterioration that could result in multi-organ failure. It was exclusive of separately billable procedures and treating other patients. Stability Stability form required: No Heart Score Heart Score: Heart Score Response (Comments) Value History Moderate Suspicious 1 EKG Repolarization Disturb 1 Age 45-64 1 Risk Factors >3 or Hx ASHD 2 Troponin Normal limit 0 Total 5 I personally scribed for JAME SANTILLAN MD ([email or web address]) on 03/01/25 at 19:59. Electronically submitted by Kelsey Dewey ([email or web address]). JAME SANTILLAN MD Mar 01, 2025 19:59
[2025-03-01 20:59] LABS: Alanine Aminotransferase 20 U/L (7-40); Albumin 4.3 g/dL (3.2-4.8); Alkaline Phosphatase 79 U/L (46-116); Anion Gap 12 (5-15); BUN/Creatinine Ratio 7.3 (10.0-20.0); Calcium 8.9 mg/dL (8.7-10.4); Carbon Dioxide 23 mmol/L (20-31); Lipase 26 U/L (12-53); Magnesium 1.9 mg/dL (1.6-2.6); Potassium 4.4 mmol/L (3.5-5.1); Sodium 142 mmol/L (136-145); Total Protein 7.3 g/dL (5.7-8.2)
[2025-03-01 21:08] LABS: Bilirubin, Total 1.8 mg/dL (0.2-1.0); Blood Urea Nitrogen 8 mg/dL (9-23); Chloride 107 mmol/L (98-107); Glucose 125 mg/dL (74-106)
[2025-03-01 21:37] LABS: Lactic Acid w/Reflex 4.4 mmol/L (0.4-2.0)
[2025-03-01 21:55] LABS: Hematocrit 47.9 % (41.0-53.0); Hemoglobin 15.9 g/dL (13.5-17.5); Mean Corpuscular Hemoglobin 30.6 pg (28.0-32.0); Mean Corpuscular Volume 92.0 fL (80.0-100.0); Nucleated Red Blood Cells % 0.1 %
--- NOTE | 2025-03-01 22:24 | DVH ---
CHEST RADIOGRAPH Indication: SOB Technique: Single frontal view of the chest was obtained Comparison: XY CHEST XRAY 1 VIEW on DOS: 05/06/24, XY CHEST PORTABLE on DOS: 04/28/24, XY CHEST PORTAB LE on DOS: 02/23/23 FINDINGS: Lines and Tubes: Bi Ventricular AICD pacemaker in place unchanged. Lungs: No focal consolidation. Pleura: No effusion. No pneumothorax. Cardiomediastinal contours: Cardiomegaly unchanged from 05/06/2024. Bones: No acute osseous abnormality. IMPRESSION: 1. Stable cardiomegaly 2. Stable cardiopulmonary findings unchanged from 05/06/[address] unchanged
--- NOTE | 2025-03-01 22:36 | DVH ---
CLINICAL HISTORY: abd pain , ventral hernia TECHNIQUE: CT of the abdomen and pelvis was performed without IV contrast. This exam was performed ac cording to our departmental dose optimization program. Up-to-date CT equipment and radiation dose red uction techniques are utilized as appropriate. CTDI 18.4 DLP 06/29/69 .9 COMPARISON: [facility] on DOS: 09/07/21 FINDINGS: Abdomen/Pelvis: Evaluation is limited due to image degradation secondary to patient motion. The spleen, adrenal glands, pancreas, gallbladder, liver, kidneys, and prostate gland are unremarkabl e. There is mild diffuse bladder wall thickening. There are small bilateral superolateral bladder divert iculum. The abdominal aorta is normal in course and caliber. There are mild atherosclerotic calcifications. There is no free intraperitoneal air or fluid. There is no enlarged abdominal pelvic lymph node. There is no bowel wall thickening or dilatation. The appendix is normal. There is a large supraumbilical hernia containing loops and nonretracted small and large bowel. There is a moderate left paraumbilical hernia containing fat and trace acidic fluid. Other: The imaged lower thorax demonstrates [id number] cardiomegaly, pacer wires, and a trace right pl eural effusion. There are mild at elected changes at both lung bases. No acute osseous abnormality is evident. There are severe degenerative changes of the left hip with j oint space loss, subchondral cyst formation, and osteophytosis. Impression: Large supra umbilical hernia containing loops of non obstructed small and large bowel. Moderate left periumbilical hernia containing fat and trace acidic fluid. Mild bladder wall thickening. Please correlate with your analysis for cystitis.
[2025-03-02] VITALS (7 sets, daily range): BP systolic 120–165; BP diastolic 92–129; PULSE 86–114; RESP 18–20; TEMP 98–98.4; O2SAT 93–99
[2025-03-02] MEDS: FUROSEMIDE 40 MG/4 ML VIAL IV ONE (01:28)
[2025-03-02] MEDS: PIPERACILLIN-TAZOB 3.375GM 100 ML IV ONE (01:29)
[2025-03-02] MEDS: hydrALAZINE HCL 20 MG/ML VL IV ONE (01:29)
[2025-03-02] MEDS: AZITHROMYCIN 500MG/ 250ML 250 ML IV ONE (01:36)
[2025-03-02] MEDS ORDERED: MORPHINE SULFATE INJ 2 MG/ml SYRG IV PRN (07:30)
[2025-03-02] MEDS ORDERED: ACETAMINOPHEN 325 MG TAB PO PRN (07:30)
--- NOTE | 2025-03-02 07:30 | DVHHP2 ---
History of Present Illness Reason for Visit: SOB History of Present Illness Franko Flowers is a 59-year-old male with past medical history of CHF, CAD, COPD, hypertension, left hip surgery, left wrist surgery, pacemaker, and hernia who presents to the ED with shortness of breath x2 days. Patient also reports that he has abdominal pain with nausea but upon examination states that his hernia pain has improved. Patient also reports that he drinks five beers per day, smokes half a pack of cigarettes per day, and uses marijuana daily. He also reports that he is noncompliant with his medications. He also states that he does not use oxygen at home however upon examination patient is using 2 L nasal cannula of oxygen. Patient denies any recent trauma or injury, recent sick contacts, recent travels, chest pain, lightheadedness, weakness, dizziness, urinary symptoms, vomiting, were diarrhea. Patient does report that he drank old orange juice which may have caused his abdominal pain. Cardiovascular: CAD, CHF, HTN Pulmonary: COPD Past Medical History Hernia Past Surgical History: Other (Left hip surgery, left wrist surgery, and pacemaker) Family History: DM, Other (Dad with diabetes) Smoke: <1 pack per day ALCOHOL: heavy Drugs: Marijuana Lives: with Family Domestic Violence: Neg Review of Systems Respiratory: Shortness of breath Gastrointestinal: Nausea, Abdominal Pain Allergies: Coded Allergies: NO KNOWN ALLERGIES (Unverified , 04/18/22) Exam Vital Signs Vital Signs Date Time Temp Pulse Resp B/P (MAP) Pulse Ox O2 Delivery O2 Flow Rate FiO2 03/02/25 04:40 98.3 85 16 142/108 (119) 95 98.3 03/02/25 01:00 Nasal Cannula* 2 28 General Appearance: Alert, Oriented X3, Cooperative, No acute distress HEENT: Atraumatic, PERRLA, EOMI, Mucous membr. moist/pink Respiratory: Normal air movement Cardiovascular: Normal S1, Normal S2, No murmurs Abdominal: Normal bowel sounds, Soft Extremities: No clubbing, No cyanosis, Normal pulses Skin: No significant lesion Neuro: Normal speech, Strength at 5/5 X4 ext, Normal tone, Sensation intact Psych/Mental Status: Mental status NL, Mood NL Labs/Xrays Labs Test 03/01/25 22:22 03/01/25 21:45 03/01/25 21:12 03/01/25 20:25 Range/Units Lactic Acid Level 2.0 0.4-2.0 mmol/L White Blood Count 4.9 4.4-10.8 10^3/uL Red Blood Count 5.21 4.5-5.90 10^6/uL Hemoglobin 15.9 13.5-17.5 g/dL Hematocrit 47.9 41.0-53.0 % Mean Corpuscular Volume 92.0 80.0-100.0 fL Mean Corpuscular Hemoglobin 30.6 28.0-32.0 pg Mean Corpuscular Hemoglobin Concent 33.2 32.0-36.0 g/dL Red Cell Distribution Width 14.4 H 11.8-14.3 % Platelet Count 228 140-450 10^3/uL Mean Platelet Volume 8.5 6.9-10.8 fL Neutrophils (%) (Auto) 73.4 37.0-80.0 % Lymphocytes (%) (Auto) 12.2 10.0-50.0 % Monocytes (%) (Auto) 13.7 H 0.0-12.0 % Eosinophils (%) (Auto) 0.1 0.0-7.0 % Basophils (%) (Auto) 0.6 0.0-2.0 % Neutrophils # (Auto) 3.6 1.6-8.6 10 ^3/uL Lymphocytes # (Auto) 0.6 0.4-5.4 10 ^3/uL Monocytes # (Auto) 0.7 0-1.3 10 ^3/uL Eosinophils # (Auto) 0 0-0.8 10 ^3/uL Basophils # (Auto) 0 0-0.2 10 ^3/uL Nucleated Red Blood Cells 0.1 % Troponin I High Sensitivity 47 </=54 ng/L Blood Gas Specimen Type Venous Blood Gas Sample Site Vbg - n/a Blood Gas Patient Temperature 37.0 Arterial Blood Date Drawn [id number] Darren Test N/a Venous Blood pH 7.415 7.320-7.430 Venous Blood pCO2 at Patient Temp 44.6 38.0-54.0 mmHg Venous Blood pO2 at Patient Temp < 36.5 23.0-48.0 mmHg Venous Blood HCO3 28.0 22.0-29.0 mmol/L Venous Blood Base Excess 2.8 -2.0-3.0 mmol/L Blood Gas Modality Room air FiO2 % 21.0 Test 03/01/25 20:23 Range/Units Sodium Level 142 136-145 mmol/L Potassium Level 4.4 3.5-5.1 mmol/L Chloride Level 107 98-107 mmol/L Carbon Dioxide Level 23 20-31 mmol/L Anion Gap 12 5-15 Blood Urea Nitrogen 8 L 9-23 mg/dL Creatinine 1.09 0.700-1.30 mg/dL Glomerular Filtration Rate Calc 78 >90 mL/min BUN/Creatinine Ratio 7.3 L 10.0-20.0 Serum Glucose 125 H 74-106 mg/dL Calcium Level 8.9 8.7-10.4 mg/dL Magnesium Level 1.9 1.6-2.6 mg/dL Total Bilirubin 1.8 H 0.2-1.0 mg/dL Aspartate Amino Transferase (AST) 39 13-40 U/L Alanine Aminotransferase (ALT) 20 7-40 U/L Alkaline Phosphatase 79 46-116 U/L B-Type Natriuretic Peptide 974.56 0-100 pg/mL Total Protein 7.3 5.7-8.2 g/dL Albumin 4.3 3.2-4.8 g/dL Lipase 26 12-53 U/L CHEST RADIOGRAPH Indication: SOB Technique: Single frontal view of the chest was obtained Comparison: XY CHEST XRAY 1 VIEW on DOS: 05/06/24, XY CHEST PORTABLE on DOS: 04/28/24, XY CHEST PORTABLE on DOS: 02/23/23 FINDINGS: Lines and Tubes: Bi Ventricular AICD pacemaker in place unchanged. Lungs: No focal consolidation. Pleura: No effusion. No pneumothorax. Cardiomediastinal contours: Cardiomegaly unchanged from 05/06/2024. Bones: No acute osseous abnormality. IMPRESSION: 1. Stable cardiomegaly 2. Stable cardiopulmonary findings unchanged from 05/06/[address] unchanged CLINICAL HISTORY: abd pain , ventral hernia TECHNIQUE: CT of the abdomen and pelvis was performed without IV contrast. This exam was performed according to our departmental dose optimization program. Up-to-date CT equipment and radiation dose reduction techniques are utilized as appropriate. CTDI 18.4 DLP 06/29/69 .9 COMPARISON: [facility] on DOS: 09/07/21 FINDINGS: Abdomen/Pelvis: Evaluation is limited due to image degradation secondary to patient motion. The spleen, adrenal glands, pancreas, gallbladder, liver, kidneys, and prostate gland are unremarkable. There is mild diffuse bladder wall thickening. There are small bilateral superolateral bladder diverticulum. The abdominal aorta is normal in course and caliber. There are mild athero sclerotic calcifications. There is no free intraperitoneal air or fluid. There is no enlarged abdominal pelvic lymph node. There is no bowel wall thickening or dilatation. The appendix is normal. There is a large supraumbilical hernia containing loops and nonretracted small and large bowel. There is a moderate left paraumbilical hernia containing fat and trace acidic fluid. Other: The imaged lower thorax demonstrates [id number] cardiomegaly, pacer wires, and a trace right pleural effusion. There are mild at elected changes at both lung bases. No acute osseous abnormality is evident. There are severe degenerative changes of the left hip with joint space loss, subchondral cyst formation, and osteophytosis. Impression: Large supra umbilical hernia containing loops of non obstructed small and large bowel. Moderate left periumbilical hernia containing fat and trace acidic fluid. Mild bladder wall thickening. Please correlate with your analysis for cystitis. SEPSIS Sepsis Screen Date sepsis recognized/suspect: Mar 01, 2025 Time Sepsis recognized/suspect: 1944 Recent Procedure: No On Antibiotic Therapy: No Respiratory Rate >20: No Heart Rate >90: No Temp<36 C (96.8 F) or >38.3 C: No SBP <90 or MAP <65 mmHG: No New Acute Mental Status Change: No Is the patient on CPAP, BIPAP,: No Physician Orders Urinalysis (03/02/25 07:22) Vital Signs Date Time Temp Pulse Resp B/P (MAP) Pulse Ox O2 Delivery O2 Flow Rate FiO2 03/02/25 04:40 98.3 85 16 142/108 (119) 95 98.3 03/02/25 01:29 167/128 03/02/25 01:28 167/128 03/02/25 01:00 87 18 99 Nasal Cannula* 2 28 03/02/25 00:59 98.9 87 18 167/128 (141) 99 98.9 Laboratory Tests Test 03/01/25 20:23 03/01/25 21:45 03/01/25 22:22 Lactic Acid Level 4.4 mmol/L (0.4-2.0) *H 2.0 mmol/L (0.4-2.0) White Blood Count 4.9 10^3/uL (4.4-10.8) Medications Medications Dose Ordered Sig/Jorge Route Start Time Stop Time Status Last Admin Dose Admin Aspirin 162 mg ONCE ONCE PO 03/01/25 23:15 03/01/25 23:16 DC 03/02/25 01:25 162 MG Furosemide 40 mg ONCE ONCE IV 03/01/25 23:15 03/01/25 23:16 DC 03/02/25 01:28 40 MG Hydralazine HCl 10 mg ONCE ONCE IV 03/01/25 23:30 03/01/25 23:31 DC 03/02/25 01:29 10 MG Piperacillin Sod/ Tazobactam Sod 100 ml @ 100 mls/hr ONCE ONCE IV 03/01/25 23:00 03/01/25 23:59 DC 03/02/25 01:29 100 MLS/HR Assessment/Plan Assessment/Plan Assessment Acute on chronic CHF exacerbation Acute on chronic systolic heart failure, EF 20% Lactic acidosis likely due to sepsis Hypertensive urgency Acute hypoxic respiratory failure Large supraumbilical hernia containing loops of nonobstructed small and large bowel Moderate left periumbilical hernia containing fat and trace ascitic fluid Medication noncompliance Tobacco use Alcohol use Marijuana use Cardiomegaly Hyperbilirubinemia likely due to alcohol use History of CAD History of COPD History of hypertension History of left hip surgery History of left wrist surgery History of pacemaker Plan Admit to [facility] [place] Antihypertensives Supportive oxygen IV antibiotics-Zosyn Azithromycin given in ED Strict I&Os Daily weight Aspirin VBG BNP noted Troponin noted Mag level Chest x-ray noted Blood cultures CT abdomen and pelvis Lipase EKG Echo ordered Last echo on 04/29/2024 EF around 20% CIWA Multivitamins Thiamine Folic acid UA UDS Diet Home medications reconciled DVT prophylaxis-SCDs, patient also on Eliquis PUD prophylaxis-not indicated no history of GERD or GI bleed Discussed plan of care with patient and nurse Counseled patient on cessation of alcohol use, tobacco use, and marijuana use [id number] Behavior change smoking greater than 10 minutes about use of other options also gave option of nicotine patch [id number] Preventive counseling healthy eating habits, physical activity, and regular checkups Plan discussed with: Patient Date of Service: Mar 02, 2025 Billing Provider: MARYANNE POSADA Common Visit Codes: 58790-VNXPEPG INP/OBS CARE (HIGH) Secondary Visit Codes: [id number] COUNSELING IND, 45508-QAZIU CHNG SMOKING >10MIN MARYANNE POSADA Mar 02, 2025 07:30
[2025-03-02 07:40] LABS: Urine Protein, UAD TRACE (Negative)
[2025-03-02] MEDS ORDERED: hydrALAZINE HCL 20 MG/ML VL IV PRN (09:15)
[2025-03-02 09:34] LABS: Amphetamine Screen, Urine Pos (NEGATIVE); Barbiturate Scree,Urine Neg (NEGATIVE); Benzodiazephine Screen, Urine Neg (NEGATIVE); Cannabinoid Screen, Urine Neg (NEGATIVE); Cocaine Screen, Urine Neg (NEGATIVE); Opiate Scree,Urine Neg (NEGATIVE); Phencyclidine Screen, Urine Neg (NEGATIVE)
[2025-03-02] MEDS: AMIODARONE HCL 200 MG TAB PO SCH (12:39)
[2025-03-02] MEDS: APIXABAN 5 MG TAB PO SCH (12:39)
[2025-03-02] MEDS: THIAMINE HCL 100 MG TAB PO SCH (12:39)
[2025-03-02] MEDS: FOLIC ACID 1 MG TAB PO SCH (12:39)
[2025-03-02] MEDS: MULTIPLE VITAMIN TAB PO SCH (12:39)
[2025-03-02] MEDS: SACUBITRIL-VALSARTAN 24mg/26mg TAB PO SCH (12:39)
[2025-03-02] MEDS: FUROSEMIDE 40 MG/4 ML VIAL IV SCH (12:39)
[2025-03-02] MEDS: CARVEDILOL 3.125 MG TAB PO SCH (12:40)
[2025-03-02] MEDS: PIPERACILLIN-TAZOB 3.375GM 100 ML IV SCH (14:04)
--- NOTE | 2025-03-02 14:42 | DVHSR ---
APPROVED REPORT EXAM: Two-dimensional and M-mode echocardiogram with Doppler and color Doppler. Blood Pressure: 157/25 mmHg INDICATION SOB Surgery/Intervention Pacemaker: RISK FACTORS Height: 6', Weight: 200 DIMENSIONS LVDd6.2 (3.8-5.7cm)LA (2D)4.8 (1.9-4.0cm)Aortic Root3.7 (2.0-3.7cm) LVDs6.0 (2.5-4.0cm)LA (MM) (1.9-4.0cm)Aortic Cusp Exc1.8 (1.5-2.0cm) EF (%) 10.0 (55-70%)Rt. Atrium5.5 (1.9-4.0cm)Asc. Aorta3.9 cm IVSd1.5 (0.7-1.1cm)RV (D) (1.8-2.4cm) PWd1.4 (0.7-1.1cm) Mitral Valve MitralMitral Stenosis E wave1.40m/sMV Mean GR.mmHg A wave0.90m/sMV Peak GR.mmHg E/A ratio1.62D MVAcm2 Aortic Valve Aortic ValveAortic Stenosis V10.50m/Kelvin Mean GR.4mmHg V21.30m/Kelvin Peak GR.7mmHg LVOT Diameter2.4 (1.8-2.4cm)Doppler AVA1.74cm2 Pulmonic Valve V20.40m/s Tricuspid Valve TR Velocity3.20m/s [id number] Conclusion lvef 15% dilated LV RV enlarged biatrial enlargement mild to moderat mitral regurg moderate to severe tricuspid regurg pacing lead in Right atrium
[2025-03-02] MEDS: ATORVASTATIN 20 MG TAB PO SCH (21:57)
[2025-03-02] MEDS: HYDROcodone-ACET 5/325MG TAB PO PRN (22:17)
[2025-03-03] VITALS (8 sets, daily range): BP systolic 105–137; BP diastolic 67–99; PULSE 54–109; RESP 14–21; TEMP 97.8–99.1; O2SAT 97–100
[2025-03-03 06:49] LABS: Hematocrit 46.3 % (41.0-53.0); Hemoglobin 15.6 g/dL (13.5-17.5); Mean Corpuscular Hemoglobin 31.3 pg (28.0-32.0); Mean Corpuscular Volume 92.8 fL (80.0-100.0); Nucleated Red Blood Cells % 0.2 %
[2025-03-03 06:52] LABS: Alanine Aminotransferase 15 U/L (7-40); Albumin 3.6 g/dL (3.2-4.8); Alkaline Phosphatase 62 U/L (46-116); Anion Gap 9 (5-15); BUN/Creatinine Ratio 9.6 (10.0-20.0); Blood Urea Nitrogen 11 mg/dL (9-23); Carbon Dioxide 30 mmol/L (20-31); Chloride 104 mmol/L (98-107); Glucose 87 mg/dL (74-106); Sodium 143 mmol/L (136-145); Total Protein 6.3 g/dL (5.7-8.2)
[2025-03-03 07:00] LABS: Bilirubin, Total 1.8 mg/dL (0.2-1.0); Calcium 8.6 mg/dL (8.7-10.4); Potassium 3.2 mmol/L (3.5-5.1)
--- NOTE | 2025-03-03 11:36 | ECG ---
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
--- NOTE | 2025-03-03 11:58 | DVHPN2 ---
Subjective The patient is seen and examined at bedside. Complain of the umbilical hernia bother him. Reviewed: Care Plan, H&P, Labs, Medications, Previous Orders, Radiology Changes from previous H/P or p: No Changes Respiratory: Shortness of breath Gastrointestinal: Nausea, Abdominal Pain Objective Vitals Vital Signs Date Time Temp Pulse Resp B/P (MAP) Pulse Ox O2 Delivery O2 Flow Rate FiO2 03/03/25 09:53 95 124/93 03/03/25 08:50 99.1 21 100 99.1 03/03/25 08:00 Nasal Cannula* 2 28 Intake/Output Intake and Output 03/03/25 07:00 Intake Total 1790 ml Output Total 1050 ml Balance 740 ml Intake Oral 1790 ml Output Urine Total 1050 ml # Voids 2 # Bowel Movements 1 General Appearance: Alert, Oriented X3, Cooperative, No acute distress HEENT: Atraumatic, PERRLA, EOMI, Mucous membr. moist/pink Neck: Supple Lungs: Clear to auscultation, Normal air movement Cardiovascular: Regular rate, Normal S1, Normal S2, No murmurs, Gallops, Rubs Abdomen: Normal bowel sounds, Soft, Other (The patient does have a large umbilical hernia protrudes out) Neuro: Cranial nerves 3-12 NL Psych/Mental Status: Mental status NL Medications Current Medications Medications Dose Ordered Sig/Jorge Route Start Time Stop Time Status Last Admin Dose Admin Acetaminophen/ Hydrocodone Bitart 1 tab Q4HP PRN PO 03/02/25 07:30 03/03/25 09:54 1 TAB Ondansetron HCl 4 mg Q4HP PRN IV 03/02/25 07:30 Acetaminophen 650 mg Q6HP PRN PO 03/02/25 07:30 Morphine Sulfate 2 mg Q4HPRN PRN IV 03/02/25 07:30 Amiodarone HCl 200 mg DAILY PO 03/02/25 10:00 03/03/25 09:53 200 MG Apixaban 5 mg BID PO 03/02/25 10:00 03/03/25 09:53 5 MG Aspirin 81 mg DAILY PO 03/02/25 10:00 03/03/25 09:52 81 MG Atorvastatin Calcium 20 mg HS PO 03/02/25 22:00 03/02/25 21:57 20 MG Carvedilol 3.125 mg BID PO 03/02/25 10:00 03/03/25 09:53 3.125 MG Sacubitril/ Valsartan 1 tab BID PO 03/02/25 10:00 03/03/25 09:53 1 TAB Furosemide 40 mg DAILY IV 03/02/25 10:00 03/03/25 09:52 40 MG Piperacillin Sod/ Tazobactam Sod 100 ml @ 25 mls/hr Q8HR IV 03/02/25 14:00 03/03/25 06:17 25 MLS/HR Thiamine HCl 100 mg DAILY PO 03/02/25 10:00 03/03/25 09:53 100 MG Folic Acid 1 mg DAILY PO 03/02/25 10:00 03/03/25 09:52 1 MG Multivitamins 1 tab DAILY PO 03/02/25 10:00 03/03/25 09:53 1 TAB Hydralazine HCl 10 mg Q6HP PRN IV 03/02/25 09:15 Laboratory Results Laboratory Tests 03/03/25 05:41 Chemistry Test 03/03/25 05:41 Albumin 3.6 g/dL (3.2-4.8) Calcium Level 8.6 mg/dL (8.7-10.4) L Total Protein 6.3 g/dL (5.7-8.2) LFT Test 03/03/25 05:41 Alanine Aminotransferase (ALT) 15 U/L (7-40) Alkaline Phosphatase 62 U/L (46-116) Aspartate Amino Transferase (AST) 22 U/L (13-40) Total Bilirubin 1.8 mg/dL (0.2-1.0) H Urinalysis Test 03/02/25 07:25 Urine Color Light-yellow (Yellow) Urine Clarity Clear (Clear) Urine pH 5.5 (5.0-9.0) Urine Specific [place] 1.011 (1.001-1.035) Urine Protein Trace (Negative) H Urine Ketones Negative (Negative) Urine Blood Trace /uL (Negative) H Urine Nitrite 1+ (Negative) H Urine Bilirubin Negative (Negative) Urine Urobilinogen Normal mg/dL (Negative) Urine Leukocyte Esterase 3+ /uL (Negative) Urine RBC 6 /hpf (0 - 3) Urine Microscopic WBC 159 /HPF (0-3) H Urine Squamous Epithelial Cells Few /hpf (<5) Urine Bacteria Few /hpf (None Seen) H Urine Glucose Normal mg/dL (Normal) Microbiology Microbiology Date/Time Source Procedure Growth Status 03/02/25 07:35 Voided Urine Urine Culture - Preliminary Resulted 03/01/25 20:23 Blood Blood Culture - Preliminary NO GROWTH AFTER 24 HOURS OF INCUBATION. Resulted Labs and/or images reviewed: Labs reviewed by me Assessment/Plan Assessment/Plan Acute on chronic CHF exacerbation Acute on chronic systolic heart failure, EF 20% Lactic acidosis likely due to sepsis Hypertensive urgency Acute hypoxic respiratory failure Large supraumbilical hernia containing loops of nonobstructed small and large bowel Moderate left periumbilical hernia containing fat and trace ascitic fluid Medication noncompliance Tobacco use Alcohol use Marijuana use Cardiomegaly Hyperbilirubinemia likely due to alcohol use History of CAD History of COPD History of hypertension History of left hip surgery History of left wrist surgery History of pacemaker Continuing current management. Explained to the patient the CT abdomen pelvis showed large nonobstructive small and large bowel in the hernia of umbilical however patient has a an ejection fraction of 20%. Patient is a high-risk surgery patient. We will not do surgery due to the umbilical hernia is nonobstructive. Continuing Lasix. Advised to stop drinking alcohol and smoking Marijuana and tobacco This medical document was created using an electronic medical record system with [employer] direct computerized dictation system. Although this document has been carefully reviewed, there may still be some phonetic and typographical errors. These areas are purely typographical due to imperfections of the software programs, and do not reflect any compromise in the patient's medical care. Plan discussed with: Patient Date of Service: Mar 03, 2025 Billing Provider: LAYLA HE MD Common Visit Codes: [id number] INP/OBS CARE(HIGH) LAYLA HE MD Mar 03, 2025 11:58
[2025-03-03] MEDS: ONDANSETRON HCL 4 MG/2 ML VIAL IV PRN (20:18)
[2025-03-04] VITALS (8 sets, daily range): BP systolic 101–128; BP diastolic 67–93; PULSE 73–101; RESP 16–20; TEMP 97.7–97.9; O2SAT 94–100
--- NOTE | 2025-03-04 15:35 | DVHPN2 ---
Subjective The patient is seen and examined at bedside. Complain of the umbilical hernia bother him. Reviewed: Care Plan, H&P, Labs, Medications, Previous Orders, Radiology Changes from previous H/P or p: No Changes Respiratory: Shortness of breath Gastrointestinal: Nausea, Abdominal Pain Objective Vitals Vital Signs Date Time Temp Pulse Resp B/P (MAP) Pulse Ox O2 Delivery O2 Flow Rate FiO2 03/04/25 12:47 97.7 94 16 113/93 (100) 100 97.7 03/03/25 20:00 Nasal Cannula* 2 28 Intake/Output Intake and Output 03/04/25 07:00 Intake Total 4320 ml Output Total 1800 ml Balance 2520 ml Intake Oral 4120 ml IV Total 200 ml Output Urine Total 1800 ml # Voids 3 # Bowel Movements 1 General Appearance: Alert, Oriented X3, Cooperative, No acute distress HEENT: Atraumatic, PERRLA, EOMI, Mucous membr. moist/pink Neck: Supple Lungs: Clear to auscultation, Normal air movement Cardiovascular: Regular rate, Normal S1, Normal S2, No murmurs, Gallops, Rubs Abdomen: Normal bowel sounds, Soft, Other (The patient does have a large umbilical hernia protrudes out) Neuro: Cranial nerves 3-12 NL Psych/Mental Status: Mental status NL Medications Current Medications Medications Dose Ordered Sig/Jorge Route Start Time Stop Time Status Last Admin Dose Admin Acetaminophen/ Hydrocodone Bitart 1 tab Q4HP PRN PO 03/02/25 07:30 03/04/25 04:29 1 TAB Ondansetron HCl 4 mg Q4HP PRN IV 03/02/25 07:30 03/04/25 04:30 4 MG Acetaminophen 650 mg Q6HP PRN PO 03/02/25 07:30 Morphine Sulfate 2 mg Q4HPRN PRN IV 03/02/25 07:30 Amiodarone HCl 200 mg DAILY PO 03/02/25 10:00 03/04/25 11:35 200 MG Apixaban 5 mg BID PO 03/02/25 10:00 03/04/25 11:34 5 MG Aspirin 81 mg DAILY PO 03/02/25 10:00 03/04/25 11:34 81 MG Atorvastatin Calcium 20 mg HS PO 03/02/25 22:00 03/03/25 21:16 20 MG Carvedilol 3.125 mg BID PO 03/02/25 10:00 03/04/25 11:35 3.125 MG Sacubitril/ Valsartan 1 tab BID PO 03/02/25 10:00 03/04/25 11:34 1 TAB Furosemide 40 mg DAILY IV 03/02/25 10:00 03/04/25 11:36 40 MG Piperacillin Sod/ Tazobactam Sod 100 ml @ 25 mls/hr Q8HR IV 03/02/25 14:00 03/04/25 14:43 25 MLS/HR Thiamine HCl 100 mg DAILY PO 03/02/25 10:00 03/04/25 11:34 100 MG Folic Acid 1 mg DAILY PO 03/02/25 10:00 03/04/25 11:34 1 MG Multivitamins 1 tab DAILY PO 03/02/25 10:00 03/04/25 11:35 1 TAB Hydralazine HCl 10 mg Q6HP PRN IV 03/02/25 09:15 Laboratory Results Laboratory Tests 03/03/25 05:41 Urinalysis Test 03/02/25 07:25 Urine Color Light-yellow (Yellow) Urine Clarity Clear (Clear) Urine pH 5.5 (5.0-9.0) Urine Specific [place] 1.011 (1.001-1.035) Urine Protein Trace (Negative) H Urine Ketones Negative (Negative) Urine Blood Trace /uL (Negative) H Urine Nitrite 1+ (Negative) H Urine Bilirubin Negative (Negative) Urine Urobilinogen Normal mg/dL (Negative) Urine Leukocyte Esterase 3+ /uL (Negative) Urine RBC 6 /hpf (0 - 3) Urine Microscopic WBC 159 /HPF (0-3) H Urine Squamous Epithelial Cells Few /hpf (<5) Urine Bacteria Few /hpf (None Seen) H Urine Glucose Normal mg/dL (Normal) Microbiology Microbiology Date/Time Source Procedure Growth Status 03/02/25 07:35 Voided Urine Urine Culture - Final Complete 03/01/25 20:23 Blood Blood Culture - Preliminary NO GROWTH AFTER 48 HOURS OF INCUBATION. Resulted Assessment/Plan Assessment/Plan Acute on chronic CHF exacerbation Acute on chronic systolic heart failure, EF 20% Lactic acidosis likely due to sepsis Hypertensive urgency Acute hypoxic respiratory failure Large supraumbilical hernia containing loops of nonobstructed small and large bowel: The patient request surgery consulted. I explained to the patient with his congestive heart failure EF 20% his surgery we will be very high-risk. Patient is still wanted to hear from surgeon. We will Consult surgery Moderate left periumbilical hernia containing fat and trace ascitic fluid Medication noncompliance Tobacco use Alcohol use Marijuana use Cardiomegaly Hyperbilirubinemia likely due to alcohol use History of CAD History of COPD History of hypertension History of left hip surgery History of left wrist surgery History of pacemaker Continuing current management. Explained to the patient the CT abdomen pelvis showed large nonobstructive small and large bowel in the hernia of umbilical however patient has a an ejection fraction of 20%. Patient is a high-risk surgery patient. We will not do surgery due to the umbilical hernia is nonobstructive. Continuing Lasix. Advised to stop drinking alcohol and smoking Marijuana and tobacco This medical document was created using an electronic medical record system with M[employer]M [employer] direct computerized dictation system. Although this document has been carefully reviewed, there may still be some phonetic and typographical errors. These areas are purely typographical due to imperfections of the software programs, and do not reflect any compromise in the patient's medical care. Plan discussed with: Patient Date of Service: Mar 04, 2025 Billing Provider: LAYLA HE MD Common Visit Codes: [id number] INP/OBS CARE(HIGH) LAYLA HE MD Mar 04, 2025 15:35
[2025-03-04] MEDS: POTASSIUM CHL 20 Meq TABLET PO ONE (20:10)
[2025-03-05] VITALS (8 sets, daily range): BP systolic 120–139; BP diastolic 88–100; PULSE 60–98; RESP 16–20; TEMP 97.7–98.2; O2SAT 94–100
[2025-03-05 09:27] LABS: Alanine Aminotransferase 18 U/L (7-40); Albumin 3.5 g/dL (3.2-4.8); Alkaline Phosphatase 66 U/L (46-116); Anion Gap 4 (5-15); BUN/Creatinine Ratio 10.7 (10.0-20.0); Bilirubin, Total 0.5 mg/dL (0.2-1.0); Blood Urea Nitrogen 14 mg/dL (9-23); Chloride 100 mmol/L (98-107); Potassium 3.8 mmol/L (3.5-5.1); Sodium 142 mmol/L (136-145); Total Protein 6.3 g/dL (5.7-8.2)
[2025-03-05 09:29] LABS: Calcium 8.6 mg/dL (8.7-10.4); Carbon Dioxide 38 mmol/L (20-31); Glucose 118 mg/dL (74-106)
--- NOTE | 2025-03-05 11:25 | DVHPN2 ---
Subjective The patient is seen and examined at bedside. Complain of the umbilical hernia bother him. Reviewed: Care Plan, H&P, Labs, Medications, Previous Orders, Radiology Changes from previous H/P or p: No Changes Respiratory: Shortness of breath Gastrointestinal: Nausea, Abdominal Pain Objective Vitals Vital Signs Date Time Temp Pulse Resp B/P (MAP) Pulse Ox O2 Delivery O2 Flow Rate FiO2 03/05/25 08:54 97.7 88 16 128/99 (109) 100 97.7 03/04/25 20:00 Nasal Cannula* 2 28 Intake/Output Intake and Output 03/05/25 07:00 Intake Total 1940 ml Output Total 2200 ml Balance -260 ml Intake Oral 1840 ml IV Total 100 ml Output Urine Total 2200 ml # Bowel Movements 2 General Appearance: Alert, Oriented X3, Cooperative, No acute distress HEENT: Atraumatic, PERRLA, EOMI, Mucous membr. moist/pink Neck: Supple Lungs: Clear to auscultation, Normal air movement Cardiovascular: Regular rate, Normal S1, Normal S2, No murmurs, Gallops, Rubs Abdomen: Normal bowel sounds, Soft, Other (The patient does have a large umbilical hernia protrudes out) Neuro: Cranial nerves 3-12 NL Psych/Mental Status: Mental status NL Medications Current Medications Medications Dose Ordered Sig/Jorge Route Start Time Stop Time Status Last Admin Dose Admin Acetaminophen/ Hydrocodone Bitart 1 tab Q4HP PRN PO 03/02/25 07:30 03/05/25 05:31 1 TAB Ondansetron HCl 4 mg Q4HP PRN IV 03/02/25 07:30 03/04/25 21:17 4 MG Acetaminophen 650 mg Q6HP PRN PO 03/02/25 07:30 Morphine Sulfate 2 mg Q4HPRN PRN IV 03/02/25 07:30 Amiodarone HCl 200 mg DAILY PO 03/02/25 10:00 03/05/25 08:41 200 MG Apixaban 5 mg BID PO 03/02/25 10:00 03/05/25 08:41 5 MG Aspirin 81 mg DAILY PO 03/02/25 10:00 03/05/25 08:40 81 MG Atorvastatin Calcium 20 mg HS PO 03/02/25 22:00 03/04/25 21:17 20 MG Carvedilol 3.125 mg BID PO 03/02/25 10:00 03/05/25 08:41 3.125 MG Sacubitril/ Valsartan 1 tab BID PO 03/02/25 10:00 03/05/25 08:40 1 TAB Furosemide 40 mg DAILY IV 03/02/25 10:00 03/05/25 08:40 40 MG Piperacillin Sod/ Tazobactam Sod 100 ml @ 25 mls/hr Q8HR IV 03/02/25 14:00 03/05/25 05:25 25 MLS/HR Thiamine HCl 100 mg DAILY PO 03/02/25 10:00 03/05/25 08:41 100 MG Folic Acid 1 mg DAILY PO 03/02/25 10:00 03/05/25 08:40 1 MG Multivitamins 1 tab DAILY PO 03/02/25 10:00 03/05/25 08:40 1 TAB Hydralazine HCl 10 mg Q6HP PRN IV 03/02/25 09:15 Laboratory Results Laboratory Tests 03/03/25 05:41 03/05/25 08:48 Chemistry Test 03/05/25 08:48 Albumin 3.5 g/dL (3.2-4.8) Calcium Level 8.6 mg/dL (8.7-10.4) L Total Protein 6.3 g/dL (5.7-8.2) LFT Test 03/05/25 08:48 Alanine Aminotransferase (ALT) 18 U/L (7-40) Alkaline Phosphatase 66 U/L (46-116) Aspartate Amino Transferase (AST) 23 U/L (13-40) Total Bilirubin 0.5 mg/dL (0.2-1.0) Urinalysis Test 03/02/25 07:25 Urine Color Light-yellow (Yellow) Urine Clarity Clear (Clear) Urine pH 5.5 (5.0-9.0) Urine Specific [place] 1.011 (1.001-1.035) Urine Protein Trace (Negative) H Urine Ketones Negative (Negative) Urine Blood Trace /uL (Negative) H Urine Nitrite 1+ (Negative) H Urine Bilirubin Negative (Negative) Urine Urobilinogen Normal mg/dL (Negative) Urine Leukocyte Esterase 3+ /uL (Negative) Urine RBC 6 /hpf (0 - 3) Urine Microscopic WBC 159 /HPF (0-3) H Urine Squamous Epithelial Cells Few /hpf (<5) Urine Bacteria Few /hpf (None Seen) H Urine Glucose Normal mg/dL (Normal) Microbiology Microbiology Date/Time Source Procedure Growth Status 03/02/25 07:35 Voided Urine Urine Culture - Final Complete 03/01/25 20:23 Blood Blood Culture - Preliminary NO GROWTH AFTER 72 HOURS OF INCUBATION. Resulted Labs and/or images reviewed: Labs reviewed by me, Image(s) reviewed by me Assessment/Plan Assessment/Plan Acute on chronic CHF exacerbation Acute on chronic systolic heart failure, EF 20% Lactic acidosis likely due to sepsis Hypertensive urgency Acute hypoxic respiratory failure Large supraumbilical hernia containing loops of nonobstructed small and large bowel: The patient request surgery consulted. I explained to the patient with his congestive heart failure EF 20% his surgery we will be very high-risk. Patient is still wanted to hear from surgeon. We will Consult surgery Appreciate surgery input. Per Dr. Houston the patient will see him in the clinic for outpatient evaluation for surgery Moderate left periumbilical hernia containing fat and trace ascitic fluid Medication noncompliance Tobacco use Alcohol use Marijuana use Cardiomegaly Hyperbilirubinemia likely due to alcohol use History of CAD History of COPD History of hypertension History of left hip surgery History of left wrist surgery History of pacemaker Continuing current management. Explained to the patient the CT abdomen pelvis showed large nonobstructive small and large bowel in the hernia of umbilical however patient has a an ejection fraction of 20%. Patient is a high-risk surgery patient. We will not do surgery due to the umbilical hernia is nonobstructive. Continuing Lasix. Advised to stop drinking alcohol and smoking Marijuana and tobacco This medical document was created using an electronic medical record system with [employer] direct computerized dictation system. Although this document has been carefully reviewed, there may still be some phonetic and typographical errors. These areas are purely typographical due to imperfections of the software programs, and do not reflect any compromise in the patient's medical care. Plan discussed with: Patient My Orders Orders - LAYLA HE MD Procedure Category Date Status Time * Surgical Consult CONS 03/05/25 Transmitted 03:52 Date of Service: Mar 05, 2025 Billing Provider: LAYLA HE MD Common Visit Codes: [id number] INP/OBS CARE(HIGH) LAYLA HE MD Mar 05, 2025 11:25
--- NOTE | 2025-03-05 11:34 | DVHINCON2 ---
Consultation - Surgical Date Seen: Mar 05, 2025 Referring Physician Reason for Consultation Ventral hernia History of Present Illness History of Present Illness Mr. Flowers is a 59-year-old male who was admitted to the hospital on 03/02 due to CHF exacerbation with a EF of 20%, lactic acidosis, hypertensive urgency, and acute hypoxic respiratory failure. Surgery was consulted due to ventral hernia. Patient has had the hernia since he was in his 20s, and states that the hernia has been getting bigger with time but is not causing him any discomfort at this moment. He has seen a surgeon in the past apparently many years ago when the hernia was small and surgery was deferred at that time. Denies any obstructive episodes ever due to the hernia. States he has normal daily bowel movements, last bowel movement was yesterday. No other complaints at this time Past Medical/Surgical History Past Medical/Surgical History CHF, CAD, COPD, hypertension, left hip surgery, left wrist surgery, pacemaker, and hernia Family and Social History Family and Social History FMH diabetes and father ETOH 5 beers per day TOB half pack cigarettes per day Marijuana daily Allergies and medications Allergies: Coded Allergies: NO KNOWN ALLERGIES (Unverified , 04/18/22) Home Meds Active Scripts Doxycycline (Monohydrate) (Doxycycline) 100 Mg Tab, 100 MG PO BID for 6 Days, #12 TAB Prov:ANJUM ACOSTA 05/06/24 Sacubitril-Valsartan (Entresto 24-26 mg) 1 Tab Tab, 1 TAB PO BID, #60 TAB PT MUST BRING MED PER PHARMACY Prov:SILVERIO SOTO MD 04/18/22 Spironolactone (Spironolactone) 25 Mg Tab, 1 TAB PO DAILY, #60 TAB Prov:SILVERIO SOTO MD 04/18/22 Furosemide (Furosemide) 40 Mg Tab, 40 MG PO DAILY, #30 TAB Prov:SILVERIO SOTO MD 04/18/22 Albuterol Sulfate (Albuterol Sulfate Hfa) 108 Mcg/Act Aer, 2 PUFF INH Q6HPRN, #1 AER 1 Refill Prov:FREDO FRIAS MD 09/24/21 Apixaban Base (ELIQUIS) 5 Mg Tab, 1 TAB PO BID, #60 TAB Prov:FREDO FRIAS MD 09/24/21 Carvedilol (Carvedilol) 12.5 Mg Tab, 1 TAB PO BID, #60 TAB Prov:FREDO FRIAS MD 09/24/21 Aspirin (Asa) 81 Mg Ch, 81 MG PO DAILY, #30 TAB.CHEW Prov:SILVERIO SOTO MD 04/16/20 Reported Medications Amiodarone Hcl (Amiodarone Hcl) 200 Mg Tab, 200 MG PO DAILY for 30 Days 02/21/23 Atorvastatin Calcium (ATORVASTATIN CALCIUM) 20 Mg Tab, 1 TAB PO DAILY, #30 TAB 5 Refills 08/24/22 Review of systems Review of Systems: Not Done (See HPI) Examination Vital signs Vital Signs Date Time Temp Pulse Resp B/P (MAP) Pulse Ox O2 Delivery O2 Flow Rate FiO2 03/05/25 08:54 97.7 88 16 128/99 (109) 100 97.7 03/04/25 20:00 Nasal Cannula* 2 28 Laboratory Labs Test 03/05/25 08:48 03/03/25 05:41 03/02/25 09:08 03/02/25 07:25 Range/Units Sodium Level 142 136-145 mmol/L Potassium Level 3.8 3.5-5.1 mmol/L Chloride Level 100 98-107 mmol/L Carbon Dioxide Level 38 H 20-31 mmol/L Anion Gap 4 L 5-15 Blood Urea Nitrogen 14 9-23 mg/dL Creatinine 1.31 H 0.700-1.30 mg/dL Glomerular Filtration Rate Calc 63 >90 mL/min BUN/Creatinine Ratio 10.7 10.0-20.0 Serum Glucose 118 H 74-106 mg/dL Calcium Level 8.6 L 8.7-10.4 mg/dL Total Bilirubin 0.5 0.2-1.0 mg/dL Aspartate Amino Transferase (AST) 23 13-40 U/L Alanine Aminotransferase (ALT) 18 7-40 U/L Alkaline Phosphatase 66 46-116 U/L Total Protein 6.3 5.7-8.2 g/dL Albumin 3.5 3.2-4.8 g/dL White Blood Count 5.4 4.4-10.8 10^3/uL Red Blood Count 4.99 4.5-5.90 10^6/uL Hemoglobin 15.6 13.5-17.5 g/dL Hematocrit 46.3 41.0-53.0 % Mean Corpuscular Volume 92.8 80.0-100.0 fL Mean Corpuscular Hemoglobin 31.3 28.0-32.0 pg Mean Corpuscular Hemoglobin Concent 33.8 32.0-36.0 g/dL Red Cell Distribution Width 13.9 11.8-14.3 % Platelet Count 203 140-450 10^3/uL Mean Platelet Volume 8.8 6.9-10.8 fL Neutrophils (%) (Auto) 58.1 37.0-80.0 % Lymphocytes (%) (Auto) 24.6 10.0-50.0 % Monocytes (%) (Auto) 15.9 H 0.0-12.0 % Eosinophils (%) (Auto) 1.0 0.0-7.0 % Basophils (%) (Auto) 0.4 0.0-2.0 % Neutrophils # (Auto) 3.1 1.6-8.6 10 ^3/uL Lymphocytes # (Auto) 1.3 0.4-5.4 10 ^3/uL Monocytes # (Auto) 0.9 0-1.3 10 ^3/uL Eosinophils # (Auto) 0.1 0-0.8 10 ^3/uL Basophils # (Auto) 0 0-0.2 10 ^3/uL Nucleated Red Blood Cells 0.2 % Magnesium Level 1.7 1.6-2.6 mg/dL Plasma/Serum Blood Alcohol < 3.0 <10 mg/dL Urine Color Light-yellow Yellow Urine Clarity Clear Clear Urine pH 5.5 5.0-9.0 Urine Specific [place] 1.011 1.001-1.035 Urine Protein Trace H Negative Urine Ketones Negative Negative Urine Blood Trace H Negative /uL Urine Nitrite 1+ H Negative Urine Bilirubin Negative Negative Urine Urobilinogen Normal Negative mg/dL Urine Leukocyte Esterase 3+ Negative /uL Urine RBC 6 0 - 3 /hpf Urine Microscopic WBC 159 H 0-3 /HPF Urine Squamous Epithelial Cells Few <5 /hpf Urine Bacteria Few H None Seen /hpf Urine Glucose Normal Normal mg/dL Urine Opiates Screen Neg NEGATIVE Urine Fentanyl Screen Neg NEGATIVE Urine Barbiturates Screen Neg NEGATIVE Urine Phencyclidine Screen Neg NEGATIVE Urine Amphetamines Screen Pos NEGATIVE Urine Benzodiazepines Screen Neg NEGATIVE Urine Cocaine Screen Neg NEGATIVE Urine Cannabinoids Screen Neg NEGATIVE Test 03/01/25 22:22 03/01/25 21:12 03/01/25 20:25 03/01/25 20:23 Range/Units Lactic Acid Level 2.0 0.4-2.0 mmol/L Troponin I High Sensitivity 47 </=54 ng/L Blood Gas Specimen Type Venous Blood Gas Sample Site Vbg - n/a Blood Gas Patient Temperature 37.0 Arterial Blood Date Drawn [id number] Darren Test N/a Venous Blood pH 7.415 7.320-7.430 Venous Blood pCO2 at Patient Temp 44.6 38.0-54.0 mmHg Venous Blood pO2 at Patient Temp < 36.5 23.0-48.0 mmHg Venous Blood HCO3 28.0 22.0-29.0 mmol/L Venous Blood Base Excess 2.8 -2.0-3.0 mmol/L Blood Gas Modality Room air FiO2 % 21.0 B-Type Natriuretic Peptide 974.56 0-100 pg/mL Lipase 26 12-53 U/L Microbiology Date/Time Source Procedure Growth Status 03/02/25 07:35 Voided Urine Urine Culture - Final Complete 03/01/25 20:23 Blood Blood Culture - Preliminary NO GROWTH AFTER 72 HOURS OF INCUBATION. Resulted Examination: GENERAL:Normal, ABDOMEN:Abnormal (Globose, nondistended, no scars, large ventral hernia (see assessment for details), nonreducible, no overlying skin changes, no tenderness, no rebound, no guarding) Problem List/Assessment/Plan Problems: (1) Ventral hernia Assessment and Plan Mr. Flowers is a 59-year-old male who has been admitted since March 02 due to CHF exacerbation, lactic acidosis, acute hypoxic respiratory failure and hypertensive urgency. Surgery consulted due to large ventral hernia that the patient has had since his 20s. CT images were seen and shows a large hernia defect, [place] cheese, with a supraumbilical 5 cm wide defect and a infraumbilical 3.3 cm wide defect, the defect in the cranial caudal direction is 10 cm long. The hernia defect has small bowel protruding through it, but without any signs of ischemia or bowel compromise. On physical exam patient is nontender to the abdominal area, and hernia is not reducible. This is a large chronic small bowel containing hernia that does not have any signs of ischemia on CT or physical exam, and thus is not a surgical emergency. For this reason I will not be offering hernia repair during this admission, especially since the patient presented to the hospital with more pressing issues, making hernia surgery unsafe at this time. I communicated all my findings and reasoning to the patient this morning; he understands/agrees that hernia surgery at this time is unsafe. He understands that he needs to follow- up at surgery Clinic for elective hernia repair once he is medically stable. 1. Please Dr. Houston's clinic information to the patient on the discharge documentation 2. Follow-up at surgery Clinic 3. I will sign off at this time, please call with any questions or concerns Plan discussed with Plan discussed with: Patient Visit Coding Surgery Date of Service if different f: Mar 05, 2025 Billing Provider: ALEXANDRIA BUTT MD Surgery Visit Codes: [id number] - INP CONSULT <55 MIN ALEXANDRIA BUTT MD Mar 05, 2025 11:34
[2025-03-06] VITALS (8 sets, daily range): BP systolic 115–131; BP diastolic 76–97; PULSE 73–89; RESP 12–20; TEMP 96.7–98.8; O2SAT 98–100
--- NOTE | 2025-03-06 12:14 | DVHPN2 ---
Subjective The patient is seen and examined at bedside. Complain of the umbilical hernia bother him. Complains of shortness of breath and dizziness. Reviewed: Care Plan, H&P, Labs, Medications, Previous Orders, Radiology Changes from previous H/P or p: No Changes Respiratory: Shortness of breath Gastrointestinal: Nausea, Abdominal Pain Objective Vitals Vital Signs Date Time Temp Pulse Resp B/P (MAP) Pulse Ox O2 Delivery O2 Flow Rate FiO2 03/06/25 09:49 129/88 03/06/25 09:48 83 03/06/25 08:55 96.7 18 100 96.7 03/05/25 20:00 Nasal Cannula* 2 28 Intake/Output Intake and Output 03/06/25 07:00 Intake Total 1300 ml Output Total 750 ml Balance 550 ml Intake Oral 1000 ml IV Total 300 ml Output Urine Total 750 ml General Appearance: Alert, Oriented X3, Cooperative, No acute distress HEENT: Atraumatic, PERRLA, EOMI, Mucous membr. moist/pink Neck: Supple Lungs: Clear to auscultation, Normal air movement Cardiovascular: Regular rate, Normal S1, Normal S2, No murmurs, Gallops, Rubs Abdomen: Normal bowel sounds, Soft, Other (The patient does have a large umbilical hernia protrudes out) Neuro: Cranial nerves 3-12 NL Psych/Mental Status: Mental status NL Medications Current Medications Medications Dose Ordered Sig/Jorge Route Start Time Stop Time Status Last Admin Dose Admin Acetaminophen/ Hydrocodone Bitart 1 tab Q4HP PRN PO 03/02/25 07:30 03/05/25 21:43 1 TAB Ondansetron HCl 4 mg Q4HP PRN IV 03/02/25 07:30 03/05/25 21:44 4 MG Acetaminophen 650 mg Q6HP PRN PO 03/02/25 07:30 Morphine Sulfate 2 mg Q4HPRN PRN IV 03/02/25 07:30 Amiodarone HCl 200 mg DAILY PO 03/02/25 10:00 03/06/25 09:49 200 MG Apixaban 5 mg BID PO 03/02/25 10:00 03/06/25 09:48 5 MG Aspirin 81 mg DAILY PO 03/02/25 10:00 03/06/25 09:48 81 MG Atorvastatin Calcium 20 mg HS PO 03/02/25 22:00 03/05/25 21:42 20 MG Carvedilol 3.125 mg BID PO 03/02/25 10:00 03/06/25 09:48 3.125 MG Sacubitril/ Valsartan 1 tab BID PO 03/02/25 10:00 03/06/25 09:48 1 TAB Furosemide 40 mg DAILY IV 03/02/25 10:00 03/06/25 09:49 40 MG Piperacillin Sod/ Tazobactam Sod 100 ml @ 25 mls/hr Q8HR IV 03/02/25 14:00 03/06/25 05:51 25 MLS/HR Thiamine HCl 100 mg DAILY PO 03/02/25 10:00 03/06/25 09:48 100 MG Folic Acid 1 mg DAILY PO 03/02/25 10:00 03/06/25 09:48 1 MG Multivitamins 1 tab DAILY PO 03/02/25 10:00 03/06/25 09:48 1 TAB Hydralazine HCl 10 mg Q6HP PRN IV 03/02/25 09:15 Laboratory Results Laboratory Tests 03/03/25 05:41 03/05/25 08:48 Urinalysis Test 03/02/25 07:25 Urine Color Light-yellow (Yellow) Urine Clarity Clear (Clear) Urine pH 5.5 (5.0-9.0) Urine Specific [place] 1.011 (1.001-1.035) Urine Protein Trace (Negative) H Urine Ketones Negative (Negative) Urine Blood Trace /uL (Negative) H Urine Nitrite 1+ (Negative) H Urine Bilirubin Negative (Negative) Urine Urobilinogen Normal mg/dL (Negative) Urine Leukocyte Esterase 3+ /uL (Negative) Urine RBC 6 /hpf (0 - 3) Urine Microscopic WBC 159 /HPF (0-3) H Urine Squamous Epithelial Cells Few /hpf (<5) Urine Bacteria Few /hpf (None Seen) H Urine Glucose Normal mg/dL (Normal) Microbiology Microbiology Date/Time Source Procedure Growth Status 03/02/25 07:35 Voided Urine Urine Culture - Final Complete 03/01/25 20:23 Blood Blood Culture - Preliminary NO GROWTH AFTER 72 HOURS OF INCUBATION. Resulted Labs and/or images reviewed: Labs reviewed by me Assessment/Plan Assessment/Plan Acute on chronic CHF exacerbation Acute on chronic systolic heart failure, EF 20% Lactic acidosis likely due to sepsis Hypertensive urgency Acute hypoxic respiratory failure Large supraumbilical hernia containing loops of nonobstructed small and large bowel: The patient request surgery consulted. I explained to the patient with his congestive heart failure EF 20% his surgery we will be very high-risk. Patient is still wanted to hear from surgeon. We will Consult surgery Appreciate surgery input. Per Dr. Houston the patient will see him in the clinic for outpatient evaluation for surgery Moderate left periumbilical hernia containing fat and trace ascitic fluid Medication noncompliance Tobacco use Alcohol use Marijuana use Cardiomegaly Hyperbilirubinemia likely due to alcohol use History of CAD History of COPD History of hypertension History of left hip surgery History of left wrist surgery History of pacemaker Continuing current management. Explained to the patient the CT abdomen pelvis showed large nonobstructive small and large bowel in the hernia of umbilical however patient has a an ejection fraction of 20%. Patient is a high-risk surgery patient. We will not do surgery due to the umbilical hernia is nonobstructive. Continuing Lasix. Advised to stop drinking alcohol and smoking Marijuana and tobacco This medical document was created using an electronic medical record system with [employer] direct computerized dictation system. Although this document has been carefully reviewed, there may still be some phonetic and typographical errors. These areas are purely typographical due to imperfections of the software programs, and do not reflect any compromise in the patient's medical care. Plan discussed with: Patient Date of Service: Mar 06, 2025 Billing Provider: LAYLA HE MD Common Visit Codes: [id number] INP/OBS CARE(HIGH) LAYLA HE MD Mar 06, 2025 12:14
[2025-03-07 00:54] VITALS: BP 126/93; PULSE 88; RESP 20; TEMP 98; O2SAT 99
[2025-03-07] MEDS: PIPERACILLIN-TAZOB 3.375GM 100 ML IV SCH (01:14)
[2025-03-07 05:00] VITALS: BP 122/88; PULSE 90; RESP 18; TEMP 98.4; O2SAT 100
[2025-03-07 06:48] LABS: Chloride 100 mmol/L (98-107); Potassium 3.6 mmol/L (3.5-5.1); Sodium 140 mmol/L (136-145)
[2025-03-07 06:49] LABS: Anion Gap 5 (5-15)
[2025-03-07 06:50] LABS: Hematocrit 44.6 % (41.0-53.0); Hemoglobin 15.1 g/dL (13.5-17.5); Mean Corpuscular Hemoglobin 31.4 pg (28.0-32.0); Mean Corpuscular Volume 92.7 fL (80.0-100.0); Nucleated Red Blood Cells % 0.1 %
[2025-03-07 06:54] LABS: BUN/Creatinine Ratio 10.9 (10.0-20.0); Blood Urea Nitrogen 13 mg/dL (9-23); Glucose 95 mg/dL (74-106)
[2025-03-07 07:01] LABS: Calcium 8.5 mg/dL (8.7-10.4); Carbon Dioxide 35 mmol/L (20-31)
[2025-03-07 08:00] VITALS: PULSE 92
[2025-03-07 09:00] VITALS: BP 111/82; PULSE 77; RESP 18; TEMP 97.9; O2SAT 99
--- NOTE | 2025-03-07 11:21 | DVHDS2 ---
Discharge Summary Date of Admission Mar 02, 2025 at 07:25 Date of Discharge: Mar 07, 2025 Admitting Diagnosis Acute on chronic CHF exacerbation Acute on chronic systolic heart failure, EF 20% Lactic acidosis likely due to sepsis Hypertensive urgency Acute hypoxic respiratory failure Moderate left periumbilical hernia containing fat and trace ascitic fluid Medication noncompliance Tobacco use Alcohol use Marijuana use Cardiomegaly Hyperbilirubinemia likely due to alcohol use History of CAD History of COPD History of hypertension History of left hip surgery History of left wrist surgery History of pacemaker Labs/Diagnostic Data: Laboratory Results Test 03/07/25 06:02 03/05/25 08:48 03/02/25 09:08 03/02/25 07:25 White Blood Count 4.2 10^3/uL (4.4-10.8) Red Blood Count 4.82 10^6/uL (4.5-5.90) Hemoglobin 15.1 g/dL (13.5-17.5) Hematocrit 44.6 % (41.0-53.0) Mean Corpuscular Volume 92.7 fL (80.0-100.0) Mean Corpuscular Hemoglobin 31.4 pg (28.0-32.0) Mean Corpuscular Hemoglobin Concent 33.9 g/dL (32.0-36.0) Red Cell Distribution Width 13.5 % (11.8-14.3) Platelet Count 209 10^3/uL (140-450) Mean Platelet Volume 8.5 fL (6.9-10.8) Neutrophils (%) (Auto) 51.8 % (37.0-80.0) Lymphocytes (%) (Auto) 26.5 % (10.0-50.0) Monocytes (%) (Auto) 18.4 % (0.0-12.0) Eosinophils (%) (Auto) 2.7 % (0.0-7.0) Basophils (%) (Auto) 0.6 % (0.0-2.0) Neutrophils # (Auto) 2.2 10 ^3/uL (1.6-8.6) Lymphocytes # (Auto) 1.1 10 ^3/uL (0.4-5.4) Monocytes # (Auto) 0.8 10 ^3/uL (0-1.3) Eosinophils # (Auto) 0.1 10 ^3/uL (0-0.8) Basophils # (Auto) 0 10 ^3/uL (0-0.2) Nucleated Red Blood Cells 0.1 % Sodium Level 140 mmol/L (136-145) Potassium Level 3.6 mmol/L (3.5-5.1) Chloride Level 100 mmol/L (98-107) Carbon Dioxide Level 35 mmol/L (20-31) Anion Gap 5 (5-15) Blood Urea Nitrogen 13 mg/dL (9-23) Creatinine 1.19 mg/dL (0.700-1.30) Glomerular Filtration Rate Calc 70 mL/min (>90) BUN/Creatinine Ratio 10.9 (10.0-20.0) Serum Glucose 95 mg/dL (74-106) Calcium Level 8.5 mg/dL (8.7-10.4) Total Bilirubin 0.5 mg/dL (0.2-1.0) Aspartate Amino Transferase (AST) 23 U/L (13-40) Alanine Aminotransferase (ALT) 18 U/L (7-40) Alkaline Phosphatase 66 U/L (46-116) Total Protein 6.3 g/dL (5.7-8.2) Albumin 3.5 g/dL (3.2-4.8) Magnesium Level 1.7 mg/dL (1.6-2.6) Plasma/Serum Blood Alcohol < 3.0 mg/dL (<10) Urine Color Light-yellow (Yellow) Urine Clarity Clear (Clear) Urine pH 5.5 (5.0-9.0) Urine Specific [place] 1.011 (1.001-1.035) Urine Protein Trace (Negative) Urine Ketones Negative (Negative) Urine Blood Trace /uL (Negative) Urine Nitrite 1+ (Negative) Urine Bilirubin Negative (Negative) Urine Urobilinogen Normal mg/dL (Negative) Urine Leukocyte Esterase 3+ /uL (Negative) Urine RBC 6 /hpf (0 - 3) Urine Microscopic WBC 159 /HPF (0-3) Urine Squamous Epithelial Cells Few /hpf (<5) Urine Bacteria Few /hpf (None Seen) Urine Glucose Normal mg/dL (Normal) Urine Opiates Screen Neg (NEGATIVE) Urine Fentanyl Screen Neg (NEGATIVE) Urine Barbiturates Screen Neg (NEGATIVE) Urine Phencyclidine Screen Neg (NEGATIVE) Urine Amphetamines Screen Pos (NEGATIVE) Urine Benzodiazepines Screen Neg (NEGATIVE) Urine Cocaine Screen Neg (NEGATIVE) Urine Cannabinoids Screen Neg (NEGATIVE) Test 03/01/25 22:22 03/01/25 21:12 03/01/25 20:25 03/01/25 20:23 Lactic Acid Level 2.0 mmol/L (0.4-2.0) Troponin I High Sensitivity 47 ng/L (</=54) Blood Gas Specimen Type Venous Blood Gas Sample Site Vbg - n/a Blood Gas Patient Temperature 37.0 Arterial Blood Date Drawn [id number] Darren Test N/a Venous Blood pH 7.415 (7.320-7.430) Venous Blood pCO2 at Patient Temp 44.6 mmHg (38.0-54.0) Venous Blood pO2 at Patient Temp < 36.5 mmHg (23.0-48.0) Venous Blood HCO3 28.0 mmol/L (22.0-29.0) Venous Blood Base Excess 2.8 mmol/L (-2.0-3.0) Blood Gas Modality Room air FiO2 % 21.0 B-Type Natriuretic Peptide 974.56 pg/mL (0-100) Lipase 26 U/L (12-53) Other Laboratory Tests 03/07/25 06:02 Brief Hx & Hospital Course: This is a 59 years old male with past medical history of congestive heart failure, coronary artery disease, COPD, hypertension, left hip surgery, left wrist surgery, pacemaker and hernia come to emergency department because shortness for breath for two days. Patient also reports had abdominal pain and nausea but upon examination said his hernia pain had improved. The patient had drinking five beers per day and smoked half pack of cigarette per day. He also used marijuana daily. He is noncompliant with his medication especially for his heart failure medication. The patient did not use oxygen at home and in the hospital he required 2 L nasal cannula of oxygen. The patient was admitted. The patient was treated for congestive heart failure exacerbation. His echo was done showed EF of 20%. His CT scan abdomen and pelvis showed: Large supra umbilical hernia containing loops of non obstructed small and large bowel. Moderate left periumbilical hernia containing fat and trace acidic fluid. Mild bladder wall thickening. The patient did not complain of any urinary symptoms. The patient was given Lasix 40 mg IV b.i.d.. Surgery was consulted for his abdominal umbilical hernia. recommended outpatient further evaluation for elective surgery. I also explained to the patient with his EF of 20% with pacemaker his risks of cardiac complication of surgery is high. The patient will follow up with Dr. Houston, surgeon as outpatient. Follow up with primary care physician 1-2 weeks. Activity as tolerated. Diet per home diet. Recommend low-salt low-cholesterol diet. Advised the patient to stop smoking and drinking. Also stop marijuana. Physical exam: HEENT: Normocephalic atraumatic pupils equal react to light and accommodation. Extraocular muscles intact, conjunctiva pink, oropharynx moist, no thrush, no exudate. Lymphatic: No lymphadenopathy Cardiovascular exam: S1, S2 was heard. No murmurs, rubs, gallops Lung: Clear on auscultation bilaterally, no wheeze, rale, rhonchi. GI: Abdominal soft, nondistended, nontenderness, positive bowel sounds. Extremity: No crepitus, cyanosis, edema. Pedal pulses present bilateral. Full range of motion. Skin: Normal turgor, no rash. Psych: Alert, oriented x3. Neurology: No focal deficits, cranial nerve II to XII grossly intact. This medical document was created using an electronic medical record system with [employer] computerized dictation system. Although this document has been carefully reviewed, there may still be some phonetic and typographical errors. These areas are purely typographical due to imperfections of the software programs, and do not reflect any compromise in the patient's medical care. Condition at Discharge: Stable Final Diagnosis/Problems List Acute on chronic CHF exacerbation Acute on chronic systolic heart failure, EF 20% Lactic acidosis likely due to sepsis Hypertensive urgency Acute hypoxic respiratory failure Large supraumbilical hernia containing loops of nonobstructed small and large bowel Medication noncompliance Tobacco use Alcohol use Marijuana use Cardiomegaly Hyperbilirubinemia likely due to alcohol use History of CAD History of COPD History of hypertension History of left hip surgery History of left wrist surgery History of pacemaker Discharge Disposition: Home Discharge Instruct/Medications Diet: Cardiac 2g Na,low cholest Activity: No Restrictions, As Tolerated Follow Up/Referral: PCP 1-[address] Houston, surgeon as outpatient to evaluate the umbilical hernia Medications: Resume home meds Scheduled Albuterol Sulfate (Albuterol Sulfate Hfa), 2 PUFF INH Q6HPRN Amiodarone Hcl (Amiodarone Hcl), 200 MG PO DAILY Apixaban Base (Eliquis), 1 TAB PO BID Aspirin (Asa), 81 MG PO DAILY Atorvastatin Calcium (Atorvastatin Calcium), 1 TAB PO DAILY Carvedilol (Carvedilol), 1 TAB PO BID Furosemide (Furosemide), 40 MG PO DAILY Sacubitril-Valsartan (Entresto 24-26 mg), 1 TAB PO BID Spironolactone (Spironolactone), 1 TAB PO DAILY Scheduled PRN Hydrocodone-Acetaminophen (Hydrocodone Bitartrate/AC 5-325 mg), 1 TAB PO Q4HP PRN Discontinued Medications Doxycycline (Monohydrate) (Doxycycline), 100 MG PO BID Discharge Statement: "Patient was advised to return to the ER or call 911 if any headaches, dizziness, shortness of breath, chest pain, abdominal pain, bleeding, fevers, or worsening of medical condition. Patient was counseled about treatment plan, medications, possible side effects, patientverbalized understanding. All questions were answered to the best of my ability. This discharge took greater then 30 minutes in planning, reviewing documentation, counseling the patient, and discussing with other team members." ASSESSMENT ASSESSMENT Assessment CHF exacerbation Date of Service: Mar 07, 2025 Billing Provider: LAYLA HE MD Common Visit Codes: [id number] DISCH DAY >30min LAYLA HE MD Mar 07, 2025 11:21
[2025-03-07 12:21] VITALS: BP 111/82; PULSE 77; TEMP 36.6
[2025-03-07] MEDS ORDERED: HYDR-4902 PO (12:32)
[2025-03-07] MEDS ORDERED: ALBU108A5 INH (12:32)
[2025-03-07] MEDS ORDERED: CARV12.544 PO (12:32)
[2025-03-07] MEDS ORDERED: SPIR25TA8 PO (12:32)
[2025-03-07] MEDS ORDERED: FURO40TA4 PO (12:32)
[2025-03-07] MEDS ORDERED: ATOR20TA50 PO (12:32)
[2025-03-07] MEDS ORDERED: SACU1TAB PO (12:32)
[2025-03-07] MEDS ORDERED: APIX5TAB PO (12:32)
[2025-03-07] MEDS ORDERED: AMIO200T33 PO (12:32)
== END 2025-03-07 13:31 | disposition home or self-care (01) | DRG 133 ==
LOC: EDBD 19:39 → ER 19:39 → OVERFLOW 03-02 07:25 → WEST WING 03-02 10:54 → TELE-WESTW 03-02 12:12
PROVIDERS: ADMIT Internal Medicine; ATTEND Internal Medicine
DX: J96.01 Acute respiratory failure with hypoxia (principal); I50.23 Acute on chronic systolic (congestive) heart failure; E87.20 Acidosis, unspecified; I16.0 Hypertensive urgency; K42.9 Umbilical hernia without obstruction or gangrene; I11.0 Hypertensive heart disease with heart failure; I25.10 Atherosclerotic heart disease of native coronary artery without angina pectoris; J44.9 Chronic obstructive pulmonary disease, unspecified; F17.210 Nicotine dependence, cigarettes, uncomplicated; J98.4 Other disorders of lung; K43.9 Ventral hernia without obstruction or gangrene; F12.90 Cannabis use, unspecified, uncomplicated; E80.6 Other disorders of bilirubin metabolism; Z83.3 Family history of diabetes mellitus; Z82.49 Family history of ischemic heart disease and other diseases of the circulatory system; Z91.148 Patient's other noncompliance with medication regimen for other reason; Z95.0 Presence of cardiac pacemaker; Z71.6 Tobacco abuse counseling
CPT/HCPCS: 36415; 36600; 71045; 74176; 80048; 80053; 80307; 80320; 81001; 82805; 83605; 83690; 83735; 83880; 84484; 85025; 87040; 87086; 93005; 93306; 96365; 96375; 99291; G0378; J2405; J2543

== ENCOUNTER 2025-05-13 18:52 | Inpatient (IN) | payer MEDICAID ==
[~2025-05-13] VITALS: Ht 185.4 cm; Wt 107.5 kg
[~2025-05-13 18:52] MED LIST changes: -DOXY-346 PO; +HYDR-4902 PO
[2025-05-13 19:18] VITALS: PULSE 150; RESP 24; O2SAT 95
--- NOTE | 2025-05-13 19:21 | ED.PDOC ---
HPI Comments HPI: 60 y/o M is BIBA for c/c of AICD discharge. Significant history for AFib, AICD, CHF, hypertension, pleural effusion, noncompliance, and alcohol abuse. Patient reports on his AICD, suddenly, discharging 4 times 20 minutes prior to ED arrival. Patient has been drinking alcohol and not taking his medication for over the past 2-3 days. He has associated dull chest discomfort and mild shortness of breath. Denies any further acute symptoms. Per EMS personal report, patient was found, initially, and AFib RVR and a blood glucose of 134. Patient is on Eliquis Initial Vitals BP:165/115 HR:153 RR:22 O2:97% on room air Temp: N/A Past Medical History: AFib, CHF, hypertension, pleural effusion, noncompliance Past Surgical History: AICD Social History: Alcohol abuse Medications:Lasix, carvedilol, Eliquis Discharge Summary for acute on chronic CHF exacerbation admission Date of Admission Mar 02, 2025 at 07:25 Date of Discharge: Mar 07, 2025 Final Diagnosis/Problems List Acute on chronic CHF exacerbation Acute on chronic systolic heart failure, EF 20% Lactic acidosis likely due to sepsis Hypertensive urgency Acute hypoxic respiratory failure Large supraumbilical hernia containing loops of nonobstructed small and large bowel Medication noncompliance Tobacco use Alcohol use Marijuana use Cardiomegaly Hyperbilirubinemia likely due to alcohol use History of CAD History of COPD History of hypertension History of left hip surgery History of left wrist surgery History of pacemaker HPI: Poor Historian. Past Medical History: Past Surgical History: REVIEW OF SYSTEMS: CONSTITUTIONAL: Denies acute: fever, chills, HEAD: Denies acute: headache, photophobia Eyes: Denies acute: Double vision, vision loss, eye pain, eye discharge. EARS: Denies acute: tinnitus, hearing loss, ear discharge, ear pain, THROAT: Denies acute: sore throat, swelling, difficulty swallowing , pain with swallowing, change in voice. NECK: Denies acute: neck pain, neck swelling, stiff neck. HEART: Denies acute : palpitations, LUNGS: Denies acute: wheezing, cough, hemoptysis ABDOMEN: Denies acute: abdominal pain, Nausea, Vomiting, diarrhea, melena , hematemesis, hematochezia SKIN: Denies acute: rash, redness, lesions, itchiness. EXTREMITIES: Denies acute: calf pain, numbness, tingling, weakness, denies pain in extremity. Denies acute: Low back pain. Neuro: Denies acute: focal neurological deficit, motor or sensory focal neurological deficit, tremors, seizure like activity, confusion, dizziness, change in mental status, loss of bowel or bladder function, cauda equina like symptoms. : Denies acute: dysuria, hematuria, flank pain, increase in urinary frequency. PSYCH: Denies acute: hallucination, suicidal ideation, homicidal ideation. PHYSICAL EXAM: General: ----moderate to severe----acute distress, awake and alert. Head: normocephalic, atraumatic. No raccoon's eyes, no amaro sign. Neck: supple, trachea is midline, no swelling. Throat: Normal phonation. Eyes:, no erythema, no purulent discharge, no proptosis, no icterus. Heart: regular tachycardic, no significant murmur appreciated. Lungs: apparent respiratory distress, No wheezing, no rhonchi, bilateral crackles. No stridors Abdomen: non tender to palpation, non distended, soft, no guarding, no rebound, + bowel sounds. Neuro: Awake, Alert, oriented to name, self, situation, follows commands GCS=15. Speech is normal. Skin: no petechia, no purpura, no cyanosis, non-pale, not jaundice. Lower extremities: --1/4 bilateral - Pitting edema no deformity, no focal swelling, no calf TTP. Makes eye contact. moves all four extremities. Face: no apparent facial droop. ED COURSE: DISCLAIMER: This medical document was created using an electronic medical record system with voice recognition software and computerized dictation system. Although this document has been carefully reviewed, there might still be some phonetic and typographical errors. Occasional wrong-word or "sound-alike" substitutions may have occurred due to the inherent limitations of voice recognition software. These areas are purely typographical due to imperfections of the software programs and do not reflect any compromise in the patient's medical care. Please read the chart carefully and recognize, using context, where these substitutions have occurred. 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, Medications, Allergies Allergies: Coded Allergies: NO KNOWN ALLERGIES (Unverified , 04/18/22) Home Meds Active Scripts Hydrocodone-Acetaminophen (Hydrocodone Bitartrate/AC 5-325 mg) 1 Tab Tab, 1 TAB PO Q4HP PRN, #20 TAB Prov:LAYLA HE MD 03/07/25 Amiodarone Hcl (Amiodarone Hcl) 200 Mg Tab, 200 MG PO DAILY for 30 Days, #60 TAB 5 Refills Prov:LAYLA HE MD 03/07/25 Atorvastatin Calcium (ATORVASTATIN CALCIUM) 20 Mg Tab, 1 TAB PO DAILY, #90 TAB 5 Refills Prov:LAYLA HE MD 03/07/25 Sacubitril-Valsartan (Entresto 24-26 mg) 1 Tab Tab, 1 TAB PO BID, #60 TAB 5 Refills PT MUST BRING MED PER PHARMACY Prov:LAYLA HE MD 03/07/25 Spironolactone (Spironolactone) 25 Mg Tab, 1 TAB PO DAILY, #60 TAB 9 Refills Prov:LAYLA HE MD 03/07/25 Furosemide (Furosemide) 40 Mg Tab, 40 MG PO DAILY, #30 TAB 5 Refills Prov:LAYLA HE MD 03/07/25 Albuterol Sulfate (Albuterol Sulfate Hfa) 108 Mcg/Act Aer, 2 PUFF INH Q6HPRN, #1 AER 1 Refill Prov:LAYLA HE MD 03/07/25 Apixaban Base (ELIQUIS) 5 Mg Tab, 1 TAB PO BID, #60 TAB 9 Refills Prov:LAYLA HE MD 03/07/25 Carvedilol (Carvedilol) 12.5 Mg Tab, 1 TAB PO BID, #60 TAB 9 Refills Prov:LAYLA HE MD 03/07/25 Aspirin (Asa) 81 Mg Ch, 81 MG PO DAILY, #30 TAB.CHEW Prov:SILVERIO SOTO MD 04/16/20 Information Source: Patient, Emergency Med Personnel Mode of Arrival: EMS Past Medical History PAST MEDICAL HISTORY: AFIB, CAD, CHF, COPD, HTN Past Medical History (Other): Current hernia Pleural effusion Surgical History: Pacemaker (AICD) Family History Family History: Reviewed,noncontributory to illness, Family hx of DM, Family hx of HTN Social History Smoker: Cigarettes, Greater Than 1 Pack/Day Alcohol: Occasionally Drugs: Marijuana, Methamphetamine Lives In: Home EKG EKG : Pulse Rate (adult): 134 Keyes: Normal Cardiac Rhythm: Paced Block: None Hypertrophy: None ST: Normal Comments no STEMI Was a procedure done? Was a procedure done?: No CP Differential Dx Differential Diagnosis: A-fib, A-Flutter, Angina, Anxiety / Panic Attack, Atrial Dysrhythmia, Digoxin Toxicity, Electrolyte Disorder, Heart Failure, Hyperthyroidism, Hyperventilation, Hypoxia, MAT, NH, PAC's, Pacemaker Malfunction, PSVT, Pulmonary Embolus, PVC's, Renal Failure, Sinus Tachycardia, Torsades De Pointes, Ventricular Dysrhythmia, V-Fib, V-Tach Differential Diagnosis: Other (DDx include ACS, unstable angina, anxiety, PE, pneumothroax, neoplasm, cardiac ischemia, COPD, asthma, CHF, pleural effusion, tobacco abuse, pneumonia, hypoxia, hypercapnia, anemia., infection/sepsis., pulmonary edema. Asthma, Cardiac tamponade, infection.) X-Ray, Labs, Meds, VS Vital Signs Date Time Temp Pulse Resp B/P (MAP) Pulse Ox O2 Delivery O2 Flow Rate FiO2 05/13/25 22:00 109 20 171/117 (135) 93 05/13/25 21:24 98 05/13/25 21:00 98 41 114/91 (99) 98 05/13/25 20:46 109 109/81 05/13/25 20:00 122 15 109/81 (90) 96 05/13/25 19:46 118 154/116 05/13/25 19:46 154/116 05/13/25 19:21 134 05/13/25 19:18 150 24 95 Nasal Cannula* 2 28 05/13/25 19:18 98.6 150 24 154/116 (129) 95 98.6 05/13/25 19:13 98.6 140 20 160/111 97 98.6 05/13/25 19:08 134 Lab Test 05/13/25 21:12 05/13/25 20:05 05/13/25 19:30 05/13/25 19:12 Range/Units Lactic Acid Level 1.6 2.6 *H 0.4-2.0 mmol/L Troponin I High Sensitivity 152 *H 102 *H </=54 ng/L Urine Color Yellow Yellow Urine Clarity Turbid H Clear Urine pH 6.0 5.0-9.0 Urine Specific Byron 1.024 1.001-1.035 Urine Protein 3+ H Negative Urine Ketones Trace Negative Urine Blood 2+ H Negative /uL Urine Nitrite Negative Negative Urine Bilirubin Negative Negative Urine Urobilinogen Normal Negative mg/dL Urine Leukocyte Esterase Negative Negative /uL Urine RBC 7 0 - 3 /hpf Urine Microscopic WBC 5 H 0-3 /HPF Urine Squamous Epithelial Cells Few <5 /hpf Urine Bacteria None seen None Seen /hpf Urine Hyaline Casts Mod 0 - 2 /lpf Urine Mucus Few None Seen Urine Glucose Normal Normal mg/dL Urine Opiates Screen Neg NEGATIVE Urine Fentanyl Screen Neg NEGATIVE Urine Barbiturates Screen Neg NEGATIVE Urine Phencyclidine Screen Neg NEGATIVE Urine Amphetamines Screen Neg NEGATIVE Urine Benzodiazepines Screen Neg NEGATIVE Urine Cocaine Screen Neg NEGATIVE Urine Cannabinoids Screen Pos NEGATIVE White Blood Count 6.5 4.4-10.8 10^3/uL Red Blood Count 5.69 4.5-5.90 10^6/uL Hemoglobin 17.0 13.5-17.5 g/dL Hematocrit 51.2 41.0-53.0 % Mean Corpuscular Volume 89.9 80.0-100.0 fL Mean Corpuscular Hemoglobin 29.9 28.0-32.0 pg Mean Corpuscular Hemoglobin Concent 33.3 32.0-36.0 g/dL Red Cell Distribution Width 14.5 H 11.8-14.3 % Platelet Count 200 140-450 10^3/uL Mean Platelet Volume 8.8 6.9-10.8 fL Neutrophils (%) (Auto) 68.9 37.0-80.0 % Lymphocytes (%) (Auto) 14.6 10.0-50.0 % Monocytes (%) (Auto) 16.0 H 0.0-12.0 % Eosinophils (%) (Auto) 0.0 0.0-7.0 % Basophils (%) (Auto) 0.5 0.0-2.0 % Neutrophils # (Auto) 4.5 1.6-8.6 10 ^3/uL Lymphocytes # (Auto) 1.0 0.4-5.4 10 ^3/uL Monocytes # (Auto) 1.0 0-1.3 10 ^3/uL Eosinophils # (Auto) 0 0-0.8 10 ^3/uL Basophils # (Auto) 0 0-0.2 10 ^3/uL Nucleated Red Blood Cells 0.2 % Sodium Level 135 L 136-145 mmol/L Potassium Level 3.5 3.5-5.1 mmol/L Chloride Level 100 98-107 mmol/L Carbon Dioxide Level 22 20-31 mmol/L Anion Gap 13 5-15 Blood Urea Nitrogen 9 9-23 mg/dL Creatinine 1.09 0.700-1.30 mg/dL Glomerular Filtration Rate Calc 78 >90 mL/min BUN/Creatinine Ratio 8.3 L 10.0-20.0 Serum Glucose 122 H 74-106 mg/dL Calcium Level 9.0 8.7-10.4 mg/dL Magnesium Level 1.7 1.6-2.6 mg/dL Total Bilirubin 0.6 0.2-1.0 mg/dL Aspartate Amino Transferase (AST) 28 13-40 U/L Alanine Aminotransferase (ALT) 19 7-40 U/L Alkaline Phosphatase 89 46-116 U/L B-Type Natriuretic Peptide 2117.76 0-100 pg/mL Total Protein 7.6 5.7-8.2 g/dL Albumin 4.3 3.2-4.8 g/dL Plasma/Serum Blood Alcohol 40.8 H <10 mg/dL Current Medications Medications (Trade) Dose Ordered Sig/Jorge Route Start Time Stop Time Status Last Admin Furosemide (Lasix Injection) 60 mg ONCE ONCE IV 05/13/25 19:45 05/13/25 19:46 DC 05/13/25 19:46 Metoprolol Tartrate (Lopressor) 5 mg ONCE ONCE IV 05/13/25 19:45 05/13/25 19:46 DC 05/13/25 19:46 Piperacillin Sod/ Tazobactam Sod 100 ml @ 100 mls/hr ONCE ONCE IV 05/13/25 20:15 05/13/25 21:14 DC 05/13/25 20:18 Amiodarone HCl 100 ml @ 600 mls/hr ONCE ONCE IV 05/13/25 20:15 05/13/25 20:24 DC 05/13/25 20:45 Amiodarone HCl 250 ml @ 33.33 mls/ hr Q7H31M ONCE IV 05/13/25 20:30 05/14/25 04:00 DC 05/13/25 21:00 Aspirin (Ecotrin Enteric Coated Tablet) 325 mg ONCE ONCE PO 05/13/25 20:45 05/13/25 20:46 DC 05/13/25 20:44 [place] [id number] Ph: [phone] DIAGNOSTIC IMAGING Diagnostic Imaging Report : [id number] Signed PATIENT: LEX VU ACCT: [id number] UNIT: [id number] : 1965 LOC: ER ROOM / BED: / AGE / SEX: 60 / M ADM STATUS: REG ER SERVICE 03 ORDERING PHYSICIAN: LINDA PRICE DO PROCEDURE(s): CXRP - CHEST PORTABLE REASON: sob ORDER NUMBER(s): [id number], ACCESSION NUMBER(s): [id number] CHEST RADIOGRAPH Indication: sob Technique: Single frontal view of the chest was obtained Comparison: XY CHEST PORTABLE on DOS: 03/01/25, XY CHEST XRAY 1 VIEW on DOS: 05/06/24, XY CHEST PORTABLE on DOS: 04/28/24 FINDINGS: Lines and Tubes: None Lungs: No focal consolidation. Diffuse interstitial prominence. Pleura: No effusion. No pneumothorax. Cardiomediastinal contours: [id number] cardiomegaly. Left-sided approach biventricular lead AICD in satisfactory position. Bones: No acute osseous abnormality. IMPRESSION: Cardiomegaly with pulmonary vascular congestion. ATED BY: SINDHU HELMS DO DICTATED DATE/TIME: 05/13/251957 SIGNED BY: SINDHU HELMS DO SIGNED DATE/TIME: 05/13/251957 CC: Time of 1ST Reevaluation: 19:00 Reevaluation 1ST: Unchanged Patient Education/Counseling: Diagnosis, Treatment Family Education/Counseling: No Family Present Comments MDM: patient presented with the above HPI.---cardiac---workup was initiated. patient was found with the above mentioned diagnosis. the following medications were ordered: please refer to order lists of meds and tests obtained by myself Dr. Price. Patient ED course and VS have been stabilized. Patient has been reassessed in the ED and remained in a stable condition. Pertinent incidental findings were discussed with the patient and/or family. Patient/family voices understanding and is agreeable with plan. Patient has been observed in the ED adequate length of time to insure improvement/stability. Escalation of care considered: Consideration of escalation to observation or admission Patient was given full-dose aspirin, patient was given Lopressor but continued to be in AFib with RVR although the rate improved slightly. patient was started on amiodarone drip. Patient was given Zosyn. Lasix was ordered. I ordered for the pacemaker to be interrogated Patient was ADMITTED to the medicine team for further evaluation and treatment of their presentation. All the reports of any imaging studies that were ordered by myself were reviewed by myself. SEPSIS Sepsis Screen Physician Orders Garbage Collector Supervisor (05/13/25 ) Chest Portable (05/13/25 19:04) Electrocardigram (05/13/25 19:04) Amiodarone 450mg/250ml Ae (Cordarone) (05/14/25 02:30) Vital Signs Date Time Temp Pulse Resp B/P (MAP) Pulse Ox O2 Delivery O2 Flow Rate FiO2 05/13/25 22:00 109 20 171/117 (135) 93 05/13/25 21:24 98 05/13/25 21:00 98 41 114/91 (99) 98 05/13/25 20:46 109 109/81 05/13/25 20:00 122 15 109/81 (90) 96 05/13/25 19:46 118 154/116 05/13/25 19:46 154/116 05/13/25 19:21 134 05/13/25 19:18 150 24 95 Nasal Cannula* 2 28 05/13/25 19:18 98.6 150 24 154/116 (129) 95 98.6 05/13/25 19:13 98.6 140 20 160/111 97 98.6 05/13/25 19:08 134 Laboratory Tests Test 05/13/25 19:12 05/13/25 21:12 Lactic Acid Level 2.6 mmol/L (0.4-2.0) *H 1.6 mmol/L (0.4-2.0) White Blood Count 6.5 10^3/uL (4.4-10.8) Medications Medications Dose Ordered Sig/Jorge Route Start Time Stop Time Status Last Admin Dose Admin Amiodarone HCl 100 ml @ 600 mls/hr ONCE ONCE IV 05/13/25 20:15 05/13/25 20:24 DC 05/13/25 20:45 Amiodarone HCl 250 ml @ 33.33 mls/ hr Q7H31M ONCE IV 05/13/25 20:30 05/14/25 04:00 DC 05/13/25 21:00 Aspirin 325 mg ONCE ONCE PO 05/13/25 20:45 05/13/25 20:46 DC 05/13/25 20:44 Furosemide 60 mg ONCE ONCE IV 05/13/25 19:45 05/13/25 19:46 DC 05/13/25 19:46 Metoprolol Tartrate 5 mg ONCE ONCE IV 05/13/25 19:45 05/13/25 19:46 DC 05/13/25 19:46 Piperacillin Sod/ Tazobactam Sod 100 ml @ 100 mls/hr ONCE ONCE IV 05/13/25 20:15 05/13/25 21:14 DC 05/13/25 20:18 Departure 1 Departure Time of Disposition: 20:06 Impression: Primary Impression: Acute exacerbation of congestive heart failure Additional Impressions: Elevated troponin Defibrillator discharge Atrial fibrillation with RVR Disposition: ADMITTED INPATIENT Admit to: [facility] Condition: Guarded Discharged With: Self Critical Care Note Critical Care Time?: Yes (1 hr-critical care time only) Heart Score Heart Score: Heart Score Response (Comments) Value History Highly Suspicious 2 EKG Repolarization Disturb 1 Age 45-64 1 Risk Factors >3 or Hx ASHD 2 Troponin 1-2 x's Normal limit 1 Total 7 I personally scribed for LINDA PRICE DO ([email or web address]) on 05/13/25 at 19:21. Electronically submitted by Vasiliy Archuleta ([email or web address]). I personally scribed for LINDA PRICE DO ([email or web address]) on 05/13/25 at 19:33. Electronically submitted by Vasiliy Archuleta ([email or web address]). I personally scribed for LINDA PRICE DO ([email or web address]) on 05/14/25 at 04:35. Electronically submitted by Vasiliy Archuleta ([email or web address]). LINDA PRICE DO May 13, 2025 19:21
[2025-05-13 19:38] LABS: Hematocrit 51.2 % (41.0-53.0); Hemoglobin 17.0 g/dL (13.5-17.5); Mean Corpuscular Hemoglobin 29.9 pg (28.0-32.0); Mean Corpuscular Volume 89.9 fL (80.0-100.0); Nucleated Red Blood Cells % 0.2 %
[2025-05-13] MEDS: METOPROLOL TARTRATE 1MG/1ML-5ML VIAL IV ONE (19:46)
[2025-05-13] MEDS: FUROSEMIDE 100 MG/10ML VIAL IV ONE (19:46)
[2025-05-13 19:51] LABS: Alanine Aminotransferase 19 U/L (7-40); Albumin 4.3 g/dL (3.2-4.8); Alkaline Phosphatase 89 U/L (46-116); Anion Gap 13 (5-15); BUN/Creatinine Ratio 8.3 (10.0-20.0); Bilirubin, Total 0.6 mg/dL (0.2-1.0); Blood Urea Nitrogen 9 mg/dL (9-23); Calcium 9.0 mg/dL (8.7-10.4); Carbon Dioxide 22 mmol/L (20-31); Chloride 100 mmol/L (98-107); Glucose 122 mg/dL (74-106); Magnesium 1.7 mg/dL (1.6-2.6); Potassium 3.5 mmol/L (3.5-5.1); Sodium 135 mmol/L (136-145); Total Protein 7.6 g/dL (5.7-8.2)
[2025-05-13 19:57] LABS: Lactic Acid w/Reflex 2.6 mmol/L (0.4-2.0)
--- NOTE | 2025-05-13 20:00 | DVH ---
CHEST RADIOGRAPH Indication: sob Technique: Single frontal view of the chest was obtained Comparison: XY CHEST PORTABLE on DOS: 03/01/25, XY CHEST XRAY 1 VIEW on DOS: 05/06/24, XY CHEST PORTABLE on DOS: 04/28/24 FINDINGS: Lines and Tubes: None Lungs: No focal consolidation. Diffuse interstitial prominence. Pleura: No effusion. No pneumothorax. Cardiomediastinal contours: [id number] cardiomegaly. Left-sided approach biventricular lead AICD in satisfactory position. Bones: No acute osseous abnormality. IMPRESSION: Cardiomegaly with pulmonary vascular congestion.
[2025-05-13] MEDS: PIPERACILLIN-TAZOB 3.375GM 100 ML IV ONE (20:18)
[2025-05-13] MEDS: ASPirin-EC 325mg tab PO ONE (20:44)
[2025-05-13] MEDS: AMIODARONE BOLUS KIT 100 ML IV ONE (20:45)
[2025-05-13] MEDS ORDERED: NITROGLYCERIN 0.4 MG SL TAB SL PRN (22:15)
[2025-05-13] MEDS ORDERED: DOCUSATE SOD 100 MG CAP PO PRN (22:15)
[2025-05-13] MEDS: FUROSEMIDE 40 MG/4 ML VIAL IV ONE (22:38)
--- NOTE | 2025-05-13 22:59 | DVHHP2 ---
History of Present Illness Reason for Visit: Palpitations History of Present Illness The patient is a 60-year-old male with past medical history of noncompliance, Coronary artery disease, CHF, AFib, COPD, hypertension, and pleural effusion who presented to [facility] ED with complaint of palpitations associated with chest discomfort and shortness of breaths. Patient reports that on his AICD, suddenly discharging 4 times 20 minutes prior to ED arrival. Patient states he has been drinking alcohol and not taking his medication for over the past 2-3 days. Patient was seen and evaluated in the ED, laboratory data shows WBC 6.5, platelets 200, sodium 135, potassium 3.5, BUN 9, creatinine 1.09, gl ucose 122, calcium 9.0, troponin 152, lactic acid 2.6, BNP 2117.76, serum alcohol 40.8, blood pressure 160/111 trending down to 114/91, heart rate 134 trending down to 96, temperature 98.6 F, O2 saturation 97% on room air. Chest x-ray revealing cardiomegaly with pulmonary vascular congestion. Patient was started on amiodarone drip, please see medication orders section in the compu ter. On my assessment, patient denied chest pain at this moment, no headache, dizziness, diaphoresis, shortness of breath, no diarrhea, nausea, vomiting, fever, no chills. Patient was admitted for further evaluation and medical management. Past Medical History AFIB, CAD, CHF, COPD, HTN, Current Hernia, Pleural effusion Past Surgical History Pacemaker (AICD) Family History Reviewed, noncontributory to the management of this case. Past Social History The patient lives at home, smokes cigarettes greater than 1 pack per day, drinks alcohol occasionally, uses marijuana and methamphetamine. Review of Systems Constitutional: Yes: Weakness; No: Fever, Chills, Sweats, Malaise, Other Eyes: No: Pain, Vision change, Conjunctivae inflammation, Eyelid inflammation, Other, Redness ENT: No: Ear pain, Ear discharge, Nose pain, Nose discharge, Nose congestion, Mouth pain, Mouth swelling, Throat pain, Throat swelling, Other Respiratory: Shortness of breath; No: Cough, Dry, SOB with excertion, Wheezing, Hemoptysis, Pleuritic Pain, Sputum, Wheezing, Other Cardiovascular: Palpitations; No: Chest Pain, Orthopnea, Paroxysmal Noc. Dyspnea, Edema, Lt Headedness, Other Gastrointestinal: No: Nausea, Vomiting, Abdominal Pain, Diarrhea, Constipation, Melena, Hematochezia, Other Genitourinary: No Dysuria, No Frequency, No Incontinence, No Hematuria, No Retention, No Other Musculoskeletal: No: other, neck pain, shoulder pain, arm pain, back pain, hand pain, leg pain, foot pain Skin: No: Rash, Lesions, Jaundice, Bruising, Other Neurological: No: Weakness, Numbness, Incoordination, Change in speech, Confusion, Seizures, Other Allergies: Coded Allergies: NO KNOWN ALLERGIES (Unverified , 04/18/22) Medications Current Medications Medications Dose Ordered Sig/Jorge Route Start Time Stop Time Status Last Admin Dose Admin Amiodarone HCl 250 ml @ 16.66 mls/ hr Q15H1M IV 05/14/25 02:30 Exam Vital Signs Vital Signs Date Time Temp Pulse Resp B/P (MAP) Pulse Ox O2 Delivery O2 Flow Rate FiO2 05/13/25 21:24 98 05/13/25 19:46 154/116 05/13/25 19:13 98.6 20 97 98.6 General Appearance: Alert, Oriented X3, Cooperative, No acute distress HEENT: Atraumatic, PERRLA, EOMI, Mucous membr. moist/pink Respiratory: Normal air movement Cardiovascular: Regular rate, Normal S1, Normal S2, No murmurs Abdominal: Normal bowel sounds, Soft, No tenderness, No hepatospenomegaly, No masses Extremities: No clubbing, No cyanosis, No edema, Normal pulses, No tenderness/swelling Skin: No rashes, No significant lesion Neuro: Normal speech, Normal tone, Sensation intact, Cranial nerves 3-12 NL, Reflexes 2+, Other (Generalized weakness) Psych/Mental Status: Mental status NL, Mood NL Labs/Xrays Labs Test 05/13/25 21:12 05/13/25 20:05 05/13/25 19:12 Range/Units Troponin I High Sensitivity 152 *H </=54 ng/L White Blood Count 6.5 4.4-10.8 10^3/uL Red Blood Count 5.69 4.5-5.90 10^6/uL Hemoglobin 17.0 13.5-17.5 g/dL Hematocrit 51.2 41.0-53.0 % Mean Corpuscular Volume 89.9 80.0-100.0 fL Mean Corpuscular Hemoglobin 29.9 28.0-32.0 pg Mean Corpuscular Hemoglobin Concent 33.3 32.0-36.0 g/dL Red Cell Distribution Width 14.5 H 11.8-14.3 % Platelet Count 200 140-450 10^3/uL Mean Platelet Volume 8.8 6.9-10.8 fL Neutrophils (%) (Auto) 68.9 37.0-80.0 % Lymphocytes (%) (Auto) 14.6 10.0-50.0 % Monocytes (%) (Auto) 16.0 H 0.0-12.0 % Eosinophils (%) (Auto) 0.0 0.0-7.0 % Basophils (%) (Auto) 0.5 0.0-2.0 % Neutrophils # (Auto) 4.5 1.6-8.6 10 ^3/uL Lymphocytes # (Auto) 1.0 0.4-5.4 10 ^3/uL Monocytes # (Auto) 1.0 0-1.3 10 ^3/uL Eosinophils # (Auto) 0 0-0.8 10 ^3/uL Basophils # (Auto) 0 0-0.2 10 ^3/uL Nucleated Red Blood Cells 0.2 % Sodium Level 135 L 136-145 mmol/L Potassium Level 3.5 3.5-5.1 mmol/L Chloride Level 100 98-107 mmol/L Carbon Dioxide Level 22 20-31 mmol/L Anion Gap 13 5-15 Blood Urea Nitrogen 9 9-23 mg/dL Creatinine 1.09 0.700-1.30 mg/dL Glomerular Filtration Rate Calc 78 >90 mL/min BUN/Creatinine Ratio 8.3 L 10.0-20.0 Serum Glucose 122 H 74-106 mg/dL Calcium Level 9.0 8.7-10.4 mg/dL Magnesium Level 1.7 1.6-2.6 mg/dL Total Bilirubin 0.6 0.2-1.0 mg/dL Aspartate Amino Transferase (AST) 28 13-40 U/L Alanine Aminotransferase (ALT) 19 7-40 U/L Alkaline Phosphatase 89 46-116 U/L B-Type Natriuretic Peptide 2117.76 0-100 pg/mL Total Protein 7.6 5.7-8.2 g/dL Albumin 4.3 3.2-4.8 g/dL Plasma/Serum Blood Alcohol 40.8 H <10 mg/dL PATIENT: LEX VU ACCT: [id number] UNIT: [id number] : 1965 LOC: ER ROOM / BED: / AGE / SEX: 60 / M ADM STATUS: REG ER SERVICE 03 ORDERING PHYSICIAN: LINDA PRICE DO PROCEDURE(s): CXRP - CHEST PORTABLE REASON: sob ORDER NUMBER(s): [id number], ACCESSION NUMBER(s): [id number] CHEST RADIOGRAPH Indication: sob Technique: Single frontal view of the chest was obtained Comparison: XY CHEST PORTABLE on DOS: 03/01/25, XY CHEST XRAY 1 VIEW on DOS: 05/06/24, XY CHEST PORTABLE on DOS: 04/28/24 FINDINGS: Lines and Tubes: None Lungs: No focal consolidation. Diffuse interstitial prominence. Pleura: No effusion. No pneumothorax. Cardiomediastinal contours: [id number] cardiomegaly. Left-sided approach biventricular lead AICD in satisfactory position. Bones: No acute osseous abnormality. IMPRESSION: Cardiomegaly with pulmonary vascular congestion. SEPSIS Sepsis Screen Date sepsis recognized/suspect: May 13, 2025 Time Sepsis recognized/suspect: 1909 Recent Procedure: No On Antibiotic Therapy: No Respiratory Rate >20: No Heart Rate >90: Yes Temp<36 C (96.8 F) or >38.3 C: No SBP <90 or MAP <65 mmHG: No New Acute Mental Status Change: No Is the patient on CPAP, BIPAP,: No Physician Orders Artists[employer] Model (05/13/25 ) Drug Screen (05/13/25 19:04) Urinalysis (05/13/25 19:04) Chest Portable (05/13/25 19:04) Electrocardigram (05/13/25 19:04) Troponin-I Hs (05/13/25 22:04) Amiodarone 450mg/250ml Ae (Cordarone) (05/13/25 20:30) Amiodarone 450mg/250ml Ae (Cordarone) (05/14/25 02:30) Carvedilol Tablet (Coreg Tablet) (05/14/25 10:00) Furosemide Injection (Lasix Injection) (05/13/25 22:15) Atorvastatin (Lipitor) (05/14/25 22:00) Apixaban (Eliquis) (05/14/25 10:00) Admit (05/13/25 22:06) Allergies (05/13/25 22:06) Code Status (05/13/25 22:06) Sodium Chloride Lock (Saline Lock Ns) (05/14/25 06:00) Oxygen Per Hour (05/13/25 22:06) Hydrocodone-Acet 5/325mg Tab ([place] 5/32 (05/13/25 22:15) Ondansetron Hcl (Zofran) (05/13/25 22:15) Docusate Sodium Capsule (Colace Capsule) (05/13/25 22:15) Fall Risk Precautions In Place QSHIFT (05/13/25 22:06) Complete Blood Count (05/14/25 04:00) Comprehensive Metabolic Panel (05/14/25 04:00) Cardiac Diet-2gna,Lofat,Lochol (05/14/25 Breakfast) Condition: Serious (05/13/25 22:06) Acetaminophen Tablet (Tylenol Tablet) (05/13/25 22:15) Maintain Bed Rest (05/13/25 22:06) Sequential Compression Device (05/13/25 ) Nitroglycerin Sublingual (Ntrostat Subli (05/13/25 22:15) Morphine Sulfate Injection (05/13/25 22:15) Stat Ekg For Chest Pain (05/13/25 22:06) Notify Md Of Changes From Base (05/13/25 22:06) Elevator Supervisor For 24 Hours (05/13/25 22:06) Emergency Dysrhythmia Protocol (05/13/25 22:06) Rhythm Strips Once Every Shift (05/13/25 22:06) Oxygen By Nasal Cannula (05/13/25 22:06) Vital Signs Date Time Temp Pulse Resp B/P (MAP) Pulse Ox O2 Delivery O2 Flow Rate FiO2 05/13/25 21:24 98 05/13/25 19:46 118 154/116 05/13/25 19:46 154/116 05/13/25 19:21 134 05/13/25 19:13 98.6 140 20 160/111 97 98.6 05/13/25 19:08 134 Laboratory Tests Test 05/13/25 19:12 05/13/25 21:12 Lactic Acid Level 2.6 mmol/L (0.4-2.0) *H Pending White Blood Count 6.5 10^3/uL (4.4-10.8) Medications Medications Dose Ordered Sig/Jorge Route Start Time Stop Time Status Last Admin Dose Admin Amiodarone HCl 100 ml @ 600 mls/hr ONCE ONCE IV 05/13/25 20:15 05/13/25 20:24 DC 05/13/25 20:45 600 MLS/HR Amiodarone HCl 250 ml @ 33.33 mls/ hr Q7H31M ONCE IV 05/13/25 20:30 05/14/25 04:00 05/13/25 21:00 33.33 MLS/HR Aspirin 325 mg ONCE ONCE PO 05/13/25 20:45 05/13/25 20:46 DC 05/13/25 20:44 325 MG Furosemide 60 mg ONCE ONCE IV 05/13/25 19:45 05/13/25 19:46 DC 05/13/25 19:46 60 MG Metoprolol Tartrate 5 mg ONCE ONCE IV 05/13/25 19:45 05/13/25 19:46 DC 05/13/25 19:46 5 MG Piperacillin Sod/ Tazobactam Sod 100 ml @ 100 mls/hr ONCE ONCE IV 05/13/25 20:15 05/13/25 21:14 DC 05/13/25 20:18 100 MLS/HR Assessment/Plan Assessment/Plan Atrial fibrillation with RVR Elevated troponin Hypertensive urgency Defibrillator discharge Pulmonary vascular congestion Acute exacerbation of congestive heart failure Plan 1. Admit to telemetry unit 2. Breathing treatment 3. Pain control management 4. Management of fluids and electrolytes 5. Consultation for cardiology 6. Diagnostic tests chest x-ray 7. DVT prophylaxis-on Eliquis 8. Repeat labs CBC, CMP in a.m. 9. Continue with current medical management 10. Treatment plan discussed with patient and RN. Patient verbalized understanding. Plan discussed with: Patient, Other (RN) My Orders Orders - JARETH WEINSTEIN DNP Procedure Category Date Status Time Carvedilol Tablet PHA 05/14/25 Transmitted (Coreg Tablet) 10:00 Furosemide Injection PHA 05/13/25 Transmitted (Lasix Injection) 22:15 Atorvastatin (Lipitor) PHA 05/14/25 Transmitted 22:00 Apixaban (Eliquis) [facility] 05/14/25 Transmitted 10:00 Admit ADMIT 05/13/25 Transmitted 22:06 Allergies [facility] 05/13/25 Transmitted 22:06 Code Status CODE 05/13/25 Transmitted 22:06 Sodium Chloride Lock PHA 05/14/25 Transmitted (Saline Lock Ns) 06:00 Oxygen Per Hour RT 05/13/25 Transmitted 22:06 Hydrocodone-Acet [facility] 05/13/25 Transmitted 5/325mg Tab ([place] 22:15 Ondansetron Hcl PHA 05/13/25 Transmitted (Zofran) 22:15 Docusate Sodium [facility] 05/13/25 Transmitted Capsule (Colace 22:15 Fall Risk Precautions [facility] 05/13/[address] 22:06 Complete Blood Count LAB 05/14/25 Verified 04:00 Comprehensive LAB 05/14/25 Verified Metabolic Panel 04:00 Cardiac DIET 05/14/25 Transmitted Diet-2gna,Lofat,Lochol Breakfast Condition: Serious [facility] 05/13/25 Transmitted 22:06 Acetaminophen Tablet [facility] 05/13/25 Transmitted (Tylenol Tablet) 22:15 Maintain Bed Rest [facility] 05/13/25 Transmitted 22:06 Sequential [facility] 05/13/25 Transmitted Compression Device Nitroglycerin [facility] 05/13/25 Transmitted Sublingual (Ntrostat 22:15 Morphine Sulfate [facility] 05/13/25 Transmitted Injection 22:15 Stat Ekg For Chest [facility] 05/13/25 Transmitted Pain 22:06 Notify Md Of Changes [facility] 05/13/25 Transmitted From Base 22:06 Elevator Supervisor For [facility] 05/13/25 Transmitted 24 Hours 22:06 Emergency Dysrhythmia [facility] 05/13/25 Transmitted Protocol 22:06 Rhythm Strips Once [facility] 05/13/25 Transmitted Every Shift 22:06 Oxygen By Nasal RT 05/13/25 Transmitted Cannula 22:06 Problem List: (1) Atrial fibrillation with RVR (2) Elevated troponin (3) Hypertensive urgency (4) Defibrillator discharge (5) Pulmonary vascular congestion (6) Acute exacerbation of congestive heart failure Date of Service: May 13, 2025 Billing Provider: JARETH WEINSTEIN DNP Common Visit Codes: [id number] INP/OBS CARE (HIGH) JARETH WEINSTEIN DNP May 13, 2025 22:59
[2025-05-14] MEDS: ONDANSETRON HCL 4 MG/2 ML VIAL IV PRN (00:02)
[2025-05-14] MEDS: HYDROcodone-ACET 5/325MG TAB PO PRN (00:03)
[2025-05-14 01:39] LABS: Amphetamine Screen, Urine Neg (NEGATIVE); Cannabinoid Screen, Urine Pos (NEGATIVE); Cocaine Screen, Urine Neg (NEGATIVE); Phencyclidine Screen, Urine Neg (NEGATIVE)
[2025-05-14 01:44] LABS: Opiate Scree,Urine Neg (NEGATIVE)
[2025-05-14 01:45] LABS: Barbiturate Scree,Urine Neg (NEGATIVE); Benzodiazephine Screen, Urine Neg (NEGATIVE)
[2025-05-14 01:50] LABS: Urine Protein, UAD 3+ (Negative)
[2025-05-14 05:33] LABS: Hemoglobin 19.3 g/dL (13.5-17.5)
[2025-05-14 05:34] LABS: Hematocrit 58.7 % (41.0-53.0); Mean Corpuscular Hemoglobin 29.8 pg (28.0-32.0); Mean Corpuscular Volume 90.8 fL (80.0-100.0); Nucleated Red Blood Cells % 0.2 %
[2025-05-14] MEDS: MORPHINE SULFATE INJ 2 MG/ml SYRG IV PRN (05:36)
[2025-05-14 05:53] LABS: Anion Gap 15 (5-15); BUN/Creatinine Ratio 7.1 (10.0-20.0); Blood Urea Nitrogen 14 mg/dL (9-23); Calcium 9.7 mg/dL (8.7-10.4); Carbon Dioxide 25 mmol/L (20-31); Potassium 3.7 mmol/L (3.5-5.1)
[2025-05-14 05:54] LABS: Bilirubin, Total 1.1 mg/dL (0.2-1.0)
[2025-05-14 06:03] LABS: Alanine Aminotransferase 58 U/L (7-40); Albumin 4.9 g/dL (3.2-4.8); Alkaline Phosphatase 122 U/L (46-116); Chloride 95 mmol/L (98-107); Glucose 122 mg/dL (74-106); Sodium 135 mmol/L (136-145); Total Protein 8.9 g/dL (5.7-8.2)
[2025-05-14] MEDS: SODIUM CHLOR 0.9% PF (SALINE LOCK) 10ML VIAL/SYR IV SCH (06:14)
--- NOTE | 2025-05-14 06:26 | ECG ---
[facility] Test Date: 2025-05-13 Test Time: 21:04:47 Pat Name: LEX VU Department: ED Room: 0274T Gender: M Email Production Consultant: : 1965 Requested By: LINDA PRICE Order Number: [id number] Reading MD: Aba Aguayo Measurements Intervals [place] Rate: 98 P: 0 NM: 0 QRS: 116 QRSD: 99 T: -5 QT: 385 QTc: 492 Interpretive Statements Ventricular-paced complexes No further analysis attempted due to paced rhythm Baseline wander in lead(s) V3,V5 Electronically Signed On 05-16-2025 17:54:24 PST by Aba Aguayo Please click the below link to view image of tracing.
[2025-05-14] MEDS: FUROSEMIDE 40 MG/4 ML VIAL ONE (06:55)
[2025-05-14 08:28] VITALS: PULSE 85; RESP 21; O2SAT 95
[2025-05-14] MEDS: APIXABAN 5 MG TAB PO SCH ×2 (10:54→22:13)
[2025-05-14] MEDS: CARVEDILOL 3.125 MG TAB PO SCH (10:55)
[2025-05-14] MEDS: NOREPINEPHRINE 8 MG/250ML KIT 250 ML IV ONE (12:32)
--- NOTE | 2025-05-14 12:42 | DVHPN2 ---
Changes from previous H/P or p: No Changes Eyes: No Pain, No Vision change, No Conjunctivae inflammation, No Eyelid inflammation, No Other, No Redness ENT: No Ear pain, No Ear discharge, No Nose pain, No Nose discharge, No Nose congestion, No Mouth pain, No Mouth swelling, No Throat pain, No Throat swelling, No Other Cardiovascular: No Chest Pain; Palpitations; No Orthopnea, No Paroxysmal Noc. Dyspnea, No Edema, No Lt Headedness, No Other Respiratory: No Cough, No Dry; Shortness of breath; No SOB with excertion, No Wheezing, No Hemoptysis, No Pleuritic Pain, No Sputum, No Other Gastrointestinal: No Nausea, No Vomiting, No Abdominal Pain, No Diarrhea, No Constipation, No Melena, No Hematochezia, No Other Genitourinary: No Dysuria, No Frequency, No Incontinence, No Hematuria, No Retention, No Other Musculoskeletal: No other, No neck pain, No shoulder pain, No arm pain, No back pain, No hand pain, No leg pain, No foot pain Skin: No Rash, No Lesions, No Jaundice, No Bruising, No Other Objective Vitals Vital Signs Date Time Temp Pulse Resp B/P (MAP) Pulse Ox O2 Delivery O2 Flow Rate FiO2 05/14/25 12:22 70 05/14/25 10:55 128/99 05/14/25 10:00 21 91 05/14/25 08:28 Room Air* 0 21 05/14/25 08:00 97.3 97.3 Intake/Output Intake and Output 05/14/25 07:00 Intake Total 399.98 ml Balance 399.98 ml Intake IV Total 399.98 ml Medications Current Medications Medications Dose Ordered Sig/Jorge Route Start Time Stop Time Status Last Admin Dose Admin Amiodarone HCl 250 ml @ 16.66 mls/ hr Q15H1M IV 05/14/25 02:30 05/14/25 05:36 16.66 MLS/HR Carvedilol 6.25 mg Q12HR PO 05/14/25 10:00 05/14/25 10:55 6.25 MG Atorvastatin Calcium 20 mg HS PO 05/14/25 22:00 Apixaban 5 mg BID PO 05/14/25 10:00 05/14/25 10:54 5 MG Sodium Chloride 10 ml Q8HR IV 05/14/25 06:00 05/14/25 06:14 10 ML Acetaminophen/ Hydrocodone Bitart 1 tab Q4HP PRN PO 05/13/25 22:15 05/14/25 05:36 1 TAB Ondansetron HCl 4 mg Q4HP PRN IV 05/13/25 22:15 05/14/25 11:46 4 MG Docusate Sodium 100 mg BIDPRN PRN PO 05/13/25 22:15 Acetaminophen 650 mg Q6HP PRN PO 05/13/25 22:15 Nitroglycerin 0.4 mg Q5MINP PRN SL 05/13/25 22:15 Morphine Sulfate 2 mg Q30M PRN IV 05/13/25 22:15 05/14/25 05:36 2 MG Norepinephrine Bitartrate 250 ml @ 3.75 mls/hr Q24H IV 05/14/25 12:30 UNV Laboratory Results Laboratory Tests 05/14/25 05:15 Chemistry Test 05/13/25 19:12 05/14/25 05:15 Albumin 4.3 g/dL (3.2-4.8) 4.9 g/dL (3.2-4.8) H Calcium Level 9.0 mg/dL (8.7-10.4) 9.7 mg/dL (8.7-10.4) Magnesium Level 1.7 mg/dL (1.6-2.6) Total Protein 7.6 g/dL (5.7-8.2) 8.9 g/dL (5.7-8.2) H Cardiac Markers Test 05/13/25 19:12 B-Type Natriuretic Peptide 2117.76 pg/mL (0-100) LFT Test 05/13/25 19:12 05/14/25 05:15 Alanine Aminotransferase (ALT) 19 U/L (7-40) 58 U/L (7-40) H Alkaline Phosphatase 89 U/L (46-116) 122 U/L (46-116) H Aspartate Amino Transferase (AST) 28 U/L (13-40) 128 U/L (13-40) H Total Bilirubin 0.6 mg/dL (0.2-1.0) 1.1 mg/dL (0.2-1.0) H Urinalysis Test 11/15/25 19:30 Urine Color Yellow (Yellow) Urine Clarity Turbid (Clear) H Urine pH 6.0 (5.0-9.0) Urine Specific [place] 1.024 (1.001-1.035) Urine Protein 3+ (Negative) H Urine Ketones Trace (Negative) Urine Blood 2+ /uL (Negative) H Urine Nitrite Negative (Negative) Urine Bilirubin Negative (Negative) Urine Urobilinogen Normal mg/dL (Negative) Urine Leukocyte Esterase Negative /uL (Negative) Urine RBC 7 /hpf (0 - 3) Urine Microscopic WBC 5 /HPF (0-3) H Urine Squamous Epithelial Cells Few /hpf (<5) Urine Bacteria None seen /hpf (None Seen) Urine Hyaline Casts Mod /lpf (0 - 2) Urine Mucus Few (None Seen) Urine Glucose Normal mg/dL (Normal) Labs and/or images reviewed: Labs reviewed by me, Image(s) reviewed by me Assessment/Plan Assessment/Plan Acute Non ST-elevation SC troponin 142: Aspirin treatment per ACS protocol, consult for director information Dr. Luz Maria Diane Called by nurse Mcmahon evaluated the patient for change in condition with profuse sweating and low blood pressure, spoke with director information Dr. Luz Maria Diane Acute on chronic CHF exacerbation Acute on chronic systolic heart failure, EF 20% Lactic acidosis likely due to sepsis Hypertensive urgency Acute hypoxic respiratory failure Large supraumbilical hernia containing loops of nonobstructed small and large bowel Medication noncompliance Tobacco use Alcohol use Marijuana use Cardiomegaly Hyperbilirubinemia likely due to alcohol use History of CAD History of COPD History of hypertension History of left hip surgery History of left wrist surgery History of pacemaker Time Spent 90 minutes Advanced care planning time 20 minutes Patient is full code Condition serious Plan discussed with: Patient My Orders Orders - KATHARINE FLORES MD Procedure Category Date Status Time * Cardiology Consult CONS 05/14/25 Transmitted 12:26 Norepinephrine 8 PHA 05/14/25 Logged Mg/250ml Kit 12:30 Date of Service: May 14, 2025 Billing Provider: KATHARINE FLORES MD Common Visit Codes: [id number] CARE 30-74 MIN KATHARINE FLORES MD May 14, 2025 12:42
[2025-05-14] MEDS: NOREPINEPHRINE 8 MG/250ML KIT 250 ML IV SCH (12:51)
[2025-05-14 17:30] VITALS: BP 137/87; PULSE 78; PULSE 86; PULSE 87; RESP 15; RESP 17; TEMP 98; O2SAT 97
[2025-05-14 17:45] VITALS: BP 98/80; PULSE 71; RESP 16; O2SAT 96
[2025-05-14 18:00] VITALS: BP 122/97; PULSE 72; RESP 17; O2SAT 96
[2025-05-14 18:30] VITALS: BP 91/41; PULSE 88; RESP 16; O2SAT 96
[2025-05-14 19:00] VITALS: BP 137/102; PULSE 87; RESP 16; RESP 18; O2SAT 96; O2SAT 98
[2025-05-14] MEDS ORDERED: CARVEDILOL 12.5 MG TAB PO SCH (22:00)
[2025-05-14] MEDS ORDERED: ATORVASTATIN 20 MG TAB PO SCH (22:00)
[2025-05-14] MEDS: ATORVASTATIN 20 MG TAB PO SCH (22:12)
--- NOTE | 2025-05-14 22:22 | DVHINCON2 ---
Date of service: May 14, 2025 Referring Physician Martín Reason for Consultation Heart palpitations History of Present Illness This is a 60-year-old male with a past medical history of noncompliance, Coronary artery disease, CHF, AFib, COPD, hypertension, and pleural effusion who presented to the ED with a complaint of heart palpitations associated with chest discomfort and shortness of breaths. Patient reports that on his AICD, suddenly discharging 4 times 20 minutes prior to ED arrival. Patient states he has been drinking alcohol and not taking his medication for over the past 2-3 days. WBC 6.5, PLT 200, K 3.5, BUN 9, CORPORATE LEGAL INTERN 1.09, GLUC 122, CA 9.0, TROP 152, LA 2.6, BNP 2117.76, serum alcohol 40.8. Chest x-ray revealed cardiomegaly with pulmonary vascular congestion. Patient was admitted to the hospital. I am asked to consult on this patient. Family History: FH: lung cancer UNCLE Family history: Diabetes mellitus G8 FATHER Family history: Hypertension G8 MOTHER G8 FATHER, Onset:60 years & older Allergies: Coded Allergies: NO KNOWN ALLERGIES (Unverified , 04/18/22) Home Meds Active Scripts Hydrocodone-Acetaminophen (Hydrocodone Bitartrate/AC 5-325 mg) 1 Tab Tab, 1 TAB PO Q4HP PRN, #20 TAB Prov:LAYLA HE MD 03/07/25 Amiodarone Hcl (Amiodarone Hcl) 200 Mg Tab, 200 MG PO DAILY for 30 Days, #60 TAB 5 Refills Prov:LAYLA HE MD 03/07/25 Atorvastatin Calcium (ATORVASTATIN CALCIUM) 20 Mg Tab, 1 TAB PO DAILY, #90 TAB 5 Refills Prov:LAYLA HE MD 03/07/25 Sacubitril-Valsartan (Entresto 24-26 mg) 1 Tab Tab, 1 TAB PO BID, #60 TAB 5 Refills PT MUST BRING MED PER PHARMACY Prov:LAYLA HE MD 03/07/25 Spironolactone (Spironolactone) 25 Mg Tab, 1 TAB PO DAILY, #60 TAB 9 Refills Prov:LAYLA HE MD 03/07/25 Furosemide (Furosemide) 40 Mg Tab, 40 MG PO DAILY, #30 TAB 5 Refills Prov:LAYLA HE MD 03/07/25 Albuterol Sulfate (Albuterol Sulfate Hfa) 108 Mcg/Act Aer, 2 PUFF INH Q6HPRN, #1 AER 1 Refill Prov:LAYLA HE MD 03/07/25 Apixaban Base (ELIQUIS) 5 Mg Tab, 1 TAB PO BID, #60 TAB 9 Refills Prov:LAYLA HE MD 03/07/25 Carvedilol (Carvedilol) 12.5 Mg Tab, 1 TAB PO BID, #60 TAB 9 Refills Prov:LAYLA HE MD 03/07/25 Aspirin (Asa) 81 Mg Ch, 81 MG PO DAILY, #30 TAB.CHEW Prov:SILVERIO SOTO MD 04/16/20 Current Medications Current Medications Medications (Trade) Dose Ordered Sig/Jorge Route PRN Reason Start Time Stop Time Status Last Admin Amiodarone HCl 250 ml @ 16.66 mls/ hr Q15H1M IV 05/14/25 02:30 05/14/25 05:36 Carvedilol (Coreg Tablet) 6.25 mg Q12HR PO 05/14/25 10:00 05/14/25 14:15 DC 05/14/25 10:55 Atorvastatin Calcium (Lipitor) 20 mg HS PO 05/14/25 22:00 Apixaban (Eliquis) 5 mg BID PO 05/14/25 10:00 05/14/25 14:15 DC 05/14/25 10:54 Sodium Chloride (Saline Lock Ns) 10 ml Q8HR IV 05/14/25 06:00 05/14/25 14:05 Acetaminophen/ Hydrocodone Bitart ([place] 5/325MG Tab) 1 tab Q4HP PRN PO MODERATE PAIN (4-6 PAIN SCALE) 05/13/25 22:15 05/14/25 05:36 Ondansetron HCl (Zofran) 4 mg Q4HP PRN IV NAUSEA / VOMITING 05/13/25 22:15 05/14/25 11:46 Docusate Sodium (Colace Capsule) 100 mg BIDPRN PRN PO FOR CONSTIPATION 05/13/25 22:15 Acetaminophen (Tylenol Tablet) 650 mg Q6HP PRN PO PAIN SCALE 1-3 OR TEMP>100.4 05/13/25 22:15 Nitroglycerin (Ntrostat Sublingual) 0.4 mg Q5MINP PRN SL FOR CHEST PAIN 05/13/25 22:15 Morphine Sulfate 2 mg Q30M PRN IV FOR CHEST PAIN 05/13/25 22:15 05/14/25 05:36 Norepinephrine Bitartrate 250 ml @ 3.75 mls/hr Q24H IV 05/14/25 12:30 05/14/25 12:51 Amiodarone HCl (Cordarone Tablet) 200 mg DAILY PO 05/15/25 10:00 Apixaban (Eliquis) 5 mg BID PO 05/14/25 22:00 Aspirin 81 mg DAILY PO 05/15/25 10:00 Atorvastatin Calcium (Lipitor) 20 mg HS PO 05/14/25 22:00 UNV Carvedilol (Coreg Tablet) 12.5 mg BID PO 05/14/25 22:00 Future Hold Furosemide (Lasix Tablet) 40 mg DAILY PO 05/15/25 10:00 Spironolactone (Aldactone) 25 mg DAILY PO 05/15/25 10:00 Review of Systems CONSTITUTIONAL: Denies acute: fever, chills, HEAD: Denies acute: headache, photophobia Eyes: Denies acute: Double vision, vision loss, eye pain, eye discharge. EARS: Denies acute: tinnitus, hearing loss, ear discharge, ear pain, THROAT: Denies acute: sore throat, swelling, difficulty swallowing , pain with sw allowing, change in voice. NECK: Denies acute: neck pain, neck swelling, stiff neck. HEART: Denies acute : palpitations, LUNGS: Denies acute: wheezing, cough, hemoptysis ABDOMEN: Denies acute: abdominal pain, Nausea, Vomiting, diarrhea, melena , hematemesis, hematochezia SKIN: Denies acute: rash, redness, lesions, itchiness. EXTREMITIES: Denies acute: calf pain, numbness, tingling, weakness, denies pain in extremity. Denies acute: Low back pain. Neuro: Denies acute: focal neurological deficit, motor or sensory focal neurological deficit, tremors, seizure like activity, confusion, dizziness, change in mental status, loss of bowel or bladder function, cauda equina like symptoms. : Denies acute: dysuria, hematuria, flank pain, increase in urinary frequency. PSYCH: Denies acute: hallucination, suicidal ideation, homicidal ideation. Vital Signs Vital Signs Date Time Temp Pulse Resp B/P (MAP) Pulse Ox O2 Delivery O2 Flow Rate FiO2 05/14/25 19:45 71 19 136/107 (117) 98 05/14/25 19:00 Room Air* 0 21 05/14/25 19:00 97.6 97.6 Physical Exam GENERAL: Alert and oriented x 3. No acute distress. EYES: PERRL, EOMI. Anicteric. HENT: Moist mucous membranes. LUNGS: Clear to auscultation bilaterally. CARDIOVASCULAR: Regular rate and rhythm. ABDOMEN: Soft, nontender and nondistended. EXTREMITIES: No edema. NEUROLOGIC: No focal neurological deficits. SKIN: Warm, dry. Labs/Diagnostic Data Labs Test 05/14/25 12:29 05/14/25 05:15 05/13/25 22:20 05/13/25 21:12 Range/Units POC Glucose 97 70-106 mg/dl White Blood Count 6.0 4.4-10.8 10^3/uL Red Blood Count 6.47 H 4.5-5.90 10^6/uL Hemoglobin 19.3 H 13.5-17.5 g/dL Hematocrit 58.7 #H 41.0-53.0 % Mean Corpuscular Volume 90.8 80.0-100.0 fL Mean Corpuscular Hemoglobin 29.8 28.0-32.0 pg Mean Corpuscular Hemoglobin Concent 32.8 32.0-36.0 g/dL Red Cell Distribution Width 14.4 H 11.8-14.3 % Platelet Count 193 140-450 10^3/uL Mean Platelet Volume 8.9 6.9-10.8 fL Neutrophils (%) (Auto) 54.1 37.0-80.0 % Lymphocytes (%) (Auto) 30.0 10.0-50.0 % Monocytes (%) (Auto) 15.4 H 0.0-12.0 % Eosinophils (%) (Auto) 0.1 0.0-7.0 % Basophils (%) (Auto) 0.4 0.0-2.0 % Neutrophils # (Auto) 3.2 1.6-8.6 10 ^3/uL Lymphocytes # (Auto) 1.8 0.4-5.4 10 ^3/uL Monocytes # (Auto) 0.9 0-1.3 10 ^3/uL Eosinophils # (Auto) 0 0-0.8 10 ^3/uL Basophils # (Auto) 0 0-0.2 10 ^3/uL Nucleated Red Blood Cells 0.2 % Sodium Level 135 L 136-145 mmol/L Potassium Level 3.7 3.5-5.1 mmol/L Chloride Level 95 L 98-107 mmol/L Carbon Dioxide Level 25 20-31 mmol/L Anion Gap 15 5-15 Blood Urea Nitrogen 14 9-23 mg/dL Creatinine 1.98 H 0.700-1.30 mg/dL Glomerular Filtration Rate Calc 38 >90 mL/min BUN/Creatinine Ratio 7.1 L 10.0-20.0 Serum Glucose 122 H 74-106 mg/dL Calcium Level 9.7 8.7-10.4 mg/dL Total Bilirubin 1.1 H 0.2-1.0 mg/dL Aspartate Amino Transferase (AST) 128 H 13-40 U/L Alanine Aminotransferase (ALT) 58 H 7-40 U/L Alkaline Phosphatase 122 H 46-116 U/L Total Protein 8.9 H 5.7-8.2 g/dL Albumin 4.9 H 3.2-4.8 g/dL Troponin I High Sensitivity 146 *H </=54 ng/L Lactic Acid Level 1.6 0.4-2.0 mmol/L Test 05/13/25 19:30 05/13/25 19:12 Range/Units Urine Color Yellow Yellow Urine Clarity Turbid H Clear Urine pH 6.0 5.0-9.0 Urine Specific [place] 1.024 1.001-1.035 Urine Protein 3+ H Negative Urine Ketones Trace Negative Urine Blood 2+ H Negative /uL Urine Nitrite Negative Negative Urine Bilirubin Negative Negative Urine Urobilinogen Normal Negative mg/dL Urine Leukocyte Esterase Negative Negative /uL Urine RBC 7 0 - 3 /hpf Urine Microscopic WBC 5 H 0-3 /HPF Urine Squamous Epithelial Cells Few <5 /hpf Urine Bacteria None seen None Seen /hpf Urine Hyaline Casts Mod 0 - 2 /lpf Urine Mucus Few None Seen Urine Glucose Normal Normal mg/dL Urine Opiates Screen Neg NEGATIVE Urine Fentanyl Screen Neg NEGATIVE Urine Barbiturates Screen Neg NEGATIVE Urine Phencyclidine Screen Neg NEGATIVE Urine Amphetamines Screen Neg NEGATIVE Urine Benzodiazepines Screen Neg NEGATIVE Urine Cocaine Screen Neg NEGATIVE Urine Cannabinoids Screen Pos NEGATIVE Magnesium Level 1.7 1.6-2.6 mg/dL B-Type Natriuretic Peptide 2117.76 0-100 pg/mL Plasma/Serum Blood Alcohol 40.8 H <10 mg/dL Assessment NSTEMI. Acute on chronic CHF exacerbation. Acute on chronic systolic heart failure, EF 20%. Lactic acidosis. Hypertensive urgency. Acute hypoxic respiratory failure. Large supraumbilical hernia containing loops of nonobstructed small and large bowel. Medication noncompliance. Tobacco use. Alcohol use. Marijuana use. Cardiomegaly. Hyperbilirubinemia likely due to alcohol use. CAD. COPD. Hypertension. History of left hip surgery. History of left wrist surgery. History of pacemaker. Plan/Recommendation I agree with your ongoing assessment and care of plan. Morphine and [place] for pain management. Amiodarone. Eliquis. Aspirin, Lipitor. Diuretics with Lasix. Nitro SL. Vasopressors for hemodynamic support. Additional plan as per the hospital course. A total of 45 minutes was spent reviewing the patient record, examining the patient, making a diagnostic and therapeutic plan, discussing this plan with medical personnel, following up on diagnostic studies and following the patient for clinical stability excluding any and all procedures. At least 50% of this time was spent in direct, spec-ax-esee contact. Plan discussed with: Patient EDUARDO RUIZ MD May 14, 2025 21:44
[2025-05-15] MEDS: SPIRONOLACTONE 25 MG TAB PO SCH (10:00)
[2025-05-15] MEDS: FUROSEMIDE 40 MG TAB PO SCH (10:00)
[2025-05-15] MEDS: AMIODARONE HCL 200 MG TAB PO SCH (10:00)
[2025-05-15 13:00] VITALS: PULSE 102; RESP 18; O2SAT 98
[2025-05-15] MEDS ORDERED: SACU1TAB PO (14:00)
[2025-05-15] MEDS: THIAMINE HCL 100 MG TAB PO ONE (14:30)
[2025-05-15] MEDS: B-COMPLEX W/ C & FOLIC ACID(NEPHROVITE TAB) PO ONE (14:35)
--- NOTE | 2025-05-15 14:35 | DVHPN2 ---
Subjective Patient denies any symptoms at this time. Reviewed: Care Plan, H&P, Labs, Medications, Previous Orders Changes from previous H/P or p: No Changes General: Per HPI Eyes: No Pain, No Vision change, No Conjunctivae inflammation, No Eyelid inflammation, No Other, No Redness ENT: No Ear pain, No Ear discharge, No Nose pain, No Nose discharge, No Nose congestion, No Mouth pain, No Mouth swelling, No Throat pain, No Throat swelling, No Other Cardiovascular: No Chest Pain; Palpitations; No Orthopnea, No Paroxysmal Noc. Dyspnea, No Edema, No Lt Headedness, No Other Respiratory: No Cough, No Dry; Shortness of breath; No SOB with excertion, No Wheezing, No Hemoptysis, No Pleuritic Pain, No Sputum, No Other Gastrointestinal: No Nausea, No Vomiting, No Abdominal Pain, No Diarrhea, No Constipation, No Melena, No Hematochezia, No Other Genitourinary: No Dysuria, No Frequency, No Incontinence, No Hematuria, No Retention, No Other Musculoskeletal: No other, No neck pain, No shoulder pain, No arm pain, No back pain, No hand pain, No leg pain, No foot pain Skin: No Rash, No Lesions, No Jaundice, No Bruising, No Other Objective Vitals Vital Signs Date Time Temp Pulse Resp B/P (MAP) Pulse Ox O2 Delivery O2 Flow Rate FiO2 05/15/25 13:00 102 18 98 Nasal Cannula* 3 32 05/15/25 12:01 134/98 (110) 05/15/25 10:00 98.2 98.2 Intake/Output Intake and Output 05/15/25 07:00 Intake Total 83.30 ml Balance 83.30 ml Intake IV Total 83.30 ml General Appearance: Alert, Oriented X3, Cooperative, No acute distress HEENT: Atraumatic, PERRLA Lungs: Clear to auscultation, Normal air movement Cardiovascular: Normal S1, Normal S2, Other (V paced) Abdomen: Normal bowel sounds, Soft, No tenderness, No hepatospenomegaly Musculoskeletal: Normal sensory function, Normal motor function Neuro: Normal gait, Normal speech, Strength at 5/5 X4 ext Psych/Mental Status: Mental status NL, Mood NL Medications Current Medications Medications Dose Ordered Sig/Jorge Route Start Time Stop Time Status Last Admin Dose Admin Amiodarone HCl 250 ml @ 16.66 mls/ hr Q15H1M IV 05/14/25 02:30 05/14/25 05:36 16.66 MLS/HR Atorvastatin Calcium 20 mg HS PO 05/14/25 22:00 05/14/25 22:12 20 MG Sodium Chloride 10 ml Q8HR IV 05/14/25 06:00 05/15/25 14:01 10 ML Acetaminophen/ Hydrocodone Bitart 1 tab Q4HP PRN PO 05/13/25 22:15 05/14/25 05:36 1 TAB Ondansetron HCl 4 mg Q4HP PRN IV 05/13/25 22:15 05/14/25 11:46 4 MG Docusate Sodium 100 mg BIDPRN PRN PO 05/13/25 22:15 Acetaminophen 650 mg Q6HP PRN PO 05/13/25 22:15 Nitroglycerin 0.4 mg Q5MINP PRN SL 05/13/25 22:15 Morphine Sulfate 2 mg Q30M PRN IV 05/13/25 22:15 05/14/25 05:36 2 MG Amiodarone HCl 200 mg DAILY PO 05/15/25 10:00 05/15/25 10:00 200 MG Apixaban 5 mg BID PO 05/14/25 22:00 05/15/25 10:00 5 MG Aspirin 81 mg DAILY PO 05/15/25 10:00 05/15/25 10:00 81 MG Atorvastatin Calcium 20 mg HS PO 05/14/25 22:00 UNV Carvedilol 12.5 mg BID PO 05/14/25 22:00 Hold Furosemide 40 mg DAILY PO 05/15/25 10:00 05/15/25 10:00 40 MG Spironolactone 25 mg DAILY PO 05/15/25 10:00 05/15/25 10:00 25 MG Laboratory Results Laboratory Tests 05/14/25 05:15 Urinalysis Test 05/13/25 19:30 Urine Color Yellow (Yellow) Urine Clarity Turbid (Clear) H Urine pH 6.0 (5.0-9.0) Urine Specific [place] 1.024 (1.001-1.035) Urine Protein 3+ (Negative) H Urine Ketones Trace (Negative) Urine Blood 2+ /uL (Negative) H Urine Nitrite Negative (Negative) Urine Bilirubin Negative (Negative) Urine Urobilinogen Normal mg/dL (Negative) Urine Leukocyte Esterase Negative /uL (Negative) Urine RBC 7 /hpf (0 - 3) Urine Microscopic WBC 5 /HPF (0-3) H Urine Squamous Epithelial Cells Few /hpf (<5) Urine Bacteria None seen /hpf (None Seen) Urine Hyaline Casts Mod /lpf (0 - 2) Urine Mucus Few (None Seen) Urine Glucose Normal mg/dL (Normal) Labs and/or images reviewed: Labs reviewed by me, Image(s) reviewed by me Assessment/Plan Assessment/Plan Impression: -palpitations, questionable discharge of ICD -acute on chronic systolic heart failure, HFrEF with ejection fraction 15% -alcoholism -medication noncompliance -acute kidney injury, vasomotor nephropathy -obesity -cannabinoid use -NSTEMI type 2, probably secondary to demand ischemia Plan: -pacemaker interrogation -start guideline directed medical therapy. Hold Chris given increase in BUN and creatinine -thiamine, folic acid -rate control with amiodarone and metoprolol tartrate -cardiology consultation: Recommendations reviewed -transferred to telemetry floor -repeat labs in a.m. Total time spent with patient discussing and formulating plan of care: 35 minutes. This medical document was created using an electronic medical record system with [employer] dictation system. Although this document has been carefully reviewed, there may still be some phonetic and typographical errors. These areas are purely typographical due to imperfections of the software programs, and do not reflect any compromise in the patient's medical care. Plan discussed with: Patient, Other (RN) My Orders Orders - DEVIN BECKER NP Procedure Category Date Status Time Ekg Assessment [facility] 05/15/25 In Process 11:55 Metoprolol Tartrate [facility] 05/15/25 Verified Tablet (Lopressor Ta 22:00 Thiamine Tab [facility] 05/15/25 Verified 14:30 Thiamine Tab PH[facility] 05/16/25 Verified 10:00 B-Complex W/ C & [facility] 05/15/25 Verified Folic Tablet 14:30 Date of Service: May 15, 2025 Billing Provider: DEVIN BECKER NP Common Visit Codes: [id number] INP/OBS CARE(HIGH) DEVIN BECKER NP May 15, 2025 14:35
[2025-05-15 18:15] VITALS: BP 143/104; PULSE 96; RESP 18; TEMP 97.5; O2SAT 98
[2025-05-15 20:00] VITALS: PULSE 116; PULSE 91; RESP 18; O2SAT 96
[2025-05-15 21:00] VITALS: BP 128/96; PULSE 91; RESP 19; TEMP 97.2; O2SAT 96
[2025-05-15] MEDS: METOPROLOL TARTRATE 25 MG TAB PO SCH (21:51)
--- NOTE | 2025-05-15 23:51 | DVHPN2 ---
Progress Note - Dictate Date Seen: May 15, 2025 Medical Necessity Reason Pt with a Central, PICC or Fol: No Subjective Patient was seen and evaluated in follow up. Patient is on 3 LPM NC. Patient denies any symptoms at this time. Denies any further palpitations. Telemetry reviewed. vital signs Vital Sign Date Time Temp Pulse Resp B/P (MAP) Pulse Ox O2 Delivery O2 Flow Rate FiO2 05/15/25 22:51 73 96/71 05/15/25 21:00 97.2 19 96 97.2 05/15/25 20:00 Room Air* 0 21 Total Intake and Output 05/14/25 05/14/25 05/15/25 15:00 23:00 07:00 Intake Total 83.30 ml Balance 83.30 ml medications Current Medications Medications Dose Ordered Sig/Jorge Route Start Time Stop Time Status Last Admin Dose Admin Atorvastatin Calcium 20 mg HS PO 05/14/25 22:00 05/15/25 21:51 20 MG Sodium Chloride 10 ml Q8HR IV 05/14/25 06:00 05/15/25 21:51 10 ML Acetaminophen/ Hydrocodone Bitart 1 tab Q4HP PRN PO 05/13/25 22:15 05/15/25 20:28 1 TAB Ondansetron HCl 4 mg Q4HP PRN IV 05/13/25 22:15 05/15/25 22:41 4 MG Docusate Sodium 100 mg BIDPRN PRN PO 05/13/25 22:15 Acetaminophen 650 mg Q6HP PRN PO 05/13/25 22:15 Nitroglycerin 0.4 mg Q5MINP PRN SL 05/13/25 22:15 Morphine Sulfate 2 mg Q30M PRN IV 05/13/25 22:15 05/14/25 05:36 2 MG Amiodarone HCl 200 mg DAILY PO 05/15/25 10:00 05/15/25 10:00 200 MG Apixaban 5 mg BID PO 05/14/25 22:00 05/15/25 21:51 5 MG Aspirin 81 mg DAILY PO 05/15/25 10:00 05/15/25 10:00 81 MG Atorvastatin Calcium 20 mg HS PO 05/14/25 22:00 UNV Furosemide 40 mg DAILY PO 05/15/25 10:00 05/15/25 10:00 40 MG Spironolactone 25 mg DAILY PO 05/15/25 10:00 05/15/25 10:00 25 MG Metoprolol Tartrate 25 mg BID PO 05/15/25 22:00 05/15/25 21:51 25 MG Thiamine HCl 100 mg DAILY PO 05/16/25 10:00 Multivit/Ca Carb/ B Cmplx/FA/Prenat 1 tab DAILY PO 05/16/25 10:00 objective GENERAL: Alert and oriented x 3. No acute distress. EYES: PERRL, EOMI. Anicteric. HENT: Moist mucous membranes. LUNGS: Clear to auscultation bilaterally. CARDIOVASCULAR: Regular rate and rhythm. ABDOMEN: Soft, nontender and nondistended. EXTREMITIES: No edema. NEUROLOGIC: No focal neurological deficits. SKIN: Warm, dry. laboratory and microbiology Laboratory Tests 05/14/25 05:15 Test 05/14/25 05:15 Range/Units Serum Glucose 122 H 74-106 mg/dL Problem List NSTEMI. Acute on chronic CHF exacerbation. Acute on chronic systolic heart failure, EF 20%. Lactic acidosis. Hypertensive urgency. Acute hypoxic respiratory failure. Large supraumbilical hernia containing loops of nonobstructed small and large bowel. Medication noncompliance. Tobacco use. Alcohol use. Marijuana use. Cardiomegaly. Hyperbilirubinemia likely due to alcohol use. CAD. COPD. Hypertension. History of left hip surgery. History of left wrist surgery. History of pacemaker. Assessment/Plan Continued all current supportive medical care. Morphine and [place] for pain management. Amiodarone. Eliquis. Aspirin, Lipitor. Diuretics with Lasix. Nitro SL. Aldactone. Additional plan as per the hospital course. Plan discussed with: Patient EDUARDO RUIZ MD May 15, 2025 23:51
[2025-05-16] VITALS (8 sets, daily range): BP systolic 98–119; BP diastolic 69–90; PULSE 48–101; RESP 17–19; TEMP 96.7–98.5; O2SAT 91–99
[2025-05-16 06:22] LABS: Anion Gap 11 (5-15); Carbon Dioxide 28 mmol/L (20-31); Potassium 4.4 mmol/L (3.5-5.1)
[2025-05-16 06:24] LABS: Calcium 9.1 mg/dL (8.7-10.4)
[2025-05-16 06:28] LABS: BUN/Creatinine Ratio 16.2 (10.0-20.0); Glucose 102 mg/dL (74-106)
[2025-05-16 06:30] LABS: Blood Urea Nitrogen 38 mg/dL (9-23); Chloride 97 mmol/L (98-107); Sodium 136 mmol/L (136-145)
--- NOTE | 2025-05-16 07:33 | ECG ---
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
--- NOTE | 2025-05-16 07:33 | ECG ---
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
--- NOTE | 2025-05-16 07:34 | ECG ---
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
[2025-05-16] MEDS: THIAMINE HCL 100 MG TAB PO SCH (09:26)
[2025-05-16] MEDS: B-COMPLEX W/ C & FOLIC ACID(NEPHROVITE TAB) PO SCH (09:28)
--- NOTE | 2025-05-16 13:49 | DVHPN2 ---
Subjective Patient states that he has generalized weakness, and reports having intermittent palpitations Reviewed: Care Plan, H&P, Labs, Medications, Previous Orders Changes from previous H/P or p: No Changes General: Per HPI Eyes: No Pain, No Vision change, No Conjunctivae inflammation, No Eyelid inflammation, No Other, No Redness ENT: No Ear pain, No Ear discharge, No Nose pain, No Nose discharge, No Nose congestion, No Mouth pain, No Mouth swelling, No Throat pain, No Throat swelling, No Other Cardiovascular: No Chest Pain; Palpitations; No Orthopnea, No Paroxysmal Noc. Dyspnea, No Edema, No Lt Headedness, No Other Respiratory: No Cough, No Dry; Shortness of breath; No SOB with excertion, No Wheezing, No Hemoptysis, No Pleuritic Pain, No Sputum, No Other Gastrointestinal: No Nausea, No Vomiting, No Abdominal Pain, No Diarrhea, No Constipation, No Melena, No Hematochezia, No Other Genitourinary: No Dysuria, No Frequency, No Incontinence, No Hematuria, No Retention, No Other Musculoskeletal: No other, No neck pain, No shoulder pain, No arm pain, No back pain, No hand pain, No leg pain, No foot pain Skin: No Rash, No Lesions, No Jaundice, No Bruising, No Other Objective Vitals Vital Signs Date Time Temp Pulse Resp B/P (MAP) Pulse Ox O2 Delivery O2 Flow Rate FiO2 05/16/25 12:06 68 144/112 05/16/25 09:00 97.7 17 98 97.7 05/16/25 08:00 Room Air* 0 21 Intake/Output Intake and Output 05/16/25 07:00 Intake Total 1115 ml Balance 1115 ml Intake Oral 1115 ml # Voids 1 General Appearance: Alert, Oriented X3, Cooperative, No acute distress HEENT: Atraumatic, PERRLA Lungs: Clear to auscultation, Normal air movement Cardiovascular: Normal S1, Normal S2, Other (V paced) Abdomen: Normal bowel sounds, Soft, No tenderness, No hepatospenomegaly Musculoskeletal: Normal sensory function, Normal motor function Neuro: Normal gait, Normal speech, Strength at 5/5 X4 ext Skin: Dry, Intact Psych/Mental Status: Mental status NL, Mood NL Medications Current Medications Medications Dose Ordered Sig/Jorge Route Start Time Stop Time Status Last Admin Dose Admin Atorvastatin Calcium 20 mg HS PO 05/14/25 22:00 05/15/25 21:51 20 MG Sodium Chloride 10 ml Q8HR IV 05/14/25 06:00 05/16/25 05:15 10 ML Acetaminophen/ Hydrocodone Bitart 1 tab Q4HP PRN PO 05/13/25 22:15 05/15/25 20:28 1 TAB Ondansetron HCl 4 mg Q4HP PRN IV 05/13/25 22:15 05/15/25 22:41 4 MG Docusate Sodium 100 mg BIDPRN PRN PO 05/13/25 22:15 Acetaminophen 650 mg Q6HP PRN PO 05/13/25 22:15 Nitroglycerin 0.4 mg Q5MINP PRN SL 05/13/25 22:15 Morphine Sulfate 2 mg Q30M PRN IV 05/13/25 22:15 05/14/25 05:36 2 MG Amiodarone HCl 200 mg DAILY PO 05/15/25 10:00 05/16/25 09:28 200 MG Apixaban 5 mg BID PO 05/14/25 22:00 05/16/25 09:27 5 MG Aspirin 81 mg DAILY PO 05/15/25 10:00 05/16/25 09:25 81 MG Atorvastatin Calcium 20 mg HS PO 05/14/25 22:00 UNV Furosemide 40 mg DAILY PO 05/15/25 10:00 05/16/25 09:27 40 MG Spironolactone 25 mg DAILY PO 05/15/25 10:00 05/16/25 09:27 25 MG Metoprolol Tartrate 25 mg BID PO 05/15/25 22:00 05/16/25 12:06 25 MG Thiamine HCl 100 mg DAILY PO 05/16/25 10:00 05/16/25 09:26 100 MG Multivit/Ca Carb/ B Cmplx/FA/Prenat 1 tab DAILY PO 05/16/25 10:00 05/16/25 09:28 1 TAB Laboratory Results Laboratory Tests 05/14/25 05:15 05/16/25 05:20 Chemistry Test 05/16/25 05:20 Calcium Level 9.1 mg/dL (8.7-10.4) Urinalysis Test 05/13/25 19:30 Urine Color Yellow (Yellow) Urine Clarity Turbid (Clear) H Urine pH 6.0 (5.0-9.0) Urine Specific [place] 1.024 (1.001-1.035) Urine Protein 3+ (Negative) H Urine Ketones Trace (Negative) Urine Blood 2+ /uL (Negative) H Urine Nitrite Negative (Negative) Urine Bilirubin Negative (Negative) Urine Urobilinogen Normal mg/dL (Negative) Urine Leukocyte Esterase Negative /uL (Negative) Urine RBC 7 /hpf (0 - 3) Urine Microscopic WBC 5 /HPF (0-3) H Urine Squamous Epithelial Cells Few /hpf (<5) Urine Bacteria None seen /hpf (None Seen) Urine Hyaline Casts Mod /lpf (0 - 2) Urine Mucus Few (None Seen) Urine Glucose Normal mg/dL (Normal) Labs and/or images reviewed: Labs reviewed by me, Image(s) reviewed by me Assessment/Plan Assessment/Plan Impression: -palpitations, questionable discharge of ICD -acute on chronic systolic heart failure, HFrEF with ejection fraction 15% -alcoholism -medication noncompliance -acute kidney injury, vasomotor nephropathy -obesity -cannabinoid use -NSTEMI type 2, probably secondary to demand ischemia Plan: Events: Events overnight -pacemaker interrogation -continue metoprolol tartrate. Hold spironolactone given increasing BUN and creatinine -thiamine, folic acid -rate control with amiodarone and metoprolol tartrate -cardiology consultation: Recommendations reviewed -repeat labs in a.m. Total time spent with patient discussing and formulating plan of care: 35 minutes. This medical document was created using an electronic medical record system with [employer] dictation system. Although this document has been carefully reviewed, there may still be some phonetic and typographical errors. These areas are purely typographical due to imperfections of the software programs, and do not reflect any compromise in the patient's medical care. Plan discussed with: Patient, Other (RN) My Orders Orders - DEVIN BECKER NP Procedure Category Date Status Time Metoprolol Tartrate PHA 05/15/25 In Process Tablet (Lopressor Ta 22:00 Thiamine Tab PHA 05/16/25 In Process 10:00 B-Complex W/ C & PHA 05/16/25 In Process Folic Tablet 10:00 Climatology Professor To Assess ORDERS 05/15/25 Transmitted Pacemaker 14:29 Cardiac DIET 05/15/25 Transmitted Diet-2gna,Lofat,Lochol Dinner Complete Blood Count LAB 05/17/25 Verified 04:00 Comprehensive LAB 05/17/25 Verified Metabolic Panel 04:00 Chest Xray 1 View XY 05/16/25 Transmitted 13:45 Date of Service: May 16, 2025 Billing Provider: DEVIN BECKER NP Common Visit Codes: [id number] INP/OBS CARE(HIGH) DEVIN BECKER NP May 16, 2025 13:49
[2025-05-16] MEDS ORDERED: LORazepam 2MG/ML-1ML VIAL IV PRN (14:00)
--- NOTE | 2025-05-16 14:24 | DVH ---
CHEST RADIOGRAPH Indication: chf Technique: Single frontal view of the chest was obtained Comparison: XY CHEST PORTABLE on DOS: 05/13/25. FINDINGS: Lines and Tubes: AICD / pacemaker is noted. Lungs: The left lung bases excluded from the [id number]. Bilateral increased interstitial prominence. This is similar to prior study. No focal consolidation in the visualized lung miranda. Pleura: No effusion. No pneumothorax. Cardiomediastinal contours: Cardiomegaly. Bones: No acute osseous abnormality. IMPRESSION: 1. Left lung base excluded from the field of view limiting evaluation. 2. Cardiomegaly with increased interstitial prominence which may reflect pulmonary edema or atypical infection.
--- NOTE | 2025-05-16 23:37 | DVHPN2 ---
Progress Note - Dictate Date Seen: May 16, 2025 Medical Necessity Reason Pt with a Central, PICC or Fol: No Subjective Patient was seen and evaluated in follow up. Patient complains of generalized weakness. 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 Telemetry reviewed. vital signs Vital Sign Date Time Temp Pulse Resp B/P (MAP) Pulse Ox O2 Delivery O2 Flow Rate FiO2 05/16/25 12:06 68 144/112 05/16/25 09:00 97.7 17 98 97.7 05/16/25 08:00 Room Air* 0 21 Total Intake and Output 05/15/25 05/15/25 05/16/25 15:00 23:00 07:00 Intake Total 1115 ml Balance 1115 ml medications Current Medications Medications Dose Ordered Sig/Jorge Route Start Time Stop Time Status Last Admin Dose Admin Atorvastatin Calcium 20 mg HS PO 05/14/25 22:00 05/15/25 21:51 20 MG Sodium Chloride 10 ml Q8HR IV 05/14/25 06:00 05/16/25 05:15 10 ML Acetaminophen/ Hydrocodone Bitart 1 tab Q4HP PRN PO 05/13/25 22:15 05/15/25 20:28 1 TAB Ondansetron HCl 4 mg Q4HP PRN IV 05/13/25 22:15 05/15/25 22:41 4 MG Docusate Sodium 100 mg BIDPRN PRN PO 05/13/25 22:15 Acetaminophen 650 mg Q6HP PRN PO 05/13/25 22:15 Nitroglycerin 0.4 mg Q5MINP PRN SL 05/13/25 22:15 Morphine Sulfate 2 mg Q30M PRN IV 05/13/25 22:15 05/14/25 05:36 2 MG Amiodarone HCl 200 mg DAILY PO 05/15/25 10:00 05/16/25 09:28 200 MG Apixaban 5 mg BID PO 05/14/25 22:00 05/16/25 09:27 5 MG Aspirin 81 mg DAILY PO 05/15/25 10:00 05/16/25 09:25 81 MG Atorvastatin Calcium 20 mg HS PO 05/14/25 22:00 UNV Furosemide 40 mg DAILY PO 05/15/25 10:00 05/16/25 09:27 40 MG Metoprolol Tartrate 25 mg BID PO 05/15/25 22:00 05/16/25 12:06 25 MG Thiamine HCl 100 mg DAILY PO 05/16/25 10:00 05/16/25 09:26 100 MG Multivit/Ca Carb/ B Cmplx/FA/Prenat 1 tab DAILY PO 05/16/25 10:00 05/16/25 09:28 1 TAB Lorazepam 0.5 mg Q8HP PRN IV 05/16/25 14:00 objective GENERAL: Alert and oriented x 3. No acute distress. EYES: PERRL, EOMI. Anicteric. HENT: Moist mucous membranes. LUNGS: Clear to auscultation bilaterally. CARDIOVASCULAR: Regular rate and rhythm. ABDOMEN: Soft, nontender and nondistended. EXTREMITIES: No edema. NEUROLOGIC: No focal neurological deficits. SKIN: Warm, dry. laboratory and microbiology Laboratory Tests 05/16/25 05:20 05/14/25 05:15 Test 05/16/25 05:20 Range/Units Serum Glucose 102 74-106 mg/dL Problem List NSTEMI. Acute on chronic CHF exacerbation. Acute on chronic systolic heart failure, EF 20%. Lactic acidosis. Hypertensive urgency. Acute hypoxic respiratory failure. Large supraumbilical hernia containing loops of nonobstructed small and large bowel. Medication noncompliance. Tobacco use. Alcohol use. Marijuana use. Cardiomegaly. Hyperbilirubinemia likely due to alcohol use. CAD. COPD. Hypertension. History of left hip surgery. History of left wrist surgery. History of pacemaker. Assessment/Plan Continued all current supportive medical care. Morphine and Tylenol for pain management. Amiodarone. Eliquis. Aspirin. Diuretics with Lasix. Nitro SL. Aldactone. Additional plan as per the hospital course. Plan discussed with: Patient EDUARDO RUIZ MD May 16, 2025 14:13
[2025-05-17] VITALS (8 sets, daily range): BP systolic 82–135; BP diastolic 49–102; PULSE 61–91; RESP 17–19; TEMP 97.5–98.9; O2SAT 94–99
[2025-05-17 05:38] LABS: Hematocrit 51.6 % (41.0-53.0); Hemoglobin 17.2 g/dL (13.5-17.5); Mean Corpuscular Hemoglobin 30.0 pg (28.0-32.0); Mean Corpuscular Volume 89.7 fL (80.0-100.0); Nucleated Red Blood Cells % 0.5 %
[2025-05-17 08:52] LABS: Albumin 3.9 g/dL (3.2-4.8); Anion Gap 8 (5-15); BUN/Creatinine Ratio 27.0 (10.0-20.0); Bilirubin, Total 0.6 mg/dL (0.2-1.0); Calcium 9.3 mg/dL (8.7-10.4); Carbon Dioxide 29 mmol/L (20-31); Potassium 4.1 mmol/L (3.5-5.1); Total Protein 7.3 g/dL (5.7-8.2)
[2025-05-17 09:01] LABS: Alanine Aminotransferase 337 U/L (7-40); Alkaline Phosphatase 140 U/L (46-116); Blood Urea Nitrogen 53 mg/dL (9-23); Chloride 97 mmol/L (98-107); Glucose 111 mg/dL (74-106); Sodium 134 mmol/L (136-145)
--- NOTE | 2025-05-17 14:28 | DVHPN2 ---
Subjective Patient states that he has generalized weakness, and reports having intermittent palpitations Reviewed: Care Plan, H&P, Labs, Medications, Previous Orders Changes from previous H/P or p: No Changes General: Per HPI Eyes: No Pain, No Vision change, No Conjunctivae inflammation, No Eyelid inflammation, No Other, No Redness ENT: No Ear pain, No Ear discharge, No Nose pain, No Nose discharge, No Nose congestion, No Mouth pain, No Mouth swelling, No Throat pain, No Throat swelling, No Other Cardiovascular: No Chest Pain; Palpitations; No Orthopnea, No Paroxysmal Noc. Dyspnea, No Edema, No Lt Headedness, No Other Respiratory: No Cough, No Dry; Shortness of breath; No SOB with excertion, No Wheezing, No Hemoptysis, No Pleuritic Pain, No Sputum, No Other Gastrointestinal: No Nausea, No Vomiting, No Abdominal Pain, No Diarrhea, No Constipation, No Melena, No Hematochezia, No Other Genitourinary: No Dysuria, No Frequency, No Incontinence, No Hematuria, No Retention, No Other Musculoskeletal: No other, No neck pain, No shoulder pain, No arm pain, No back pain, No hand pain, No leg pain, No foot pain Skin: No Rash, No Lesions, No Jaundice, No Bruising, No Other Objective Vitals Vital Signs Date Time Temp Pulse Resp B/P (MAP) Pulse Ox O2 Delivery O2 Flow Rate FiO2 05/17/25 09:19 75 119/102 05/17/25 09:00 97.9 19 99 97.9 05/17/25 08:00 Room Air* 0 21 Intake/Output Intake and Output 05/17/25 07:00 Intake Total 700 ml Balance 700 ml Intake Oral 700 ml # Voids 3 General Appearance: Alert, Oriented X3, Cooperative, No acute distress HEENT: Atraumatic, PERRLA Lungs: Clear to auscultation, Normal air movement Cardiovascular: Normal S1, Normal S2, Other (V paced) Abdomen: Normal bowel sounds, Soft, No tenderness, No hepatospenomegaly, Other (Ventral Hernia) Musculoskeletal: Normal sensory function, Normal motor function Neuro: Normal gait, Normal speech, Strength at 5/5 X4 ext Skin: Dry, Intact Psych/Mental Status: Mental status NL, Mood NL Medications Current Medications Medications Dose Ordered Sig/Jorge Route Start Time Stop Time Status Last Admin Dose Admin Atorvastatin Calcium 20 mg HS PO 05/14/25 22:00 05/16/25 22:27 20 MG Sodium Chloride 10 ml Q8HR IV 05/14/25 06:00 05/17/25 06:08 10 ML Acetaminophen/ Hydrocodone Bitart 1 tab Q4HP PRN PO 05/13/25 22:15 05/15/25 20:28 1 TAB Ondansetron HCl 4 mg Q4HP PRN IV 05/13/25 22:15 05/16/25 17:22 4 MG Docusate Sodium 100 mg BIDPRN PRN PO 05/13/25 22:15 Acetaminophen 650 mg Q6HP PRN PO 05/13/25 22:15 Nitroglycerin 0.4 mg Q5MINP PRN SL 05/13/25 22:15 Morphine Sulfate 2 mg Q30M PRN IV 05/13/25 22:15 05/14/25 05:36 2 MG Amiodarone HCl 200 mg DAILY PO 05/15/25 10:00 05/17/25 09:17 200 MG Apixaban 5 mg BID PO 05/14/25 22:00 05/17/25 09:18 5 MG Aspirin 81 mg DAILY PO 05/15/25 10:00 05/17/25 09:19 81 MG Atorvastatin Calcium 20 mg HS PO 05/14/25 22:00 UNV Furosemide 40 mg DAILY PO 05/15/25 10:00 05/17/25 09:18 40 MG Metoprolol Tartrate 25 mg BID PO 05/15/25 22:00 05/17/25 09:19 25 MG Thiamine HCl 100 mg DAILY PO 05/16/25 10:00 05/17/25 09:18 100 MG Multivit/Ca Carb/ B Cmplx/FA/Prenat 1 tab DAILY PO 05/16/25 10:00 05/17/25 09:18 1 TAB Lorazepam 0.5 mg Q8HP PRN IV 05/16/25 14:00 Laboratory Results Laboratory Tests 05/17/25 04:37 05/17/25 08:03 Chemistry Test 05/17/25 08:03 Albumin 3.9 g/dL (3.2-4.8) Calcium Level 9.3 mg/dL (8.7-10.4) Total Protein 7.3 g/dL (5.7-8.2) LFT Test 05/17/25 08:03 Alanine Aminotransferase (ALT) 337 U/L (7-40) H Alkaline Phosphatase 140 U/L (46-116) H Aspartate Amino Transferase (AST) 181 U/L (13-40) H Total Bilirubin 0.6 mg/dL (0.2-1.0) Urinalysis Test 05/13/25 19:30 Urine Color Yellow (Yellow) Urine Clarity Turbid (Clear) H Urine pH 6.0 (5.0-9.0) Urine Specific [place] 1.024 (1.001-1.035) Urine Protein 3+ (Negative) H Urine Ketones Trace (Negative) Urine Blood 2+ /uL (Negative) H Urine Nitrite Negative (Negative) Urine Bilirubin Negative (Negative) Urine Urobilinogen Normal mg/dL (Negative) Urine Leukocyte Esterase Negative /uL (Negative) Urine RBC 7 /hpf (0 - 3) Urine Microscopic WBC 5 /HPF (0-3) H Urine Squamous Epithelial Cells Few /hpf (<5) Urine Bacteria None seen /hpf (None Seen) Urine Hyaline Casts Mod /lpf (0 - 2) Urine Mucus Few (None Seen) Urine Glucose Normal mg/dL (Normal) Labs and/or images reviewed: Labs reviewed by me, Image(s) reviewed by me Assessment/Plan Assessment/Plan Impression: -palpitations, questionable discharge of ICD -acute on chronic systolic heart failure, HFrEF with ejection fraction 15% -alcoholism -medication noncompliance -acute kidney injury, vasomotor nephropathy -obesity -cannabinoid use -NSTEMI type 2, probably secondary to demand ischemia -Large ventral hernia Plan: Events: Patient was still has intermittent runs of AFib and nonsustained VT. Renal function improving. Patient's subjectively states that he does not feel right. Reporting persistent nausea. -pacemaker interrogation -continue metoprolol tartrate, p.o. Lasix -thiamine, folic acid -rate control with amiodarone and metoprolol tartrate -cardiology consultation: Recommendations reviewed -repeat labs in a.m. Total time spent with patient discussing and formulating plan of care: 35 minutes. This medical document was created using an electronic medical record system with [employer] dictation system. Although this document has been carefully reviewed, there may still be some phonetic and typographical errors. These areas are purely typographical due to imperfections of the software programs, and do not reflect any compromise in the patient's medical care. Plan discussed with: Patient, Other (RN) Date of Service: May 17, 2025 Billing Provider: DEVIN BECKER NP Common Visit Codes: [id number] INP/OBS CARE(HIGH) DEVIN BECKER NP May 17, 2025 14:28
--- NOTE | 2025-05-17 16:25 | DVHPN2 ---
Progress Note - Dictate Date Seen: May 17, 2025 Medical Necessity Reason Pt with a Central, PICC or Fol: No Subjective Patient was seen and evaluated in follow up. Patient complains of all over weakness. 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 Telemetry reviewed. vital signs Vital Sign Date Time Temp Pulse Resp B/P (MAP) Pulse Ox O2 Delivery O2 Flow Rate FiO2 05/17/25 09:19 75 119/102 05/17/25 09:00 97.9 19 99 97.9 05/17/25 08:00 Room Air* 0 21 Total Intake and Output 05/16/25 05/16/25 05/17/25 15:00 23:00 07:00 Intake Total 700 ml Balance 700 ml medications Current Medications Medications Dose Ordered Sig/Jorge Route Start Time Stop Time Status Last Admin Dose Admin Atorvastatin Calcium 20 mg HS PO 05/14/25 22:00 05/16/25 22:27 20 MG Sodium Chloride 10 ml Q8HR IV 05/14/25 06:00 05/17/25 06:08 10 ML Acetaminophen/ Hydrocodone Bitart 1 tab Q4HP PRN PO 05/13/25 22:15 05/15/25 20:28 1 TAB Ondansetron HCl 4 mg Q4HP PRN IV 05/13/25 22:15 05/16/25 17:22 4 MG Docusate Sodium 100 mg BIDPRN PRN PO 05/13/25 22:15 Acetaminophen 650 mg Q6HP PRN PO 05/13/25 22:15 Nitroglycerin 0.4 mg Q5MINP PRN SL 05/13/25 22:15 Morphine Sulfate 2 mg Q30M PRN IV 05/13/25 22:15 05/14/25 05:36 2 MG Amiodarone HCl 200 mg DAILY PO 05/15/25 10:00 05/17/25 09:17 200 MG Apixaban 5 mg BID PO 05/14/25 22:00 05/17/25 09:18 5 MG Aspirin 81 mg DAILY PO 05/15/25 10:00 05/17/25 09:19 81 MG Atorvastatin Calcium 20 mg HS PO 05/14/25 22:00 UNV Furosemide 40 mg DAILY PO 05/15/25 10:00 05/17/25 09:18 40 MG Metoprolol Tartrate 25 mg BID PO 05/15/25 22:00 05/17/25 09:19 25 MG Thiamine HCl 100 mg DAILY PO 05/16/25 10:00 05/17/25 09:18 100 MG Multivit/Ca Carb/ B Cmplx/FA/Prenat 1 tab DAILY PO 05/16/25 10:00 05/17/25 09:18 1 TAB Lorazepam 0.5 mg Q8HP PRN IV 05/16/25 14:00 objective GENERAL: Alert and oriented x 3. No acute distress. EYES: PERRL, EOMI. Anicteric. HENT: Moist mucous membranes. LUNGS: Clear to auscultation bilaterally. CARDIOVASCULAR: Regular rate and rhythm. ABDOMEN: Soft, nontender and nondistended. EXTREMITIES: No edema. NEUROLOGIC: No focal neurological deficits. SKIN: Warm, dry. laboratory and microbiology Laboratory Tests 05/17/25 08:03 05/17/25 04:37 Test 05/17/25 08:03 Range/Units Serum Glucose 111 H 74-106 mg/dL Problem List NSTEMI. Acute on chronic CHF exacerbation. Acute on chronic systolic heart failure, EF 20%. Lactic acidosis. Hypertensive urgency. Acute hypoxic respiratory failure. Large supraumbilical hernia containing loops of nonobstructed small and large bowel. Medication noncompliance. Tobacco use. Alcohol use. Marijuana use. Cardiomegaly. Hyperbilirubinemia likely due to alcohol use. CAD. COPD. Hypertension. History of left hip surgery. History of left wrist surgery. History of pacemaker. Assessment/Plan Continued all current supportive medical care. Tylenol for pain management. Amiodarone. Eliquis. Aspirin. Diuretics with Lasix. Nitro SL. Additional plan as per the hospital course. Plan discussed with: Patient EDUARDO RUIZ MD May 17, 2025 12:57
[2025-05-17] MEDS: guaiFENesin-DM 100/10mg/5ml SYR PO PRN (17:58)
[2025-05-17] MEDS: ACETAMINOPHEN 325 MG TAB PO PRN (21:02)
[2025-05-18] VITALS (7 sets, daily range): BP systolic 117–132; BP diastolic 81–102; PULSE 59–119; RESP 17–18; TEMP 36.6; O2SAT 92–100
[2025-05-18 10:59] LABS: Potassium 4.2 mmol/L (3.5-5.1)
[2025-05-18 11:00] LABS: Anion Gap 9 (5-15); Calcium 9.6 mg/dL (8.7-10.4); Carbon Dioxide 28 mmol/L (20-31)
[2025-05-18 11:03] LABS: Chloride 98 mmol/L (98-107); Sodium 135 mmol/L (136-145)
[2025-05-18 11:05] LABS: BUN/Creatinine Ratio 36.3 (10.0-20.0)
[2025-05-18 11:06] LABS: Magnesium 2.1 mg/dL (1.6-2.6)
[2025-05-18 11:14] LABS: Blood Urea Nitrogen 57 mg/dL (9-23); Glucose 152 mg/dL (74-106)
--- NOTE | 2025-05-18 15:09 | DVHDS2 ---
Discharge Summary Date of Admission May 13, 2025 at 22:06 Date of Discharge: May 18, 2025 Admitting Diagnosis AFib with RVR Labs/Diagnostic Data: Laboratory Results Test 05/18/25 10:00 05/17/25 08:03 05/17/25 04:37 05/14/25 12:29 Sodium Level 135 mmol/L (136-145) Potassium Level 4.2 mmol/L (3.5-5.1) Chloride Level 98 mmol/L (98-107) Carbon Dioxide Level 28 mmol/L (20-31) Anion Gap 9 (5-15) Blood Urea Nitrogen 57 mg/dL (9-23) Creatinine 1.57 mg/dL (0.700-1.30) Glomerular Filtration Rate Calc 50 mL/min (>90) BUN/Creatinine Ratio 36.3 (10.0-20.0) Serum Glucose 152 mg/dL (74-106) Calcium Level 9.6 mg/dL (8.7-10.4) Magnesium Level 2.1 mg/dL (1.6-2.6) Total Bilirubin 0.6 mg/dL (0.2-1.0) Aspartate Amino Transferase (AST) 181 U/L (13-40) Alanine Aminotransferase (ALT) 337 U/L (7-40) Alkaline Phosphatase 140 U/L (46-116) Total Protein 7.3 g/dL (5.7-8.2) Albumin 3.9 g/dL (3.2-4.8) White Blood Count 7.8 10^3/uL (4.4-10.8) Red Blood Count 5.76 10^6/uL (4.5-5.90) Hemoglobin 17.2 g/dL (13.5-17.5) Hematocrit 51.6 % (41.0-53.0) Mean Corpuscular Volume 89.7 fL (80.0-100.0) Mean Corpuscular Hemoglobin 30.0 pg (28.0-32.0) Mean Corpuscular Hemoglobin Concent 33.4 g/dL (32.0-36.0) Red Cell Distribution Width 13.9 % (11.8-14.3) Platelet Count 214 10^3/uL (140-450) Mean Platelet Volume 9.2 fL (6.9-10.8) Neutrophils (%) (Auto) 57.2 % (37.0-80.0) Lymphocytes (%) (Auto) 25.7 % (10.0-50.0) Monocytes (%) (Auto) 16.4 % (0.0-12.0) Eosinophils (%) (Auto) 0.3 % (0.0-7.0) Basophils (%) (Auto) 0.4 % (0.0-2.0) Neutrophils # (Auto) 4.5 10 ^3/uL (1.6-8.6) Lymphocytes # (Auto) 2.0 10 ^3/uL (0.4-5.4) Monocytes # (Auto) 1.3 10 ^3/uL (0-1.3) Eosinophils # (Auto) 0 10 ^3/uL (0-0.8) Basophils # (Auto) 0 10 ^3/uL (0-0.2) Nucleated Red Blood Cells 0.5 % POC Glucose 97 mg/dl (70-106) Test 05/13/25 22:20 05/13/25 21:12 05/13/25 19:30 05/13/25 19:12 Troponin I High Sensitivity 146 ng/L (</=54) Lactic Acid Level 1.6 mmol/L (0.4-2.0) Urine Color Yellow (Yellow) Urine Clarity Turbid (Clear) Urine pH 6.0 (5.0-9.0) Urine Specific [place] 1.024 (1.001-1.035) Urine Protein 3+ (Negative) Urine Ketones Trace (Negative) Urine Blood 2+ /uL (Negative) Urine Nitrite Negative (Negative) Urine Bilirubin Negative (Negative) Urine Urobilinogen Normal mg/dL (Negative) Urine Leukocyte Esterase Negative /uL (Negative) Urine RBC 7 /hpf (0 - 3) Urine Microscopic WBC 5 /HPF (0-3) Urine Squamous Epithelial Cells Few /hpf (<5) Urine Bacteria None seen /hpf (None Seen) Urine Hyaline Casts Mod /lpf (0 - 2) Urine Mucus Few (None Seen) Urine Glucose Normal mg/dL (Normal) Urine Opiates Screen Neg (NEGATIVE) Urine Fentanyl Screen Neg (NEGATIVE) Urine Barbiturates Screen Neg (NEGATIVE) Urine Phencyclidine Screen Neg (NEGATIVE) Urine Amphetamines Screen Neg (NEGATIVE) Urine Benzodiazepines Screen Neg (NEGATIVE) Urine Cocaine Screen Neg (NEGATIVE) Urine Cannabinoids Screen Pos (NEGATIVE) B-Type Natriuretic Peptide 2117.76 pg/mL (0-100) Plasma/Serum Blood Alcohol 40.8 mg/dL (<10) Other Laboratory Tests 05/18/25 10:00 05/17/25 04:37 Brief Hx & Hospital Course: History of Present Illness The patient is a 60-year-old male with past medical history of noncompliance, Coronary artery disease, CHF, AFib, COPD, hypertension, and pleural effusion who presented to [facility] ED with complaint of palpitations associated with chest discomfort and shortness of breaths. Patient reports that on his AICD, suddenly discharging 4 times 20 minutes prior to ED arrival. Patient states he has been drinking alcohol and not taking his medication for over the past 2-3 days. Patient was seen and evaluated in the ED, laboratory data shows WBC 6.5, platelets 200, sodium 135, potassium 3.5, BUN 9, creatinine 1.09, glucose 122, calcium 9.0, troponin 152, lactic acid 2.6, BNP 2117.76, serum alcohol 40.8, blood pressure 160/111 trending down to 114/91, heart rate 134 trending down to 96, temperature 98.6 F, O2 saturation 97% on room air. Chest x-ray revealing cardiomegaly with pulmonary vascular congestion. Patient was started on amiodarone drip, please see medication orders section in the computer. On my assessment, patient denied chest pain at this moment, no headache, dizziness, diaphoresis, shortness of breath, no diarrhea, nausea, vomiting, fever, no chills. Patient was admitted for further evaluation and medical management. Course of hospitalization: Cardiology consultation was obtained. Patient was initially started on amiodarone drip, switched to p.o. rate control agents with beta-ene therapy. Patient now noted to be mostly V paced without any periods of atrial or ventricular tachycardia over the past 36 hours. Patient did have acute kidney injury secondary to IV diuresis. Patient was noted to have pulmonary vascular congestion upon arrival to the emergency room. Guideline directed medical therapy has been initiated, with CONI inhibitor held at this time as well as spironolactone. Discussing plan of care with the patient, it appears that he is noncompliant with his home medications as well as a daily alcoholic as well as daily use of cannabinoids. Clinically, patient has improved. He will be discharged home and is instructed to continue all of his home medications that includes carvedilol, Eliquis, Entresto, spironolactone, as well as Lasix. He will follow up with his exterior interior specialist Dr. Diane in one week. All questions answered. Physical examination General: Alert and Oriented x3. No acute distress. Well-nourished. Obese Eyes: EOMI. Anicteric. HENT: Moist mucous membranes. Lungs: Clear to auscultation bilaterally. No accessory muscle use. Cardiovascular: V paced Abdomen: Soft, non-tender and non-distended. No palpable masses. Large ventral hernia Extremities: No edema. Non-tender. Skin: No rashes or lesions. Warm. Neurologic: No focal neurological deficits. CN II-XII grossly intact, but not individually tested. Psychiatric: Cooperative. Appropriate mood and affect. Total time spent with patient discussing and formulating plan of care: 35 minutes. This medical document was created using an electronic medical record system with [employer] dictation system. Although this document has been carefully reviewed, there may still be some phonetic and typographical errors. These areas are purely typographical due to imperfections of the software programs, and do not reflect any compromise in the patient's medical care. Consults/Reason for consult Cardiology: NSTEMI type 2, AFib with RVR Condition at Discharge: Poor Final Diagnosis/Problems List AFib with RVR -acute on chronic systolic heart failure, HFrEF with ejection fraction 15% -alcoholism -medication noncompliance -acute kidney injury, vasomotor nephropathy -obesity -cannabinoid use -NSTEMI type 2, probably secondary to demand ischemia -Large ventral hernia Discharge Disposition: Home Discharge Instruct/Medications Diet: Consistent carbohydrate, Cardiac 2g Na,low cholest Activity: No Restrictions, As Tolerated Follow Up/Referral: Follow up with PCP in 1-2 weeks Follow up with exterior interior specialist, Dr. Juventino Diane in one week Medications: Continue all home medications as designated and discharge medication reconciliation Scheduled Amiodarone Hcl (Amiodarone Hcl), 200 MG PO DAILY Apixaban Base (Eliquis), 1 TAB PO BID Aspirin (Asa), 81 MG PO DAILY Atorvastatin Calcium (Atorvastatin Calcium), 1 TAB PO DAILY Carvedilol (Carvedilol), 1 TAB PO BID Furosemide (Furosemide), 40 MG PO DAILY Sacubitril-Valsartan (Entresto 24-26 mg), 1 TAB PO DAILY, (Reported) Spironolactone (Spironolactone), 1 TAB PO DAILY 36 Discharge Statement: "Patient was advised to return to the ER or call 911 if any headaches, dizziness, shortness of breath, chest pain, abdominal pain, bleeding, fevers, or worsening of medical condition. Patient was counseled about treatment plan, medications, possible side effects, patientverbalized understanding. All questions were answered to the best of my ability. This discharge took greater then 30 minutes in planning, reviewing documentation, counseling the patient, and discussing with other team members." ASSESSMENT ASSESSMENT Assessment AFib with RVR Date of Service: May 18, 2025 Billing Provider: DEVIN BECKER NP Common Visit Codes: [id number] INP/OBS CARE(HIGH) DEVIN BECKER NP May 18, 2025 15:09
--- NOTE | 2025-05-18 21:37 | DVHPN2 ---
Progress Note - Dictate Date Seen: May 18, 2025 Medical Necessity Reason Pt with a Central, PICC or Fol: No Subjective Patient was seen and evaluated in follow up. Patient has no new complaints at this time. Patient denies any cardiac symptoms. Patient is cardiac stable for discharge. Telemetry reviewed. vital signs Vital Sign Date Time Temp Pulse Resp B/P (MAP) Pulse Ox O2 Delivery O2 Flow Rate FiO2 05/18/25 09:29 80 124/102 05/18/25 09:00 97.7 18 92 97.7 05/18/25 08:00 Room Air* 0 21 Total Intake and Output 05/17/25 05/17/25 05/18/25 15:00 23:00 07:00 Intake Total 500 ml Output Total 680 ml Balance -180 ml medications Current Medications Medications Dose Ordered Sig/Jorge Route Start Time Stop Time Status Last Admin Dose Admin Atorvastatin Calcium 20 mg HS PO 05/14/25 22:00 05/17/25 21:02 20 MG Sodium Chloride 10 ml Q8HR IV 05/14/25 06:00 05/18/25 09:30 10 ML Acetaminophen/ Hydrocodone Bitart 1 tab Q4HP PRN PO 05/13/25 22:15 05/15/25 20:28 1 TAB Ondansetron HCl 4 mg Q4HP PRN IV 05/13/25 22:15 05/18/25 11:24 4 MG Docusate Sodium 100 mg BIDPRN PRN PO 05/13/25 22:15 Acetaminophen 650 mg Q6HP PRN PO 05/13/25 22:15 05/17/25 21:02 650 MG Nitroglycerin 0.4 mg Q5MINP PRN SL 05/13/25 22:15 Morphine Sulfate 2 mg Q30M PRN IV 05/13/25 22:15 05/14/25 05:36 2 MG Amiodarone HCl 200 mg DAILY PO 05/15/25 10:00 05/18/25 09:29 200 MG Apixaban 5 mg BID PO 05/14/25 22:00 05/18/25 09:29 5 MG Aspirin 81 mg DAILY PO 05/15/25 10:00 05/18/25 09:29 81 MG Atorvastatin Calcium 20 mg HS PO 05/14/25 22:00 UNV Furosemide 40 mg DAILY PO 05/15/25 10:00 05/18/25 09:29 40 MG Metoprolol Tartrate 25 mg BID PO 05/15/25 22:00 05/18/25 09:29 25 MG Thiamine HCl 100 mg DAILY PO 05/16/25 10:00 05/18/25 09:29 100 MG Multivit/Ca Carb/ B Cmplx/FA/Prenat 1 tab DAILY PO 05/16/25 10:00 05/18/25 09:30 1 TAB Lorazepam 0.5 mg Q8HP PRN IV 05/16/25 14:00 Guaifenesin/ Dextromethorphan 10 ml Q4HP PRN PO 05/17/25 17:00 05/17/25 21:55 10 ML objective GENERAL: Alert and oriented x 3. No acute distress. EYES: PERRL, EOMI. Anicteric. HENT: Moist mucous membranes. LUNGS: Clear to auscultation bilaterally. CARDIOVASCULAR: Regular rate and rhythm. ABDOMEN: Soft, nontender and nondistended. EXTREMITIES: No edema. NEUROLOGIC: No focal neurological deficits. SKIN: Warm, dry. laboratory and microbiology Laboratory Tests 05/18/25 10:00 05/17/25 04:37 Test 05/18/25 10:00 Range/Units Serum Glucose 152 H 74-106 mg/dL Problem List NSTEMI. Acute on chronic CHF exacerbation. Acute on chronic systolic heart failure, EF 20%. Lactic acidosis. Hypertensive urgency. Acute hypoxic respiratory failure. Large supraumbilical hernia containing loops of nonobstructed small and large bowel. Medication noncompliance. Tobacco use. Alcohol use. Marijuana use. Cardiomegaly. Hyperbilirubinemia likely due to alcohol use. CAD. COPD. Hypertension. History of left hip surgery. History of left wrist surgery. History of pacemaker. Assessment/Plan Continued all current supportive medical care. Tylenol for pain management. Amiodarone. Eliquis. Metoprolol, Aspirin. Diuretics with Lasix. Nitro SL. Additional plan as per the hospital course. Plan discussed with: Patient EDUARDO RUIZ MD May 18, 2025 12:05
== END 2025-05-18 18:06 | disposition home or self-care (01) | DRG 133 ==
LOC: ER 18:52 → EDBD 18:52 → OVERFLOW 22:06 → TELE-WESTW 05-15 18:19
PROVIDERS: ADMIT Nurse Practitioner Acute Care; ATTEND Nurse Practitioner Acute Care
DX: J96.01 Acute respiratory failure with hypoxia (principal); N17.0 Acute kidney failure with tubular necrosis; I50.23 Acute on chronic systolic (congestive) heart failure; E87.20 Acidosis, unspecified; Z79.01 Long term (current) use of anticoagulants; I11.0 Hypertensive heart disease with heart failure; J44.9 Chronic obstructive pulmonary disease, unspecified; E66.9 Obesity, unspecified; F10.20 Alcohol dependence, uncomplicated; I21.A1 Myocardial infarction type 2; I16.0 Hypertensive urgency; I48.91 Unspecified atrial fibrillation; F17.210 Nicotine dependence, cigarettes, uncomplicated; F12.90 Cannabis use, unspecified, uncomplicated; I25.10 Atherosclerotic heart disease of native coronary artery without angina pectoris; E80.6 Other disorders of bilirubin metabolism; K43.9 Ventral hernia without obstruction or gangrene; Y90.2 Blood alcohol level of 40-59 mg/100 ml; Z91.148 Patient's other noncompliance with medication regimen for other reason; Z95.810 Presence of automatic (implantable) cardiac defibrillator; Z82.49 Family history of ischemic heart disease and other diseases of the circulatory system; Z83.3 Family history of diabetes mellitus; Z80.1 Family history of malignant neoplasm of trachea, bronchus and lung; Z68.31 Body mass index [BMI] 31.0-31.9, adult
CPT/HCPCS: 36415; 71045; 80048; 80053; 80307; 80320; 81001; 82962; 83605; 83735; 83880; 84484; 85025; 93005; 96374; 96375; 99291; 99292; G0378; J2405; J2543